=== PATIENT | female | born 1950 | race African-American/Black ===

== ENCOUNTER → 2017-03-05 | Outpatient (CLI) | payer MEDICARE, MEDICAID ==
[~2017-03-05] MED LIST: ASPI-518 PO; CARV6.2548 MT; CARV6.2548 PO; CLOP75TA16 PO; DOCU-138 PO; FURO-151 MT; FURO40TA5 PO; GABA-531 PO; HYDR-4001 PO; HYDR-4134 PO; INSNOV SUBCUT; INSU100I22 SQ; NIFE30TA94 PO; NOVOLOG SUBCUT; PREG75CA PO; SIMV40TA5 PO
== END | disposition home or self-care (01) ==
LOC: MAMMO 08:18
PROVIDERS: ATTEND Internal Medicine Nephrology
DX: Z12.31 Encounter for screening mammogram for malignant neoplasm of breast (principal)
CPT/HCPCS: 77067

== ENCOUNTER → 2017-04-17 | Outpatient (CLI) | payer MEDICARE, MEDICAID ==
[~2017-04-17] MED LIST changes: -CARV6.2548 MT; -CARV6.2548 PO; -FURO-151 MT; -FURO40TA5 PO; -GABA-531 PO; -HYDR-4001 PO; -INSNOV SUBCUT
[2017-04-17 12:14] LABS: BASOPHILS % 1.8 % (0.0-2.0); HEMOGLOBIN. 11.8 g/dL (12.0-16.0); MEAN CORPUSCULAR HEMOGLOBIN 29.8 pg (28.0-32.0); MEAN CORPUSCULAR VOLUME 90.6 fL (81.0-99.0); MEAN PLATELET VOLUME 8.8 fl (7.4-10.4); MONOCYTES % 4.8 % (2.0-8.0); NEUTROPHILS % 64.4 % (40.0-76.0); PLATELET 248 x1000/uL (130-400); RED BLOOD CELL COUNT 3.97 mill/uL (4.2-5.4); RED CELL DISTRIBUTION WIDTH 14.7 % (11.6-14.6)
[2017-04-17 12:48] LABS: T4 FREE 1.01 ng/dL (0.76-1.46)
== END | disposition home or self-care (01) ==
LOC: LAB 11:32
PROVIDERS: ATTEND Internal Medicine Endocrinology, Diabetes & Metabolism
DX: E11.9 Type 2 diabetes mellitus without complications (principal); E55.9 Vitamin D deficiency, unspecified; E78.5 Hyperlipidemia, unspecified
CPT/HCPCS: 36415; 80048; 80061; 82306; 83036; 84439; 84443; 85025

== ENCOUNTER → 2017-06-05 | Outpatient (CLI) | payer MEDICARE, MEDICAID | END | disposition home or self-care (01) | LOC: US 08:30 | PROVIDERS: ATTEND Internal Medicine Nephrology | DX: M25.551 Pain in right hip (principal); M25.552 Pain in left hip; M79.605 Pain in left leg; M79.604 Pain in right leg; W19.XXXA Unspecified fall, initial encounter; Y93.89 Activity, other specified; Y92.89 Other specified places as the place of occurrence of the external cause; Y99.8 Other external cause status | CPT/HCPCS: 73521; 93970 ==

== ENCOUNTER → 2017-07-30 | Outpatient (CLI) | payer MEDICARE, MEDICAID | END | disposition home or self-care (01) | LOC: RAD 11:53 | PROVIDERS: ATTEND Internal Medicine Nephrology | DX: I51.7 Cardiomegaly (principal); E11.9 Type 2 diabetes mellitus without complications; E78.5 Hyperlipidemia, unspecified | CPT/HCPCS: 71046 ==

== ENCOUNTER → 2017-09-18 | Outpatient (CLI) | payer MEDICARE, MEDICAID | END | disposition home or self-care (01) | LOC: RAD 11:27 | PROVIDERS: ATTEND Internal Medicine Nephrology | DX: M25.561 Pain in right knee (principal); M25.562 Pain in left knee; M79.89 Other specified soft tissue disorders | CPT/HCPCS: 73562 ==

== ENCOUNTER 2017-12-18 12:56 | Inpatient (IN) | payer MEDICARE, MEDICAID ==
[~2017-12-18] VITALS: Ht 170.2 cm; Wt 90.7 kg
[~2017-12-18 12:56] MED LIST changes: +CARV6.2548 MT; +FURO-151 MT; +GABA-531 PO
[2017-12-18] MEDS ORDERED: ASPIRIN 81MG TABLET PO ONE (13:45)
[2017-12-18 14:52] LABS: BASOPHILS % 1.2 % (0.0-2.0); EOSINOPHILS % 0.8 % (0.0-5.0); HEMATOCRIT. 38.2 % (36.0-48.0); HEMOGLOBIN. 12.3 g/dL (12.0-16.0); LYMPHOCYTES % 31.5 % (20.0-50.0); MEAN CORPUSCULAR HEMOGLOBIN 29.2 pg (28.0-32.0); MEAN CORPUSCULAR VOLUME 90.8 fL (81.0-99.0); MEAN PLATELET VOLUME 9.7 fl (7.4-10.4); MONOCYTES % 4.7 % (2.0-8.0); NEUTROPHILS % 61.8 % (40.0-76.0); PLATELET 190 x1000/uL (130-400); RED BLOOD CELL COUNT 4.21 mill/uL (4.2-5.4); RED CELL DISTRIBUTION WIDTH 15.2 % (11.6-14.6)
[2017-12-18 15:04] LABS: CHLORIDE 110 mEq/L (98-107)
[2017-12-18] MEDS ORDERED: ONDANSETRON HCL 4MG/2ML INJ IV PRN (16:00)
[2017-12-18] MEDS ORDERED: MORPHINE SULFATE 4 MG/ML CPJ (NOT FOR IM USE) IV PRN (16:00)
[2017-12-18] MEDS ORDERED: CLONIDINE 0.1MG TABLET PO PRN (16:00)
[2017-12-18] MEDS ORDERED: ACETAMINOPHEN 325MG TABLET PO PRN (16:00)
[2017-12-18] MEDS ORDERED: DOCUSATE SODIUM 100MG CAPSULE PO PRN (16:00)
[2017-12-18] MEDS ORDERED: INSULIN NPH (HUMULIN-N) 100 UNITS/ML 3ML VIAL SUBCUT ONE (16:15)
[2017-12-18] MEDS ORDERED: ENOXAPARIN 30MG/0.3ML SYR SUBCUT SCH (17:30)
[2017-12-18] MEDS: FUROSEMIDE 40MG/4ML VIAL IV SCH (17:44)
[2017-12-18] MEDS ORDERED: LEVOFLOXACIN 500MG PREMIX 100 ML IV NR (18:30)
[2017-12-18 18:32] VITALS: BP 137/75
[2017-12-18 20:00] VITALS: BP 149/82
[2017-12-18] MEDS: GABAPENTIN 100MG CAPSULE PO SCH (21:49)
[2017-12-18] MEDS: ATORVASTATIN CALCIUM 20MG TABLET PO SCH (21:49)
[2017-12-18] MEDS: HYDRALAZINE HCL 25MG TABLET PO SCH (21:49)
[2017-12-18] MEDS: CARVEDILOL 6.25 MG TABLET PO SCH (21:51)
[2017-12-18] MEDS ORDERED: INSULIN GLARGINE UD 100 UNITS/ML SYR SUBCUT SCH (22:00)
[2017-12-18] MEDS ORDERED: DEXTROSE 50% WATER 50ML SYRINGE IV PRN (22:15)
[2017-12-19] VITALS: BP 111/57
[2017-12-19 04:00] VITALS: BP 125/59
[2017-12-19] MEDS: BLOOD SUGAR DIAGNOSTIC STRIP TEST SCH ×4 (05:43→21:22)
[2017-12-19] MEDS: HYDRALAZINE HCL 25MG TABLET PO SCH ×3 (05:47→21:22)
[2017-12-19] MEDS: GABAPENTIN 100MG CAPSULE PO SCH ×3 (05:48→21:21)
[2017-12-19 08:00] VITALS: BP 128/74
[2017-12-19] MEDS: INSULIN LISPRO 100 UNITS/ML SUBCUT SCH ×4 (08:10→21:22)
[2017-12-19] MEDS: FUROSEMIDE 40MG/4ML VIAL IV SCH (08:50)
[2017-12-19] MEDS: ASPIRIN 81MG TABLET PO SCH (08:51)
[2017-12-19] MEDS: CLOPIDOGREL 75MG TABLET PO SCH (08:51)
[2017-12-19] MEDS: CARVEDILOL 6.25 MG TABLET PO SCH ×2 (08:51→21:22)
[2017-12-19 12:00] VITALS: BP 139/76
[2017-12-19 13:25] LABS: BASOPHILS % 0.7 % (0.0-2.0); EOSINOPHILS % 0.1 % (0.0-5.0); HEMATOCRIT. 36.1 % (36.0-48.0); HEMOGLOBIN. 11.8 g/dL (12.0-16.0); MEAN CORPUSCULAR HEMOGLOBIN 29.4 pg (28.0-32.0); MEAN CORPUSCULAR VOLUME 89.7 fL (81.0-99.0); MEAN PLATELET VOLUME 10.1 fl (7.4-10.4); MONOCYTES % 3.5 % (2.0-8.0); NEUTROPHILS % 75.7 % (40.0-76.0); PLATELET 205 x1000/uL (130-400); RED BLOOD CELL COUNT 4.03 mill/uL (4.2-5.4); RED CELL DISTRIBUTION WIDTH 15.1 % (11.6-14.6)
[2017-12-19 14:12] LABS: CHLORIDE 107 mEq/L (98-107)
[2017-12-19 14:17] LABS: LDL CHOLESTEROL 79 mg/dL (5-100)
[2017-12-19 14:23] LABS: CREATINE KINASE 85 IU/L (26-192); CREATINE KINASE MB FRACTION 3.3 ng/mL (0.5-3.6); HDL CHOLESTEROL 56 mg/dL (40-59)
[2017-12-19 16:00] VITALS: BP 130/71
[2017-12-19] MEDS ORDERED: SODIUM POLYSTYRENE SULFONATE 15 G/60 ML BOT PO SCH (18:15)
[2017-12-19] MEDS ORDERED: LEVOFLOXACIN 250MG PREMIX 50 ML IV SCH (18:30)
[2017-12-19 18:39] LABS: CLARITY URINE CLEAR (CLEAR); COLOR URINE YELLOW (YELLOW); KETONES URINE NEGATIVE (NEGATIVE); LEUKOCYTE ESTERASE URINE NEGATIVE (NEGATIVE); NITRITE URINE NEGATIVE (NEGATIVE); OCCULT BLOOD URINE NEGATIVE (NEGATIVE); PROTEIN URINE 2+ (NEGATIVE); UROBILINOGEN URINE 0.2 E.U./dL (0.2-1.0)
[2017-12-19 19:48] LABS: *AMPHETAMINES SCREEN URINE NEGATIVE (NEGATIVE); *BARBITURATES SCREEN URINE NEGATIVE (NEGATIVE); *BENZODIAZEPINES SCREEN URINE NEGATIVE (NEGATIVE); *COCAINE SCREEN URINE NEGATIVE (NEGATIVE); METHADONE URINE SCREEN NEGATIVE (NEGATIVE)
[2017-12-19 19:49] LABS: CANNABINOID URINE SCREEN NEGATIVE (NEGATIVE); OPIATES URINE SCREEN PRESUMTIVE POSITIVE (NEGATIVE); PHENCYCLIDINE URINE SCREEN NEGATIVE (NEGATIVE)
[2017-12-19 20:00] VITALS: BP 143/78
[2017-12-19] MEDS: ATORVASTATIN CALCIUM 20MG TABLET PO SCH (21:21)
[2017-12-19] MEDS ORDERED: INSULIN GLARGINE UD 100 UNITS/ML SYR SUBCUT SCH (22:00)
[2017-12-19] MEDS: IPRATROPIUM/ALBUTEROL 0.5-3(2.5)MG/3ML NEB INH SCH (22:06)
[2017-12-20] VITALS: BP 134/71
[2017-12-20 04:00] VITALS: BP 131/61
[2017-12-20] MEDS: IPRATROPIUM/ALBUTEROL 0.5-3(2.5)MG/3ML NEB INH SCH ×2 (04:37→07:35)
[2017-12-20] MEDS: GABAPENTIN 100MG CAPSULE PO SCH ×2 (05:41→15:34)
[2017-12-20] MEDS: HYDRALAZINE HCL 25MG TABLET PO SCH ×2 (05:42→15:34)
[2017-12-20 06:14] LABS: BASOPHILS % 0.7 % (0.0-2.0); EOSINOPHILS % 0.7 % (0.0-5.0); HEMATOCRIT. 37.4 % (36.0-48.0); HEMOGLOBIN. 12.1 g/dL (12.0-16.0); LYMPHOCYTES % 31.9 % (20.0-50.0); MEAN CORPUSCULAR HEMOGLOBIN 29.5 pg (28.0-32.0); MEAN CORPUSCULAR VOLUME 91.1 fL (81.0-99.0); MEAN PLATELET VOLUME 10.1 fl (7.4-10.4); MONOCYTES % 7.1 % (2.0-8.0); NEUTROPHILS % 59.6 % (40.0-76.0); PLATELET 189 x1000/uL (130-400); RED CELL DISTRIBUTION WIDTH 15.1 % (11.6-14.6)
[2017-12-20] MEDS: BLOOD SUGAR DIAGNOSTIC STRIP TEST SCH ×2 (07:40→11:58)
[2017-12-20 08:00] VITALS: BP 118/57
[2017-12-20] MEDS: CLOPIDOGREL 75MG TABLET PO SCH (09:00)
[2017-12-20] MEDS: CARVEDILOL 6.25 MG TABLET PO SCH (09:00)
[2017-12-20] MEDS: ASPIRIN 81MG TABLET PO SCH (09:00)
[2017-12-20] MEDS: FUROSEMIDE 40MG/4ML VIAL IV SCH (09:01)
[2017-12-20] MEDS: INSULIN LISPRO 100 UNITS/ML SUBCUT SCH ×2 (09:02→13:04)
[2017-12-20 12:00] VITALS: BP 122/59
[2017-12-20 14:11] VITALS: BP 20/141
[2017-12-20 16:00] VITALS: BP 141/65
[2017-12-21] MEDS ORDERED: LEVOFLOXACIN 250MG TABLET PO SCH (17:00)
== END 2017-12-20 17:19 | disposition home or self-care (01) | DRG 291 ==
LOC: ER 13:49 → 7WST 15:38 → EDBEDREQTM 15:42 → EDBEDREQ 15:42 → ENRESERV 15:55
PROVIDERS: ADMIT Internal Medicine Nephrology; ATTEND Internal Medicine Nephrology
DX: I13.0 Hypertensive heart and chronic kidney disease with heart failure and stage 1 through stage 4 chronic kidney disease, or unspecified chronic kidney disease (principal); I50.23 Acute on chronic systolic (congestive) heart failure; N17.9 Acute kidney failure, unspecified; E87.2 Acidosis; E44.0 Moderate protein-calorie malnutrition; N18.4 Chronic kidney disease, stage 4 (severe); E16.0 Drug-induced hypoglycemia without coma; E11.22 Type 2 diabetes mellitus with diabetic chronic kidney disease; E11.649 Type 2 diabetes mellitus with hypoglycemia without coma; E78.5 Hyperlipidemia, unspecified; F17.200 Nicotine dependence, unspecified, uncomplicated; J44.9 Chronic obstructive pulmonary disease, unspecified; I34.0 Nonrheumatic mitral (valve) insufficiency; I25.5 Ischemic cardiomyopathy; T40.2X5A Adverse effect of other opioids, initial encounter; Z86.73 Personal history of transient ischemic attack (TIA), and cerebral infarction without residual deficits; Y92.89 Other specified places as the place of occurrence of the external cause; Z68.31 Body mass index [BMI] 31.0-31.9, adult
CPT/HCPCS: 36415; 71045; 78582; 80048; 80061; 80305; 82550; 82553; 82962; 83036; 83735; 83880; 84439; 84443; 84484; 85379; 86803; 93005; 93306; 93970; 97162; 97166; 99291; A9558; C1893; J1650; J1815; J1940; J1956; J2270; J7620

== ENCOUNTER 2017-12-23 21:26 | Inpatient (IN) | payer MEDICARE, MEDICAID ==
[~2017-12-23] VITALS: Ht 170.2 cm; Wt 102.5 kg
[2017-12-23] MEDS ORDERED: HYDROCODONE/ACETAMINOPHEN 5/325MG TABLET PO STA (22:56)
[2017-12-23] MEDS ORDERED: METHYLPREDNISOLONE SOD SUCC 125 MG/2 ML VIAL IV STA (22:56)
[2017-12-23] MEDS ORDERED: IPRATROPIUM BROMIDE (0.02%) 0.5MG/2.5ML NEB HHN STA (22:56)
[2017-12-23] MEDS ORDERED: FUROSEMIDE 40MG/4ML VIAL IVP ONE (23:00)
[2017-12-23] MEDS ORDERED: CARVEDILOL 6.25 MG TABLET PO ONE (23:00)
[2017-12-23] MEDS ORDERED: HYDRALAZINE HCL 25MG TABLET PO ONE (23:00)
[2017-12-23] MEDS ORDERED: ASPIRIN 81MG TABLET PO ONE (23:00)
[2017-12-23] MEDS: ALBUTEROL (0.083%) 2.5MG/3ML NEB HHN SCH ×2 (23:10→23:40)
[2017-12-23] MEDS ORDERED: HYDROCODONE/ACETAMINOPHEN 5/325MG TABLET PO SCH ×2 (23:27→23:34)
[2017-12-24] VITALS (9 sets, daily range): BP systolic 117–158; BP diastolic 71–95
[2017-12-24] MEDS ORDERED: LEVOFLOXACIN 750MG PREMIX 150 ML IV ONE (00:15)
[2017-12-24 00:18] LABS: CLARITY URINE CLEAR (CLEAR); COLOR URINE YELLOW (YELLOW); KETONES URINE NEGATIVE (NEGATIVE); LEUKOCYTE ESTERASE URINE NEGATIVE (NEGATIVE); NITRITE URINE NEGATIVE (NEGATIVE); OCCULT BLOOD URINE TRACE (NEGATIVE); PROTEIN URINE 2+ (NEGATIVE); SPECIFIC GRAVITY URINE 1.014 (1.005-1.030); UROBILINOGEN URINE 0.2 E.U./dL (0.2-1.0)
[2017-12-24] MEDS: ALBUTEROL (0.083%) 2.5MG/3ML NEB HHN SCH (00:20)
[2017-12-24 00:24] LABS: BG BASE EXCESS -2.4 mmol/L (-2.0-2.0); BG BILEVEL POS AIRWAY PRESSURE 15/5; BG CARBOXYHEMOGLOBIN 2.3 % (0.5-1.5); BG DEOXYHEMOGLOBIN 1.8 % (0.0-5.0); BG FRACTION INSPIRED OXYGEN 60; BG HCO3 ACT 27.7 mmol/L (22.0-26.0); BG METHEMOGLOBIN 0.3 % (0.0-1.5); BG OXYGEN SATURATION 98.2 % (92.0-98.5); BG OXYHEMOGLOBIN 95.6 % (94.0-97.0); BG PCO2 75.8 mmHg (35.0-45.0); BG PO2 139.1 mmHg (75.0-100.0); BG SAMPLE SITE RIGHT RADIAL; BG VENT MODE MASK - BIPAP; BG VENT RATE 18 set
[2017-12-24 00:50] LABS: BASOPHILS % 0.5 % (0.0-2.0); EOSINOPHILS % 0.5 % (0.0-5.0); HEMATOCRIT. 39.8 % (36.0-48.0); HEMOGLOBIN. 12.7 g/dL (12.0-16.0); LYMPHOCYTES % 20.5 % (20.0-50.0); MEAN CORPUSCULAR HEMOGLOBIN 29.9 pg (28.0-32.0); MEAN CORPUSCULAR VOLUME 93.6 fL (81.0-99.0); MEAN PLATELET VOLUME 9.5 fl (7.4-10.4); NEUTROPHILS % 74.5 % (40.0-76.0); PLATELET 219 x1000/uL (130-400); RED BLOOD CELL COUNT 4.25 mill/uL (4.2-5.4); RED CELL DISTRIBUTION WIDTH 15.4 % (11.6-14.6)
[2017-12-24 00:55] LABS: PARTIAL THROMBOPLASTIN TIME 26.1 sec (23.4-31.0); PROTHROMBIN TIME 10.5 sec (9.1-11.1)
[2017-12-24 00:56] LABS: CHLORIDE 104 mEq/L (98-107)
[2017-12-24] MEDS ORDERED: INSULIN LISPRO 100 UNITS/ML SUBCUT SCH ×2 (02:44→06:30)
[2017-12-24] MEDS ORDERED: DEXTROSE 50% WATER 50ML SYRINGE IV PRN (06:30)
[2017-12-24] MEDS ORDERED: FUROSEMIDE 40MG/4ML VIAL IVP SCH ×2 (06:30→09:00)
[2017-12-24] MEDS: BLOOD SUGAR DIAGNOSTIC STRIP TEST SCH ×4 (06:49→21:33)
[2017-12-24] MEDS: INSULIN LISPRO 100 UNITS/ML SUBCUT SCH ×4 (06:52→21:34)
[2017-12-24] MEDS ORDERED: POTASSIUM CHLORIDE 20MEQ TABLET SR PO SCH (09:00)
[2017-12-24] MEDS ORDERED: INSULIN GLARGINE UD 100 UNITS/ML SYR SUBCUT SCH (10:00)
[2017-12-24 12:03] LABS: HEMATOCRIT. 36.6 % (36.0-48.0); MEAN CORPUSCULAR HEMOGLOBIN 29.5 pg (28.0-32.0); MEAN CORPUSCULAR VOLUME 90.1 fL (81.0-99.0); MEAN PLATELET VOLUME 9.7 fl (7.4-10.4); PLATELET 194 x1000/uL (130-400); RED BLOOD CELL COUNT 4.06 mill/uL (4.2-5.4); RED CELL DISTRIBUTION WIDTH 14.9 % (11.6-14.6)
[2017-12-24] MEDS: DOCUSATE SODIUM 250MG CAPSULE PO SCH (15:51)
[2017-12-24] MEDS: GABAPENTIN 300MG CAPSULE PO SCH (15:51)
[2017-12-24] MEDS: CARVEDILOL 6.25 MG TABLET PO SCH ×2 (15:52→21:32)
[2017-12-24] MEDS: NIFEDIPINE XL 90MG TAB PO SCH (15:52)
[2017-12-24] MEDS: HYDRALAZINE HCL 25MG TABLET PO SCH ×2 (15:52→21:31)
[2017-12-24] MEDS: ASPIRIN 81MG TABLET PO SCH (15:53)
[2017-12-24] MEDS ORDERED: IPRATROPIUM/ALBUTEROL 0.5-3(2.5)MG/3ML NEB HHN PRN (16:00)
[2017-12-24] MEDS: CLOPIDOGREL 75MG TABLET PO SCH (16:01)
[2017-12-24] MEDS: IPRATROPIUM/ALBUTEROL 0.5-3(2.5)MG/3ML NEB HHN SCH ×2 (16:32→21:44)
[2017-12-24 16:40] LABS: BG CARBOXYHEMOGLOBIN 0.5 % (0.5-1.5); BG DEOXYHEMOGLOBIN 4.3 % (0.0-5.0); BG FRACTION INSPIRED OXYGEN 32; BG HCO3 ACT 25.6 mmol/L (22.0-26.0); BG METHEMOGLOBIN 0.3 % (0.0-1.5); BG OXYGEN SATURATION 95.7 % (92.0-98.5); BG OXYHEMOGLOBIN 94.9 % (94.0-97.0); BG PCO2 45.7 mmHg (35.0-45.0); BG PH 7.367 (7.350-7.450); BG PO2 79.1 mmHg (75.0-100.0); BG SAMPLE SITE RIGHT BRACHIAL; BG VENT MODE NASAL CANNULA
[2017-12-24 16:58] LABS: PLATELET ESTIMATE NORMAL
[2017-12-24] MEDS: ATORVASTATIN CALCIUM 20MG TABLET PO SCH (21:31)
[2017-12-24] MEDS: BUDESONIDE 0.5MG/2ML NEB HHN SCH (21:44)
[2017-12-24] MEDS ORDERED: LEVOFLOXACIN 250MG PREMIX 50 ML IV SCH (23:00)
[2017-12-25] VITALS (10 sets, daily range): BP systolic 90–134; BP diastolic 52–85
[2017-12-25] MEDS: IPRATROPIUM/ALBUTEROL 0.5-3(2.5)MG/3ML NEB HHN SCH ×5 (01:17→21:03)
[2017-12-25] MEDS: HYDRALAZINE HCL 25MG TABLET PO SCH ×3 (05:21→21:10)
[2017-12-25] MEDS ORDERED: INSULIN LISPRO 100 UNITS/ML SUBCUT SCH (07:30)
[2017-12-25] MEDS: BLOOD SUGAR DIAGNOSTIC STRIP TEST SCH ×4 (07:30→20:20)
[2017-12-25 08:07] LABS: BASOPHILS % 0.3 % (0.0-2.0); EOSINOPHILS % 0.1 % (0.0-5.0); HEMATOCRIT. 33.9 % (36.0-48.0); HEMOGLOBIN. 11.1 g/dL (12.0-16.0); MEAN CORPUSCULAR HEMOGLOBIN 29.5 pg (28.0-32.0); MEAN CORPUSCULAR VOLUME 90.3 fL (81.0-99.0); MEAN PLATELET VOLUME 10.1 fl (7.4-10.4); MONOCYTES % 4.6 % (2.0-8.0); PLATELET 181 x1000/uL (130-400); RED BLOOD CELL COUNT 3.76 mill/uL (4.2-5.4); RED CELL DISTRIBUTION WIDTH 15.1 % (11.6-14.6)
[2017-12-25] MEDS: GABAPENTIN 300MG CAPSULE PO SCH (08:44)
[2017-12-25] MEDS: ASPIRIN 81MG TABLET PO SCH (08:44)
[2017-12-25] MEDS: DOCUSATE SODIUM 250MG CAPSULE PO SCH (08:44)
[2017-12-25] MEDS ORDERED: ACETAMINOPHEN 650MG/20.3ML UDC PO PRN (08:45)
[2017-12-25] MEDS ORDERED: ONDANSETRON HCL 4MG/2ML INJ IV PRN (08:45)
[2017-12-25] MEDS: CARVEDILOL 6.25 MG TABLET PO SCH ×2 (08:45→20:20)
[2017-12-25] MEDS ORDERED: CLONIDINE 0.1MG TABLET PO PRN (08:45)
[2017-12-25] MEDS: NIFEDIPINE XL 90MG TAB PO SCH (08:46)
[2017-12-25] MEDS: INSULIN LISPRO (LOW DOSE) 100 UNITS/ML SUBCUT SCH ×4 (08:53→20:20)
[2017-12-25] MEDS: CLOPIDOGREL 75MG TABLET PO SCH (08:53)
[2017-12-25] MEDS: INSULIN LISPRO 100 UNITS/ML SUBCUT SCH ×3 (08:53→18:16)
[2017-12-25] MEDS: HYDROCODONE/ACETAMINOPHEN 5/325MG TABLET PO PRN ×2 (08:54→15:52)
[2017-12-25] MEDS: FUROSEMIDE 40MG TABLET PO SCH (09:02)
[2017-12-25] MEDS: INSULIN GLARGINE UD 100 UNITS/ML SYR SUBCUT SCH (10:39)
[2017-12-25] MEDS: BUDESONIDE 0.5MG/2ML NEB HHN SCH ×2 (12:13→21:03)
[2017-12-25] MEDS ORDERED: CEFTRIAXONE 1 G PREMIX 50 ML IV SCH (15:00)
[2017-12-25] MEDS: AZITHROMYCIN 500 MG in DEXT 5% WATER 250 ML IV SCH (15:19)
[2017-12-25] MEDS ORDERED: ACETYLCYSTEINE 200MG/ML 20% VIAL 4ML PO NR (16:30)
[2017-12-25] MEDS: CEFTRIAXONE 1 G PREMIX 50 ML IV SCH (18:13)
[2017-12-25] MEDS: ATORVASTATIN CALCIUM 20MG TABLET PO SCH (20:19)
[2017-12-26] VITALS (12 sets, daily range): BP systolic 106–143; BP diastolic 57–71
[2017-12-26] MEDS: IPRATROPIUM/ALBUTEROL 0.5-3(2.5)MG/3ML NEB HHN SCH ×6 (00:10→21:10)
[2017-12-26] MEDS: HYDROCODONE/ACETAMINOPHEN 5/325MG TABLET PO PRN ×2 (03:43→20:55)
[2017-12-26] MEDS: HYDRALAZINE HCL 25MG TABLET PO SCH ×3 (05:26→21:33)
[2017-12-26] MEDS: INSULIN LISPRO 100 UNITS/ML SUBCUT SCH ×3 (07:30→17:30)
[2017-12-26] MEDS: INSULIN LISPRO (LOW DOSE) 100 UNITS/ML SUBCUT SCH (08:00)
[2017-12-26] MEDS: BLOOD SUGAR DIAGNOSTIC STRIP TEST SCH ×4 (08:21→21:33)
[2017-12-26] MEDS: FUROSEMIDE 40MG TABLET PO SCH (08:33)
[2017-12-26] MEDS: DOCUSATE SODIUM 250MG CAPSULE PO SCH (08:33)
[2017-12-26] MEDS: CLOPIDOGREL 75MG TABLET PO SCH (08:33)
[2017-12-26] MEDS: CARVEDILOL 6.25 MG TABLET PO SCH ×2 (08:34→21:32)
[2017-12-26] MEDS: NIFEDIPINE XL 90MG TAB PO SCH (08:34)
[2017-12-26] MEDS: ASPIRIN 81MG TABLET PO SCH (08:34)
[2017-12-26] MEDS: GABAPENTIN 300MG CAPSULE PO SCH (08:34)
[2017-12-26] MEDS: BUDESONIDE 0.5MG/2ML NEB HHN SCH (08:55)
[2017-12-26] MEDS: INSULIN GLARGINE UD 100 UNITS/ML SYR SUBCUT SCH ×2 (10:00→11:30)
[2017-12-26] MEDS ORDERED: INSULIN LISPRO 100 UNITS/ML SUBCUT SCH (12:30)
[2017-12-26] MEDS: AZITHROMYCIN 500 MG in DEXT 5% WATER 250 ML IV SCH (14:18)
[2017-12-26] MEDS: CEFTRIAXONE 1 G PREMIX 50 ML IV SCH (17:43)
[2017-12-26] MEDS: INSULIN LISPRO (CUSTOM DOSE) 100 UNITS/ML SUBCUT SCH (17:44)
[2017-12-26] MEDS ORDERED: NITROGLYCERIN 0.4MG TABLET SL SL PRN (19:45)
[2017-12-26] MEDS: ATORVASTATIN CALCIUM 20MG TABLET PO SCH (21:31)
[2017-12-27] VITALS (7 sets, daily range): BP systolic 98–148; BP diastolic 49–77
[2017-12-27] MEDS: IPRATROPIUM/ALBUTEROL 0.5-3(2.5)MG/3ML NEB HHN SCH ×3 (01:30→08:11)
[2017-12-27] MEDS: HYDRALAZINE HCL 25MG TABLET PO SCH (05:55)
[2017-12-27] MEDS: INSULIN LISPRO (CUSTOM DOSE) 100 UNITS/ML SUBCUT SCH (07:30)
[2017-12-27] MEDS: BLOOD SUGAR DIAGNOSTIC STRIP TEST SCH (07:30)
[2017-12-27] MEDS: INSULIN LISPRO 100 UNITS/ML SUBCUT SCH (07:30)
[2017-12-27] MEDS: HYDROCODONE/ACETAMINOPHEN 5/325MG TABLET PO PRN (07:49)
[2017-12-27] MEDS: BUDESONIDE 0.5MG/2ML NEB HHN SCH (08:10)
[2017-12-27] MEDS ORDERED: ISOSORBIDE MONONITRATE 30MG TABLET SR 24HR PO SCH (09:00)
[2017-12-27] MEDS: CLOPIDOGREL 75MG TABLET PO SCH (09:08)
[2017-12-27] MEDS: ASPIRIN 81MG TABLET PO SCH (09:08)
[2017-12-27] MEDS: GABAPENTIN 300MG CAPSULE PO SCH (09:08)
[2017-12-27] MEDS: NIFEDIPINE XL 90MG TAB PO SCH (09:09)
[2017-12-27] MEDS: CARVEDILOL 6.25 MG TABLET PO SCH (09:09)
[2017-12-27] MEDS: DOCUSATE SODIUM 250MG CAPSULE PO SCH (09:09)
[2017-12-27] MEDS: FUROSEMIDE 40MG TABLET PO SCH (09:10)
[2017-12-27] MEDS: INSULIN GLARGINE UD 100 UNITS/ML SYR SUBCUT SCH (10:36)
[2017-12-27] MEDS ORDERED: INSULIN GLARGINE UD 100 UNITS/ML SYR SUBCUT SCH (12:00)
[2017-12-27] MEDS ORDERED: INSULIN LISPRO 100 UNITS/ML SUBCUT SCH (12:30)
== END 2017-12-27 11:15 | disposition home or self-care (01) | DRG 871 ==
LOC: ER 21:26 → 5EST 12-24 00:31 → EDBEDREQDT 12-24 00:34 → EDBEDREQTM 12-24 00:34 → EDBEDREQ 12-24 00:34 → EDBEDREQSVC 12-24 00:34 → ENRESERV 12-24 01:45
PROVIDERS: ADMIT Internal Medicine Nephrology; ATTEND Internal Medicine Nephrology
PROC: 5A09357 Assistance with Respiratory Ventilation, Less than 24 Consecutive Hours, Continuous Positive Airway Pressure (ICD-10-PCS; principal; 2017-12-24)
DX: A41.9 Sepsis, unspecified organism (principal); I50.23 Acute on chronic systolic (congestive) heart failure; J96.22 Acute and chronic respiratory failure with hypercapnia; J18.9 Pneumonia, unspecified organism; I13.0 Hypertensive heart and chronic kidney disease with heart failure and stage 1 through stage 4 chronic kidney disease, or unspecified chronic kidney disease; J44.1 Chronic obstructive pulmonary disease with (acute) exacerbation; E87.2 Acidosis; I42.9 Cardiomyopathy, unspecified; J44.0 Chronic obstructive pulmonary disease with (acute) lower respiratory infection; N18.4 Chronic kidney disease, stage 4 (severe); E11.22 Type 2 diabetes mellitus with diabetic chronic kidney disease; F17.210 Nicotine dependence, cigarettes, uncomplicated; E11.42 Type 2 diabetes mellitus with diabetic polyneuropathy; E11.51 Type 2 diabetes mellitus with diabetic peripheral angiopathy without gangrene; D64.9 Anemia, unspecified; E11.65 Type 2 diabetes mellitus with hyperglycemia; E55.9 Vitamin D deficiency, unspecified; E78.00 Pure hypercholesterolemia, unspecified; Z60.2 Problems related to living alone; Z80.8 Family history of malignant neoplasm of other organs or systems; Z82.49 Family history of ischemic heart disease and other diseases of the circulatory system; Z83.3 Family history of diabetes mellitus; Z86.73 Personal history of transient ischemic attack (TIA), and cerebral infarction without residual deficits; Z99.81 Dependence on supplemental oxygen; Z79.4 Long term (current) use of insulin; Z79.82 Long term (current) use of aspirin; Z79.899 Other long term (current) drug therapy; Z98.49 Cataract extraction status, unspecified eye
CPT/HCPCS: 36415; 36600; 71045; 80048; 82010; 82375; 82805; 82962; 83605; 83880; 84132; 84145; 84443; 84481; 84484; 86376; 87804; 93005; 93306; 93970; 94003; 94640; 94660; 96374; 99285; C1893; J0456; J0696; J1815; J1940; J1956; J2930; J7040; J7060; J7608; J7611; J7620; J7626

== ENCOUNTER 2017-12-31 13:25 | Inpatient (IN) | payer MEDICARE, MEDICAID ==
[~2017-12-31] VITALS: Ht 170.2 cm; Wt 97.7 kg
[2017-12-31 22:00] VITALS: BP 127/72
[2017-12-31 23:24] VITALS: BP 128/68
[2017-12-31] MEDS ORDERED: DOCUSATE SODIUM 100MG CAPSULE PO PRN (23:30)
[2017-12-31] MEDS ORDERED: ACETAMINOPHEN 325MG TABLET PO PRN (23:30)
[2017-12-31] MEDS ORDERED: MORPHINE SULFATE 4 MG/ML CPJ (NOT FOR IM USE) IV PRN (23:30)
[2017-12-31] MEDS ORDERED: HEPARIN 25,000 UNITS PREMIX 500 ML IV PRN (23:30)
[2017-12-31] MEDS ORDERED: ZOLPIDEM TARTRATE 5MG TABLET PO PRN (23:30)
[2017-12-31] MEDS ORDERED: ONDANSETRON HCL 4MG/2ML INJ IV PRN (23:30)
[2017-12-31] MEDS ORDERED: CLONIDINE 0.1MG TABLET PO PRN (23:30)
[2018-01-01] VITALS (14 sets, daily range): BP systolic 106–134; BP diastolic 37–78
[2018-01-01] MEDS ORDERED: DEXTROSE 50% WATER 50ML SYRINGE IV PRN
[2018-01-01 01:25] LABS: BASOPHILS % 0.2 % (0.0-2.0); EOSINOPHILS % 0.1 % (0.0-5.0); HEMATOCRIT. 29.9 % (36.0-48.0); LYMPHOCYTES % 19.6 % (20.0-50.0); MEAN CORPUSCULAR HEMOGLOBIN 29.8 pg (28.0-32.0); MEAN CORPUSCULAR VOLUME 89.3 fL (81.0-99.0); MEAN PLATELET VOLUME 9.5 fl (7.4-10.4); MONOCYTES % 9.5 % (2.0-8.0); NEUTROPHILS % 70.6 % (40.0-76.0); PLATELET 185 x1000/uL (130-400); RED BLOOD CELL COUNT 3.35 mill/uL (4.2-5.4)
[2018-01-01] MEDS ORDERED: HEPARIN BOLUS PRN aPTT <30 IV (03:00)
[2018-01-01] MEDS ORDERED: HEPARIN BOLUS PRN aPTT 30-44 IV (03:00)
[2018-01-01] MEDS: IPRATROPIUM/ALBUTEROL 0.5-3(2.5)MG/3ML NEB INH SCH ×4 (04:31→20:07)
[2018-01-01] MEDS: HEPARIN 25,000 UNITS PREMIX 500 ML IV SCH (04:44)
[2018-01-01] MEDS ORDERED: CARV6.2548 PO (04:54)
[2018-01-01] MEDS ORDERED: INSU100I22 SQ (04:54)
[2018-01-01] MEDS ORDERED: SIMV40TA5 PO (04:54)
[2018-01-01] MEDS ORDERED: FURO40TA5 PO (04:54)
[2018-01-01] MEDS ORDERED: DOCU-138 PO (04:54)
[2018-01-01] MEDS ORDERED: HYDR-4134 PO (04:54)
[2018-01-01] MEDS ORDERED: GABA-531 PO (04:54)
[2018-01-01] MEDS ORDERED: CLOP75TA16 PO (04:54)
[2018-01-01] MEDS ORDERED: INSNOV SUBCUT (04:54)
[2018-01-01] MEDS ORDERED: HYDR-4001 PO (04:54)
[2018-01-01 06:18] LABS: BASOPHILS % 0.2 % (0.0-2.0); EOSINOPHILS % 0.2 % (0.0-5.0); HEMATOCRIT. 29.5 % (36.0-48.0); HEMOGLOBIN. 9.7 g/dL (12.0-16.0); LYMPHOCYTES % 23.5 % (20.0-50.0); MEAN CORPUSCULAR HEMOGLOBIN 29.5 pg (28.0-32.0); MEAN CORPUSCULAR VOLUME 89.5 fL (81.0-99.0); MEAN PLATELET VOLUME 9.7 fl (7.4-10.4); MONOCYTES % 8.7 % (2.0-8.0); NEUTROPHILS % 67.4 % (40.0-76.0); PLATELET 188 x1000/uL (130-400); RED BLOOD CELL COUNT 3.29 mill/uL (4.2-5.4)
[2018-01-01] MEDS: BLOOD SUGAR DIAGNOSTIC STRIP TEST SCH ×4 (06:33→21:52)
[2018-01-01] MEDS: HYDRALAZINE HCL 25MG TABLET PO SCH ×4 (06:33→22:00)
[2018-01-01] MEDS: GABAPENTIN 300MG CAPSULE PO SCH ×3 (06:34→21:52)
[2018-01-01 07:17] LABS: CHLORIDE 104 mEq/L (98-107)
[2018-01-01 07:48] LABS: LDL CHOLESTEROL 61 mg/dL (5-100)
[2018-01-01 07:49] LABS: HDL CHOLESTEROL 49 mg/dL (40-59)
[2018-01-01] MEDS: INSULIN LISPRO 100 UNITS/ML SUBCUT SCH ×4 (08:31→22:01)
[2018-01-01] MEDS: FUROSEMIDE 40MG TABLET PO SCH (08:34)
[2018-01-01] MEDS: CARVEDILOL 6.25 MG TABLET PO SCH ×2 (08:34→21:53)
[2018-01-01] MEDS: NIFEDIPINE XL 60MG TAB PO SCH (08:34)
[2018-01-01] MEDS: HYDROCODONE/ACETAMINOPHEN 10/325MG TABLET PO PRN ×2 (12:39→22:09)
[2018-01-01] MEDS ORDERED: IPRATROPIUM/ALBUTEROL 0.5-3(2.5)MG/3ML NEB HHN PRN (13:00)
[2018-01-01] MEDS: BUDESONIDE 0.5MG/2ML NEB HHN SCH (20:07)
[2018-01-01] MEDS: ATORVASTATIN CALCIUM 20MG TABLET PO SCH (21:52)
[2018-01-01] MEDS ORDERED: INSULIN GLARGINE UD 100 UNITS/ML SYR SUBCUT SCH (22:00)
[2018-01-01] MEDS: INSULIN GLARGINE UD 100 UNITS/ML SYR SUBCUT SCH (22:01)
[2018-01-02] VITALS (12 sets, daily range): BP systolic 114–134; BP diastolic 58–74
[2018-01-02 03:03] LABS: BASOPHILS % 1.1 % (0.0-2.0); EOSINOPHILS % 0.7 % (0.0-5.0); HEMATOCRIT. 29.2 % (36.0-48.0); HEMOGLOBIN. 10.1 g/dL (12.0-16.0); LYMPHOCYTES % 32.4 % (20.0-50.0); MEAN CORPUSCULAR VOLUME 89.9 fL (81.0-99.0); MEAN PLATELET VOLUME 8.6 fl (7.4-10.4); MONOCYTES % 6.8 % (2.0-8.0); PLATELET 178 x1000/uL (130-400); RED BLOOD CELL COUNT 3.24 mill/uL (4.2-5.4); RED CELL DISTRIBUTION WIDTH 15.1 % (11.6-14.6)
[2018-01-02] MEDS: IPRATROPIUM/ALBUTEROL 0.5-3(2.5)MG/3ML NEB INH SCH ×4 (03:04→21:37)
[2018-01-02 03:07] LABS: CHLORIDE 105 mEq/L (98-107)
[2018-01-02 03:21] LABS: PHOSPHORUS 4.7 mg/dL (2.5-4.9)
[2018-01-02 04:11] LABS: CLARITY URINE CLEAR (CLEAR); COLOR URINE YELLOW (YELLOW); KETONES URINE NEGATIVE (NEGATIVE); LEUKOCYTE ESTERASE URINE NEGATIVE (NEGATIVE); NITRITE URINE NEGATIVE (NEGATIVE); OCCULT BLOOD URINE NEGATIVE (NEGATIVE); PROTEIN URINE TRACE (NEGATIVE); SPECIFIC GRAVITY URINE 1.009 (1.005-1.030); UROBILINOGEN URINE 0.2 E.U./dL (0.2-1.0)
[2018-01-02] MEDS: HEPARIN 25,000 UNITS PREMIX 500 ML IV SCH (05:12)
[2018-01-02] MEDS: HYDRALAZINE HCL 25MG TABLET PO SCH ×3 (05:19→21:13)
[2018-01-02] MEDS: GABAPENTIN 300MG CAPSULE PO SCH ×3 (05:20→21:13)
[2018-01-02] MEDS: BUDESONIDE 0.5MG/2ML NEB HHN SCH ×2 (07:18→21:37)
[2018-01-02] MEDS: INSULIN LISPRO 100 UNITS/ML SUBCUT SCH ×4 (07:20→20:51)
[2018-01-02] MEDS: BLOOD SUGAR DIAGNOSTIC STRIP TEST SCH ×4 (07:38→20:48)
[2018-01-02] MEDS: CARVEDILOL 6.25 MG TABLET PO SCH ×2 (08:39→20:40)
[2018-01-02] MEDS: NIFEDIPINE XL 60MG TAB PO SCH (08:40)
[2018-01-02] MEDS: FUROSEMIDE 40MG TABLET PO SCH (08:40)
[2018-01-02] MEDS ORDERED: LIDOCAINE HCL 1% 20ML VIAL (Pyxis) INJ ONE (08:47)
[2018-01-02] MEDS ORDERED: IODIXANOL 320MG/ML 100 ML BOTTLE IV ONE (08:48)
[2018-01-02] MEDS ORDERED: MIDAZOLAM HCL 2 MG/2 ML VIAL ONE (08:48)
[2018-01-02] MEDS ORDERED: FENTANYL CITRATE/PF 50MCG/ML 2ML VIAL ONE (08:49)
[2018-01-02] MEDS ORDERED: IOHEXOL-300 100 ML BOTTLE ONE (10:05)
[2018-01-02] MEDS ORDERED: CLOPIDOGREL 75MG TABLET ONE (10:38)
[2018-01-02] MEDS ORDERED: ATROPINE SULFATE 1MG/10ML SYR IV PRN (11:00)
[2018-01-02] MEDS: HYDROCODONE/ACETAMINOPHEN 10/325MG TABLET PO PRN ×2 (11:22→20:40)
[2018-01-02] MEDS ORDERED: HEPARIN SODIUM 1,000 UNIT/1ML VIAL IV ONE (16:21)
[2018-01-02] MEDS ORDERED: NITROGLYCERIN 50MCG/ML 10ML VIAL (CATH LAB) IV ONE (16:21)
[2018-01-02] MEDS ORDERED: NICARDIPINE 100MCG/ML 10ML VIAL (CATH LAB) IV ONE (16:21)
[2018-01-02] MEDS: ATORVASTATIN CALCIUM 20MG TABLET PO SCH (20:40)
[2018-01-02] MEDS ORDERED: EPOETIN ALFA 10000UNITS/ML VIAL SUBCUT SCH (21:00)
[2018-01-02] MEDS: INSULIN GLARGINE UD 100 UNITS/ML SYR SUBCUT SCH (21:15)
[2018-01-03] VITALS (11 sets, daily range): BP systolic 98–133; BP diastolic 46–74
[2018-01-03] MEDS: IPRATROPIUM/ALBUTEROL 0.5-3(2.5)MG/3ML NEB INH SCH ×4 (01:45→20:55)
[2018-01-03] MEDS: GABAPENTIN 300MG CAPSULE PO SCH ×3 (05:56→20:56)
[2018-01-03] MEDS: HYDRALAZINE HCL 25MG TABLET PO SCH ×3 (05:57→20:57)
[2018-01-03] MEDS: BLOOD SUGAR DIAGNOSTIC STRIP TEST SCH ×4 (06:00→21:03)
[2018-01-03] MEDS: INSULIN LISPRO 100 UNITS/ML SUBCUT SCH ×4 (07:20→21:02)
[2018-01-03] MEDS: BUDESONIDE 0.5MG/2ML NEB HHN SCH ×2 (07:32→20:55)
[2018-01-03] MEDS: NIFEDIPINE XL 60MG TAB PO SCH (09:10)
[2018-01-03] MEDS: FUROSEMIDE 40MG TABLET PO SCH (09:11)
[2018-01-03] MEDS: CARVEDILOL 6.25 MG TABLET PO SCH ×2 (09:11→20:57)
[2018-01-03] MEDS: CLOPIDOGREL 75MG TABLET PO SCH (09:12)
[2018-01-03 09:36] LABS: BASOPHILS % 0.6 % (0.0-2.0); EOSINOPHILS % 1.2 % (0.0-5.0); HEMATOCRIT. 29.8 % (36.0-48.0); HEMOGLOBIN. 9.8 g/dL (12.0-16.0); MEAN CORPUSCULAR HEMOGLOBIN 29.8 pg (28.0-32.0); MEAN CORPUSCULAR VOLUME 90.6 fL (81.0-99.0); MEAN PLATELET VOLUME 9.5 fl (7.4-10.4); MONOCYTES % 8.3 % (2.0-8.0); NEUTROPHILS % 54.9 % (40.0-76.0); PLATELET 190 x1000/uL (130-400); RED BLOOD CELL COUNT 3.29 mill/uL (4.2-5.4); RED CELL DISTRIBUTION WIDTH 15.3 % (11.6-14.6)
[2018-01-03] MEDS: HYDROCODONE/ACETAMINOPHEN 10/325MG TABLET PO PRN (11:30)
[2018-01-03] MEDS: ATORVASTATIN CALCIUM 20MG TABLET PO SCH (21:02)
[2018-01-04] VITALS (8 sets, daily range): BP systolic 118–140; BP diastolic 63–74
[2018-01-04] MEDS: INSULIN GLARGINE UD 100 UNITS/ML SYR SUBCUT SCH ×2 (00:49→22:16)
[2018-01-04] MEDS: IPRATROPIUM/ALBUTEROL 0.5-3(2.5)MG/3ML NEB INH SCH ×4 (02:32→20:35)
[2018-01-04] MEDS: HYDRALAZINE HCL 25MG TABLET PO SCH ×3 (06:00→22:14)
[2018-01-04] MEDS: GABAPENTIN 300MG CAPSULE PO SCH ×3 (06:00→22:14)
[2018-01-04] MEDS: BLOOD SUGAR DIAGNOSTIC STRIP TEST SCH ×4 (07:01→20:24)
[2018-01-04] MEDS: INSULIN LISPRO 100 UNITS/ML SUBCUT SCH ×4 (07:01→20:32)
[2018-01-04] MEDS: CLOPIDOGREL 75MG TABLET PO SCH (09:15)
[2018-01-04] MEDS: NIFEDIPINE XL 60MG TAB PO SCH (09:15)
[2018-01-04] MEDS: FUROSEMIDE 40MG TABLET PO SCH (09:15)
[2018-01-04 09:16] LABS: BASOPHILS % 0.5 % (0.0-2.0); EOSINOPHILS % 1.5 % (0.0-5.0); HEMATOCRIT. 31.8 % (36.0-48.0); HEMOGLOBIN. 10.3 g/dL (12.0-16.0); LYMPHOCYTES % 33.7 % (20.0-50.0); MEAN CORPUSCULAR HEMOGLOBIN 29.3 pg (28.0-32.0); MEAN CORPUSCULAR VOLUME 90.6 fL (81.0-99.0); MEAN PLATELET VOLUME 9.5 fl (7.4-10.4); MONOCYTES % 6.5 % (2.0-8.0); NEUTROPHILS % 57.8 % (40.0-76.0); PLATELET 209 x1000/uL (130-400); RED BLOOD CELL COUNT 3.51 mill/uL (4.2-5.4); RED CELL DISTRIBUTION WIDTH 15.1 % (11.6-14.6)
[2018-01-04] MEDS: CARVEDILOL 6.25 MG TABLET PO SCH ×2 (09:16→20:24)
[2018-01-04] MEDS: BUDESONIDE 0.5MG/2ML NEB HHN SCH (09:54)
[2018-01-04] MEDS: HYDROCODONE/ACETAMINOPHEN 10/325MG TABLET PO PRN ×3 (11:15→22:15)
[2018-01-04] MEDS: ATORVASTATIN CALCIUM 20MG TABLET PO SCH (20:24)
[2018-01-05] VITALS (19 sets, daily range): BP systolic 96–141; BP diastolic 48–77
[2018-01-05] MEDS: IPRATROPIUM/ALBUTEROL 0.5-3(2.5)MG/3ML NEB INH SCH ×4 (01:40→20:11)
[2018-01-05] MEDS: HYDRALAZINE HCL 25MG TABLET PO SCH ×3 (06:00→21:27)
[2018-01-05] MEDS: GABAPENTIN 300MG CAPSULE PO SCH ×3 (06:00→21:27)
[2018-01-05] MEDS: BLOOD SUGAR DIAGNOSTIC STRIP TEST SCH ×4 (06:48→21:12)
[2018-01-05] MEDS: INSULIN LISPRO 100 UNITS/ML SUBCUT SCH ×4 (07:20→21:00)
[2018-01-05] MEDS ORDERED: IOHEXOL-300 100 ML BOTTLE ONE (08:38)
[2018-01-05] MEDS ORDERED: LIDOCAINE HCL 1% 20ML VIAL (Pyxis) INJ ONE (08:38)
[2018-01-05] MEDS ORDERED: IODIXANOL 320MG/ML 100 ML BOTTLE IV ONE (08:38)
[2018-01-05] MEDS ORDERED: MIDAZOLAM HCL 2 MG/2 ML VIAL ONE (08:44)
[2018-01-05] MEDS ORDERED: FENTANYL CITRATE/PF 50MCG/ML 2ML VIAL ONE (08:44)
[2018-01-05] MEDS ORDERED: ASPIRIN 325MG TABLET ONE (09:51)
[2018-01-05] MEDS ORDERED: CLOPIDOGREL 75MG TABLET ONE (09:52)
[2018-01-05] MEDS ORDERED: ACETAMINOPHEN 325MG TABLET PO PRN (10:30)
[2018-01-05] MEDS ORDERED: ATROPINE SULFATE 1MG/10ML SYR IV PRN (10:30)
[2018-01-05] MEDS: NIFEDIPINE XL 60MG TAB PO SCH (10:39)
[2018-01-05] MEDS: FUROSEMIDE 40MG TABLET PO SCH (10:39)
[2018-01-05] MEDS: CLOPIDOGREL 75MG TABLET PO SCH (10:39)
[2018-01-05] MEDS: CARVEDILOL 6.25 MG TABLET PO SCH ×2 (10:39→20:26)
[2018-01-05] MEDS ORDERED: NICARDIPINE 100MCG/ML 10ML VIAL (CATH LAB) IV ONE (12:04)
[2018-01-05] MEDS ORDERED: HEPARIN SODIUM 1,000 UNIT/1ML VIAL IV ONE (12:04)
[2018-01-05] MEDS ORDERED: NITROGLYCERIN 50MCG/ML 10ML VIAL (CATH LAB) IV ONE (12:04)
[2018-01-05] MEDS: HYDROCODONE/ACETAMINOPHEN 10/325MG TABLET PO PRN ×2 (14:42→21:43)
[2018-01-05 15:06] LABS: BASOPHILS % 0.8 % (0.0-2.0); EOSINOPHILS % 1.4 % (0.0-5.0); HEMATOCRIT. 32.3 % (36.0-48.0); HEMOGLOBIN. 10.4 g/dL (12.0-16.0); LYMPHOCYTES % 38.6 % (20.0-50.0); MEAN CORPUSCULAR HEMOGLOBIN 29.4 pg (28.0-32.0); MEAN PLATELET VOLUME 9.3 fl (7.4-10.4); MONOCYTES % 5.7 % (2.0-8.0); NEUTROPHILS % 53.5 % (40.0-76.0); PLATELET 214 x1000/uL (130-400); RED BLOOD CELL COUNT 3.55 mill/uL (4.2-5.4); RED CELL DISTRIBUTION WIDTH 14.8 % (11.6-14.6)
[2018-01-05] MEDS: ATORVASTATIN CALCIUM 20MG TABLET PO SCH (20:27)
[2018-01-05] MEDS: INSULIN GLARGINE UD 100 UNITS/ML SYR SUBCUT SCH (21:39)
[2018-01-06] VITALS (7 sets, daily range): BP systolic 117–154; BP diastolic 70–80
[2018-01-06] MEDS: IPRATROPIUM/ALBUTEROL 0.5-3(2.5)MG/3ML NEB INH SCH ×2 (02:06→09:05)
[2018-01-06] MEDS: GABAPENTIN 300MG CAPSULE PO SCH (05:33)
[2018-01-06] MEDS: HYDRALAZINE HCL 25MG TABLET PO SCH (05:34)
[2018-01-06 07:10] LABS: BASOPHILS % 0.5 % (0.0-2.0); EOSINOPHILS % 1.7 % (0.0-5.0); HEMATOCRIT. 29.9 % (36.0-48.0); HEMOGLOBIN. 9.8 g/dL (12.0-16.0); LYMPHOCYTES % 38.4 % (20.0-50.0); MEAN CORPUSCULAR HEMOGLOBIN 29.7 pg (28.0-32.0); MEAN CORPUSCULAR VOLUME 90.4 fL (81.0-99.0); MEAN PLATELET VOLUME 9.6 fl (7.4-10.4); MONOCYTES % 7.6 % (2.0-8.0); NEUTROPHILS % 51.8 % (40.0-76.0); PLATELET 200 x1000/uL (130-400); RED BLOOD CELL COUNT 3.31 mill/uL (4.2-5.4)
[2018-01-06] MEDS: INSULIN LISPRO 100 UNITS/ML SUBCUT SCH (07:20)
[2018-01-06] MEDS: BLOOD SUGAR DIAGNOSTIC STRIP TEST SCH (07:35)
[2018-01-06 07:50] LABS: PHOSPHORUS 5.1 mg/dL (2.5-4.9)
[2018-01-06] MEDS: NIFEDIPINE XL 60MG TAB PO SCH (08:18)
[2018-01-06] MEDS: FUROSEMIDE 40MG TABLET PO SCH (08:19)
[2018-01-06] MEDS: CARVEDILOL 6.25 MG TABLET PO SCH (08:19)
[2018-01-06] MEDS: CLOPIDOGREL 75MG TABLET PO SCH (08:21)
[2018-01-06] MEDS ORDERED: SODIUM POLYSTYRENE SULFONATE 15 G/60 ML BOT PO NR (08:30)
[2018-01-06] MEDS ORDERED: CLOPIDOGREL 75MG TABLET PO SCH (09:00)
[2018-01-06] MEDS ORDERED: ASPIRIN 81MG TABLET PO SCH (09:00)
[2018-01-06] MEDS: HYDROCODONE/ACETAMINOPHEN 10/325MG TABLET PO PRN (10:24)
== END 2018-01-06 11:05 | disposition home or self-care (01) | DRG 246 ==
LOC: UNDOADMIN 13:25 → 3WST 13:25
PROVIDERS: ADMIT Internal Medicine Nephrology; ATTEND Internal Medicine Nephrology
PROC: 027035Z Dilation of Coronary Artery, One Artery with Two Drug-eluting Intraluminal Devices, Percutaneous Approach (ICD-10-PCS; principal; 2018-01-02)
PROC: 4A023N7 Measurement of Cardiac Sampling and Pressure, Left Heart, Percutaneous Approach (ICD-10-PCS; 2018-01-02)
PROC: B2111ZZ Fluoroscopy of Multiple Coronary Arteries using Low Osmolar Contrast (ICD-10-PCS; 2018-01-02)
PROC: 027035Z Dilation of Coronary Artery, One Artery with Two Drug-eluting Intraluminal Devices, Percutaneous Approach (ICD-10-PCS; 2018-01-06)
DX: I21.4 Non-ST elevation (NSTEMI) myocardial infarction (principal); I50.23 Acute on chronic systolic (congestive) heart failure; J96.20 Acute and chronic respiratory failure, unspecified whether with hypoxia or hypercapnia; I13.0 Hypertensive heart and chronic kidney disease with heart failure and stage 1 through stage 4 chronic kidney disease, or unspecified chronic kidney disease; N18.4 Chronic kidney disease, stage 4 (severe); I42.9 Cardiomyopathy, unspecified; J44.1 Chronic obstructive pulmonary disease with (acute) exacerbation; E11.22 Type 2 diabetes mellitus with diabetic chronic kidney disease; B19.20 Unspecified viral hepatitis C without hepatic coma; D64.9 Anemia, unspecified; E78.5 Hyperlipidemia, unspecified; I25.10 Atherosclerotic heart disease of native coronary artery without angina pectoris; I27.20 Pulmonary hypertension, unspecified; I34.0 Nonrheumatic mitral (valve) insufficiency; K80.20 Calculus of gallbladder without cholecystitis without obstruction; F17.210 Nicotine dependence, cigarettes, uncomplicated; Z79.01 Long term (current) use of anticoagulants; Z79.02 Long term (current) use of antithrombotics/antiplatelets; Z79.4 Long term (current) use of insulin; Z79.82 Long term (current) use of aspirin; Z87.39 Personal history of other diseases of the musculoskeletal system and connective tissue; Z99.81 Dependence on supplemental oxygen; Z79.899 Other long term (current) drug therapy
CPT/HCPCS: 36415; 71045; 76700; 80048; 80061; 80076; 82962; 83735; 84100; 84484; 85347; 92928; 93005; 93306; 93454; 93458; 93970; 94640; C1725; C1769; C1874; C1887; C1893; J1644; J1815; J2250; J3010; J3490; J7620; J7626; Q9967

== ENCOUNTER 2018-03-03 18:37 | Inpatient (IN) | payer MEDICARE, MEDICAID ==
[~2018-03-03] VITALS: Ht 170.2 cm; Wt 95.3 kg
[~2018-03-03 18:37] MED LIST changes: -ASPI-518 PO; -CARV6.2548 MT; +CARV6.2548 PO; -FURO-151 MT; +FURO40TA5 PO; +HYDR-4001 PO; +INSNOV SUBCUT; -NIFE30TA94 PO; -NOVOLOG SUBCUT; -PREG75CA PO
[2018-03-03 20:00] VITALS: BP 189/82
[2018-03-03] MEDS ORDERED: CLONIDINE 0.1MG TABLET PO PRN (20:15)
[2018-03-03] MEDS ORDERED: ONDANSETRON HCL 4MG/2ML INJ IV PRN (20:15)
[2018-03-03] MEDS ORDERED: ZOLPIDEM TARTRATE 5MG TABLET PO PRN (20:15)
[2018-03-03] MEDS ORDERED: DOCUSATE SODIUM 100MG CAPSULE PO PRN (20:15)
[2018-03-03] MEDS ORDERED: ACETAMINOPHEN 325MG TABLET PO PRN (20:15)
[2018-03-03 21:17] VITALS: BP 196/82
[2018-03-03] MEDS: ATORVASTATIN CALCIUM 20MG TABLET PO SCH (21:56)
[2018-03-03] MEDS: GABAPENTIN 100MG CAPSULE PO SCH (21:57)
[2018-03-03] MEDS: CARVEDILOL 6.25 MG TABLET PO SCH (21:57)
[2018-03-03] MEDS: HYDRALAZINE HCL 25MG TABLET PO SCH (21:57)
[2018-03-03] MEDS ORDERED: DEXTROSE 50% WATER 50ML SYRINGE IV PRN (22:00)
[2018-03-03] MEDS: FUROSEMIDE 40MG/4ML VIAL IV SCH (22:03)
[2018-03-03] MEDS: HYDROCODONE/APAP 7.5/325MG 1 TAB TABLET PO PRN (22:31)
[2018-03-03] MEDS: INSULIN GLARGINE UD 100 UNITS/ML SYR SUBCUT SCH (22:41)
[2018-03-03 23:51] LABS: BASOPHILS % 1.2 % (0.0-2.0); EOSINOPHILS % 0.9 % (0.0-5.0); HEMATOCRIT. 32.8 % (36.0-48.0); HEMOGLOBIN. 10.5 g/dL (12.0-16.0); LYMPHOCYTES % 25.2 % (20.0-50.0); MEAN CORPUSCULAR HEMOGLOBIN 29.4 pg (28.0-32.0); MEAN CORPUSCULAR VOLUME 92.1 fL (81.0-99.0); MEAN PLATELET VOLUME 9.4 fl (7.4-10.4); MONOCYTES % 6.5 % (2.0-8.0); NEUTROPHILS % 66.2 % (40.0-76.0); PLATELET 190 x1000/uL (130-400); RED BLOOD CELL COUNT 3.56 mill/uL (4.2-5.4)
[2018-03-04] VITALS (7 sets, daily range): BP systolic 110–151; BP diastolic 52–86
[2018-03-04] MEDS: GABAPENTIN 100MG CAPSULE PO SCH ×3 (06:13→21:02)
[2018-03-04] MEDS: HYDRALAZINE HCL 25MG TABLET PO SCH ×3 (06:14→20:58)
[2018-03-04] MEDS: BLOOD SUGAR DIAGNOSTIC STRIP TEST SCH ×4 (06:20→20:37)
[2018-03-04] MEDS: IPRATROPIUM/ALBUTEROL 0.5-3(2.5)MG/3ML NEB INH SCH ×2 (07:17→20:36)
[2018-03-04] MEDS: INSULIN LISPRO 100 UNITS/ML SUBCUT SCH ×4 (08:58→21:01)
[2018-03-04] MEDS: FUROSEMIDE 40MG/4ML VIAL IV SCH (08:59)
[2018-03-04] MEDS: CLOPIDOGREL 75MG TABLET PO SCH (08:59)
[2018-03-04] MEDS: CARVEDILOL 6.25 MG TABLET PO SCH ×2 (08:59→20:58)
[2018-03-04] MEDS ORDERED: CLOPIDOGREL 75MG TABLET PO SCH (10:30)
[2018-03-04] MEDS: ASPIRIN 81MG TABLET PO SCH (10:56)
[2018-03-04] MEDS: ENOXAPARIN 40MG/0.4ML SYR SUBCUT SCH (10:57)
[2018-03-04] MEDS: HYDROCODONE/APAP 7.5/325MG 1 TAB TABLET PO PRN ×2 (12:26→22:32)
[2018-03-04 15:31] LABS: CLARITY URINE CLEAR (CLEAR); COLOR URINE YELLOW (YELLOW); KETONES URINE NEGATIVE (NEGATIVE); LEUKOCYTE ESTERASE URINE TRACE (NEGATIVE); NITRITE URINE NEGATIVE (NEGATIVE); OCCULT BLOOD URINE NEGATIVE (NEGATIVE); PROTEIN URINE 1+ (NEGATIVE); UROBILINOGEN URINE 0.2 E.U./dL (0.2-1.0)
[2018-03-04 18:07] LABS: BASOPHILS % 0.8 % (0.0-2.0); EOSINOPHILS % 1.4 % (0.0-5.0); HEMATOCRIT. 31.4 % (36.0-48.0); HEMOGLOBIN. 10.1 g/dL (12.0-16.0); LYMPHOCYTES % 30.8 % (20.0-50.0); MEAN CORPUSCULAR HEMOGLOBIN 29.3 pg (28.0-32.0); MEAN CORPUSCULAR VOLUME 90.6 fL (81.0-99.0); MEAN PLATELET VOLUME 9.4 fl (7.4-10.4); MONOCYTES % 8.4 % (2.0-8.0); NEUTROPHILS % 58.6 % (40.0-76.0); PLATELET 206 x1000/uL (130-400); RED BLOOD CELL COUNT 3.46 mill/uL (4.2-5.4); RED CELL DISTRIBUTION WIDTH 15.7 % (11.6-14.6)
[2018-03-04 18:11] LABS: CHLORIDE 109 mEq/L (98-107)
[2018-03-04 18:19] LABS: HDL CHOLESTEROL 41 mg/dL (40-59); LDL CHOLESTEROL 40 mg/dL (5-100)
[2018-03-04 18:20] LABS: T4 FREE 1.49 ng/dL (0.76-1.46)
[2018-03-04 18:21] LABS: CREATINE KINASE MB FRACTION 2.6 ng/mL (0.5-3.6)
[2018-03-04] MEDS: ATORVASTATIN CALCIUM 20MG TABLET PO SCH (20:58)
[2018-03-04] MEDS: INSULIN GLARGINE UD 100 UNITS/ML SYR SUBCUT SCH (21:02)
[2018-03-05] MEDS: IPRATROPIUM/ALBUTEROL 0.5-3(2.5)MG/3ML NEB INH SCH ×3 (01:59→20:50)
[2018-03-05 03:59] VITALS: BP 138/63
[2018-03-05] MEDS: HYDRALAZINE HCL 25MG TABLET PO SCH ×3 (06:07→21:38)
[2018-03-05] MEDS: GABAPENTIN 100MG CAPSULE PO SCH ×3 (06:07→21:37)
[2018-03-05] MEDS: BLOOD SUGAR DIAGNOSTIC STRIP TEST SCH ×4 (06:15→21:45)
[2018-03-05 07:03] LABS: CREATINE KINASE MB FRACTION 2.7 ng/mL (0.5-3.6)
[2018-03-05 08:00] VITALS: BP 118/68
[2018-03-05] MEDS: ENOXAPARIN 40MG/0.4ML SYR SUBCUT SCH (08:52)
[2018-03-05] MEDS: ASPIRIN 81MG TABLET PO SCH (08:52)
[2018-03-05] MEDS: CLOPIDOGREL 75MG TABLET PO SCH (08:52)
[2018-03-05] MEDS: CARVEDILOL 6.25 MG TABLET PO SCH ×2 (08:52→21:38)
[2018-03-05] MEDS: FUROSEMIDE 40MG/4ML VIAL IV SCH (08:52)
[2018-03-05] MEDS: INSULIN LISPRO 100 UNITS/ML SUBCUT SCH ×4 (09:00→21:49)
[2018-03-05 09:18] LABS: EOSINOPHILS % 1.4 % (0.0-5.0); HEMATOCRIT. 35.1 % (36.0-48.0); MEAN CORPUSCULAR HEMOGLOBIN 28.9 pg (28.0-32.0); MEAN CORPUSCULAR VOLUME 92.9 fL (81.0-99.0); MONOCYTES % 9.1 % (2.0-8.0); NEUTROPHILS % 60.5 % (40.0-76.0); PLATELET 203 x1000/uL (130-400); RED BLOOD CELL COUNT 3.78 mill/uL (4.2-5.4); RED CELL DISTRIBUTION WIDTH 16.4 % (11.6-14.6)
[2018-03-05] MEDS: BUDESONIDE 0.5MG/2ML NEB HHN SCH ×2 (09:42→20:50)
[2018-03-05] MEDS: CEFTRIAXONE 1,000 MG in DEXTROSE 5% WATER 50 ML IV SCH (10:53)
[2018-03-05 11:53] VITALS: BP 112/56
[2018-03-05 16:28] VITALS: BP 139/74
[2018-03-05] MEDS: HYDROCODONE/APAP 7.5/325MG 1 TAB TABLET PO PRN ×2 (16:49→23:06)
[2018-03-05 20:00] VITALS: BP 140/65
[2018-03-05] MEDS: ATORVASTATIN CALCIUM 20MG TABLET PO SCH (21:38)
[2018-03-05] MEDS: INSULIN GLARGINE UD 100 UNITS/ML SYR SUBCUT SCH (21:49)
[2018-03-05 22:18] LABS: CREATINE KINASE MB FRACTION 3.3 ng/mL (0.5-3.6)
[2018-03-06] VITALS: BP 140/78
[2018-03-06] MEDS: IPRATROPIUM/ALBUTEROL 0.5-3(2.5)MG/3ML NEB INH SCH ×4 (00:51→20:35)
[2018-03-06 04:00] VITALS: BP 134/70
[2018-03-06] MEDS: ASPIRIN 81MG TABLET PO SCH (05:31)
[2018-03-06] MEDS: HYDRALAZINE HCL 25MG TABLET PO SCH ×3 (05:33→21:35)
[2018-03-06] MEDS: GABAPENTIN 100MG CAPSULE PO SCH ×3 (05:34→21:40)
[2018-03-06] MEDS: BLOOD SUGAR DIAGNOSTIC STRIP TEST SCH ×4 (07:09→21:40)
[2018-03-06 07:49] VITALS: BP 114/69
[2018-03-06] MEDS: INSULIN LISPRO 100 UNITS/ML SUBCUT SCH ×4 (07:50→21:52)
[2018-03-06 07:59] LABS: BASOPHILS % 1.1 % (0.0-2.0); EOSINOPHILS % 1.9 % (0.0-5.0); HEMATOCRIT. 35.9 % (36.0-48.0); HEMOGLOBIN. 11.3 g/dL (12.0-16.0); LYMPHOCYTES % 28.3 % (20.0-50.0); MEAN CORPUSCULAR HEMOGLOBIN 29.1 pg (28.0-32.0); MEAN CORPUSCULAR VOLUME 92.2 fL (81.0-99.0); MONOCYTES % 9.5 % (2.0-8.0); NEUTROPHILS % 59.2 % (40.0-76.0); PLATELET 233 x1000/uL (130-400); RED BLOOD CELL COUNT 3.89 mill/uL (4.2-5.4); RED CELL DISTRIBUTION WIDTH 15.5 % (11.6-14.6)
[2018-03-06] MEDS: CEFTRIAXONE 1,000 MG in DEXTROSE 5% WATER 50 ML IV SCH (09:00)
[2018-03-06] MEDS: FUROSEMIDE 40MG/4ML VIAL IV SCH (09:00)
[2018-03-06] MEDS: CARVEDILOL 6.25 MG TABLET PO SCH ×2 (09:00→21:36)
[2018-03-06] MEDS: CLOPIDOGREL 75MG TABLET PO SCH (09:00)
[2018-03-06] MEDS: ENOXAPARIN 40MG/0.4ML SYR SUBCUT SCH (09:00)
[2018-03-06] MEDS: BUDESONIDE 0.5MG/2ML NEB HHN SCH ×2 (09:01→20:36)
[2018-03-06] MEDS ORDERED: ALPRAZOLAM 0.25 MG TABLET PO PRN (10:30)
[2018-03-06 16:00] VITALS: BP 129/69
[2018-03-06] MEDS: HYDROCODONE/APAP 7.5/325MG 1 TAB TABLET PO PRN (19:44)
[2018-03-06 20:00] VITALS: BP 152/80
[2018-03-06] MEDS: ATORVASTATIN CALCIUM 20MG TABLET PO SCH (21:36)
[2018-03-06] MEDS: INSULIN GLARGINE UD 100 UNITS/ML SYR SUBCUT SCH (21:52)
[2018-03-06 23:55] VITALS: BP 138/65
[2018-03-07] MEDS: IPRATROPIUM/ALBUTEROL 0.5-3(2.5)MG/3ML NEB INH SCH (01:57)
[2018-03-07 04:12] VITALS: BP 134/69
[2018-03-07] MEDS: GABAPENTIN 100MG CAPSULE PO SCH (06:00)
[2018-03-07] MEDS: HYDRALAZINE HCL 25MG TABLET PO SCH (06:28)
[2018-03-07] MEDS: BLOOD SUGAR DIAGNOSTIC STRIP TEST SCH (06:32)
[2018-03-07] MEDS: INSULIN LISPRO 100 UNITS/ML SUBCUT SCH (07:35)
[2018-03-07 07:53] VITALS: BP 124/67
[2018-03-07 08:28] VITALS: BP 124/67
== END 2018-03-07 09:15 | disposition home or self-care (01) | DRG 291 ==
LOC: 6WST 18:37
PROVIDERS: ADMIT Internal Medicine Nephrology; ATTEND Internal Medicine Nephrology
DX: I13.0 Hypertensive heart and chronic kidney disease with heart failure and stage 1 through stage 4 chronic kidney disease, or unspecified chronic kidney disease (principal); J96.20 Acute and chronic respiratory failure, unspecified whether with hypoxia or hypercapnia; I50.23 Acute on chronic systolic (congestive) heart failure; N17.9 Acute kidney failure, unspecified; I31.3 Pericardial effusion (noninflammatory); E44.0 Moderate protein-calorie malnutrition; I42.9 Cardiomyopathy, unspecified; F17.200 Nicotine dependence, unspecified, uncomplicated; I25.10 Atherosclerotic heart disease of native coronary artery without angina pectoris; I27.20 Pulmonary hypertension, unspecified; N18.9 Chronic kidney disease, unspecified; J44.9 Chronic obstructive pulmonary disease, unspecified; I34.0 Nonrheumatic mitral (valve) insufficiency; D64.9 Anemia, unspecified; E11.22 Type 2 diabetes mellitus with diabetic chronic kidney disease; I25.2 Old myocardial infarction; Z99.81 Dependence on supplemental oxygen; Z95.5 Presence of coronary angioplasty implant and graft; Z95.1 Presence of aortocoronary bypass graft; Z87.39 Personal history of other diseases of the musculoskeletal system and connective tissue; Z68.32 Body mass index [BMI] 32.0-32.9, adult
CPT/HCPCS: 36415; 71045; 80048; 80061; 82550; 82553; 82962; 83036; 83880; 84439; 84443; 84481; 84484; 85379; 93005; 93306; 93970; 94640; C1893; J0696; J1650; J1815; J1940; J7050; J7060; J7620; J7626

== ENCOUNTER 2018-03-20 14:09 | Inpatient (IN) | payer MEDICARE, MEDICAID ==
[~2018-03-20] VITALS: Ht 170.2 cm; Wt 93.4 kg
[2018-03-20] MEDS ORDERED: MORPHINE SULFATE 4 MG/ML CPJ (NOT FOR IM USE) IV STA (15:13)
[2018-03-20] MEDS ORDERED: ONDANSETRON HCL 4MG/2ML INJ IV STA (15:13)
[2018-03-20] MEDS ORDERED: ASPIRIN 81MG TABLET PO ONE (15:15)
[2018-03-20] MEDS ORDERED: IPRATROPIUM/ALBUTEROL 0.5-3(2.5)MG/3ML NEB HHN ONE (15:15)
[2018-03-20] MEDS ORDERED: FAMOTIDINE 20MG/2ML VIAL IV ONE (15:15)
[2018-03-20 16:30] LABS: BG BASE EXCESS 1.7 mmol/L (-2.0-2.0); BG CARBOXYHEMOGLOBIN 2.2 % (0.5-1.5); BG DEOXYHEMOGLOBIN 13.4 % (0.0-5.0); BG FRACTION INSPIRED OXYGEN 21; BG HCO3 ACT 25.5 mmol/L (22.0-26.0); BG METHEMOGLOBIN 0.2 % (0.0-1.5); BG OXYGEN SATURATION 86.3 % (92.0-98.5); BG OXYHEMOGLOBIN 84.2 % (94.0-97.0); BG PCO2 37.6 mmHg (35.0-45.0); BG SAMPLE SITE RIGHT BRACHIAL; BG TOTAL HEMOGLOBIN 12.6 g/dL (12.0-18.0); BG VENT MODE ROOM AIR
[2018-03-20 18:05] LABS: HEMATOCRIT. 38.8 % (36.0-48.0); HEMOGLOBIN. 12.1 g/dL (12.0-16.0); LYMPHOCYTES % 28.4 % (20.0-50.0); MEAN CORPUSCULAR HEMOGLOBIN 28.1 pg (28.0-32.0); MEAN PLATELET VOLUME 9.6 fl (7.4-10.4); MONOCYTES % 9.3 % (2.0-8.0); NEUTROPHILS % 60.3 % (40.0-76.0); PLATELET 208 x1000/uL (130-400); RED BLOOD CELL COUNT 4.31 mill/uL (4.2-5.4); RED CELL DISTRIBUTION WIDTH 15.6 % (11.6-14.6)
[2018-03-20 18:11] LABS: CHLORIDE 107 mEq/L (98-107)
[2018-03-20 18:13] LABS: INR 1.2; PROTHROMBIN TIME 11.7 sec (9.1-11.1)
[2018-03-20 18:15] LABS: ETHANOL BLOOD < 10 mg/dL
[2018-03-20 21:20] VITALS: BP 133/84
[2018-03-20 22:00] VITALS: BP 133/84
[2018-03-20] MEDS ORDERED: CLONIDINE 0.1MG TABLET PO PRN (22:15)
[2018-03-20] MEDS ORDERED: ACETAMINOPHEN 325MG TABLET PO PRN (22:15)
[2018-03-20] MEDS ORDERED: ONDANSETRON HCL 4MG/2ML INJ IV PRN (22:15)
[2018-03-20] MEDS ORDERED: DEXTROSE 50% WATER 50ML SYRINGE IV PRN (23:30)
[2018-03-21] VITALS: BP 116/62
[2018-03-21 04:00] VITALS: BP 123/66
[2018-03-21] MEDS: HYDRALAZINE HCL 25MG TABLET PO SCH ×3 (06:28→21:36)
[2018-03-21] MEDS: BLOOD SUGAR DIAGNOSTIC STRIP TEST SCH ×4 (06:29→21:35)
[2018-03-21 07:03] LABS: PHOSPHORUS 4.1 mg/dL (2.5-4.9)
[2018-03-21 07:07] LABS: T4 FREE 1.6 ng/dL (0.76-1.46)
[2018-03-21 07:11] LABS: BASOPHILS % 1.2 % (0.0-2.0); EOSINOPHILS % 1.6 % (0.0-5.0); HEMATOCRIT. 33.7 % (36.0-48.0); HEMOGLOBIN. 10.9 g/dL (12.0-16.0); LYMPHOCYTES % 30.7 % (20.0-50.0); MEAN CORPUSCULAR HEMOGLOBIN 28.7 pg (28.0-32.0); MEAN PLATELET VOLUME 9.6 fl (7.4-10.4); MONOCYTES % 12.4 % (2.0-8.0); NEUTROPHILS % 54.1 % (40.0-76.0); PLATELET 177 x1000/uL (130-400); RED BLOOD CELL COUNT 3.78 mill/uL (4.2-5.4); RED CELL DISTRIBUTION WIDTH 15.9 % (11.6-14.6)
[2018-03-21] MEDS: INSULIN LISPRO 100 UNITS/ML SUBCUT SCH ×4 (07:41→21:34)
[2018-03-21 08:00] VITALS: BP 102/64
[2018-03-21] MEDS: CARVEDILOL 6.25 MG TABLET PO SCH ×2 (08:19→21:35)
[2018-03-21] MEDS: ASPIRIN 81MG TABLET PO SCH (08:29)
[2018-03-21] MEDS: CLOPIDOGREL 75MG TABLET PO SCH (08:29)
[2018-03-21] MEDS: FUROSEMIDE 40MG TABLET PO SCH (08:29)
[2018-03-21] MEDS: IPRATROPIUM/ALBUTEROL 0.5-3(2.5)MG/3ML NEB HHN SCH ×5 (10:03→23:34)
[2018-03-21 11:08] LABS: CLARITY URINE TURBID (CLEAR); COLOR URINE YELLOW (YELLOW); KETONES URINE TRACE (NEGATIVE); LEUKOCYTE ESTERASE URINE 1+ (NEGATIVE); NITRITE URINE NEGATIVE (NEGATIVE); OCCULT BLOOD URINE TRACE (NEGATIVE); PROTEIN URINE 3+ (NEGATIVE); SPECIFIC GRAVITY URINE 1.021 (1.005-1.030); UROBILINOGEN URINE 0.2 E.U./dL (0.2-1.0)
[2018-03-21 12:07] VITALS: BP 132/73
[2018-03-21] MEDS: PANTOPRAZOLE SODIUM 40 MG/VIAL IV SCH (13:06)
[2018-03-21 16:26] LABS: CREATINE KINASE MB FRACTION 1.7 ng/mL (0.5-3.6)
[2018-03-21 18:22] VITALS: BP 136/76
[2018-03-21 20:00] VITALS: BP 128/66
[2018-03-21] MEDS ORDERED: MEDICATION NOT ON FORMULARY EA (Simvastatin 1 TAB) PO SCH (21:00)
[2018-03-21] MEDS: ATORVASTATIN CALCIUM 20MG TABLET PO SCH (21:35)
[2018-03-21] MEDS: GABAPENTIN 300MG CAPSULE PO SCH (21:35)
[2018-03-22] VITALS (7 sets, daily range): BP systolic 119–135; BP diastolic 60–84
[2018-03-22 01:39] LABS: CREATINE KINASE MB FRACTION 1.9 ng/mL (0.5-3.6)
[2018-03-22] MEDS: IPRATROPIUM/ALBUTEROL 0.5-3(2.5)MG/3ML NEB HHN SCH ×5 (02:25→21:24)
[2018-03-22] MEDS: HYDRALAZINE HCL 25MG TABLET PO SCH ×3 (05:03→21:42)
[2018-03-22] MEDS: BLOOD SUGAR DIAGNOSTIC STRIP TEST SCH ×4 (06:47→21:42)
[2018-03-22] MEDS: INSULIN LISPRO 100 UNITS/ML SUBCUT SCH ×4 (07:32→21:54)
[2018-03-22] MEDS: CLOPIDOGREL 75MG TABLET PO SCH (08:31)
[2018-03-22] MEDS: CARVEDILOL 6.25 MG TABLET PO SCH ×2 (08:31→20:39)
[2018-03-22] MEDS: ASPIRIN 81MG TABLET PO SCH (08:31)
[2018-03-22] MEDS: PANTOPRAZOLE SODIUM 40 MG/VIAL IV SCH (08:31)
[2018-03-22] MEDS: FUROSEMIDE 40MG TABLET PO SCH (08:31)
[2018-03-22] MEDS ORDERED: BARIUM SULFATE 176 GM SUSP.RECON ONE (09:30)
[2018-03-22 12:06] LABS: BASOPHILS % 1.1 % (0.0-2.0); EOSINOPHILS % 2.1 % (0.0-5.0); HEMATOCRIT. 34.7 % (36.0-48.0); HEMOGLOBIN. 10.8 g/dL (12.0-16.0); LYMPHOCYTES % 27.4 % (20.0-50.0); MEAN CORPUSCULAR HEMOGLOBIN 27.8 pg (28.0-32.0); MEAN CORPUSCULAR VOLUME 89.7 fL (81.0-99.0); MEAN PLATELET VOLUME 9.7 fl (7.4-10.4); MONOCYTES % 11.4 % (2.0-8.0); PLATELET 169 x1000/uL (130-400); RED BLOOD CELL COUNT 3.87 mill/uL (4.2-5.4); RED CELL DISTRIBUTION WIDTH 15.8 % (11.6-14.6)
[2018-03-22 12:20] LABS: CREATINE KINASE MB FRACTION 1.9 ng/mL (0.5-3.6)
[2018-03-22] MEDS: ATORVASTATIN CALCIUM 20MG TABLET PO SCH (20:39)
[2018-03-22] MEDS: GABAPENTIN 300MG CAPSULE PO SCH (20:40)
[2018-03-23] MEDS: IPRATROPIUM/ALBUTEROL 0.5-3(2.5)MG/3ML NEB HHN SCH ×3 (01:11→07:36)
[2018-03-23 03:58] VITALS: BP 148/78
[2018-03-23] MEDS: HYDRALAZINE HCL 25MG TABLET PO SCH ×2 (06:34→14:00)
[2018-03-23] MEDS: BLOOD SUGAR DIAGNOSTIC STRIP TEST SCH ×2 (06:34→12:57)
[2018-03-23 07:29] LABS: BASOPHILS % 1.2 % (0.0-2.0); EOSINOPHILS % 1.7 % (0.0-5.0); HEMATOCRIT. 34.4 % (36.0-48.0); HEMOGLOBIN. 10.8 g/dL (12.0-16.0); LYMPHOCYTES % 26.5 % (20.0-50.0); MEAN CORPUSCULAR HEMOGLOBIN 28.2 pg (28.0-32.0); MEAN CORPUSCULAR VOLUME 90.1 fL (81.0-99.0); MEAN PLATELET VOLUME 9.7 fl (7.4-10.4); MONOCYTES % 10.3 % (2.0-8.0); NEUTROPHILS % 60.3 % (40.0-76.0); PLATELET 169 x1000/uL (130-400); RED BLOOD CELL COUNT 3.82 mill/uL (4.2-5.4)
[2018-03-23 08:00] VITALS: BP 132/76
[2018-03-23] MEDS: INSULIN LISPRO 100 UNITS/ML SUBCUT SCH ×2 (08:51→12:50)
[2018-03-23] MEDS: ASPIRIN 81MG TABLET PO SCH (08:52)
[2018-03-23] MEDS: FUROSEMIDE 40MG TABLET PO SCH (08:52)
[2018-03-23] MEDS: PANTOPRAZOLE SODIUM 40 MG/VIAL IV SCH (08:52)
[2018-03-23] MEDS: CARVEDILOL 6.25 MG TABLET PO SCH (08:52)
[2018-03-23] MEDS: CLOPIDOGREL 75MG TABLET PO SCH (08:52)
[2018-03-23 12:50] VITALS: BP 111/74
[2018-03-24 09:10] LABS: CA 19-9 31 U/mL (0-35); CANCER ANTIGEN 125 12.9 U/mL (0.0-38.1)
[2018-03-25 04:13] LABS: ANTI-NUCLEAR ANTIBODIES DIRECT Negative (Negative)
[2018-03-27 13:07] LABS: *HIV-1 RNA BY PCR <20 copies/mL (.)
== END 2018-03-23 15:06 | disposition home or self-care (01) | DRG 444 ==
LOC: ER 15:25 → 6WST 18:49 → EDBEDREQ 18:53 → ENRESERV 20:22 → 6WST 21:20
PROVIDERS: ADMIT Internal Medicine Nephrology; ATTEND Internal Medicine Nephrology
DX: K80.20 Calculus of gallbladder without cholecystitis without obstruction (principal); I50.23 Acute on chronic systolic (congestive) heart failure; J96.01 Acute respiratory failure with hypoxia; N17.0 Acute kidney failure with tubular necrosis; I31.3 Pericardial effusion (noninflammatory); N18.4 Chronic kidney disease, stage 4 (severe); I42.9 Cardiomyopathy, unspecified; I13.2 Hypertensive heart and chronic kidney disease with heart failure and with stage 5 chronic kidney disease, or end stage renal disease; B18.2 Chronic viral hepatitis C; E11.22 Type 2 diabetes mellitus with diabetic chronic kidney disease; I34.0 Nonrheumatic mitral (valve) insufficiency; F17.210 Nicotine dependence, cigarettes, uncomplicated; G47.30 Sleep apnea, unspecified; I25.10 Atherosclerotic heart disease of native coronary artery without angina pectoris; J44.9 Chronic obstructive pulmonary disease, unspecified; K83.8 Other specified diseases of biliary tract; R16.0 Hepatomegaly, not elsewhere classified; N89.8 Other specified noninflammatory disorders of vagina; M54.9 Dorsalgia, unspecified; G89.29 Other chronic pain; R13.10 Dysphagia, unspecified; Z95.810 Presence of automatic (implantable) cardiac defibrillator; Z95.5 Presence of coronary angioplasty implant and graft; I25.2 Old myocardial infarction; Z79.82 Long term (current) use of aspirin; Z79.899 Other long term (current) drug therapy; Z79.02 Long term (current) use of antithrombotics/antiplatelets; Z79.4 Long term (current) use of insulin; Z87.39 Personal history of other diseases of the musculoskeletal system and connective tissue
CPT/HCPCS: 36415; 36600; 71045; 74176; 74181; 74220; 76700; 80048; 80061; 80076; 82105; 82375; 82378; 82550; 82553; 82805; 82962; 83036; 83605; 83880; 84100; 84439; 84443; 84484; 84550; 85379; 86038; 86301; 86304; 87536; 92610; 93005; 93970; 94640; 96374; 96375; 99291; C9113; J1815; J2270; J2405; J3490; J7620

== ENCOUNTER 2018-04-22 13:14 | Inpatient (IN) | payer MEDICARE, MEDICAID ==
[~2018-04-22] VITALS: Ht 170.2 cm; Wt 101.7 kg
[2018-04-22 16:23] LABS: CHLORIDE 107 mEq/L (98-107); EOSINOPHILS % 1.1 % (0.0-5.0); HEMATOCRIT. 34.6 % (36.0-48.0); HEMOGLOBIN. 10.9 g/dL (12.0-16.0); LYMPHOCYTES % 21.5 % (20.0-50.0); MEAN CORPUSCULAR HEMOGLOBIN 27.9 pg (28.0-32.0); MEAN CORPUSCULAR VOLUME 88.5 fL (81.0-99.0); MEAN PLATELET VOLUME 9.9 fl (7.4-10.4); NEUTROPHILS % 67.4 % (40.0-76.0); PLATELET 179 x1000/uL (130-400); RED BLOOD CELL COUNT 3.91 mill/uL (4.2-5.4); RED CELL DISTRIBUTION WIDTH 17.1 % (11.6-14.6)
[2018-04-22] MEDS ORDERED: KETOROLAC 30MG/ML VIAL IV ONE (17:45)
[2018-04-22] MEDS ORDERED: DOCUSATE SODIUM 100MG CAPSULE PO PRN (18:45)
[2018-04-22] MEDS ORDERED: ONDANSETRON HCL 4MG/2ML INJ IV PRN (18:45)
[2018-04-22] MEDS ORDERED: CLONIDINE 0.1MG TABLET PO PRN (18:45)
[2018-04-22] MEDS ORDERED: ACETAMINOPHEN 325MG TABLET PO PRN (18:45)
[2018-04-22 22:35] VITALS: BP 151/86
[2018-04-22] MEDS ORDERED: DEXTROSE 50% WATER 50ML SYRINGE IV PRN (23:30)
[2018-04-23] VITALS: BP 137/84
[2018-04-23] MEDS ORDERED: ASPI-1158 MT (00:02)
[2018-04-23] MEDS: CARVEDILOL 6.25 MG TABLET PO SCH ×3 (00:22→21:21)
[2018-04-23] MEDS: ATORVASTATIN CALCIUM 40MG TABLET PO SCH ×2 (00:22→21:21)
[2018-04-23] MEDS: HYDRALAZINE HCL 50MG TABLET PO SCH ×4 (00:22→22:15)
[2018-04-23] MEDS: INSULIN GLARGINE UD 100 UNITS/ML SYR SUBCUT SCH ×2 (00:23→22:15)
[2018-04-23] MEDS: HYDROMORPHONE HCL/PF 2MG/ML CPJ IV PRN ×2 (00:23→21:21)
[2018-04-23] MEDS: IPRATROPIUM/ALBUTEROL 0.5-3(2.5)MG/3ML NEB INH SCH ×4 (01:19→20:26)
[2018-04-23 04:00] VITALS: BP 127/70
[2018-04-23] MEDS: BLOOD SUGAR DIAGNOSTIC STRIP TEST SCH ×3 (06:20→20:52)
[2018-04-23 08:07] VITALS: BP 117/67
[2018-04-23] MEDS: CLOPIDOGREL 75MG TABLET PO SCH (09:09)
[2018-04-23] MEDS: ENOXAPARIN 40MG/0.4ML SYR SUBCUT SCH (09:10)
[2018-04-23] MEDS: FUROSEMIDE 40MG/4ML VIAL IV SCH ×2 (09:10→21:21)
[2018-04-23 09:20] LABS: CHLORIDE 108 mEq/L (98-107)
[2018-04-23] MEDS: INSULIN LISPRO 100 UNITS/ML SUBCUT SCH ×2 (09:21→21:23)
[2018-04-23 09:33] LABS: LDL CHOLESTEROL 41 mg/dL (5-100)
[2018-04-23 09:35] LABS: HDL CHOLESTEROL 43 mg/dL (40-59)
[2018-04-23 10:48] LABS: BASOPHILS % 0.9 % (0.0-2.0); HEMOGLOBIN. 9.8 g/dL (12.0-16.0); LYMPHOCYTES % 28.5 % (20.0-50.0); MEAN CORPUSCULAR HEMOGLOBIN 27.6 pg (28.0-32.0); MEAN CORPUSCULAR VOLUME 87.3 fL (81.0-99.0); MEAN PLATELET VOLUME 9.8 fl (7.4-10.4); MONOCYTES % 10.5 % (2.0-8.0); NEUTROPHILS % 59.1 % (40.0-76.0); PLATELET 167 x1000/uL (130-400); RED BLOOD CELL COUNT 3.56 mill/uL (4.2-5.4)
[2018-04-23 10:52] LABS: T4 FREE 1.42 ng/dL (0.76-1.46)
[2018-04-23 12:52] VITALS: BP 122/71
[2018-04-23 16:56] VITALS: BP 119/70
[2018-04-23 20:00] VITALS: BP 166/76
[2018-04-23 21:16] LABS: CREATINE KINASE 64 IU/L (26-192); CREATINE KINASE MB FRACTION 2.8 ng/mL (0.5-3.6)
[2018-04-24] VITALS: BP 154/78
[2018-04-24] MEDS: IPRATROPIUM/ALBUTEROL 0.5-3(2.5)MG/3ML NEB INH SCH ×5 (01:10→20:35)
[2018-04-24 04:00] VITALS: BP 132/61
[2018-04-24] MEDS: HYDRALAZINE HCL 50MG TABLET PO SCH ×3 (05:53→21:17)
[2018-04-24 07:07] LABS: CREATINE KINASE MB FRACTION 2.2 ng/mL (0.5-3.6)
[2018-04-24] MEDS: BLOOD SUGAR DIAGNOSTIC STRIP TEST SCH ×4 (07:20→21:00)
[2018-04-24] MEDS: INSULIN LISPRO 100 UNITS/ML SUBCUT SCH ×4 (07:50→21:18)
[2018-04-24 08:00] VITALS: BP 135/73
[2018-04-24] MEDS: FUROSEMIDE 40MG/4ML VIAL IV SCH ×2 (09:21→21:18)
[2018-04-24] MEDS: CARVEDILOL 6.25 MG TABLET PO SCH ×2 (09:21→21:17)
[2018-04-24] MEDS: CLOPIDOGREL 75MG TABLET PO SCH (09:21)
[2018-04-24] MEDS: ENOXAPARIN 40MG/0.4ML SYR SUBCUT SCH (09:22)
[2018-04-24 09:30] LABS: BASOPHILS % 1.3 % (0.0-2.0); EOSINOPHILS % 1.3 % (0.0-5.0); HEMATOCRIT. 33.7 % (36.0-48.0); HEMOGLOBIN. 10.4 g/dL (12.0-16.0); LYMPHOCYTES % 23.8 % (20.0-50.0); MEAN CORPUSCULAR HEMOGLOBIN 27.2 pg (28.0-32.0); MEAN CORPUSCULAR VOLUME 88.2 fL (81.0-99.0); MEAN PLATELET VOLUME 10.1 fl (7.4-10.4); MONOCYTES % 8.3 % (2.0-8.0); NEUTROPHILS % 65.3 % (40.0-76.0); PLATELET 202 x1000/uL (130-400); RED BLOOD CELL COUNT 3.82 mill/uL (4.2-5.4); RED CELL DISTRIBUTION WIDTH 17.2 % (11.6-14.6)
[2018-04-24] MEDS: HYDROMORPHONE HCL/PF 2MG/ML CPJ IV PRN ×2 (11:10→21:44)
[2018-04-24 13:00] VITALS: BP 152/62
[2018-04-24 20:00] VITALS: BP 157/78
[2018-04-24] MEDS: ATORVASTATIN CALCIUM 40MG TABLET PO SCH (21:17)
[2018-04-24] MEDS: INSULIN GLARGINE UD 100 UNITS/ML SYR SUBCUT SCH (21:19)
[2018-04-24 23:56] VITALS: BP 137/76
[2018-04-25] MEDS: IPRATROPIUM/ALBUTEROL 0.5-3(2.5)MG/3ML NEB INH SCH ×4 (01:59→20:51)
[2018-04-25 04:00] VITALS: BP 150/83
[2018-04-25] MEDS: HYDRALAZINE HCL 50MG TABLET PO SCH ×3 (05:49→21:12)
[2018-04-25] MEDS: BLOOD SUGAR DIAGNOSTIC STRIP TEST SCH ×4 (06:16→21:00)
[2018-04-25 07:37] LABS: BASOPHILS % 0.8 % (0.0-2.0); EOSINOPHILS % 1.1 % (0.0-5.0); HEMATOCRIT. 35.7 % (36.0-48.0); HEMOGLOBIN. 11.1 g/dL (12.0-16.0); LYMPHOCYTES % 20.3 % (20.0-50.0); MEAN CORPUSCULAR HEMOGLOBIN 27.3 pg (28.0-32.0); MEAN CORPUSCULAR VOLUME 87.8 fL (81.0-99.0); MEAN PLATELET VOLUME 9.6 fl (7.4-10.4); MONOCYTES % 10.7 % (2.0-8.0); NEUTROPHILS % 67.1 % (40.0-76.0); PLATELET 210 x1000/uL (130-400); RED BLOOD CELL COUNT 4.06 mill/uL (4.2-5.4); RED CELL DISTRIBUTION WIDTH 17.3 % (11.6-14.6)
[2018-04-25] MEDS: INSULIN LISPRO 100 UNITS/ML SUBCUT SCH ×4 (07:50→22:12)
[2018-04-25 08:22] VITALS: BP 147/74
[2018-04-25] MEDS: FUROSEMIDE 40MG/4ML VIAL IV SCH ×2 (08:56→21:52)
[2018-04-25] MEDS: CARVEDILOL 6.25 MG TABLET PO SCH ×2 (09:40→21:14)
[2018-04-25] MEDS: ENOXAPARIN 40MG/0.4ML SYR SUBCUT SCH (09:40)
[2018-04-25] MEDS: CLOPIDOGREL 75MG TABLET PO SCH (09:40)
[2018-04-25] MEDS ORDERED: THROAT LOZENGES-BENZOCAINE/MENTH/CETYLPYRD CL LOZENGES MM PRN (10:00)
[2018-04-25 11:59] VITALS: BP 134/65
[2018-04-25 16:00] VITALS: BP 116/60
[2018-04-25] MEDS ORDERED: HYDROCODONE/ACETAMINOPHEN 5/325MG TABLET PO PRN (19:45)
[2018-04-25 19:53] VITALS: BP 138/59
[2018-04-25] MEDS: ATORVASTATIN CALCIUM 40MG TABLET PO SCH (21:14)
[2018-04-25] MEDS: INSULIN GLARGINE UD 100 UNITS/ML SYR SUBCUT SCH (22:18)
[2018-04-26] VITALS: BP 125/64
[2018-04-26 03:48] VITALS: BP 108/55
[2018-04-26] MEDS: IPRATROPIUM/ALBUTEROL 0.5-3(2.5)MG/3ML NEB INH SCH ×3 (03:48→13:23)
[2018-04-26] MEDS: HYDRALAZINE HCL 50MG TABLET PO SCH ×2 (06:00→13:38)
[2018-04-26 06:28] LABS: BASOPHILS % 0.8 % (0.0-2.0); EOSINOPHILS % 1.8 % (0.0-5.0); HEMATOCRIT. 30.6 % (36.0-48.0); HEMOGLOBIN. 9.5 g/dL (12.0-16.0); LYMPHOCYTES % 32.2 % (20.0-50.0); MEAN CORPUSCULAR VOLUME 86.8 fL (81.0-99.0); MEAN PLATELET VOLUME 9.6 fl (7.4-10.4); MONOCYTES % 13.8 % (2.0-8.0); NEUTROPHILS % 51.4 % (40.0-76.0); PLATELET 209 x1000/uL (130-400); RED BLOOD CELL COUNT 3.52 mill/uL (4.2-5.4); RED CELL DISTRIBUTION WIDTH 17.3 % (11.6-14.6)
[2018-04-26] MEDS: BLOOD SUGAR DIAGNOSTIC STRIP TEST SCH ×2 (07:20→12:20)
[2018-04-26 08:16] VITALS: BP 106/52
[2018-04-26] MEDS: FUROSEMIDE 40MG/4ML VIAL IV SCH (08:49)
[2018-04-26] MEDS: CARVEDILOL 6.25 MG TABLET PO SCH ×2 (09:00→09:06)
[2018-04-26] MEDS: CLOPIDOGREL 75MG TABLET PO SCH (09:04)
[2018-04-26] MEDS: ENOXAPARIN 40MG/0.4ML SYR SUBCUT SCH (09:09)
[2018-04-26] MEDS: INSULIN LISPRO 100 UNITS/ML SUBCUT SCH ×2 (09:11→12:50)
[2018-04-26 12:29] VITALS: BP 122/55
[2018-04-26 14:04] VITALS: BP 122/55
== END 2018-04-26 15:00 | disposition home or self-care (01) | DRG 291 ==
LOC: ER 13:14 → 6WST 18:30 → ENRESERV 21:29
PROVIDERS: ADMIT Internal Medicine Nephrology; ATTEND Internal Medicine Nephrology
DX: I13.2 Hypertensive heart and chronic kidney disease with heart failure and with stage 5 chronic kidney disease, or end stage renal disease (principal); I50.23 Acute on chronic systolic (congestive) heart failure; J96.20 Acute and chronic respiratory failure, unspecified whether with hypoxia or hypercapnia; E44.0 Moderate protein-calorie malnutrition; I31.3 Pericardial effusion (noninflammatory); N18.5 Chronic kidney disease, stage 5; I69.354 Hemiplegia and hemiparesis following cerebral infarction affecting left non-dominant side; I42.9 Cardiomyopathy, unspecified; D64.9 Anemia, unspecified; F17.210 Nicotine dependence, cigarettes, uncomplicated; I08.1 Rheumatic disorders of both mitral and tricuspid valves; I25.10 Atherosclerotic heart disease of native coronary artery without angina pectoris; I27.20 Pulmonary hypertension, unspecified; J44.9 Chronic obstructive pulmonary disease, unspecified; E11.22 Type 2 diabetes mellitus with diabetic chronic kidney disease; Z99.81 Dependence on supplemental oxygen; Z79.02 Long term (current) use of antithrombotics/antiplatelets; Z79.4 Long term (current) use of insulin; Z79.899 Other long term (current) drug therapy; Z82.49 Family history of ischemic heart disease and other diseases of the circulatory system; Z83.3 Family history of diabetes mellitus; Z87.39 Personal history of other diseases of the musculoskeletal system and connective tissue; Z95.5 Presence of coronary angioplasty implant and graft; Z79.82 Long term (current) use of aspirin
CPT/HCPCS: 36415; 71045; 78582; 80048; 80061; 82550; 82553; 82962; 83036; 83880; 84439; 84443; 84484; 85379; 87070; 93005; 93306; 93970; 94640; 96372; 96374; 97162; 97166; 99285; A9558; C1893; J1170; J1650; J1815; J1885; J1940; J7620

== ENCOUNTER 2018-04-28 09:10 | Inpatient (IN) | payer MEDICARE, MEDICAID ==
[~2018-04-28] VITALS: Ht 170.2 cm; Wt 97.5 kg
[~2018-04-28 09:10] MED LIST changes: +ASPI-1158 MT; -FURO40TA5 PO
[2018-04-28] MEDS ORDERED: CLONIDINE 0.1MG TABLET PO PRN (10:45)
[2018-04-28] MEDS ORDERED: ACETAMINOPHEN 325MG TABLET PO PRN (10:45)
[2018-04-28] MEDS ORDERED: DOCUSATE SODIUM 100MG CAPSULE PO PRN (10:45)
[2018-04-28] MEDS ORDERED: ONDANSETRON HCL 4MG/2ML INJ IV PRN (10:45)
[2018-04-28 10:54] LABS: HEMATOCRIT. 34.9 % (36.0-48.0); HEMOGLOBIN. 10.9 g/dL (12.0-16.0); MEAN CORPUSCULAR HEMOGLOBIN 27.1 pg (28.0-32.0); MEAN CORPUSCULAR VOLUME 86.6 fL (81.0-99.0); PLATELET 210 x1000/uL (130-400); RED BLOOD CELL COUNT 4.03 mill/uL (4.2-5.4)
[2018-04-28 11:00] LABS: CHLORIDE 106 mEq/L (98-107)
[2018-04-28 11:04] LABS: D-DIMER 0.85 mg/L FEU (<0.50); INR 1.3; PROTHROMBIN TIME 12.7 sec (9.1-11.1)
[2018-04-28 11:14] LABS: PLATELET ESTIMATE NORMAL
[2018-04-28] MEDS ORDERED: HYDRALAZINE HCL 25MG TABLET PO SCH (11:30)
[2018-04-28] MEDS: CLOPIDOGREL 75MG TABLET PO SCH (11:30)
[2018-04-28] MEDS ORDERED: HYDROMORPHONE HCL/PF 2MG/ML CPJ IV NR ×3 (11:30→21:45)
[2018-04-28] MEDS ORDERED: FUROSEMIDE 40MG/4ML VIAL IV NR (11:30)
[2018-04-28] MEDS ORDERED: IPRATROPIUM/ALBUTEROL 0.5-3(2.5)MG/3ML NEB INH NR (11:30)
[2018-04-28] MEDS ORDERED: ASPIRIN 81MG TABLET PO ONE (11:30)
[2018-04-28] MEDS ORDERED: ENOXAPARIN 100MG/ML SYR SUBCUT ONE (12:00)
[2018-04-28 16:56] LABS: CLARITY URINE CLEAR (CLEAR); COLOR URINE YELLOW (YELLOW); KETONES URINE TRACE (NEGATIVE); LEUKOCYTE ESTERASE URINE NEGATIVE (NEGATIVE); NITRITE URINE NEGATIVE (NEGATIVE); OCCULT BLOOD URINE NEGATIVE (NEGATIVE); PROTEIN URINE 2+ (NEGATIVE); SPECIFIC GRAVITY URINE 1.016 (1.005-1.030); UROBILINOGEN URINE 0.2 E.U./dL (0.2-1.0)
[2018-04-28 17:33] LABS: *AMPHETAMINES SCREEN URINE NEGATIVE (NEGATIVE); *BARBITURATES SCREEN URINE NEGATIVE (NEGATIVE); *COCAINE SCREEN URINE NEGATIVE (NEGATIVE)
[2018-04-28 17:34] LABS: *BENZODIAZEPINES SCREEN URINE NEGATIVE (NEGATIVE); CANNABINOID URINE SCREEN NEGATIVE (NEGATIVE); METHADONE URINE SCREEN NEGATIVE (NEGATIVE); OPIATES URINE SCREEN PRESUMTIVE POSITIVE (NEGATIVE); PHENCYCLIDINE URINE SCREEN NEGATIVE (NEGATIVE)
[2018-04-28 22:54] VITALS: BP 142/83
[2018-04-28] MEDS ORDERED: INSULIN GLARGINE UD 100 UNITS/ML SYR SUBCUT NR (23:00)
[2018-04-29] MEDS ORDERED: DEXTROSE 50% WATER 50ML SYRINGE IV PRN
[2018-04-29] MEDS: ATORVASTATIN CALCIUM 20MG TABLET PO SCH ×2 (00:04→21:54)
[2018-04-29] MEDS: CARVEDILOL 6.25 MG TABLET PO SCH ×3 (00:05→21:54)
[2018-04-29] MEDS: HYDRALAZINE HCL 25MG TABLET PO SCH ×4 (00:06→21:54)
[2018-04-29] MEDS: FUROSEMIDE 40MG/4ML VIAL IV SCH ×3 (00:06→17:56)
[2018-04-29] MEDS: GABAPENTIN 100MG CAPSULE PO SCH ×4 (00:06→21:54)
[2018-04-29] MEDS: DIPHENHYDRAMINE 50MG/ML VIAL IV PRN ×2 (00:20→11:01)
[2018-04-29 04:00] VITALS: BP 139/81
[2018-04-29] MEDS: BLOOD SUGAR DIAGNOSTIC STRIP TEST SCH ×4 (06:14→21:50)
[2018-04-29 06:56] LABS: CHLORIDE 105 mEq/L (98-107)
[2018-04-29 07:06] LABS: LDL CHOLESTEROL 45 mg/dL (5-100)
[2018-04-29 07:09] LABS: HDL CHOLESTEROL 47 mg/dL (40-59)
[2018-04-29 07:35] LABS: BASOPHILS % 0.7 % (0.0-2.0); EOSINOPHILS % 0.8 % (0.0-5.0); HEMATOCRIT. 32.4 % (36.0-48.0); HEMOGLOBIN. 10.2 g/dL (12.0-16.0); LYMPHOCYTES % 28.5 % (20.0-50.0); MEAN CORPUSCULAR HEMOGLOBIN 27.1 pg (28.0-32.0); MEAN CORPUSCULAR VOLUME 85.9 fL (81.0-99.0); MONOCYTES % 11.4 % (2.0-8.0); NEUTROPHILS % 58.6 % (40.0-76.0); PLATELET 188 x1000/uL (130-400); RED BLOOD CELL COUNT 3.77 mill/uL (4.2-5.4)
[2018-04-29 08:00] VITALS: BP 109/54
[2018-04-29] MEDS: CLOPIDOGREL 75MG TABLET PO SCH (08:46)
[2018-04-29] MEDS: HYDROMORPHONE HCL/PF 2MG/ML CPJ IV PRN ×3 (08:48→22:22)
[2018-04-29] MEDS: INSULIN LISPRO 100 UNITS/ML SUBCUT SCH ×4 (09:02→21:56)
[2018-04-29 09:05] LABS: T4 FREE 1.45 ng/dL (0.76-1.46)
[2018-04-29 09:26] LABS: BG BASE EXCESS 0.8 mmol/L (-2.0-2.0); BG CARBOXYHEMOGLOBIN 1.2 % (0.5-1.5); BG DEOXYHEMOGLOBIN 3.5 % (0.0-5.0); BG FRACTION INSPIRED OXYGEN 32; BG METHEMOGLOBIN 0.2 % (0.0-1.5); BG OXYGEN SATURATION 96.5 % (92.0-98.5); BG OXYHEMOGLOBIN 95.1 % (94.0-97.0); BG PCO2 38.4 mmHg (35.0-45.0); BG PH 7.431 (7.350-7.450); BG PO2 84.6 mmHg (75.0-100.0); BG SAMPLE SITE RIGHT RADIAL; BG TOTAL HEMOGLOBIN 10.9 g/dL (12.0-18.0); BG VENT MODE NASAL CANNULA
[2018-04-29] MEDS ORDERED: INSULIN GLARGINE UD 100 UNITS/ML SYR SUBCUT SCH (10:00)
[2018-04-29 12:00] VITALS: BP_SYST 109; BP_SYST 122; BP_DIAS 50; BP_DIAS 54
[2018-04-29] MEDS: ASPIRIN 81MG TABLET PO SCH (13:18)
[2018-04-29 15:54] LABS: CREATINE KINASE MB FRACTION 2.7 ng/mL (0.5-3.6)
[2018-04-29 16:00] VITALS: BP 115/64
[2018-04-29 20:08] VITALS: BP 124/77
[2018-04-29] MEDS: BUDESONIDE 0.5MG/2ML NEB HHN SCH (21:04)
[2018-04-29] MEDS: IPRATROPIUM/ALBUTEROL 0.5-3(2.5)MG/3ML NEB INH SCH (21:04)
[2018-04-29] MEDS: INSULIN GLARGINE UD 100 UNITS/ML SYR SUBCUT SCH (22:20)
[2018-04-29 23:59] VITALS: BP 107/64
[2018-04-30 01:33] LABS: CREATINE KINASE MB FRACTION 2.1 ng/mL (0.5-3.6)
[2018-04-30] MEDS: IPRATROPIUM/ALBUTEROL 0.5-3(2.5)MG/3ML NEB INH SCH ×4 (02:03→21:15)
[2018-04-30 04:00] VITALS: BP 132/57
[2018-04-30] MEDS: HYDROMORPHONE HCL/PF 2MG/ML CPJ IV PRN ×2 (04:58→21:38)
[2018-04-30] MEDS: GABAPENTIN 100MG CAPSULE PO SCH ×3 (05:00→21:24)
[2018-04-30] MEDS: HYDRALAZINE HCL 25MG TABLET PO SCH ×3 (05:00→21:25)
[2018-04-30] MEDS: BLOOD SUGAR DIAGNOSTIC STRIP TEST SCH ×4 (06:16→21:00)
[2018-04-30] MEDS: FUROSEMIDE 40MG/4ML VIAL IV SCH (06:16)
[2018-04-30 06:48] LABS: BASOPHILS % 1.1 % (0.0-2.0); HEMATOCRIT. 31.7 % (36.0-48.0); HEMOGLOBIN. 10.1 g/dL (12.0-16.0); LYMPHOCYTES % 27.9 % (20.0-50.0); MEAN CORPUSCULAR HEMOGLOBIN 27.5 pg (28.0-32.0); MEAN CORPUSCULAR VOLUME 86.7 fL (81.0-99.0); MEAN PLATELET VOLUME 9.9 fl (7.4-10.4); MONOCYTES % 10.4 % (2.0-8.0); NEUTROPHILS % 59.6 % (40.0-76.0); PLATELET 185 x1000/uL (130-400); RED BLOOD CELL COUNT 3.65 mill/uL (4.2-5.4); RED CELL DISTRIBUTION WIDTH 16.9 % (11.6-14.6)
[2018-04-30 08:00] VITALS: BP 133/73
[2018-04-30] MEDS: ASPIRIN 81MG TABLET PO SCH (08:47)
[2018-04-30] MEDS: CARVEDILOL 6.25 MG TABLET PO SCH ×2 (08:48→21:24)
[2018-04-30] MEDS: CLOPIDOGREL 75MG TABLET PO SCH (08:48)
[2018-04-30] MEDS: INSULIN LISPRO 100 UNITS/ML SUBCUT SCH ×4 (08:51→21:27)
[2018-04-30] MEDS: BUDESONIDE 0.5MG/2ML NEB HHN SCH ×2 (09:31→21:15)
[2018-04-30 11:19] VITALS: BP 96/54
[2018-04-30] MEDS: INSULIN GLARGINE UD 100 UNITS/ML SYR SUBCUT SCH ×2 (11:47→21:27)
[2018-04-30 12:49] VITALS: BP 100/54
[2018-04-30 16:00] VITALS: BP 103/65
[2018-04-30 19:56] VITALS: BP 121/65
[2018-04-30] MEDS: ATORVASTATIN CALCIUM 20MG TABLET PO SCH (21:29)
[2018-05-01] VITALS (17 sets, daily range): BP systolic 115–149; BP diastolic 57–100
[2018-05-01] MEDS: DIPHENHYDRAMINE 50MG/ML VIAL IV PRN (00:38)
[2018-05-01] MEDS: IPRATROPIUM/ALBUTEROL 0.5-3(2.5)MG/3ML NEB INH SCH ×5 (02:50→20:34)
[2018-05-01] MEDS: HYDRALAZINE HCL 25MG TABLET PO SCH ×3 (07:05→23:35)
[2018-05-01] MEDS: BLOOD SUGAR DIAGNOSTIC STRIP TEST SCH ×4 (07:05→22:03)
[2018-05-01] MEDS: GABAPENTIN 100MG CAPSULE PO SCH ×3 (07:05→22:10)
[2018-05-01 07:35] LABS: EOSINOPHILS % 1.1 % (0.0-5.0); HEMATOCRIT. 32.1 % (36.0-48.0); HEMOGLOBIN. 9.9 g/dL (12.0-16.0); LYMPHOCYTES % 23.7 % (20.0-50.0); MEAN CORPUSCULAR VOLUME 87.4 fL (81.0-99.0); MEAN PLATELET VOLUME 9.6 fl (7.4-10.4); MONOCYTES % 13.2 % (2.0-8.0); PLATELET 170 x1000/uL (130-400); RED BLOOD CELL COUNT 3.68 mill/uL (4.2-5.4)
[2018-05-01] MEDS: INSULIN LISPRO 100 UNITS/ML SUBCUT SCH ×4 (07:50→22:12)
[2018-05-01] MEDS: CARVEDILOL 6.25 MG TABLET PO SCH ×2 (09:00→22:14)
[2018-05-01] MEDS: ASPIRIN 81MG TABLET PO SCH (09:00)
[2018-05-01] MEDS: CLOPIDOGREL 75MG TABLET PO SCH (09:00)
[2018-05-01] MEDS: FUROSEMIDE 40MG/4ML VIAL IV SCH (09:13)
[2018-05-01] MEDS: HYDROMORPHONE HCL/PF 2MG/ML CPJ IV PRN ×2 (09:17→23:35)
[2018-05-01] MEDS: INSULIN GLARGINE UD 100 UNITS/ML SYR SUBCUT SCH ×2 (10:00→22:12)
[2018-05-01] MEDS: BUDESONIDE 0.5MG/2ML NEB HHN SCH ×2 (10:22→20:34)
[2018-05-01] MEDS ORDERED: LIDOCAINE HCL 1% 20ML VIAL (Pyxis) INJ ONE (12:02)
[2018-05-01] MEDS ORDERED: IODIXANOL 320MG/ML 100 ML BOTTLE IV ONE ×2 (12:05→12:55)
[2018-05-01] MEDS ORDERED: MIDAZOLAM HCL 2 MG/2 ML VIAL ONE (12:16)
[2018-05-01] MEDS ORDERED: FENTANYL CITRATE/PF 50MCG/ML 2ML VIAL ONE (12:16)
[2018-05-01] MEDS ORDERED: IOHEXOL-300 100 ML BOTTLE ONE (12:34)
[2018-05-01] MEDS ORDERED: ATROPINE SULFATE 0.1MG/ML 10ML DISP.SYRIN ONE (12:39)
[2018-05-01] MEDS ORDERED: ATROPINE SULFATE 1MG/10ML SYR IV PRN (13:00)
[2018-05-01] MEDS ORDERED: ACETAMINOPHEN 325MG TABLET PO PRN (13:00)
[2018-05-01] MEDS: SODIUM CHLORIDE 0.45% 1,000 ML IV SCH ×2 (13:00→23:44)
[2018-05-01] MEDS ORDERED: CLOPIDOGREL 75MG TABLET ONE (13:19)
[2018-05-01] MEDS ORDERED: ASPIRIN 325MG TABLET ONE (13:21)
[2018-05-01] MEDS ORDERED: HEPARIN SODIUM 1,000 UNIT/1ML VIAL IV ONE (13:55)
[2018-05-01] MEDS ORDERED: PHENYLEPHRINE 100MCG/ML 10ML VIAL (CATH LAB) IV ONE (14:48)
[2018-05-01] MEDS ORDERED: NITROGLYCERIN 50MCG/ML 10ML VIAL (CATH LAB) IV ONE (14:48)
[2018-05-01] MEDS ORDERED: HYDROMORPHONE HCL/PF 2MG/ML CPJ IV NR (21:00)
[2018-05-01] MEDS: NITROGLYCERIN 0.4MG TABLET SL SL PRN (21:07)
[2018-05-01] MEDS: ATORVASTATIN CALCIUM 20MG TABLET PO SCH (22:10)
[2018-05-02] VITALS (29 sets, daily range): BP systolic 90–140; BP diastolic 48–82
[2018-05-02] MEDS: IPRATROPIUM/ALBUTEROL 0.5-3(2.5)MG/3ML NEB INH SCH ×4 (04:41→20:15)
[2018-05-02] MEDS: HYDROMORPHONE HCL/PF 2MG/ML CPJ IV PRN ×2 (05:43→20:07)
[2018-05-02] MEDS: GABAPENTIN 100MG CAPSULE PO SCH ×3 (06:12→22:00)
[2018-05-02] MEDS: BLOOD SUGAR DIAGNOSTIC STRIP TEST SCH ×4 (06:13→20:11)
[2018-05-02 06:25] LABS: HEMATOCRIT. 30.8 % (36.0-48.0); HEMOGLOBIN. 9.5 g/dL (12.0-16.0); MEAN CORPUSCULAR HEMOGLOBIN 26.6 pg (28.0-32.0); MEAN CORPUSCULAR VOLUME 85.9 fL (81.0-99.0); MEAN PLATELET VOLUME 9.7 fl (7.4-10.4); PLATELET 170 x1000/uL (130-400); RED BLOOD CELL COUNT 3.59 mill/uL (4.2-5.4); RED CELL DISTRIBUTION WIDTH 16.6 % (11.6-14.6)
[2018-05-02] MEDS: HYDRALAZINE HCL 25MG TABLET PO SCH ×3 (06:53→22:45)
[2018-05-02] MEDS: INSULIN LISPRO 100 UNITS/ML SUBCUT SCH ×4 (07:20→20:15)
[2018-05-02] MEDS: ASPIRIN 81MG TABLET PO SCH (07:59)
[2018-05-02] MEDS: CLOPIDOGREL 75MG TABLET PO SCH (07:59)
[2018-05-02] MEDS: CARVEDILOL 6.25 MG TABLET PO SCH ×2 (08:00→20:09)
[2018-05-02] MEDS: FUROSEMIDE 40MG/4ML VIAL IV SCH (08:00)
[2018-05-02] MEDS: INSULIN GLARGINE UD 100 UNITS/ML SYR SUBCUT SCH ×2 (11:13→22:52)
[2018-05-02] MEDS: HYDROCODONE/ACETAMINOPHEN 10/325MG TABLET PO PRN (11:21)
[2018-05-02 11:33] LABS: PLATELET ESTIMATE NORMAL
[2018-05-02] MEDS: NITROGLYCERIN 0.4MG TABLET SL SL PRN (17:57)
[2018-05-02] MEDS: SODIUM CHLORIDE 0.45% 1,000 ML IV SCH (17:57)
[2018-05-02] MEDS: ATORVASTATIN CALCIUM 20MG TABLET PO SCH (20:08)
[2018-05-02] MEDS: DIPHENHYDRAMINE 50MG/ML VIAL IV PRN (22:45)
[2018-05-03] VITALS (7 sets, daily range): BP systolic 107–142; BP diastolic 54–89
[2018-05-03] MEDS: IPRATROPIUM/ALBUTEROL 0.5-3(2.5)MG/3ML NEB INH SCH ×2 (02:46→09:00)
[2018-05-03] MEDS: GABAPENTIN 100MG CAPSULE PO SCH (06:00)
[2018-05-03] MEDS: HYDRALAZINE HCL 25MG TABLET PO SCH (06:49)
[2018-05-03] MEDS: BLOOD SUGAR DIAGNOSTIC STRIP TEST SCH (07:13)
[2018-05-03] MEDS: INSULIN LISPRO 100 UNITS/ML SUBCUT SCH (07:20)
[2018-05-03] MEDS: HYDROCODONE/ACETAMINOPHEN 10/325MG TABLET PO PRN (07:38)
[2018-05-03] MEDS: ASPIRIN 81MG TABLET PO SCH (08:26)
[2018-05-03] MEDS: CLOPIDOGREL 75MG TABLET PO SCH (08:26)
[2018-05-03] MEDS: CARVEDILOL 6.25 MG TABLET PO SCH (08:26)
[2018-05-03] MEDS ORDERED: FUROSEMIDE 40MG TABLET PO SCH (09:00)
[2018-05-03] MEDS: INSULIN GLARGINE UD 100 UNITS/ML SYR SUBCUT SCH (09:41)
== END 2018-05-03 10:20 | disposition home or self-care (01) | DRG 246 ==
LOC: ER 09:10 → 6WST 11:22 → EDBEDREQ 12:21 → EDBEDREQTM 12:21 → ENRESERV 20:41 → 3WST 05-01 14:02
PROVIDERS: ADMIT Internal Medicine Nephrology; ATTEND Internal Medicine Nephrology
PROC: 4A023N7 Measurement of Cardiac Sampling and Pressure, Left Heart, Percutaneous Approach (ICD-10-PCS; principal; 2018-05-01)
PROC: 027034Z Dilation of Coronary Artery, One Artery with Drug-eluting Intraluminal Device, Percutaneous Approach (ICD-10-PCS; 2018-05-01)
PROC: B2111ZZ Fluoroscopy of Multiple Coronary Arteries using Low Osmolar Contrast (ICD-10-PCS; 2018-05-01)
PROC: B2151ZZ Fluoroscopy of Left Heart using Low Osmolar Contrast (ICD-10-PCS; 2018-05-01)
DX: I25.10 Atherosclerotic heart disease of native coronary artery without angina pectoris (principal); I50.23 Acute on chronic systolic (congestive) heart failure; J96.20 Acute and chronic respiratory failure, unspecified whether with hypoxia or hypercapnia; E44.0 Moderate protein-calorie malnutrition; E87.2 Acidosis; I31.3 Pericardial effusion (noninflammatory); I13.2 Hypertensive heart and chronic kidney disease with heart failure and with stage 5 chronic kidney disease, or end stage renal disease; N18.5 Chronic kidney disease, stage 5; I42.9 Cardiomyopathy, unspecified; R07.89 Other chest pain; E78.5 Hyperlipidemia, unspecified; J44.9 Chronic obstructive pulmonary disease, unspecified; I27.20 Pulmonary hypertension, unspecified; I08.1 Rheumatic disorders of both mitral and tricuspid valves; E11.22 Type 2 diabetes mellitus with diabetic chronic kidney disease; E11.40 Type 2 diabetes mellitus with diabetic neuropathy, unspecified; F17.210 Nicotine dependence, cigarettes, uncomplicated; G40.909 Epilepsy, unspecified, not intractable, without status epilepticus; D64.9 Anemia, unspecified; Z79.02 Long term (current) use of antithrombotics/antiplatelets; I25.2 Old myocardial infarction; Z79.4 Long term (current) use of insulin; Z79.82 Long term (current) use of aspirin; Z79.899 Other long term (current) drug therapy; Z86.73 Personal history of transient ischemic attack (TIA), and cerebral infarction without residual deficits; Z82.49 Family history of ischemic heart disease and other diseases of the circulatory system; Z99.81 Dependence on supplemental oxygen; Z68.33 Body mass index [BMI] 33.0-33.9, adult; Z83.3 Family history of diabetes mellitus; Z87.39 Personal history of other diseases of the musculoskeletal system and connective tissue
CPT/HCPCS: 36415; 36600; 71045; 73522; 73562; 74176; 78582; 80048; 80061; 80305; 82375; 82550; 82553; 82805; 82962; 83036; 83605; 83880; 84439; 84443; 84484; 85347; 85379; 92928; 93005; 93306; 93458; 93970; 94640; 96374; 96375; 97161; 97166; 99285; A9558; C1725; C1769; C1874; C1887; C1893; J0461; J1170; J1200; J1644; J1650; J1815; J1940; J2250; J2370; J2405; J3010; J3490; J7620; J7626; Q9967

== ENCOUNTER 2018-05-06 15:18 | Inpatient (IN) | payer MEDICARE, MEDICAID ==
[~2018-05-06] VITALS: Ht 170.2 cm; Wt 92.1 kg
[2018-05-06 16:14] LABS: BASOPHILS % 1.5 % (0.0-2.0); EOSINOPHILS % 0.8 % (0.0-5.0); HEMATOCRIT. 32.1 % (36.0-48.0); HEMOGLOBIN. 10.3 g/dL (12.0-16.0); LYMPHOCYTES % 16.4 % (20.0-50.0); MEAN CORPUSCULAR HEMOGLOBIN 27.1 pg (28.0-32.0); MEAN CORPUSCULAR VOLUME 84.8 fL (81.0-99.0); MEAN PLATELET VOLUME 10.2 fl (7.4-10.4); MONOCYTES % 9.9 % (2.0-8.0); NEUTROPHILS % 71.4 % (40.0-76.0); PLATELET 189 x1000/uL (130-400); RED BLOOD CELL COUNT 3.79 mill/uL (4.2-5.4); RED CELL DISTRIBUTION WIDTH 16.8 % (11.6-14.6)
[2018-05-06 16:18] LABS: CHLORIDE 103 mEq/L (98-107)
[2018-05-06 16:20] LABS: INR 1.2; PROTHROMBIN TIME 12.2 sec (9.1-11.1)
[2018-05-06] MEDS ORDERED: ASPIRIN 81MG TABLET PO ONE (16:45)
[2018-05-06] MEDS ORDERED: ONDANSETRON HCL 4MG/2ML INJ IV PRN (17:15)
[2018-05-06] MEDS ORDERED: CLONIDINE 0.1MG TABLET PO PRN (17:15)
[2018-05-06] MEDS ORDERED: ACETAMINOPHEN 325MG TABLET PO PRN (17:15)
[2018-05-06] MEDS ORDERED: ASPIRIN 81MG TABLET PO NR (17:25)
[2018-05-06] MEDS ORDERED: ONDANSETRON HCL 4MG/2ML INJ IV ONE (17:30)
[2018-05-06] MEDS ORDERED: MORPHINE SULFATE 4 MG/ML CPJ (NOT FOR IM USE) IV ONE (17:30)
[2018-05-06] MEDS ORDERED: DIPHENHYDRAMINE 50MG/ML VIAL IV ONE (18:45)
[2018-05-06 20:12] LABS: CLARITY URINE CLEAR (CLEAR); COLOR URINE YELLOW (YELLOW); KETONES URINE NEGATIVE (NEGATIVE); LEUKOCYTE ESTERASE URINE NEGATIVE (NEGATIVE); NITRITE URINE NEGATIVE (NEGATIVE); OCCULT BLOOD URINE NEGATIVE (NEGATIVE); PH URINE 5.5 (4.5-8.0); PROTEIN URINE 1+ (NEGATIVE); SPECIFIC GRAVITY URINE 1.011 (1.005-1.030); UROBILINOGEN URINE 0.2 E.U./dL (0.2-1.0)
[2018-05-06 22:55] VITALS: BP 157/78
[2018-05-06] MEDS ORDERED: HYDROMORPHONE HCL/PF 2MG/ML CPJ IV PRN (23:30)
[2018-05-07] MEDS ORDERED: ATORVASTATIN CALCIUM 20MG TABLET PO SCH
[2018-05-07] MEDS: HYDROCODONE/ACETAMINOPHEN 10/325MG TABLET PO PRN ×4 (00:04→17:24)
[2018-05-07] MEDS: HYDRALAZINE HCL 25MG TABLET PO SCH ×4 (00:04→21:20)
[2018-05-07] MEDS: GABAPENTIN 100MG CAPSULE PO SCH ×4 (00:04→21:19)
[2018-05-07] MEDS: CARVEDILOL 6.25 MG TABLET PO SCH ×3 (00:04→21:00)
[2018-05-07] MEDS: INSULIN GLARGINE UD 100 UNITS/ML SYR SUBCUT SCH ×3 (00:26→22:15)
[2018-05-07] MEDS ORDERED: DEXTROSE 50% WATER 50ML SYRINGE IV PRN (01:00)
[2018-05-07 04:00] VITALS: BP 125/68
[2018-05-07 06:57] LABS: HEMATOCRIT. 28.8 % (36.0-48.0); HEMOGLOBIN. 9.4 g/dL (12.0-16.0); MEAN CORPUSCULAR HEMOGLOBIN 27.5 pg (28.0-32.0); MEAN CORPUSCULAR VOLUME 84.5 fL (81.0-99.0); MEAN PLATELET VOLUME 9.8 fl (7.4-10.4); PLATELET 175 x1000/uL (130-400); RED BLOOD CELL COUNT 3.41 mill/uL (4.2-5.4); RED CELL DISTRIBUTION WIDTH 16.4 % (11.6-14.6)
[2018-05-07 07:01] LABS: CHLORIDE 103 mEq/L (98-107)
[2018-05-07 07:08] LABS: LDL CHOLESTEROL 46 mg/dL (5-100)
[2018-05-07 07:09] LABS: HDL CHOLESTEROL 43 mg/dL (40-59)
[2018-05-07] MEDS: BLOOD SUGAR DIAGNOSTIC STRIP TEST SCH ×4 (07:53→21:21)
[2018-05-07 08:00] VITALS: BP 123/72
[2018-05-07] MEDS: ASPIRIN 81MG EC TABLET PO SCH (08:45)
[2018-05-07] MEDS: CLOPIDOGREL 75MG TABLET PO SCH (08:45)
[2018-05-07] MEDS: INSULIN LISPRO 100 UNITS/ML SUBCUT SCH ×4 (08:48→21:20)
[2018-05-07] MEDS ORDERED: FUROSEMIDE 40MG/4ML VIAL IV SCH ×2 (09:00→12:30)
[2018-05-07 12:00] VITALS: BP 113/60
[2018-05-07] MEDS: NICOTINE 14MG PATCH TD SCH (13:10)
[2018-05-07 14:49] LABS: PLATELET ESTIMATE NORMAL
[2018-05-07] MEDS: IPRATROPIUM/ALBUTEROL 0.5-3(2.5)MG/3ML NEB INH SCH ×2 (14:55→21:05)
[2018-05-07 16:00] VITALS: BP 117/63
[2018-05-07 18:02] LABS: BG BASE EXCESS 2.4 mmol/L (-2.0-2.0); BG CARBOXYHEMOGLOBIN 0.3 % (0.5-1.5); BG DEOXYHEMOGLOBIN 14.7 % (0.0-5.0); BG FRACTION INSPIRED OXYGEN 28; BG HCO3 ACT 28.5 mmol/L (22.0-26.0); BG METHEMOGLOBIN 0.2 % (0.0-1.5); BG OXYGEN SATURATION 85.2 % (92.0-98.5); BG OXYHEMOGLOBIN 84.8 % (94.0-97.0); BG PCO2 51.7 mmHg (35.0-45.0); BG PH 7.359 (7.350-7.450); BG PO2 55.2 mmHg (75.0-100.0); BG SAMPLE SITE LEFT BRACHIAL; BG TOTAL HEMOGLOBIN 10.1 g/dL (12.0-18.0); BG VENT MODE NASAL CANNULA
[2018-05-07 20:00] VITALS: BP 106/60
[2018-05-07] MEDS: FUROSEMIDE 100MG/10ML VIAL IVP SCH (20:13)
[2018-05-07] MEDS: BUDESONIDE 0.5MG/2ML NEB HHN SCH (21:05)
[2018-05-07] MEDS: ATORVASTATIN CALCIUM 40MG TABLET PO SCH (21:19)
[2018-05-08] VITALS: BP 114/66
[2018-05-08] MEDS: IPRATROPIUM/ALBUTEROL 0.5-3(2.5)MG/3ML NEB INH SCH ×2 (01:46→09:26)
[2018-05-08] MEDS: HYDROCODONE/ACETAMINOPHEN 10/325MG TABLET PO PRN (03:46)
[2018-05-08 04:00] VITALS: BP 105/48
[2018-05-08] MEDS: HYDRALAZINE HCL 25MG TABLET PO SCH ×3 (06:00→22:07)
[2018-05-08] MEDS: FUROSEMIDE 100MG/10ML VIAL IVP SCH ×2 (06:04→17:25)
[2018-05-08] MEDS: GABAPENTIN 100MG CAPSULE PO SCH ×3 (06:04→22:06)
[2018-05-08] MEDS: BLOOD SUGAR DIAGNOSTIC STRIP TEST SCH ×4 (07:40→21:00)
[2018-05-08 08:00] VITALS: BP 119/51
[2018-05-08] MEDS: INSULIN LISPRO 100 UNITS/ML SUBCUT SCH ×4 (08:10→22:09)
[2018-05-08] MEDS: METOLAZONE 2.5MG TABLET PO SCH (08:59)
[2018-05-08] MEDS: ASPIRIN 81MG EC TABLET PO SCH (08:59)
[2018-05-08] MEDS: CLOPIDOGREL 75MG TABLET PO SCH (08:59)
[2018-05-08] MEDS ORDERED: DIPHENHYDRAMINE 50MG/ML VIAL IV PRN (09:00)
[2018-05-08] MEDS: CARVEDILOL 6.25 MG TABLET PO SCH ×2 (09:00→22:07)
[2018-05-08] MEDS: NICOTINE 14MG PATCH TD SCH (09:00)
[2018-05-08] MEDS: BUDESONIDE 0.5MG/2ML NEB HHN SCH (09:26)
[2018-05-08] MEDS: INSULIN GLARGINE UD 100 UNITS/ML SYR SUBCUT SCH ×2 (10:04→22:09)
[2018-05-08 12:00] VITALS: BP 140/77
[2018-05-08] MEDS: HYDROMORPHONE HCL/PF 2MG/ML CPJ IV PRN (14:59)
[2018-05-08 16:00] VITALS: BP 133/67
[2018-05-08 20:00] VITALS: BP 142/73
[2018-05-08] MEDS: ATORVASTATIN CALCIUM 40MG TABLET PO SCH (22:06)
[2018-05-09] VITALS: BP 135/68
[2018-05-09 04:00] VITALS: BP 130/70
[2018-05-09] MEDS: FUROSEMIDE 100MG/10ML VIAL IVP SCH (06:11)
[2018-05-09] MEDS: GABAPENTIN 100MG CAPSULE PO SCH ×3 (06:11→21:34)
[2018-05-09] MEDS: HYDRALAZINE HCL 25MG TABLET PO SCH ×3 (06:12→21:34)
[2018-05-09] MEDS: BLOOD SUGAR DIAGNOSTIC STRIP TEST SCH ×4 (06:25→21:12)
[2018-05-09 07:10] LABS: BASOPHILS % 0.9 % (0.0-2.0); EOSINOPHILS % 0.9 % (0.0-5.0); HEMATOCRIT. 33.8 % (36.0-48.0); HEMOGLOBIN. 10.5 g/dL (12.0-16.0); LYMPHOCYTES % 18.1 % (20.0-50.0); MEAN CORPUSCULAR HEMOGLOBIN 26.6 pg (28.0-32.0); MEAN CORPUSCULAR VOLUME 85.6 fL (81.0-99.0); MEAN PLATELET VOLUME 10.3 fl (7.4-10.4); MONOCYTES % 14.5 % (2.0-8.0); NEUTROPHILS % 65.6 % (40.0-76.0); PLATELET 190 x1000/uL (130-400); RED BLOOD CELL COUNT 3.95 mill/uL (4.2-5.4); RED CELL DISTRIBUTION WIDTH 16.7 % (11.6-14.6)
[2018-05-09 08:00] VITALS: BP 149/56
[2018-05-09] MEDS: INSULIN LISPRO 100 UNITS/ML SUBCUT SCH ×4 (08:10→21:38)
[2018-05-09] MEDS: ASPIRIN 81MG EC TABLET PO SCH (08:56)
[2018-05-09] MEDS: NICOTINE 14MG PATCH TD SCH (08:57)
[2018-05-09] MEDS: METOLAZONE 2.5MG TABLET PO SCH (08:57)
[2018-05-09] MEDS: CLOPIDOGREL 75MG TABLET PO SCH (08:57)
[2018-05-09] MEDS: CARVEDILOL 6.25 MG TABLET PO SCH ×2 (08:57→21:35)
[2018-05-09] MEDS: IPRATROPIUM/ALBUTEROL 0.5-3(2.5)MG/3ML NEB INH SCH ×3 (09:32→21:07)
[2018-05-09] MEDS: BUDESONIDE 0.5MG/2ML NEB HHN SCH ×2 (09:32→21:06)
[2018-05-09] MEDS: INSULIN GLARGINE UD 100 UNITS/ML SYR SUBCUT SCH ×2 (10:44→21:38)
[2018-05-09 12:00] VITALS: BP 128/57
[2018-05-09] MEDS: HYDROMORPHONE HCL/PF 2MG/ML CPJ IV PRN ×2 (15:16→21:39)
[2018-05-09 20:00] VITALS: BP 137/63
[2018-05-09] MEDS: ATORVASTATIN CALCIUM 40MG TABLET PO SCH (21:35)
[2018-05-10] VITALS: BP 126/53
[2018-05-10] MEDS: IPRATROPIUM/ALBUTEROL 0.5-3(2.5)MG/3ML NEB INH SCH ×3 (03:39→20:25)
[2018-05-10 04:00] VITALS: BP 116/60
[2018-05-10] MEDS: GABAPENTIN 100MG CAPSULE PO SCH ×3 (05:56→21:52)
[2018-05-10] MEDS: BLOOD SUGAR DIAGNOSTIC STRIP TEST SCH ×4 (05:57→21:54)
[2018-05-10] MEDS: HYDRALAZINE HCL 25MG TABLET PO SCH ×3 (05:57→21:52)
[2018-05-10 08:00] VITALS: BP 121/59
[2018-05-10] MEDS: INSULIN LISPRO 100 UNITS/ML SUBCUT SCH ×4 (08:10→21:54)
[2018-05-10 08:21] LABS: EOSINOPHILS % 0.9 % (0.0-5.0); HEMATOCRIT. 32.7 % (36.0-48.0); HEMOGLOBIN. 10.2 g/dL (12.0-16.0); MEAN CORPUSCULAR HEMOGLOBIN 26.8 pg (28.0-32.0); MEAN CORPUSCULAR VOLUME 85.7 fL (81.0-99.0); MEAN PLATELET VOLUME 9.9 fl (7.4-10.4); MONOCYTES % 13.6 % (2.0-8.0); NEUTROPHILS % 61.5 % (40.0-76.0); PLATELET 194 x1000/uL (130-400); RED BLOOD CELL COUNT 3.81 mill/uL (4.2-5.4); RED CELL DISTRIBUTION WIDTH 16.9 % (11.6-14.6)
[2018-05-10] MEDS: CARVEDILOL 6.25 MG TABLET PO SCH ×2 (08:33→21:52)
[2018-05-10] MEDS: NICOTINE 14MG PATCH TD SCH (08:33)
[2018-05-10] MEDS: ASPIRIN 81MG EC TABLET PO SCH (08:33)
[2018-05-10] MEDS: CLOPIDOGREL 75MG TABLET PO SCH (08:33)
[2018-05-10] MEDS: BUDESONIDE 0.5MG/2ML NEB HHN SCH ×2 (09:08→20:25)
[2018-05-10] MEDS: INSULIN GLARGINE UD 100 UNITS/ML SYR SUBCUT SCH ×2 (10:26→21:54)
[2018-05-10 12:00] VITALS: BP 107/53
[2018-05-10 16:00] VITALS: BP 115/59
[2018-05-10 20:00] VITALS: BP 127/52
[2018-05-10] MEDS: ATORVASTATIN CALCIUM 40MG TABLET PO SCH (21:52)
[2018-05-10] MEDS: FUROSEMIDE 40MG TABLET PO SCH (21:52)
[2018-05-11] VITALS: BP 122/58
[2018-05-11] MEDS: IPRATROPIUM/ALBUTEROL 0.5-3(2.5)MG/3ML NEB INH SCH ×2 (01:13→07:50)
[2018-05-11 04:00] VITALS: BP 114/45
[2018-05-11] MEDS: GABAPENTIN 100MG CAPSULE PO SCH (05:38)
[2018-05-11] MEDS: HYDRALAZINE HCL 25MG TABLET PO SCH (05:39)
[2018-05-11] MEDS: BLOOD SUGAR DIAGNOSTIC STRIP TEST SCH (05:39)
[2018-05-11 06:58] LABS: BASOPHILS % 1.3 % (0.0-2.0); EOSINOPHILS % 0.7 % (0.0-5.0); HEMATOCRIT. 32.5 % (36.0-48.0); HEMOGLOBIN. 10.2 g/dL (12.0-16.0); LYMPHOCYTES % 25.9 % (20.0-50.0); MEAN CORPUSCULAR HEMOGLOBIN 26.5 pg (28.0-32.0); MEAN CORPUSCULAR VOLUME 84.7 fL (81.0-99.0); MEAN PLATELET VOLUME 9.6 fl (7.4-10.4); MONOCYTES % 12.1 % (2.0-8.0); PLATELET 205 x1000/uL (130-400); RED BLOOD CELL COUNT 3.84 mill/uL (4.2-5.4); RED CELL DISTRIBUTION WIDTH 16.8 % (11.6-14.6)
[2018-05-11 08:00] VITALS: BP 107/48
[2018-05-11] MEDS: CARVEDILOL 6.25 MG TABLET PO SCH (09:00)
[2018-05-11] MEDS: NICOTINE 14MG PATCH TD SCH (09:00)
[2018-05-11] MEDS: CLOPIDOGREL 75MG TABLET PO SCH (09:18)
[2018-05-11] MEDS: ASPIRIN 81MG EC TABLET PO SCH (09:19)
[2018-05-11] MEDS: FUROSEMIDE 40MG TABLET PO SCH (09:19)
[2018-05-11] MEDS: INSULIN LISPRO 100 UNITS/ML SUBCUT SCH (09:21)
[2018-05-11] MEDS: INSULIN GLARGINE UD 100 UNITS/ML SYR SUBCUT SCH (10:18)
[2018-05-11 10:44] VITALS: BP 107/48
== END 2018-05-11 11:30 | disposition home or self-care (01) | DRG 291 ==
LOC: ER 15:18 → EDBEDREQ 16:59 → ENRESERV 20:49 → 7WST 23:28
PROVIDERS: ADMIT Internal Medicine Nephrology; ATTEND Internal Medicine Nephrology
DX: I13.0 Hypertensive heart and chronic kidney disease with heart failure and stage 1 through stage 4 chronic kidney disease, or unspecified chronic kidney disease (principal); I50.43 Acute on chronic combined systolic (congestive) and diastolic (congestive) heart failure; E44.0 Moderate protein-calorie malnutrition; N17.9 Acute kidney failure, unspecified; J96.10 Chronic respiratory failure, unspecified whether with hypoxia or hypercapnia; N18.4 Chronic kidney disease, stage 4 (severe); I31.3 Pericardial effusion (noninflammatory); J44.1 Chronic obstructive pulmonary disease with (acute) exacerbation; I42.9 Cardiomyopathy, unspecified; D64.9 Anemia, unspecified; I27.20 Pulmonary hypertension, unspecified; E11.22 Type 2 diabetes mellitus with diabetic chronic kidney disease; E78.00 Pure hypercholesterolemia, unspecified; E78.5 Hyperlipidemia, unspecified; F17.210 Nicotine dependence, cigarettes, uncomplicated; G40.909 Epilepsy, unspecified, not intractable, without status epilepticus; I08.1 Rheumatic disorders of both mitral and tricuspid valves; I25.10 Atherosclerotic heart disease of native coronary artery without angina pectoris; Z79.02 Long term (current) use of antithrombotics/antiplatelets; Z79.4 Long term (current) use of insulin; Z79.82 Long term (current) use of aspirin; Z79.899 Other long term (current) drug therapy; Z82.49 Family history of ischemic heart disease and other diseases of the circulatory system; Z83.3 Family history of diabetes mellitus; Z86.73 Personal history of transient ischemic attack (TIA), and cerebral infarction without residual deficits; Z87.39 Personal history of other diseases of the musculoskeletal system and connective tissue; Z95.5 Presence of coronary angioplasty implant and graft; Z99.81 Dependence on supplemental oxygen; Z68.31 Body mass index [BMI] 31.0-31.9, adult
CPT/HCPCS: 36415; 36600; 71045; 78582; 80048; 80061; 82375; 82805; 82962; 83605; 83880; 84443; 84484; 85379; 93005; 93970; 94640; 96374; 96375; 97162; 97166; 99291; A9558; J1170; J1200; J1815; J1940; J2270; J2405; J7620; J7626

== ENCOUNTER 2018-05-27 08:32 | Inpatient (IN) | payer MEDICARE, MEDICAID ==
[~2018-05-27] VITALS: Ht 170.2 cm; Wt 89.4 kg
[2018-05-27] MEDS ORDERED: NITROGLYCERIN 0.4MG TABLET SL SL PRN (09:15)
[2018-05-27] MEDS ORDERED: ASPIRIN 81MG TABLET PO ONE (09:15)
[2018-05-27 09:38] LABS: BASOPHILS % 1.3 % (0.0-2.0); EOSINOPHILS % 0.8 % (0.0-5.0); HEMATOCRIT. 31.3 % (36.0-48.0); LYMPHOCYTES % 18.4 % (20.0-50.0); MEAN CORPUSCULAR HEMOGLOBIN 26.3 pg (28.0-32.0); MEAN CORPUSCULAR VOLUME 82.4 fL (81.0-99.0); MEAN PLATELET VOLUME 9.8 fl (7.4-10.4); MONOCYTES % 9.6 % (2.0-8.0); NEUTROPHILS % 69.9 % (40.0-76.0); PLATELET 175 x1000/uL (130-400); RED CELL DISTRIBUTION WIDTH 17.2 % (11.6-14.6)
[2018-05-27 09:42] LABS: CHLORIDE 107 mEq/L (98-107)
[2018-05-27] MEDS ORDERED: ACETAMINOPHEN 325MG TABLET PO PRN (09:45)
[2018-05-27] MEDS ORDERED: CLONIDINE 0.1MG TABLET PO PRN (09:45)
[2018-05-27] MEDS ORDERED: ONDANSETRON HCL 4MG/2ML INJ IV PRN (09:45)
[2018-05-27] MEDS: LISINOPRIL 20MG TABLET PO SCH (09:45)
[2018-05-27] MEDS ORDERED: ENOXAPARIN 40MG/0.4ML SYR SUBCUT SCH (09:45)
[2018-05-27] MEDS: CLOPIDOGREL 75MG TABLET PO SCH (09:45)
[2018-05-27] MEDS ORDERED: IPRATROPIUM/ALBUTEROL 0.5-3(2.5)MG/3ML NEB INH PRN (09:45)
[2018-05-27 09:51] LABS: D-DIMER 1.5 mg/L FEU (<0.50); INR 1.1; PARTIAL THROMBOPLASTIN TIME 28.2 sec (23.4-31.0); PROTHROMBIN TIME 11.6 sec (9.6-11.0)
[2018-05-27] MEDS: HYDROMORPHONE HCL/PF 2MG/ML CPJ IV PRN ×4 (10:44→23:40)
[2018-05-27] MEDS: GABAPENTIN 100MG CAPSULE PO SCH ×2 (14:00→21:24)
[2018-05-27] MEDS: ENOXAPARIN 30MG/0.3ML SYR SUBCUT SCH (14:37)
[2018-05-27] MEDS: NICOTINE 14MG PATCH TD SCH (17:15)
[2018-05-27] MEDS ORDERED: METOLAZONE 2.5MG TABLET PO SCH (17:15)
[2018-05-27] MEDS: METOLAZONE 5MG TABLET PO SCH (19:31)
[2018-05-27] MEDS: FUROSEMIDE 40MG/4ML VIAL IVP SCH (19:31)
[2018-05-27 19:44] VITALS: BP 183/79
[2018-05-27 20:00] VITALS: BP 129/81
[2018-05-27] MEDS ORDERED: DEXTROSE 50% WATER 50ML SYRINGE IV PRN (21:15)
[2018-05-27] MEDS: BLOOD SUGAR DIAGNOSTIC STRIP TEST SCH (21:18)
[2018-05-27] MEDS: HYDRALAZINE HCL 50MG TABLET PO SCH (21:23)
[2018-05-27] MEDS: ATORVASTATIN CALCIUM 40MG TABLET PO SCH (21:23)
[2018-05-27] MEDS: CARVEDILOL 6.25 MG TABLET PO SCH (21:23)
[2018-05-27] MEDS: INSULIN LISPRO 100 UNITS/ML SUBCUT SCH (21:28)
[2018-05-27] MEDS: BUDESONIDE 0.5MG/2ML NEB HHN SCH (22:03)
[2018-05-27] MEDS: IPRATROPIUM/ALBUTEROL 0.5-3(2.5)MG/3ML NEB HHN SCH (22:04)
[2018-05-28] VITALS: BP 120/75
[2018-05-28 01:18] LABS: CLARITY URINE CLEAR (CLEAR); COLOR URINE YELLOW (YELLOW); KETONES URINE NEGATIVE (NEGATIVE); LEUKOCYTE ESTERASE URINE 1+ (NEGATIVE); NITRITE URINE NEGATIVE (NEGATIVE); OCCULT BLOOD URINE NEGATIVE (NEGATIVE); PROTEIN URINE 2+ (NEGATIVE); SPECIFIC GRAVITY URINE 1.016 (1.005-1.030); UROBILINOGEN URINE 0.2 E.U./dL (0.2-1.0)
[2018-05-28] MEDS: IPRATROPIUM/ALBUTEROL 0.5-3(2.5)MG/3ML NEB HHN SCH ×4 (02:58→20:53)
[2018-05-28 04:00] VITALS: BP 130/65
[2018-05-28] MEDS: GABAPENTIN 100MG CAPSULE PO SCH ×3 (06:00→21:35)
[2018-05-28] MEDS: BLOOD SUGAR DIAGNOSTIC STRIP TEST SCH ×4 (06:05→20:33)
[2018-05-28] MEDS: HYDROMORPHONE HCL/PF 2MG/ML CPJ IV PRN ×4 (06:13→23:31)
[2018-05-28] MEDS: FUROSEMIDE 40MG/4ML VIAL IVP SCH ×2 (06:15→17:26)
[2018-05-28] MEDS: METOLAZONE 5MG TABLET PO SCH ×2 (06:15→17:28)
[2018-05-28] MEDS: INSULIN LISPRO 100 UNITS/ML SUBCUT SCH ×4 (06:22→20:42)
[2018-05-28 06:23] LABS: CHLORIDE 105 mEq/L (98-107)
[2018-05-28 06:26] LABS: EOSINOPHILS % 1.5 % (0.0-5.0); HEMATOCRIT. 30.1 % (36.0-48.0); HEMOGLOBIN. 9.5 g/dL (12.0-16.0); MEAN CORPUSCULAR HEMOGLOBIN 26.4 pg (28.0-32.0); MEAN CORPUSCULAR VOLUME 83.5 fL (81.0-99.0); MEAN PLATELET VOLUME 10.4 fl (7.4-10.4); NEUTROPHILS % 61.5 % (40.0-76.0); PLATELET 171 x1000/uL (130-400); RED BLOOD CELL COUNT 3.61 mill/uL (4.2-5.4); RED CELL DISTRIBUTION WIDTH 17.3 % (11.6-14.6)
[2018-05-28 06:44] LABS: LDL CHOLESTEROL 48 mg/dL (5-100)
[2018-05-28 06:46] LABS: HDL CHOLESTEROL 45 mg/dL (40-59)
[2018-05-28 08:00] VITALS: BP 116/59
[2018-05-28] MEDS: LISINOPRIL 20MG TABLET PO SCH (08:37)
[2018-05-28] MEDS: BUDESONIDE 0.5MG/2ML NEB HHN SCH ×2 (08:37→20:53)
[2018-05-28] MEDS: NICOTINE 14MG PATCH TD SCH (08:38)
[2018-05-28] MEDS: ENOXAPARIN 30MG/0.3ML SYR SUBCUT SCH (08:38)
[2018-05-28] MEDS: CARVEDILOL 6.25 MG TABLET PO SCH ×2 (08:38→20:37)
[2018-05-28] MEDS: CLOPIDOGREL 75MG TABLET PO SCH (08:38)
[2018-05-28] MEDS: HYDRALAZINE HCL 50MG TABLET PO SCH ×2 (08:39→20:37)
[2018-05-28 12:00] VITALS: BP 124/66
[2018-05-28 16:00] VITALS: BP 129/76
[2018-05-28 20:00] VITALS: BP 126/87
[2018-05-28] MEDS: ATORVASTATIN CALCIUM 40MG TABLET PO SCH (20:37)
[2018-05-29] VITALS: BP 135/80
[2018-05-29] MEDS: IPRATROPIUM/ALBUTEROL 0.5-3(2.5)MG/3ML NEB HHN SCH (01:30)
[2018-05-29 04:00] VITALS: BP 120/51
[2018-05-29] MEDS: GABAPENTIN 100MG CAPSULE PO SCH (05:47)
[2018-05-29] MEDS: BLOOD SUGAR DIAGNOSTIC STRIP TEST SCH (05:47)
[2018-05-29] MEDS: FUROSEMIDE 40MG/4ML VIAL IVP SCH (06:18)
[2018-05-29] MEDS: HYDROMORPHONE HCL/PF 2MG/ML CPJ IV PRN (06:18)
[2018-05-29] MEDS: METOLAZONE 5MG TABLET PO SCH (06:18)
[2018-05-29] MEDS: INSULIN LISPRO 100 UNITS/ML SUBCUT SCH (06:22)
[2018-05-29 08:00] VITALS: BP 147/73
[2018-05-29 08:23] VITALS: BP 147/73
[2018-05-29] MEDS: HYDRALAZINE HCL 50MG TABLET PO SCH (08:37)
[2018-05-29] MEDS: CLOPIDOGREL 75MG TABLET PO SCH (08:37)
[2018-05-29] MEDS: LISINOPRIL 20MG TABLET PO SCH (08:37)
[2018-05-29] MEDS: CARVEDILOL 6.25 MG TABLET PO SCH (08:37)
[2018-05-29] MEDS: ENOXAPARIN 30MG/0.3ML SYR SUBCUT SCH (08:38)
[2018-05-29] MEDS: NICOTINE 14MG PATCH TD SCH (08:38)
== END 2018-05-29 09:00 | disposition home or self-care (01) | DRG 291 ==
LOC: ER 08:32 → 5WST 11:44 → ENRESERV 15:42
PROVIDERS: ADMIT Internal Medicine Nephrology; ATTEND Internal Medicine Nephrology
DX: I13.0 Hypertensive heart and chronic kidney disease with heart failure and stage 1 through stage 4 chronic kidney disease, or unspecified chronic kidney disease (principal); I50.43 Acute on chronic combined systolic (congestive) and diastolic (congestive) heart failure; J96.20 Acute and chronic respiratory failure, unspecified whether with hypoxia or hypercapnia; E44.0 Moderate protein-calorie malnutrition; J98.11 Atelectasis; R07.81 Pleurodynia; I42.9 Cardiomyopathy, unspecified; J44.9 Chronic obstructive pulmonary disease, unspecified; D64.9 Anemia, unspecified; N18.9 Chronic kidney disease, unspecified; E11.22 Type 2 diabetes mellitus with diabetic chronic kidney disease; I25.10 Atherosclerotic heart disease of native coronary artery without angina pectoris; E78.00 Pure hypercholesterolemia, unspecified; E78.5 Hyperlipidemia, unspecified; F17.210 Nicotine dependence, cigarettes, uncomplicated; G40.909 Epilepsy, unspecified, not intractable, without status epilepticus; I08.1 Rheumatic disorders of both mitral and tricuspid valves; I27.20 Pulmonary hypertension, unspecified; Z79.02 Long term (current) use of antithrombotics/antiplatelets; Z79.899 Other long term (current) drug therapy; Z82.49 Family history of ischemic heart disease and other diseases of the circulatory system; Z83.3 Family history of diabetes mellitus; Z86.73 Personal history of transient ischemic attack (TIA), and cerebral infarction without residual deficits; Z87.39 Personal history of other diseases of the musculoskeletal system and connective tissue; Z95.5 Presence of coronary angioplasty implant and graft; Z99.81 Dependence on supplemental oxygen; Z68.30 Body mass index [BMI] 30.0-30.9, adult; I25.2 Old myocardial infarction; Z79.82 Long term (current) use of aspirin
CPT/HCPCS: 36415; 71045; 78582; 80061; 82962; 83880; 84484; 85379; 93005; 93970; 94640; 96372; 99285; A9558; J1170; J1650; J1815; J1940; J7620; J7626

== ENCOUNTER 2018-06-16 11:26 | Inpatient (IN) | payer MEDICARE, MEDICAID ==
[~2018-06-16] VITALS: Ht 170.2 cm; Wt 88.0 kg
[2018-06-16] MEDS ORDERED: ASPIRIN 81MG TABLET PO ONE (11:45)
[2018-06-16 12:21] LABS: BASOPHILS % 0.6 % (0.0-2.0); EOSINOPHILS % 0.4 % (0.0-5.0); HEMATOCRIT. 34.1 % (36.0-48.0); HEMOGLOBIN. 10.6 g/dL (12.0-16.0); LYMPHOCYTES % 14.8 % (20.0-50.0); MEAN CORPUSCULAR HEMOGLOBIN 25.1 pg (28.0-32.0); MEAN CORPUSCULAR VOLUME 80.9 fL (81.0-99.0); MEAN PLATELET VOLUME 8.9 fl (7.4-10.4); MONOCYTES % 9.9 % (2.0-8.0); NEUTROPHILS % 74.3 % (40.0-76.0); PLATELET 197 x1000/uL (130-400); RED BLOOD CELL COUNT 4.21 mill/uL (4.2-5.4); RED CELL DISTRIBUTION WIDTH 18.1 % (11.6-14.6)
[2018-06-16 12:27] LABS: CHLORIDE 106 mEq/L (98-107)
[2018-06-16] MEDS ORDERED: ONDANSETRON HCL 4MG/2ML INJ IV PRN (12:30)
[2018-06-16] MEDS ORDERED: DOCUSATE SODIUM 100MG CAPSULE PO PRN (12:30)
[2018-06-16] MEDS ORDERED: ACETAMINOPHEN 325MG TABLET PO PRN (12:30)
[2018-06-16] MEDS ORDERED: CLONIDINE 0.1MG TABLET PO PRN (12:30)
[2018-06-16] MEDS ORDERED: IPRATROPIUM/ALBUTEROL 0.5-3(2.5)MG/3ML NEB INH SCH (12:30)
[2018-06-16] MEDS ORDERED: FUROSEMIDE 40MG/4ML VIAL IVP NR (13:00)
[2018-06-16] MEDS: HYDROMORPHONE HCL/PF 2MG/ML CPJ IV PRN ×3 (14:49→22:32)
[2018-06-16] MEDS ORDERED: IPRATROPIUM/ALBUTEROL 0.5-3(2.5)MG/3ML NEB HHN PRN (15:45)
[2018-06-16 15:51] VITALS: BP 138/70
[2018-06-16 16:00] VITALS: BP 138/70
[2018-06-16] MEDS ORDERED: ENOXAPARIN 40MG/0.4ML SYR SUBCUT SCH (16:00)
[2018-06-16] MEDS: BUDESONIDE 0.5MG/2ML NEB HHN SCH ×2 (17:15→22:00)
[2018-06-16] MEDS: IPRATROPIUM/ALBUTEROL 0.5-3(2.5)MG/3ML NEB HHN SCH ×2 (17:16→22:00)
[2018-06-16] MEDS: HYDRALAZINE HCL 25MG TABLET PO SCH ×2 (17:31→21:41)
[2018-06-16] MEDS ORDERED: DEXTROSE 50% WATER 50ML SYRINGE IV PRN (19:00)
[2018-06-16] MEDS ORDERED: FURO40TA5 MT (19:38)
[2018-06-16 19:50] LABS: CLARITY URINE CLEAR (CLEAR); COLOR URINE YELLOW (YELLOW); KETONES URINE NEGATIVE (NEGATIVE); LEUKOCYTE ESTERASE URINE NEGATIVE (NEGATIVE); NITRITE URINE NEGATIVE (NEGATIVE); OCCULT BLOOD URINE NEGATIVE (NEGATIVE); PROTEIN URINE 2+ (NEGATIVE); SPECIFIC GRAVITY URINE 1.013 (1.005-1.030); UROBILINOGEN URINE 0.2 E.U./dL (0.2-1.0)
[2018-06-16 20:00] VITALS: BP 133/71
[2018-06-16 20:57] LABS: *AMPHETAMINES SCREEN URINE NEGATIVE (NEGATIVE); *BARBITURATES SCREEN URINE NEGATIVE (NEGATIVE)
[2018-06-16 20:58] LABS: *BENZODIAZEPINES SCREEN URINE NEGATIVE (NEGATIVE); *COCAINE SCREEN URINE NEGATIVE (NEGATIVE); CANNABINOID URINE SCREEN NEGATIVE (NEGATIVE); METHADONE URINE SCREEN NEGATIVE (NEGATIVE); OPIATES URINE SCREEN PRESUMTIVE POSITIVE (NEGATIVE); PHENCYCLIDINE URINE SCREEN NEGATIVE (NEGATIVE)
[2018-06-16] MEDS: ATORVASTATIN CALCIUM 40MG TABLET PO SCH (21:40)
[2018-06-16] MEDS: CARVEDILOL 6.25 MG TABLET PO SCH (21:41)
[2018-06-16] MEDS: GABAPENTIN 300MG CAPSULE PO SCH (21:42)
[2018-06-16] MEDS: BLOOD SUGAR DIAGNOSTIC STRIP TEST SCH (21:56)
[2018-06-16] MEDS ORDERED: INSULIN GLARGINE UD 100 UNITS/ML SYR SUBCUT SCH (22:00)
[2018-06-16] MEDS: INSULIN LISPRO 100 UNITS/ML SUBCUT SCH (22:00)
[2018-06-17] VITALS: BP 129/73
[2018-06-17] MEDS: INSULIN GLARGINE UD 100 UNITS/ML SYR SUBCUT SCH ×2 (00:14→21:37)
[2018-06-17] MEDS: IPRATROPIUM/ALBUTEROL 0.5-3(2.5)MG/3ML NEB HHN SCH ×6 (00:57→20:57)
[2018-06-17 04:00] VITALS: BP 113/65
[2018-06-17] MEDS: HYDROMORPHONE HCL/PF 2MG/ML CPJ IV PRN ×4 (06:14→21:37)
[2018-06-17] MEDS: BLOOD SUGAR DIAGNOSTIC STRIP TEST SCH ×4 (06:26→21:38)
[2018-06-17 06:27] LABS: HEMATOCRIT. 30.8 % (36.0-48.0); HEMOGLOBIN. 9.4 g/dL (12.0-16.0); MEAN CORPUSCULAR HEMOGLOBIN 24.8 pg (28.0-32.0); MEAN CORPUSCULAR VOLUME 80.9 fL (81.0-99.0); MEAN PLATELET VOLUME 9.8 fl (7.4-10.4); PLATELET 183 x1000/uL (130-400)
[2018-06-17] MEDS: HYDRALAZINE HCL 25MG TABLET PO SCH ×3 (06:55→21:38)
[2018-06-17] MEDS: INSULIN LISPRO 100 UNITS/ML SUBCUT SCH ×4 (06:56→21:00)
[2018-06-17 07:24] LABS: CHLORIDE 108 mEq/L (98-107)
[2018-06-17 08:00] VITALS: BP 104/47
[2018-06-17] MEDS: CARVEDILOL 6.25 MG TABLET PO SCH ×2 (08:27→21:00)
[2018-06-17] MEDS: CLOPIDOGREL 75MG TABLET PO SCH (08:28)
[2018-06-17] MEDS: ASPIRIN 81MG TABLET PO SCH (08:28)
[2018-06-17] MEDS: BUDESONIDE 0.5MG/2ML NEB HHN SCH ×2 (08:33→20:58)
[2018-06-17] MEDS ORDERED: FUROSEMIDE 40MG/4ML VIAL IVP SCH (09:00)
[2018-06-17] MEDS: METOLAZONE 2.5MG TABLET PO SCH (09:38)
[2018-06-17 10:19] LABS: PLATELET ESTIMATE NORMAL
[2018-06-17 12:00] VITALS: BP 125/71
[2018-06-17 16:00] VITALS: BP_SYST 105; BP_SYST 108; BP_DIAS 57
[2018-06-17] MEDS ORDERED: ENOXAPARIN 30MG/0.3ML SYR SUBCUT SCH (17:00)
[2018-06-17 20:00] VITALS: BP 123/61
[2018-06-17] MEDS: GABAPENTIN 300MG CAPSULE PO SCH (21:36)
[2018-06-17] MEDS: ATORVASTATIN CALCIUM 40MG TABLET PO SCH (21:36)
[2018-06-18] VITALS: BP 120/57
[2018-06-18] MEDS: IPRATROPIUM/ALBUTEROL 0.5-3(2.5)MG/3ML NEB HHN SCH ×2 (01:02→05:15)
[2018-06-18 04:00] VITALS: BP 134/69
[2018-06-18] MEDS: HYDROMORPHONE HCL/PF 2MG/ML CPJ IV PRN ×2 (04:51→09:07)
[2018-06-18 06:33] LABS: BASOPHILS % 1.1 % (0.0-2.0); EOSINOPHILS % 2.1 % (0.0-5.0); HEMATOCRIT. 32.1 % (36.0-48.0); HEMOGLOBIN. 9.9 g/dL (12.0-16.0); LYMPHOCYTES % 24.3 % (20.0-50.0); MEAN CORPUSCULAR HEMOGLOBIN 25.1 pg (28.0-32.0); MEAN PLATELET VOLUME 9.6 fl (7.4-10.4); MONOCYTES % 14.1 % (2.0-8.0); NEUTROPHILS % 58.4 % (40.0-76.0); PLATELET 186 x1000/uL (130-400); RED BLOOD CELL COUNT 3.96 mill/uL (4.2-5.4); RED CELL DISTRIBUTION WIDTH 17.9 % (11.6-14.6)
[2018-06-18] MEDS: HYDRALAZINE HCL 25MG TABLET PO SCH (06:34)
[2018-06-18] MEDS: BLOOD SUGAR DIAGNOSTIC STRIP TEST SCH (06:57)
[2018-06-18] MEDS: INSULIN LISPRO 100 UNITS/ML SUBCUT SCH (06:57)
[2018-06-18 08:00] VITALS: BP 124/60
[2018-06-18] MEDS ORDERED: FUROSEMIDE 40MG/4ML VIAL IVP SCH (09:00)
[2018-06-18] MEDS: ASPIRIN 81MG TABLET PO SCH (09:05)
[2018-06-18] MEDS: CLOPIDOGREL 75MG TABLET PO SCH (09:05)
[2018-06-18] MEDS: METOLAZONE 2.5MG TABLET PO SCH (09:06)
[2018-06-18] MEDS: CARVEDILOL 6.25 MG TABLET PO SCH (09:06)
[2018-06-18 10:36] VITALS: BP 124/60
== END 2018-06-18 11:35 | disposition home or self-care (01) | DRG 291 ==
LOC: ER 11:26 → 5WST 12:00 → EDBEDREQ 12:34 → EDBEDREQTM 12:34 → ENRESERV 13:04
PROVIDERS: ADMIT Internal Medicine Nephrology; ATTEND Internal Medicine Nephrology
DX: I13.0 Hypertensive heart and chronic kidney disease with heart failure and stage 1 through stage 4 chronic kidney disease, or unspecified chronic kidney disease (principal); I50.43 Acute on chronic combined systolic (congestive) and diastolic (congestive) heart failure; J96.00 Acute respiratory failure, unspecified whether with hypoxia or hypercapnia; I69.354 Hemiplegia and hemiparesis following cerebral infarction affecting left non-dominant side; E11.22 Type 2 diabetes mellitus with diabetic chronic kidney disease; N18.9 Chronic kidney disease, unspecified; J44.9 Chronic obstructive pulmonary disease, unspecified; I42.9 Cardiomyopathy, unspecified; G40.909 Epilepsy, unspecified, not intractable, without status epilepticus; E78.00 Pure hypercholesterolemia, unspecified; E78.5 Hyperlipidemia, unspecified; F17.200 Nicotine dependence, unspecified, uncomplicated; I08.1 Rheumatic disorders of both mitral and tricuspid valves; I25.10 Atherosclerotic heart disease of native coronary artery without angina pectoris; D64.9 Anemia, unspecified; Z87.39 Personal history of other diseases of the musculoskeletal system and connective tissue; Z95.5 Presence of coronary angioplasty implant and graft; Z99.81 Dependence on supplemental oxygen; Z79.1 Long term (current) use of non-steroidal anti-inflammatories (NSAID); Z79.82 Long term (current) use of aspirin; Z79.4 Long term (current) use of insulin; Z79.899 Other long term (current) drug therapy; I25.2 Old myocardial infarction
CPT/HCPCS: 36415; 71045; 76604; 80048; 80305; 82962; 83880; 84484; 93005; 93970; 99285; J1170; J1650; J1815; J1940; J7620; J7626

== ENCOUNTER 2018-06-29 08:45 | Inpatient (IN) | payer MEDICARE, MEDICAID ==
[2018-06-29] VITALS: BP 154/85
[~2018-06-29] VITALS: Ht 170.2 cm; Wt 81.6 kg
[~2018-06-29 08:45] MED LIST changes: -CLOP75TA16 PO; +CLOP75TA4 PO; +FURO40TA5 MT
[2018-06-29 10:08] LABS: BASOPHILS % 1.2 % (0.0-2.0); EOSINOPHILS % 0.9 % (0.0-5.0); HEMATOCRIT. 32.4 % (36.0-48.0); HEMOGLOBIN. 10.3 g/dL (12.0-16.0); LYMPHOCYTES % 19.2 % (20.0-50.0); MEAN CORPUSCULAR HEMOGLOBIN 25.5 pg (28.0-32.0); MEAN CORPUSCULAR VOLUME 80.1 fL (81.0-99.0); MEAN PLATELET VOLUME 9.9 fl (7.4-10.4); NEUTROPHILS % 69.7 % (40.0-76.0); PLATELET 189 x1000/uL (130-400); RED BLOOD CELL COUNT 4.05 mill/uL (4.2-5.4); RED CELL DISTRIBUTION WIDTH 18.2 % (11.6-14.6)
[2018-06-29 10:13] LABS: CHLORIDE 103 mEq/L (98-107)
[2018-06-29] MEDS ORDERED: CLONIDINE 0.1MG TABLET PO PRN (10:15)
[2018-06-29] MEDS ORDERED: ONDANSETRON HCL 4MG/2ML INJ IV PRN (10:15)
[2018-06-29] MEDS ORDERED: GUAIFENESIN 200MG/10ML SUGAR FREE UDC PO PRN (10:15)
[2018-06-29] MEDS ORDERED: ACETAMINOPHEN 325MG TABLET PO PRN (10:15)
[2018-06-29] MEDS ORDERED: DOCUSATE SODIUM 100MG CAPSULE PO PRN (10:15)
[2018-06-29] MEDS ORDERED: IPRATROPIUM/ALBUTEROL 0.5-3(2.5)MG/3ML NEB INH PRN (10:15)
[2018-06-29] MEDS ORDERED: FUROSEMIDE 40MG/4ML VIAL IVP ONE (11:00)
[2018-06-29] MEDS ORDERED: LIDOCAINE HCL 1% 20ML VIAL (Pyxis) INJ ONE (12:47)
[2018-06-29] MEDS ORDERED: SODIUM BICARBONATE 4% (2.4MEQ) 5ML VIAL IV ONE (12:47)
[2018-06-29] MEDS: HYDROMORPHONE HCL/PF 2MG/ML CPJ IV PRN ×2 (14:55→20:42)
[2018-06-29] MEDS ORDERED: LEVOFLOXACIN 500MG PREMIX 100 ML IV NR (16:36)
[2018-06-29] MEDS ORDERED: FUROSEMIDE 40MG/4ML VIAL IV SCH (17:00)
[2018-06-29 22:45] VITALS: BP 148/92
[2018-06-29 23:45] VITALS: BP 148/92
[2018-06-29] MEDS: ATORVASTATIN CALCIUM 20MG TABLET PO SCH (23:49)
[2018-06-29] MEDS: CARVEDILOL 6.25 MG TABLET PO SCH (23:49)
[2018-06-29] MEDS: HYDRALAZINE HCL 25MG TABLET PO SCH (23:49)
[2018-06-29] MEDS: GABAPENTIN 300MG CAPSULE PO SCH (23:50)
[2018-06-30] MEDS ORDERED: DEXTROSE 50% WATER 50ML SYRINGE IV PRN
[2018-06-30] MEDS ORDERED: INSULIN GLARGINE UD 100 UNITS/ML SYR SUBCUT SCH
[2018-06-30] MEDS: IPRATROPIUM/ALBUTEROL 0.5-3(2.5)MG/3ML NEB HHN SCH ×4 (00:35→21:29)
[2018-06-30 01:30] VITALS: BP 154/85
[2018-06-30] MEDS: HYDROMORPHONE HCL/PF 2MG/ML CPJ IV PRN ×4 (01:58→23:20)
[2018-06-30] MEDS: BLOOD SUGAR DIAGNOSTIC STRIP TEST SCH ×4 (05:51→22:45)
[2018-06-30] MEDS: INSULIN LISPRO 100 UNITS/ML SUBCUT SCH ×4 (06:39→22:56)
[2018-06-30 06:44] LABS: BASOPHILS % 0.9 % (0.0-2.0); EOSINOPHILS % 1.1 % (0.0-5.0); HEMOGLOBIN. 9.7 g/dL (12.0-16.0); LYMPHOCYTES % 25.8 % (20.0-50.0); MEAN CORPUSCULAR HEMOGLOBIN 25.1 pg (28.0-32.0); MEAN CORPUSCULAR VOLUME 80.2 fL (81.0-99.0); MONOCYTES % 10.3 % (2.0-8.0); NEUTROPHILS % 61.9 % (40.0-76.0); PLATELET 179 x1000/uL (130-400); RED BLOOD CELL COUNT 3.87 mill/uL (4.2-5.4); RED CELL DISTRIBUTION WIDTH 18.1 % (11.6-14.6)
[2018-06-30 06:57] LABS: CHLORIDE 104 mEq/L (98-107)
[2018-06-30 07:08] LABS: LDL CHOLESTEROL 50 mg/dL (5-100)
[2018-06-30 07:10] LABS: HDL CHOLESTEROL 49 mg/dL (40-59)
[2018-06-30 08:22] LABS: CLARITY URINE CLOUDY (CLEAR); COLOR URINE YELLOW (YELLOW); KETONES URINE NEGATIVE (NEGATIVE); LEUKOCYTE ESTERASE URINE 1+ (NEGATIVE); NITRITE URINE NEGATIVE (NEGATIVE); OCCULT BLOOD URINE NEGATIVE (NEGATIVE); PROTEIN URINE 3+ (NEGATIVE); SPECIFIC GRAVITY URINE 1.017 (1.005-1.030)
[2018-06-30 08:29] VITALS: BP 112/72
[2018-06-30 08:52] LABS: *BARBITURATES SCREEN URINE NEGATIVE (NEGATIVE)
[2018-06-30 08:53] LABS: *AMPHETAMINES SCREEN URINE NEGATIVE (NEGATIVE); *BENZODIAZEPINES SCREEN URINE NEGATIVE (NEGATIVE); *COCAINE SCREEN URINE NEGATIVE (NEGATIVE); METHADONE URINE SCREEN NEGATIVE (NEGATIVE); OPIATES URINE SCREEN PRESUMTIVE POSITIVE (NEGATIVE); PHENCYCLIDINE URINE SCREEN NEGATIVE (NEGATIVE)
[2018-06-30 08:54] LABS: CANNABINOID URINE SCREEN NEGATIVE (NEGATIVE)
[2018-06-30] MEDS: HYDRALAZINE HCL 25MG TABLET PO SCH ×2 (09:00→22:55)
[2018-06-30] MEDS: ENOXAPARIN 30MG/0.3ML SYR SUBCUT SCH (09:03)
[2018-06-30] MEDS: CLOPIDOGREL 75MG TABLET PO SCH (09:04)
[2018-06-30] MEDS: CARVEDILOL 6.25 MG TABLET PO SCH ×2 (09:04→22:54)
[2018-06-30] MEDS: ASPIRIN 81MG TABLET PO SCH (09:04)
[2018-06-30] MEDS: FUROSEMIDE 40MG/4ML VIAL IV SCH (09:04)
[2018-06-30 12:03] VITALS: BP 110/69
[2018-06-30 16:20] VITALS: BP 126/69
[2018-06-30] MEDS ORDERED: LEVOFLOXACIN 500MG PREMIX 100 ML IV SCH (16:39)
[2018-06-30] MEDS: LEVOFLOXACIN 250MG PREMIX 50 ML IV SCH (19:52)
[2018-06-30 20:00] VITALS: BP 137/71
[2018-06-30] MEDS: ATORVASTATIN CALCIUM 20MG TABLET PO SCH (22:53)
[2018-06-30] MEDS: GABAPENTIN 300MG CAPSULE PO SCH (22:54)
[2018-07-01] VITALS: BP 133/73
[2018-07-01] MEDS: INSULIN GLARGINE UD 100 UNITS/ML SYR SUBCUT SCH ×2 (00:17→22:03)
[2018-07-01 04:00] VITALS: BP 138/77
[2018-07-01] MEDS: BLOOD SUGAR DIAGNOSTIC STRIP TEST SCH ×4 (05:50→20:47)
[2018-07-01] MEDS: INSULIN LISPRO 100 UNITS/ML SUBCUT SCH ×4 (06:51→20:46)
[2018-07-01] MEDS: IPRATROPIUM/ALBUTEROL 0.5-3(2.5)MG/3ML NEB HHN SCH ×3 (07:35→21:46)
[2018-07-01 07:58] LABS: BASOPHILS % 1.6 % (0.0-2.0); EOSINOPHILS % 1.5 % (0.0-5.0); HEMATOCRIT. 31.3 % (36.0-48.0); HEMOGLOBIN. 9.5 g/dL (12.0-16.0); MEAN CORPUSCULAR HEMOGLOBIN 24.5 pg (28.0-32.0); MEAN CORPUSCULAR VOLUME 80.6 fL (81.0-99.0); MEAN PLATELET VOLUME 10.3 fl (7.4-10.4); MONOCYTES % 12.4 % (2.0-8.0); NEUTROPHILS % 64.5 % (40.0-76.0); PLATELET 190 x1000/uL (130-400); RED BLOOD CELL COUNT 3.88 mill/uL (4.2-5.4); RED CELL DISTRIBUTION WIDTH 18.1 % (11.6-14.6)
[2018-07-01 08:00] VITALS: BP 124/65
[2018-07-01] MEDS: HYDROMORPHONE HCL/PF 2MG/ML CPJ IV PRN ×4 (08:46→23:21)
[2018-07-01] MEDS: CLOPIDOGREL 75MG TABLET PO SCH (08:47)
[2018-07-01] MEDS: FUROSEMIDE 40MG/4ML VIAL IV SCH (08:47)
[2018-07-01] MEDS: ENOXAPARIN 30MG/0.3ML SYR SUBCUT SCH (08:48)
[2018-07-01] MEDS: CARVEDILOL 6.25 MG TABLET PO SCH ×2 (08:48→20:44)
[2018-07-01] MEDS: ASPIRIN 81MG TABLET PO SCH (08:48)
[2018-07-01] MEDS: METOLAZONE 2.5MG TABLET PO SCH (08:51)
[2018-07-01] MEDS: HYDRALAZINE HCL 25MG TABLET PO SCH ×2 (08:55→20:43)
[2018-07-01 12:00] VITALS: BP 118/69
[2018-07-01 16:00] VITALS: BP_SYST 131; BP_SYST 169; BP_DIAS 70; BP_DIAS 89; BP_DIAS 90
[2018-07-01 20:00] VITALS: BP 129/67
[2018-07-01] MEDS: GABAPENTIN 300MG CAPSULE PO SCH (20:43)
[2018-07-01] MEDS: ATORVASTATIN CALCIUM 20MG TABLET PO SCH (20:43)
[2018-07-01] MEDS: LEVOFLOXACIN 250MG PREMIX 50 ML IV SCH (20:45)
[2018-07-02] VITALS: BP 120/65
[2018-07-02 04:00] VITALS: BP 132/88
[2018-07-02] MEDS: HYDROMORPHONE HCL/PF 2MG/ML CPJ IV PRN (04:48)
[2018-07-02] MEDS: BLOOD SUGAR DIAGNOSTIC STRIP TEST SCH (07:10)
[2018-07-02] MEDS: INSULIN LISPRO 100 UNITS/ML SUBCUT SCH (07:40)
[2018-07-02 08:00] VITALS: BP 121/61
[2018-07-02 08:20] VITALS: BP 121/61
[2018-07-02 08:48] VITALS: BP 121/61
[2018-07-02] MEDS: ENOXAPARIN 30MG/0.3ML SYR SUBCUT SCH (09:00)
[2018-07-02] MEDS: HYDRALAZINE HCL 25MG TABLET PO SCH (09:00)
[2018-07-02] MEDS: IPRATROPIUM/ALBUTEROL 0.5-3(2.5)MG/3ML NEB HHN SCH (09:10)
[2018-07-02] MEDS: METOLAZONE 2.5MG TABLET PO SCH (09:46)
[2018-07-02] MEDS: FUROSEMIDE 40MG/4ML VIAL IV SCH (09:46)
[2018-07-02] MEDS: ASPIRIN 81MG TABLET PO SCH (09:47)
[2018-07-02] MEDS: CARVEDILOL 6.25 MG TABLET PO SCH (09:47)
[2018-07-02] MEDS: CLOPIDOGREL 75MG TABLET PO SCH (09:47)
[2018-07-13] MEDS ORDERED: Prednisone (22:55)
[2018-08-05] MEDS ORDERED: CARV6.2548 MT (02:34)
[2018-08-05] MEDS ORDERED: HYDR-4134 MT (02:34)
[2018-08-05] MEDS ORDERED: ASPI-1158 MT (02:34)
[2018-08-05] MEDS ORDERED: FURO-151 MT (02:34)
[2018-08-05] MEDS ORDERED: INSU100I22 SQ (02:34)
[2018-08-05] MEDS ORDERED: INSNOV SUBCUT (02:34)
[2018-08-05] MEDS ORDERED: SIMV40TA5 MT (02:34)
[2018-08-05] MEDS ORDERED: CLOP75TA4 MT (02:34)
[2018-08-27] MEDS ORDERED: GABA-531 PO (11:44)
== END 2018-07-02 11:38 | disposition home or self-care (01) | DRG 291 ==
LOC: ER 08:45 → 8WST 10:52 → ENRESERV 20:35
PROVIDERS: ADMIT Internal Medicine Nephrology; ATTEND Internal Medicine Nephrology
PROC: 02HV33Z Insertion of Infusion Device into Superior Vena Cava, Percutaneous Approach (ICD-10-PCS; principal; 2018-06-29)
PROC: B518ZZA Fluoroscopy of Superior Vena Cava, Guidance (ICD-10-PCS; 2018-06-29)
DX: I13.0 Hypertensive heart and chronic kidney disease with heart failure and stage 1 through stage 4 chronic kidney disease, or unspecified chronic kidney disease (principal); J18.1 Lobar pneumonia, unspecified organism; J96.00 Acute respiratory failure, unspecified whether with hypoxia or hypercapnia; I50.43 Acute on chronic combined systolic (congestive) and diastolic (congestive) heart failure; E44.0 Moderate protein-calorie malnutrition; J44.0 Chronic obstructive pulmonary disease with (acute) lower respiratory infection; N18.4 Chronic kidney disease, stage 4 (severe); I69.354 Hemiplegia and hemiparesis following cerebral infarction affecting left non-dominant side; I42.9 Cardiomyopathy, unspecified; I25.10 Atherosclerotic heart disease of native coronary artery without angina pectoris; F17.200 Nicotine dependence, unspecified, uncomplicated; D72.821 Monocytosis (symptomatic); I27.21 Secondary pulmonary arterial hypertension; E11.22 Type 2 diabetes mellitus with diabetic chronic kidney disease; E78.5 Hyperlipidemia, unspecified; D63.1 Anemia in chronic kidney disease; G40.909 Epilepsy, unspecified, not intractable, without status epilepticus; I08.1 Rheumatic disorders of both mitral and tricuspid valves; I25.2 Old myocardial infarction; Z87.39 Personal history of other diseases of the musculoskeletal system and connective tissue; Z87.440 Personal history of urinary (tract) infections; Z95.5 Presence of coronary angioplasty implant and graft; Z79.02 Long term (current) use of antithrombotics/antiplatelets
CPT/HCPCS: 36415; 36569; 36573; 71045; 80048; 80061; 80305; 82962; 83880; 84484; 93005; 93970; 94640; 96365; 99285; C1725; J1170; J1650; J1815; J1940; J1956; J3490; J7050; J7620

== ENCOUNTER 2018-07-07 19:50 | Inpatient (IN) | payer MEDICARE, MEDICAID ==
[~2018-07-07] VITALS: Ht 170.2 cm; Wt 92.1 kg
[~2018-07-07 19:50] MED LIST changes: +CLOP75TA16 PO; -CLOP75TA4 PO
[2018-07-07] MEDS ORDERED: ASPIRIN 81MG TABLET PO ONE (21:15)
[2018-07-07] MEDS ORDERED: NITROGLYCERIN OINT 1GM/INCH UDPKT TD ONE (21:15)
[2018-07-07] MEDS ORDERED: FUROSEMIDE 40MG/4ML VIAL IV ONE (21:15)
[2018-07-07 21:57] LABS: BASOPHILS % 0.6 % (0.0-2.0); EOSINOPHILS % 0.7 % (0.0-5.0); HEMATOCRIT. 33.6 % (36.0-48.0); HEMOGLOBIN. 10.3 g/dL (12.0-16.0); LYMPHOCYTES % 13.9 % (20.0-50.0); MEAN CORPUSCULAR HEMOGLOBIN 24.8 pg (28.0-32.0); MEAN CORPUSCULAR VOLUME 80.5 fL (81.0-99.0); MONOCYTES % 7.2 % (2.0-8.0); NEUTROPHILS % 77.6 % (40.0-76.0); PLATELET 181 x1000/uL (130-400); RED BLOOD CELL COUNT 4.17 mill/uL (4.2-5.4); RED CELL DISTRIBUTION WIDTH 18.6 % (11.6-14.6)
[2018-07-07 22:01] LABS: CHLORIDE 105 mEq/L (98-107)
[2018-07-07 22:03] LABS: INR 1.2; PARTIAL THROMBOPLASTIN TIME 25.5 sec (23.4-31.0)
[2018-07-07] MEDS ORDERED: ONDANSETRON HCL 4MG/2ML INJ IV STA (22:34)
[2018-07-07] MEDS ORDERED: MORPHINE SULFATE 4 MG/ML CPJ (NOT FOR IM USE) IV STA (22:34)
[2018-07-07] MEDS ORDERED: ONDANSETRON HCL 4MG/2ML INJ IV PRN (22:45)
[2018-07-07] MEDS ORDERED: CLONIDINE 0.1MG TABLET PO PRN (22:45)
[2018-07-07] MEDS ORDERED: ACETAMINOPHEN 325MG TABLET PO PRN (22:45)
[2018-07-07] MEDS ORDERED: ENOXAPARIN 40MG/0.4ML SYR SUBCUT SCH (22:45)
[2018-07-07] MEDS ORDERED: IPRATROPIUM/ALBUTEROL 0.5-3(2.5)MG/3ML NEB INH NR (23:28)
[2018-07-07] MEDS ORDERED: METHYLPREDNISOLONE SOD SUCC 125 MG/2 ML VIAL IV NR (23:29)
[2018-07-07] MEDS ORDERED: DIPHENHYDRAMINE 50MG/ML VIAL IV ONE (23:45)
[2018-07-07 23:48] LABS: CLARITY URINE CLEAR (CLEAR); COLOR URINE YELLOW (YELLOW); KETONES URINE NEGATIVE (NEGATIVE); LEUKOCYTE ESTERASE URINE NEGATIVE (NEGATIVE); NITRITE URINE NEGATIVE (NEGATIVE); OCCULT BLOOD URINE NEGATIVE (NEGATIVE); PH URINE 5.5 (4.5-8.0); PROTEIN URINE 1+ (NEGATIVE); UROBILINOGEN URINE 0.2 E.U./dL (0.2-1.0)
[2018-07-08] MEDS: HYDROMORPHONE HCL/PF 2MG/ML CPJ IV PRN ×6 (01:17→22:06)
[2018-07-08 04:00] VITALS: BP 128/75
[2018-07-08] MEDS ORDERED: DEXTROSE 50% WATER 50ML SYRINGE IV PRN (04:30)
[2018-07-08 04:34] VITALS: BP 128/75
[2018-07-08] MEDS: METHYLPREDNISOLONE SOD SUCC 125 MG/2 ML VIAL IV SCH ×3 (05:34→21:37)
[2018-07-08] MEDS ORDERED: CEFTRIAXONE 1 G PREMIX 50 ML IV SCH (06:00)
[2018-07-08] MEDS: BLOOD SUGAR DIAGNOSTIC STRIP TEST SCH ×4 (06:23→21:00)
[2018-07-08] MEDS: INSULIN LISPRO 100 UNITS/ML SUBCUT SCH ×3 (06:24→21:45)
[2018-07-08 08:10] LABS: HEMATOCRIT. 34.2 % (36.0-48.0); HEMOGLOBIN. 10.6 g/dL (12.0-16.0); MEAN CORPUSCULAR HEMOGLOBIN 25.1 pg (28.0-32.0); MEAN PLATELET VOLUME 10.3 fl (7.4-10.4); PLATELET 204 x1000/uL (130-400); RED BLOOD CELL COUNT 4.22 mill/uL (4.2-5.4); RED CELL DISTRIBUTION WIDTH 18.7 % (11.6-14.6)
[2018-07-08 09:02] LABS: CHLORIDE 102 mEq/L (98-107)
[2018-07-08 09:12] LABS: LDL CHOLESTEROL 42 mg/dL (5-100)
[2018-07-08 09:13] LABS: HDL CHOLESTEROL 53 mg/dL (40-59)
[2018-07-08] MEDS: IPRATROPIUM/ALBUTEROL 0.5-3(2.5)MG/3ML NEB INH SCH ×3 (09:40→20:07)
[2018-07-08] MEDS: FUROSEMIDE 40MG/4ML VIAL IV SCH ×2 (09:55→21:06)
[2018-07-08] MEDS: ENOXAPARIN 30MG/0.3ML SYR SUBCUT SCH (09:57)
[2018-07-08] MEDS ORDERED: IPRATROPIUM/ALBUTEROL 0.5-3(2.5)MG/3ML NEB HHN PRN (10:00)
[2018-07-08 10:10] VITALS: BP 148/72
[2018-07-08 11:41] LABS: BG BASE EXCESS -2.3 mmol/L (-2.0-2.0); BG CARBOXYHEMOGLOBIN 1.1 % (0.5-1.5); BG DEOXYHEMOGLOBIN 7.6 % (0.0-5.0); BG FRACTION INSPIRED OXYGEN 28; BG HCO3 ACT 23.8 mmol/L (22.0-26.0); BG METHEMOGLOBIN 0.2 % (0.0-1.5); BG OXYGEN SATURATION 92.3 % (92.0-98.5); BG OXYHEMOGLOBIN 91.1 % (94.0-97.0); BG PCO2 46.5 mmHg (35.0-45.0); BG PH 7.327 (7.350-7.450); BG PO2 71.9 mmHg (75.0-100.0); BG SAMPLE SITE LEFT BRACHIAL; BG TOTAL HEMOGLOBIN 11.2 g/dL (12.0-18.0); BG VENT MODE NASAL CANNULA
[2018-07-08] MEDS: ASPIRIN 81MG TABLET PO SCH (11:53)
[2018-07-08] MEDS: CLOPIDOGREL 75MG TABLET PO SCH (11:53)
[2018-07-08] MEDS: LISINOPRIL 5MG TABLET PO SCH (11:53)
[2018-07-08 12:00] VITALS: BP 140/61
[2018-07-08] MEDS: AZITHROMYCIN 500 MG in DEXT 5% WATER 250 ML IV SCH (13:33)
[2018-07-08 15:19] LABS: PLATELET ESTIMATE NORMAL
[2018-07-08 16:00] VITALS: BP 138/61
[2018-07-08] MEDS ORDERED: GABAPENTIN 300MG CAPSULE PO SCH (17:00)
[2018-07-08] MEDS: GUAIFENESIN 600MG ER TABLET PO SCH (21:07)
[2018-07-08] MEDS: CARVEDILOL 6.25 MG TABLET PO SCH (21:07)
[2018-07-08] MEDS: HYDRALAZINE HCL 50MG TABLET PO SCH (21:07)
[2018-07-08] MEDS ORDERED: INSULIN LISPRO 100 UNITS/ML SUBCUT NR (21:30)
[2018-07-09 00:07] VITALS: BP 107/60
[2018-07-09] MEDS: IPRATROPIUM/ALBUTEROL 0.5-3(2.5)MG/3ML NEB INH SCH ×4 (01:38→20:02)
[2018-07-09 04:00] VITALS: BP 128/66
[2018-07-09] MEDS: METHYLPREDNISOLONE SOD SUCC 125 MG/2 ML VIAL IV SCH ×3 (05:37→17:12)
[2018-07-09] MEDS: HYDROMORPHONE HCL/PF 2MG/ML CPJ IV PRN ×3 (05:37→23:25)
[2018-07-09] MEDS: CEFTRIAXONE 1 G PREMIX 50 ML IV SCH (05:37)
[2018-07-09] MEDS ORDERED: DEXTROSE 50% WATER 50ML SYRINGE IV PRN (06:00)
[2018-07-09] MEDS: BLOOD SUGAR DIAGNOSTIC STRIP TEST SCH ×4 (06:07→20:57)
[2018-07-09] MEDS: INSULIN LISPRO 100 UNITS/ML SUBCUT SCH ×3 (06:09→17:13)
[2018-07-09] MEDS ORDERED: INSULIN LISPRO 100 UNITS/ML SUBCUT NR (07:00)
[2018-07-09 07:09] LABS: HEMATOCRIT. 33.5 % (36.0-48.0); HEMOGLOBIN. 10.4 g/dL (12.0-16.0); MEAN CORPUSCULAR HEMOGLOBIN 25.3 pg (28.0-32.0); MEAN CORPUSCULAR VOLUME 81.4 fL (81.0-99.0); MEAN PLATELET VOLUME 10.4 fl (7.4-10.4); PLATELET 210 x1000/uL (130-400); RED BLOOD CELL COUNT 4.11 mill/uL (4.2-5.4); RED CELL DISTRIBUTION WIDTH 18.6 % (11.6-14.6)
[2018-07-09] MEDS ORDERED: BLOOD SUGAR DIAGNOSTIC STRIP TEST SCH (07:10)
[2018-07-09 08:00] VITALS: BP 119/67
[2018-07-09] MEDS: FUROSEMIDE 40MG/4ML VIAL IV SCH ×2 (08:29→20:57)
[2018-07-09] MEDS: HYDRALAZINE HCL 50MG TABLET PO SCH ×2 (08:30→20:57)
[2018-07-09] MEDS: LISINOPRIL 5MG TABLET PO SCH (08:30)
[2018-07-09] MEDS: ASPIRIN 81MG TABLET PO SCH (08:30)
[2018-07-09] MEDS: CLOPIDOGREL 75MG TABLET PO SCH (08:31)
[2018-07-09] MEDS: CARVEDILOL 6.25 MG TABLET PO SCH ×2 (08:31→20:57)
[2018-07-09] MEDS: GUAIFENESIN 600MG ER TABLET PO SCH ×2 (08:31→20:57)
[2018-07-09] MEDS: ENOXAPARIN 30MG/0.3ML SYR SUBCUT SCH (08:32)
[2018-07-09] MEDS: INSULIN GLARGINE UD 100 UNITS/ML SYR SUBCUT SCH (10:45)
[2018-07-09 11:45] LABS: PLATELET ESTIMATE NORMAL
[2018-07-09 11:57] VITALS: BP 106/58
[2018-07-09] MEDS: AZITHROMYCIN 500 MG in DEXT 5% WATER 250 ML IV SCH (11:57)
[2018-07-09] MEDS ORDERED: METHYLPREDNISOLONE SOD SUCC 125 MG/2 ML VIAL IV SCH (14:00)
[2018-07-09 16:00] VITALS: BP 104/50
[2018-07-09 20:00] VITALS: BP 126/66
[2018-07-09] MEDS ORDERED: AMITRIPTYLINE 25MG TABLET PO SCH (21:00)
[2018-07-09] MEDS ORDERED: INSULIN GLARGINE UD 100 UNITS/ML SYR SUBCUT SCH (22:00)
[2018-07-10] VITALS: BP 103/56
[2018-07-10] MEDS: IPRATROPIUM/ALBUTEROL 0.5-3(2.5)MG/3ML NEB INH SCH ×2 (02:00→09:33)
[2018-07-10 04:00] VITALS: BP 117/52
[2018-07-10] MEDS: CEFTRIAXONE 1 G PREMIX 50 ML IV SCH (05:46)
[2018-07-10] MEDS: BLOOD SUGAR DIAGNOSTIC STRIP TEST SCH (05:48)
[2018-07-10] MEDS: HYDROMORPHONE HCL/PF 2MG/ML CPJ IV PRN ×2 (06:15→09:59)
[2018-07-10] MEDS ORDERED: INSULIN LISPRO 100 UNITS/ML SUBCUT SCH ×2 (07:10)
[2018-07-10] MEDS ORDERED: INSULIN LISPRO (LOW DOSE) 100 UNITS/ML SUBCUT SCH (07:10)
[2018-07-10 08:00] VITALS: BP 120/61
[2018-07-10] MEDS: ENOXAPARIN 30MG/0.3ML SYR SUBCUT SCH (09:00)
[2018-07-10] MEDS: FUROSEMIDE 40MG/4ML VIAL IV SCH (09:40)
[2018-07-10] MEDS: HYDRALAZINE HCL 50MG TABLET PO SCH (09:41)
[2018-07-10] MEDS: GUAIFENESIN 600MG ER TABLET PO SCH (09:41)
[2018-07-10] MEDS: ASPIRIN 81MG TABLET PO SCH (09:41)
[2018-07-10] MEDS: LISINOPRIL 5MG TABLET PO SCH (09:41)
[2018-07-10] MEDS: CLOPIDOGREL 75MG TABLET PO SCH (09:42)
[2018-07-10] MEDS: INSULIN GLARGINE UD 100 UNITS/ML SYR SUBCUT SCH (09:45)
[2018-07-10] MEDS: METHYLPREDNISOLONE SOD SUCC 125 MG/2 ML VIAL IV SCH (09:46)
[2018-07-10] MEDS: CARVEDILOL 6.25 MG TABLET PO SCH (09:49)
[2018-07-10 11:27] VITALS: BP 120/61
[2018-07-13] MEDS ORDERED: Prednisone (22:55)
== END 2018-07-10 12:00 | disposition home or self-care (01) | DRG 291 ==
LOC: ER 19:50 → ENRESERV 07-08 03:16 → 8WST 07-08 04:16
PROVIDERS: ADMIT Internal Medicine Nephrology; ATTEND Internal Medicine Nephrology
DX: I13.0 Hypertensive heart and chronic kidney disease with heart failure and stage 1 through stage 4 chronic kidney disease, or unspecified chronic kidney disease (principal); J18.9 Pneumonia, unspecified organism; J96.00 Acute respiratory failure, unspecified whether with hypoxia or hypercapnia; I50.43 Acute on chronic combined systolic (congestive) and diastolic (congestive) heart failure; J44.0 Chronic obstructive pulmonary disease with (acute) lower respiratory infection; I31.3 Pericardial effusion (noninflammatory); I69.354 Hemiplegia and hemiparesis following cerebral infarction affecting left non-dominant side; N17.9 Acute kidney failure, unspecified; N18.4 Chronic kidney disease, stage 4 (severe); I42.9 Cardiomyopathy, unspecified; D64.9 Anemia, unspecified; E11.22 Type 2 diabetes mellitus with diabetic chronic kidney disease; E11.42 Type 2 diabetes mellitus with diabetic polyneuropathy; E11.51 Type 2 diabetes mellitus with diabetic peripheral angiopathy without gangrene; E11.65 Type 2 diabetes mellitus with hyperglycemia; T38.0X5A Adverse effect of glucocorticoids and synthetic analogues, initial encounter; E55.9 Vitamin D deficiency, unspecified; E78.00 Pure hypercholesterolemia, unspecified; E78.5 Hyperlipidemia, unspecified; E87.70 Fluid overload, unspecified; F17.200 Nicotine dependence, unspecified, uncomplicated; G40.909 Epilepsy, unspecified, not intractable, without status epilepticus; I08.1 Rheumatic disorders of both mitral and tricuspid valves; I25.10 Atherosclerotic heart disease of native coronary artery without angina pectoris; Z79.02 Long term (current) use of antithrombotics/antiplatelets; Z79.4 Long term (current) use of insulin; Z79.82 Long term (current) use of aspirin; Z79.899 Other long term (current) drug therapy; Z80.9 Family history of malignant neoplasm, unspecified; Z82.49 Family history of ischemic heart disease and other diseases of the circulatory system; Z87.39 Personal history of other diseases of the musculoskeletal system and connective tissue; Z83.3 Family history of diabetes mellitus; Z95.5 Presence of coronary angioplasty implant and graft; Y92.89 Other specified places as the place of occurrence of the external cause
CPT/HCPCS: 36415; 36600; 71045; 80048; 80061; 82375; 82805; 82962; 83036; 83880; 84484; 93005; 93970; 94640; 96374; 96375; 97162; 99285; C1893; J0456; J0696; J1170; J1200; J1650; J1815; J1940; J2270; J2405; J2930; J7050; J7060; J7620

== ENCOUNTER 2018-07-31 23:42 | Emergency (ER) | payer MEDICARE, MEDICAID ==
[~2018-07-31] VITALS: Ht 170.2 cm; Wt 82.0 kg
[~2018-07-31 23:42] MED LIST changes: -CLOP75TA16 PO; +CLOP75TA4 PO
[2018-07-31 23:45] VITALS: BP 155/89
[2018-08-05] MEDS ORDERED: INSNOV SUBCUT (02:34)
[2018-08-05] MEDS ORDERED: CARV6.2548 MT (02:34)
[2018-08-05] MEDS ORDERED: INSU100I22 SQ (02:34)
[2018-08-05] MEDS ORDERED: SIMV40TA5 MT (02:34)
[2018-08-05] MEDS ORDERED: FURO-151 MT (02:34)
[2018-08-05] MEDS ORDERED: CLOP75TA4 MT (02:34)
[2018-08-05] MEDS ORDERED: HYDR-4134 MT (02:34)
[2018-08-05] MEDS ORDERED: ASPI-1158 MT (02:34)
== END 2018-08-01 00:38 | disposition left against medical advice (07) ==
LOC: ER 23:42
DX: Z53.21 Procedure and treatment not carried out due to patient leaving prior to being seen by health care provider (principal); R07.9 Chest pain, unspecified
CPT/HCPCS: 93005

== ENCOUNTER 2018-08-19 21:35 | Inpatient (IN) | payer MEDICARE, MEDICAID ==
[~2018-08-19] VITALS: Ht 170.2 cm; Wt 81.6 kg
[~2018-08-19 21:35] MED LIST changes: +CARV6.2548 MT; -CARV6.2548 PO; +CLOP75TA4 MT; -CLOP75TA4 PO; -DOCU-138 PO; +FURO-151 MT; -FURO40TA5 MT; +HYDR-4134 MT; -HYDR-4134 PO; +SIMV40TA5 MT; -SIMV40TA5 PO
[2018-08-19] MEDS ORDERED: DIPHENHYDRAMINE 50MG/ML VIAL IV ONE (23:45)
[2018-08-19] MEDS ORDERED: FUROSEMIDE 40MG/4ML VIAL IV ONE (23:45)
[2018-08-19] MEDS ORDERED: NITROGLYCERIN OINT 1GM/INCH UDPKT TD ONE (23:45)
[2018-08-20] MEDS: MORPHINE SULFATE 4 MG/ML CPJ (NOT FOR IM USE) IV ONE ×2 (00:11→00:49)
[2018-08-20 00:54] LABS: BASOPHILS % 0.9 % (0.0-2.0); EOSINOPHILS % 1.1 % (0.0-5.0); HEMATOCRIT. 35.3 % (36.0-48.0); HEMOGLOBIN. 11.3 g/dL (12.0-16.0); LYMPHOCYTES % 31.9 % (20.0-50.0); MEAN CORPUSCULAR HEMOGLOBIN 25.5 pg (28.0-32.0); MEAN CORPUSCULAR VOLUME 79.7 fL (81.0-99.0); MEAN PLATELET VOLUME 10.3 fl (7.4-10.4); MONOCYTES % 8.5 % (2.0-8.0); NEUTROPHILS % 57.6 % (40.0-76.0); PLATELET 165 x1000/uL (130-400); RED BLOOD CELL COUNT 4.43 mill/uL (4.2-5.4); RED CELL DISTRIBUTION WIDTH 21.4 % (11.6-14.6)
[2018-08-20 00:55] LABS: CHLORIDE 106 mEq/L (98-107)
[2018-08-20] MEDS ORDERED: IPRATROPIUM/ALBUTEROL 0.5-3(2.5)MG/3ML NEB INH SCH (05:15)
[2018-08-20] MEDS ORDERED: ONDANSETRON HCL 4MG/2ML INJ IV PRN (05:15)
[2018-08-20] MEDS ORDERED: ACETAMINOPHEN 325MG TABLET PO PRN (05:15)
[2018-08-20] MEDS ORDERED: DOCUSATE SODIUM 100MG CAPSULE PO PRN (05:15)
[2018-08-20] MEDS ORDERED: CLONIDINE 0.1MG TABLET PO PRN (05:15)
[2018-08-20] MEDS ORDERED: GABAPENTIN 100MG CAPSULE PO SCH (06:00)
[2018-08-20 08:44] VITALS: BP 131/80
[2018-08-20 09:00] VITALS: BP 131/80
[2018-08-20] MEDS ORDERED: ENOXAPARIN 40MG/0.4ML SYR SUBCUT SCH (09:00)
[2018-08-20] MEDS ORDERED: FURO40TA5 MT (09:08)
[2018-08-20] MEDS: HYDROMORPHONE HCL/PF 2MG/ML CPJ IV PRN ×2 (10:22→21:38)
[2018-08-20] MEDS ORDERED: DEXTROSE 50% WATER 50ML SYRINGE IV PRN (11:15)
[2018-08-20] MEDS: BLOOD SUGAR DIAGNOSTIC STRIP TEST SCH ×3 (11:33→21:39)
[2018-08-20] MEDS: INSULIN LISPRO 100 UNITS/ML SUBCUT SCH ×3 (11:33→22:34)
[2018-08-20 12:00] VITALS: BP 136/68
[2018-08-20] MEDS ORDERED: LISINOPRIL 5MG TABLET PO SCH (12:00)
[2018-08-20] MEDS ORDERED: FUROSEMIDE 40MG/4ML VIAL IV SCH (12:00)
[2018-08-20] MEDS ORDERED: BLOOD SUGAR DIAGNOSTIC STRIP TEST SCH (12:10)
[2018-08-20] MEDS: CLOPIDOGREL 75MG TABLET PO SCH (12:17)
[2018-08-20] MEDS: ENOXAPARIN 30MG/0.3ML SYR SUBCUT SCH (12:28)
[2018-08-20] MEDS ORDERED: IPRATROPIUM/ALBUTEROL 0.5-3(2.5)MG/3ML NEB HHN PRN (12:45)
[2018-08-20] MEDS: GABAPENTIN 100MG CAPSULE PO SCH ×2 (14:00→22:00)
[2018-08-20 16:00] VITALS: BP 115/67
[2018-08-20] MEDS: BUDESONIDE 0.5MG/2ML NEB HHN SCH ×2 (16:20→20:55)
[2018-08-20] MEDS: IPRATROPIUM/ALBUTEROL 0.5-3(2.5)MG/3ML NEB HHN SCH ×2 (16:27→20:55)
[2018-08-20 17:36] VITALS: BP 146/84
[2018-08-20 20:00] VITALS: BP 147/80
[2018-08-20] MEDS ORDERED: ATORVASTATIN CALCIUM 40MG TABLET PO SCH (21:00)
[2018-08-20] MEDS: HYDRALAZINE HCL 25MG TABLET PO SCH (21:35)
[2018-08-20] MEDS: RANOLAZINE 500 MG TAB.SR.12H PO SCH (21:36)
[2018-08-20] MEDS: CARVEDILOL 3.125 MG TABLET PO SCH (21:37)
[2018-08-21] VITALS: BP 113/55
[2018-08-21 04:00] VITALS: BP 108/67
[2018-08-21] MEDS: HYDROMORPHONE HCL/PF 2MG/ML CPJ IV PRN ×3 (05:01→18:08)
[2018-08-21] MEDS: GABAPENTIN 100MG CAPSULE PO SCH ×3 (05:59→21:05)
[2018-08-21 06:05] LABS: BASOPHILS % 1.4 % (0.0-2.0); EOSINOPHILS % 1.2 % (0.0-5.0); HEMATOCRIT. 31.6 % (36.0-48.0); LYMPHOCYTES % 29.7 % (20.0-50.0); MEAN CORPUSCULAR HEMOGLOBIN 25.7 pg (28.0-32.0); MEAN CORPUSCULAR VOLUME 81.2 fL (81.0-99.0); MONOCYTES % 9.4 % (2.0-8.0); NEUTROPHILS % 58.3 % (40.0-76.0); PLATELET 166 x1000/uL (130-400); RED BLOOD CELL COUNT 3.89 mill/uL (4.2-5.4); RED CELL DISTRIBUTION WIDTH 21.2 % (11.6-14.6)
[2018-08-21] MEDS: BLOOD SUGAR DIAGNOSTIC STRIP TEST SCH ×4 (06:13→20:53)
[2018-08-21 06:20] LABS: CHLORIDE 103 mEq/L (98-107)
[2018-08-21 06:28] LABS: LDL CHOLESTEROL 59 mg/dL (5-100)
[2018-08-21 06:29] LABS: HDL CHOLESTEROL 68 mg/dL (40-59)
[2018-08-21] MEDS: INSULIN LISPRO 100 UNITS/ML SUBCUT SCH ×4 (06:39→20:56)
[2018-08-21 08:00] VITALS: BP 109/58
[2018-08-21] MEDS: FUROSEMIDE 40MG TABLET PO SCH (08:38)
[2018-08-21] MEDS: ENOXAPARIN 30MG/0.3ML SYR SUBCUT SCH (08:38)
[2018-08-21] MEDS: RANOLAZINE 500 MG TAB.SR.12H PO SCH ×2 (08:38→20:55)
[2018-08-21] MEDS: CLOPIDOGREL 75MG TABLET PO SCH (08:38)
[2018-08-21] MEDS: HYDRALAZINE HCL 25MG TABLET PO SCH ×2 (08:39→20:55)
[2018-08-21] MEDS: CARVEDILOL 3.125 MG TABLET PO SCH ×2 (08:40→20:56)
[2018-08-21] MEDS: IPRATROPIUM/ALBUTEROL 0.5-3(2.5)MG/3ML NEB HHN SCH ×3 (08:45→20:43)
[2018-08-21] MEDS: BUDESONIDE 0.5MG/2ML NEB HHN SCH (08:45)
[2018-08-21] MEDS ORDERED: INSULIN GLARGINE UD 100 UNITS/ML SYR SUBCUT SCH (10:00)
[2018-08-21 12:00] VITALS: BP 122/69
[2018-08-21 16:00] VITALS: BP 114/56
[2018-08-21 17:44] LABS: CREATINE KINASE 132 IU/L (26-192)
[2018-08-21] MEDS ORDERED: TRAMADOL 50MG TABLET PO PRN (18:30)
[2018-08-21 19:53] VITALS: BP 116/65
[2018-08-21 20:54] LABS: CLARITY URINE CLEAR (CLEAR); COLOR URINE YELLOW (YELLOW); KETONES URINE NEGATIVE (NEGATIVE); LEUKOCYTE ESTERASE URINE NEGATIVE (NEGATIVE); NITRITE URINE NEGATIVE (NEGATIVE); OCCULT BLOOD URINE NEGATIVE (NEGATIVE); PROTEIN URINE 1+ (NEGATIVE); SPECIFIC GRAVITY URINE 1.012 (1.005-1.030); UROBILINOGEN URINE 0.2 E.U./dL (0.2-1.0)
[2018-08-21] MEDS: ATORVASTATIN CALCIUM 20MG TABLET PO SCH (20:55)
[2018-08-21 21:07] LABS: *AMPHETAMINES SCREEN URINE NEGATIVE (NEGATIVE); *BARBITURATES SCREEN URINE NEGATIVE (NEGATIVE); CANNABINOID URINE SCREEN NEGATIVE (NEGATIVE); OPIATES URINE SCREEN PRESUMTIVE POSITIVE (NEGATIVE); PHENCYCLIDINE URINE SCREEN NEGATIVE (NEGATIVE)
[2018-08-21 21:08] LABS: *BENZODIAZEPINES SCREEN URINE NEGATIVE (NEGATIVE); *COCAINE SCREEN URINE NEGATIVE (NEGATIVE); METHADONE URINE SCREEN NEGATIVE (NEGATIVE)
[2018-08-22] VITALS: BP 118/53
[2018-08-22] MEDS: IPRATROPIUM/ALBUTEROL 0.5-3(2.5)MG/3ML NEB HHN SCH ×3 (01:43→14:36)
[2018-08-22] MEDS: BUDESONIDE 0.5MG/2ML NEB HHN SCH ×2 (01:44→14:36)
[2018-08-22] MEDS: HYDROMORPHONE HCL/PF 2MG/ML CPJ IV PRN ×3 (02:10→21:59)
[2018-08-22 04:00] VITALS: BP 112/70
[2018-08-22] MEDS: GABAPENTIN 100MG CAPSULE PO SCH ×5 (06:00→22:06)
[2018-08-22] MEDS: BLOOD SUGAR DIAGNOSTIC STRIP TEST SCH ×4 (06:08→21:00)
[2018-08-22] MEDS: INSULIN LISPRO 100 UNITS/ML SUBCUT SCH ×4 (06:16→22:19)
[2018-08-22 06:46] LABS: EOSINOPHILS % 1.5 % (0.0-5.0); HEMATOCRIT. 32.5 % (36.0-48.0); HEMOGLOBIN. 10.2 g/dL (12.0-16.0); LYMPHOCYTES % 28.4 % (20.0-50.0); MEAN CORPUSCULAR HEMOGLOBIN 25.4 pg (28.0-32.0); MEAN CORPUSCULAR VOLUME 81.3 fL (81.0-99.0); MEAN PLATELET VOLUME 10.8 fl (7.4-10.4); MONOCYTES % 9.9 % (2.0-8.0); NEUTROPHILS % 59.2 % (40.0-76.0); PLATELET 168 x1000/uL (130-400); RED CELL DISTRIBUTION WIDTH 21.4 % (11.6-14.6)
[2018-08-22 08:00] VITALS: BP 114/61
[2018-08-22] MEDS: ENOXAPARIN 30MG/0.3ML SYR SUBCUT SCH (09:00)
[2018-08-22] MEDS: CLOPIDOGREL 75MG TABLET PO SCH (10:05)
[2018-08-22] MEDS: RANOLAZINE 500 MG TAB.SR.12H PO SCH ×2 (10:06→22:03)
[2018-08-22] MEDS: CARVEDILOL 3.125 MG TABLET PO SCH ×2 (10:06→22:04)
[2018-08-22] MEDS: FUROSEMIDE 40MG TABLET PO SCH (10:06)
[2018-08-22] MEDS: HYDRALAZINE HCL 25MG TABLET PO SCH ×2 (10:07→22:03)
[2018-08-22 11:44] LABS: BG BASE EXCESS -5.4 mmol/L (-2.0-2.0); BG CARBOXYHEMOGLOBIN 0.5 % (0.5-1.5); BG DEOXYHEMOGLOBIN 6.4 % (0.0-5.0); BG FRACTION INSPIRED OXYGEN 28; BG HCO3 ACT 21.1 mmol/L (22.0-26.0); BG METHEMOGLOBIN 0.1 % (0.0-1.5); BG OXYGEN SATURATION 93.6 % (92.0-98.5); BG PCO2 45.4 mmHg (35.0-45.0); BG PH 7.285 (7.350-7.450); BG PO2 79.8 mmHg (75.0-100.0); BG SAMPLE SITE RIGHT BRACHIAL; BG TOTAL HEMOGLOBIN 10.4 g/dL (12.0-18.0); BG VENT MODE NASAL CANNULA
[2018-08-22 12:33] VITALS: BP 124/70
[2018-08-22] MEDS: INSULIN GLARGINE UD 100 UNITS/ML SYR SUBCUT SCH (15:09)
[2018-08-22 16:26] VITALS: BP 111/57
[2018-08-22 20:00] VITALS: BP 143/73
[2018-08-22] MEDS: ATORVASTATIN CALCIUM 20MG TABLET PO SCH (22:04)
[2018-08-23] VITALS: BP 116/70
[2018-08-23 04:00] VITALS: BP 136/98
[2018-08-23] MEDS: GABAPENTIN 100MG CAPSULE PO SCH (05:05)
[2018-08-23] MEDS: BLOOD SUGAR DIAGNOSTIC STRIP TEST SCH (05:37)
[2018-08-23] MEDS: INSULIN LISPRO 100 UNITS/ML SUBCUT SCH (05:37)
[2018-08-23 08:00] VITALS: BP 112/57
[2018-08-23] MEDS: IPRATROPIUM/ALBUTEROL 0.5-3(2.5)MG/3ML NEB HHN SCH ×2 (08:55→13:58)
[2018-08-23] MEDS: BUDESONIDE 0.5MG/2ML NEB HHN SCH (08:58)
[2018-08-23] MEDS: ENOXAPARIN 30MG/0.3ML SYR SUBCUT SCH (09:00)
[2018-08-23] MEDS: CARVEDILOL 3.125 MG TABLET PO SCH (09:00)
[2018-08-23] MEDS: CLOPIDOGREL 75MG TABLET PO SCH (10:07)
[2018-08-23] MEDS: HYDRALAZINE HCL 25MG TABLET PO SCH (10:07)
[2018-08-23] MEDS: FUROSEMIDE 40MG TABLET PO SCH (10:08)
[2018-08-23] MEDS: RANOLAZINE 500 MG TAB.SR.12H PO SCH (10:09)
[2018-08-23] MEDS: HYDROMORPHONE HCL/PF 2MG/ML CPJ IV PRN (10:11)
[2018-08-23] MEDS: INSULIN GLARGINE UD 100 UNITS/ML SYR SUBCUT SCH (10:17)
[2018-08-23 12:00] VITALS: BP 138/64
[2018-08-23 13:34] VITALS: BP 138/64
[2018-08-27] MEDS ORDERED: GABA-531 PO (11:44)
== END 2018-08-23 14:14 | disposition home or self-care (01) | DRG 291 ==
LOC: ER 21:35 → 8WST 08-20 03:32 → EDBEDREQ 08-20 03:41 → EDBEDREQTM 08-20 03:41 → EDBEDREQDT 08-20 03:41 → ENRESERV 08-20 07:02
PROVIDERS: ADMIT Internal Medicine Nephrology; ATTEND Internal Medicine Nephrology
DX: I13.0 Hypertensive heart and chronic kidney disease with heart failure and stage 1 through stage 4 chronic kidney disease, or unspecified chronic kidney disease (principal); I50.43 Acute on chronic combined systolic (congestive) and diastolic (congestive) heart failure; J96.20 Acute and chronic respiratory failure, unspecified whether with hypoxia or hypercapnia; N17.9 Acute kidney failure, unspecified; I31.3 Pericardial effusion (noninflammatory); I69.354 Hemiplegia and hemiparesis following cerebral infarction affecting left non-dominant side; N18.4 Chronic kidney disease, stage 4 (severe); I25.119 Atherosclerotic heart disease of native coronary artery with unspecified angina pectoris; I27.21 Secondary pulmonary arterial hypertension; E78.5 Hyperlipidemia, unspecified; I08.1 Rheumatic disorders of both mitral and tricuspid valves; G40.909 Epilepsy, unspecified, not intractable, without status epilepticus; I42.9 Cardiomyopathy, unspecified; D64.9 Anemia, unspecified; E11.22 Type 2 diabetes mellitus with diabetic chronic kidney disease; J44.9 Chronic obstructive pulmonary disease, unspecified; Z95.5 Presence of coronary angioplasty implant and graft; Z87.39 Personal history of other diseases of the musculoskeletal system and connective tissue; Z87.891 Personal history of nicotine dependence; Z88.5 Allergy status to narcotic agent
CPT/HCPCS: 36415; 36600; 71045; 80048; 80061; 80305; 82375; 82550; 82805; 82962; 83880; 84484; 93005; 93970; 94640; 96374; 96375; 97162; 97166; 97530; 97535; 99285; J1170; J1200; J1650; J1815; J1940; J2270; J7620; J7626

== ENCOUNTER 2018-09-04 21:44 | Emergency (ER) | payer MEDICARE, MEDICAID ==
[~2018-09-04] VITALS: Ht 170.2 cm; Wt 82.0 kg
[~2018-09-04 21:44] MED LIST changes: -FURO-151 MT; +FURO40TA5 MT
[2018-09-04 22:02] VITALS: BP 138/73
== END 2018-09-04 23:20 | disposition left against medical advice (07) ==
LOC: ER 21:44
DX: R06.02 Shortness of breath (principal); Z53.21 Procedure and treatment not carried out due to patient leaving prior to being seen by health care provider

== ENCOUNTER 2018-09-15 17:23 | Emergency (ER) | payer MEDICARE, MEDICAID ==
[~2018-09-15] VITALS: Ht 170.2 cm; Wt 82.0 kg
[~2018-09-15 17:23] MED LIST changes: -CARV6.2548 MT; -FURO40TA5 MT
[2018-09-15] MEDS ORDERED: DIPHENHYDRAMINE 50MG/ML VIAL IM ONE (20:30)
[2018-09-15] MEDS ORDERED: IBUPROFEN 800MG TABLET PO ONE (20:30)
[2018-09-15] MEDS ORDERED: MORPHINE SULFATE 10 MG/ML CPJ IM ONE (20:30)
[2018-09-15 22:30] VITALS: BP 130/77
== END 2018-09-15 22:30 | disposition home or self-care (01) ==
LOC: ER 17:23
DX: S30.0XXA Contusion of lower back and pelvis, initial encounter (principal); I11.0 Hypertensive heart disease with heart failure; I50.9 Heart failure, unspecified; E11.9 Type 2 diabetes mellitus without complications; J44.9 Chronic obstructive pulmonary disease, unspecified; Z88.6 Allergy status to analgesic agent; Z86.79 Personal history of other diseases of the circulatory system; Z95.0 Presence of cardiac pacemaker; Z87.891 Personal history of nicotine dependence; W18.30XA Fall on same level, unspecified, initial encounter; Y93.89 Activity, other specified; Y92.89 Other specified places as the place of occurrence of the external cause; Y99.8 Other external cause status
CPT/HCPCS: 72220; 96372; 99283; J1200; J2270

== ENCOUNTER 2018-09-18 21:39 | Inpatient (IN) | payer MEDICARE, MEDICAID ==
[~2018-09-18] VITALS: Ht 170.2 cm; Wt 81.6 kg
[2018-09-18] MEDS ORDERED: KETOROLAC 30MG/ML VIAL IV ONE (22:45)
[2018-09-18] MEDS ORDERED: ONDANSETRON HCL 4MG/2ML INJ IV ONE (22:45)
[2018-09-19] MEDS ORDERED: DIPHENHYDRAMINE 25MG CAPSULE PO ONE (00:30)
[2018-09-19] MEDS ORDERED: MORPHINE SULFATE 4 MG/ML CPJ (NOT FOR IM USE) IV ONE (00:30)
[2018-09-19] MEDS ORDERED: DOCUSATE SODIUM 100MG CAPSULE PO PRN (00:45)
[2018-09-19] MEDS ORDERED: CLONIDINE 0.1MG TABLET PO PRN (00:45)
[2018-09-19] MEDS ORDERED: ACETAMINOPHEN 325MG TABLET PO PRN (00:45)
[2018-09-19] MEDS ORDERED: HYDROCODONE/ACETAMINOPHEN 5/325MG TABLET PO PRN (00:45)
[2018-09-19] MEDS ORDERED: MORPHINE SULFATE 2 MG/ML CPJ (NOT FOR IM USE) IV PRN (00:45)
[2018-09-19] MEDS ORDERED: ONDANSETRON HCL 4MG/2ML INJ IV PRN (00:45)
[2018-09-19 01:18] LABS: HEMATOCRIT 27.9 % (36.0-48.0); MEAN CORPUSCULAR VOLUME 83.1 fL (81.0-99.0); PLATELET 178 x1000/uL (130-400); RED BLOOD CELL COUNT 3.35 mill/uL (4.2-5.4); RED CELL DISTRIBUTION WIDTH 24.5 % (11.6-14.6)
[2018-09-19 01:20] LABS: CHLORIDE 110 mEq/L (98-107)
[2018-09-19 01:24] LABS: INR 1.2; PROTHROMBIN TIME 11.9 sec (9.6-11.0)
[2018-09-19] MEDS ORDERED: DEXTROSE 50% WATER 50ML SYRINGE IV PRN (02:30)
[2018-09-19 03:00] VITALS: BP 125/65
[2018-09-19 04:00] VITALS: BP 125/65
[2018-09-19] MEDS: GABAPENTIN 100MG CAPSULE PO SCH ×3 (05:33→22:24)
[2018-09-19] MEDS: BLOOD SUGAR DIAGNOSTIC STRIP TEST SCH ×4 (06:34→21:00)
[2018-09-19 08:00] VITALS: BP 119/68
[2018-09-19] MEDS: RANOLAZINE 500 MG TAB.SR.12H PO SCH ×2 (08:51→22:24)
[2018-09-19] MEDS: CLOPIDOGREL 75MG TABLET PO SCH (08:55)
[2018-09-19] MEDS: CARVEDILOL 3.125 MG TABLET PO SCH ×2 (08:56→21:00)
[2018-09-19] MEDS: INSULIN LISPRO 100 UNITS/ML SUBCUT SCH ×5 (08:58→23:06)
[2018-09-19] MEDS ORDERED: HEPARIN 5000 UNITS/ML VIAL SUBCUT SCH (09:00)
[2018-09-19] MEDS: INSULIN GLARGINE UD 100 UNITS/ML SYR SUBCUT SCH (09:25)
[2018-09-19] MEDS: HYDRALAZINE HCL 25MG TABLET PO SCH ×2 (09:25→21:00)
[2018-09-19 09:58] LABS: BASOPHILS % 0.8 % (0.0-2.0); EOSINOPHILS % 0.7 % (0.0-5.0); HEMATOCRIT. 32.4 % (36.0-48.0); HEMOGLOBIN. 10.2 g/dL (12.0-16.0); LYMPHOCYTES % 17.6 % (20.0-50.0); MEAN CORPUSCULAR HEMOGLOBIN 26.8 pg (28.0-32.0); MEAN CORPUSCULAR VOLUME 85.1 fL (81.0-99.0); MEAN PLATELET VOLUME 9.7 fl (7.4-10.4); MONOCYTES % 8.7 % (2.0-8.0); NEUTROPHILS % 72.2 % (40.0-76.0); PLATELET 182 x1000/uL (130-400); RED BLOOD CELL COUNT 3.81 mill/uL (4.2-5.4)
[2018-09-19] MEDS ORDERED: INSULIN GLARGINE UD 100 UNITS/ML SYR SUBCUT SCH (10:00)
[2018-09-19 12:00] VITALS: BP 119/68
[2018-09-19] MEDS ORDERED: METOCLOPRAMIDE HCL 10MG/2ML VIAL IV PRN (15:00)
[2018-09-19] MEDS: FUROSEMIDE 20MG TABLET PO SCH (16:38)
[2018-09-19] MEDS: ENOXAPARIN 30MG/0.3ML SYR SUBCUT SCH (16:39)
[2018-09-19] MEDS: LEVOFLOXACIN 250MG PREMIX 50 ML IV SCH ×2 (16:39→18:01)
[2018-09-19] MEDS: HYDROMORPHONE HCL/PF 2MG/ML CPJ IV PRN ×2 (16:51→23:04)
[2018-09-19 20:00] VITALS: BP 99/62
[2018-09-19] MEDS: ATORVASTATIN CALCIUM 20MG TABLET PO SCH (22:24)
[2018-09-20] VITALS: BP 101/60
[2018-09-20 04:00] VITALS: BP 113/70
[2018-09-20] MEDS: GABAPENTIN 100MG CAPSULE PO SCH ×3 (05:45→21:36)
[2018-09-20 06:20] LABS: BASOPHILS % 0.7 % (0.0-2.0); EOSINOPHILS % 1.4 % (0.0-5.0); HEMATOCRIT. 29.7 % (36.0-48.0); HEMOGLOBIN. 9.3 g/dL (12.0-16.0); LYMPHOCYTES % 25.1 % (20.0-50.0); MEAN CORPUSCULAR HEMOGLOBIN 26.9 pg (28.0-32.0); MEAN CORPUSCULAR VOLUME 85.8 fL (81.0-99.0); MEAN PLATELET VOLUME 9.8 fl (7.4-10.4); NEUTROPHILS % 63.8 % (40.0-76.0); PLATELET 176 x1000/uL (130-400); RED BLOOD CELL COUNT 3.46 mill/uL (4.2-5.4); RED CELL DISTRIBUTION WIDTH 24.6 % (11.6-14.6)
[2018-09-20] MEDS: BLOOD SUGAR DIAGNOSTIC STRIP TEST SCH ×4 (06:53→21:44)
[2018-09-20 08:00] VITALS: BP 116/65
[2018-09-20] MEDS: RANOLAZINE 500 MG TAB.SR.12H PO SCH ×2 (09:00→21:36)
[2018-09-20] MEDS: CLOPIDOGREL 75MG TABLET PO SCH (09:30)
[2018-09-20] MEDS: HYDRALAZINE HCL 25MG TABLET PO SCH ×2 (09:30→21:43)
[2018-09-20] MEDS: HYDROMORPHONE HCL/PF 2MG/ML CPJ IV PRN ×2 (09:31→17:11)
[2018-09-20] MEDS: CARVEDILOL 3.125 MG TABLET PO SCH ×2 (09:31→21:43)
[2018-09-20] MEDS: INSULIN LISPRO 100 UNITS/ML SUBCUT SCH ×3 (09:39→17:34)
[2018-09-20] MEDS: INSULIN GLARGINE UD 100 UNITS/ML SYR SUBCUT SCH (09:39)
[2018-09-20] MEDS: FUROSEMIDE 20MG TABLET PO SCH (10:14)
[2018-09-20 12:00] VITALS: BP 117/66
[2018-09-20] MEDS: LIDOCAINE 5% PATCH TOP SCH ×2 (15:00→17:10)
[2018-09-20 16:00] VITALS: BP 119/65
[2018-09-20] MEDS: ENOXAPARIN 30MG/0.3ML SYR SUBCUT SCH (17:08)
[2018-09-20 20:00] VITALS: BP 119/60
[2018-09-20] MEDS: ATORVASTATIN CALCIUM 20MG TABLET PO SCH (21:44)
[2018-09-21] VITALS: BP 127/63
[2018-09-21] MEDS: HYDROMORPHONE HCL/PF 2MG/ML CPJ IV PRN ×3 (00:08→16:50)
[2018-09-21 04:00] VITALS: BP 120/74
[2018-09-21] MEDS: BLOOD SUGAR DIAGNOSTIC STRIP TEST SCH ×3 (05:55→18:16)
[2018-09-21] MEDS: GABAPENTIN 100MG CAPSULE PO SCH ×3 (05:56→14:26)
[2018-09-21] MEDS: INSULIN LISPRO 100 UNITS/ML SUBCUT SCH ×3 (07:50→18:00)
[2018-09-21 08:00] VITALS: BP 118/78
[2018-09-21] MEDS: LIDOCAINE 5% PATCH TOP SCH (09:00)
[2018-09-21] MEDS: RANOLAZINE 500 MG TAB.SR.12H PO SCH (09:11)
[2018-09-21] MEDS: HYDRALAZINE HCL 25MG TABLET PO SCH (09:12)
[2018-09-21] MEDS: CARVEDILOL 3.125 MG TABLET PO SCH (09:12)
[2018-09-21] MEDS: CLOPIDOGREL 75MG TABLET PO SCH (09:13)
[2018-09-21] MEDS: INSULIN GLARGINE UD 100 UNITS/ML SYR SUBCUT SCH (09:16)
[2018-09-21 09:28] LABS: CHLORIDE 110 mEq/L (98-107)
[2018-09-21 09:38] LABS: HEMOGLOBIN 8.6 g/dL (12.0-16.0); MEAN CORPUSCULAR HEMOGLOBIN 26.9 pg (28.0-32.0); PLATELET 166 x1000/uL (130-400); RED BLOOD CELL COUNT 3.21 mill/uL (4.2-5.4); RED CELL DISTRIBUTION WIDTH 24.2 % (11.6-14.6)
[2018-09-21 12:00] VITALS: BP 102/52
[2018-09-21 16:00] VITALS: BP 104/58
[2018-09-21] MEDS: ENOXAPARIN 30MG/0.3ML SYR SUBCUT SCH (16:00)
[2018-09-21] MEDS ORDERED: LEVOFLOXACIN 250MG TABLET PO SCH (17:00)
[2018-09-21 17:07] VITALS: BP 137/74
== END 2018-09-21 18:18 | disposition home or self-care (01) | DRG 641 ==
LOC: ER 21:39 → 6EST 09-19 00:38 → ENRESERV 09-19 01:48
PROVIDERS: ADMIT Internal Medicine Nephrology; ATTEND Internal Medicine Nephrology
DX: E87.5 Hyperkalemia (principal); I42.9 Cardiomyopathy, unspecified; I13.0 Hypertensive heart and chronic kidney disease with heart failure and stage 1 through stage 4 chronic kidney disease, or unspecified chronic kidney disease; I31.3 Pericardial effusion (noninflammatory); I69.354 Hemiplegia and hemiparesis following cerebral infarction affecting left non-dominant side; E44.1 Mild protein-calorie malnutrition; N18.9 Chronic kidney disease, unspecified; E11.22 Type 2 diabetes mellitus with diabetic chronic kidney disease; I25.10 Atherosclerotic heart disease of native coronary artery without angina pectoris; I50.9 Heart failure, unspecified; J44.9 Chronic obstructive pulmonary disease, unspecified; S30.0XXA Contusion of lower back and pelvis, initial encounter; M53.3 Sacrococcygeal disorders, not elsewhere classified; R26.9 Unspecified abnormalities of gait and mobility; W18.30XA Fall on same level, unspecified, initial encounter; E11.43 Type 2 diabetes mellitus with diabetic autonomic (poly)neuropathy; K31.84 Gastroparesis; M54.5 Low back pain; E11.42 Type 2 diabetes mellitus with diabetic polyneuropathy; Z99.81 Dependence on supplemental oxygen; Z79.02 Long term (current) use of antithrombotics/antiplatelets; Z79.4 Long term (current) use of insulin; Z79.82 Long term (current) use of aspirin; Z87.39 Personal history of other diseases of the musculoskeletal system and connective tissue; Z87.891 Personal history of nicotine dependence; Z95.5 Presence of coronary angioplasty implant and graft; Z95.810 Presence of automatic (implantable) cardiac defibrillator; Z68.28 Body mass index [BMI] 28.0-28.9, adult; Z88.5 Allergy status to narcotic agent; Z79.1 Long term (current) use of non-steroidal anti-inflammatories (NSAID); Z79.899 Other long term (current) drug therapy; Y93.89 Activity, other specified; Y92.89 Other specified places as the place of occurrence of the external cause; Y99.8 Other external cause status
CPT/HCPCS: 36415; 71045; 72192; 80048; 82962; 85027; 93005; 93970; 96374; 96375; 97162; 97165; 99285; J1170; J1644; J1650; J1815; J1885; J1956; J2270; J2405; Q0163

== ENCOUNTER 2018-10-09 17:37 | Inpatient (IN) | payer MEDICARE, MEDICAID ==
[~2018-10-09] VITALS: Ht 170.2 cm; Wt 78.0 kg
[2018-10-09] MEDS ORDERED: MORPHINE SULFATE 4 MG/ML CPJ (NOT FOR IM USE) IV STA (19:24)
[2018-10-09] MEDS ORDERED: ONDANSETRON HCL 4MG/2ML INJ IV STA (19:24)
[2018-10-09 20:04] LABS: BASOPHILS % 1.2 % (0.0-2.0); EOSINOPHILS % 0.6 % (0.0-5.0); HEMATOCRIT. 27.5 % (36.0-48.0); HEMOGLOBIN. 8.6 g/dL (12.0-16.0); LYMPHOCYTES % 19.5 % (20.0-50.0); MEAN CORPUSCULAR HEMOGLOBIN 25.7 pg (28.0-32.0); MEAN CORPUSCULAR VOLUME 82.1 fL (81.0-99.0); MEAN PLATELET VOLUME 8.7 fl (7.4-10.4); MONOCYTES % 11.4 % (2.0-8.0); NEUTROPHILS % 67.3 % (40.0-76.0); PLATELET 129 x1000/uL (130-400); RED BLOOD CELL COUNT 3.35 mill/uL (4.2-5.4); RED CELL DISTRIBUTION WIDTH 21.1 % (11.6-14.6)
[2018-10-09 20:07] LABS: CHLORIDE 103 mEq/L (98-107)
[2018-10-09 20:08] LABS: INR 1.1; PARTIAL THROMBOPLASTIN TIME 26.8 sec (23.4-31.0); PROTHROMBIN TIME 11.6 sec (9.6-11.0)
[2018-10-09] MEDS ORDERED: KETOROLAC 15MG/ML VIAL IV ONE (20:15)
[2018-10-09] MEDS ORDERED: LEVOFLOXACIN 750MG PREMIX 150 ML IV ONE (22:30)
[2018-10-09] MEDS ORDERED: SODIUM CHLORIDE 0.9% 1000ML BAG (SEPSIS BOLUS) IV ONE (22:30)
[2018-10-09] MEDS ORDERED: CLONIDINE 0.1MG TABLET PO PRN (23:45)
[2018-10-09] MEDS ORDERED: ENOXAPARIN 40MG/0.4ML SYR SUBCUT SCH (23:45)
[2018-10-09] MEDS ORDERED: ASPIRIN 81MG TABLET PO ONE (23:45)
[2018-10-09] MEDS ORDERED: IPRATROPIUM/ALBUTEROL 0.5-3(2.5)MG/3ML NEB NEB PRN (23:45)
[2018-10-10] MEDS ORDERED: DIPHENHYDRAMINE 50MG/ML VIAL IV ONE (01:00)
[2018-10-10 03:07] VITALS: BP 139/71
[2018-10-10 04:00] VITALS: BP 131/80
[2018-10-10] MEDS ORDERED: DEXTROSE 50% WATER 50ML SYRINGE IV PRN (04:15)
[2018-10-10] MEDS: BLOOD SUGAR DIAGNOSTIC STRIP TEST SCH ×4 (07:40→21:04)
[2018-10-10 08:00] VITALS: BP 122/67
[2018-10-10 08:13] LABS: BASOPHILS % 1.1 % (0.0-2.0); EOSINOPHILS % 0.3 % (0.0-5.0); HEMATOCRIT. 25.1 % (36.0-48.0); HEMOGLOBIN. 7.9 g/dL (12.0-16.0); MEAN CORPUSCULAR VOLUME 82.5 fL (81.0-99.0); MEAN PLATELET VOLUME 9.9 fl (7.4-10.4); MONOCYTES % 13.4 % (2.0-8.0); NEUTROPHILS % 70.2 % (40.0-76.0); PLATELET 128 x1000/uL (130-400); RED BLOOD CELL COUNT 3.04 mill/uL (4.2-5.4); RED CELL DISTRIBUTION WIDTH 20.9 % (11.6-14.6)
[2018-10-10 08:24] LABS: CHLORIDE 103 mEq/L (98-107)
[2018-10-10 08:56] LABS: BG BASE EXCESS 0.5 mmol/L (-2.0-2.0); BG CARBOXYHEMOGLOBIN 1.4 % (0.5-1.5); BG DEOXYHEMOGLOBIN 4.2 % (0.0-5.0); BG FRACTION INSPIRED OXYGEN 28; BG HCO3 ACT 24.5 mmol/L (22.0-26.0); BG METHEMOGLOBIN 0.4 % (0.0-1.5); BG OXYGEN SATURATION 95.7 % (92.0-98.5); BG PCO2 36.6 mmHg (35.0-45.0); BG PH 7.443 (7.350-7.450); BG PO2 82.8 mmHg (75.0-100.0); BG SAMPLE SITE RIGHT BRACHIAL; BG TOTAL HEMOGLOBIN 8.6 g/dL (12.0-18.0); BG VENT MODE NASAL CANNULA
[2018-10-10] MEDS: LISINOPRIL 10MG TABLET PO SCH (09:00)
[2018-10-10] MEDS ORDERED: ASPIRIN 325MG EC TABLET PO SCH (09:00)
[2018-10-10] MEDS: CARVEDILOL 3.125 MG TABLET PO SCH ×2 (09:00→19:50)
[2018-10-10] MEDS: HYDRALAZINE HCL 25MG TABLET PO SCH ×2 (09:00→21:00)
[2018-10-10] MEDS ORDERED: METOPROLOL TARTRATE 25MG TABLET PO SCH (09:00)
[2018-10-10] MEDS: CLOPIDOGREL 75MG TABLET PO SCH (09:31)
[2018-10-10] MEDS: RANOLAZINE 500 MG TAB.SR.12H PO SCH ×2 (09:31→19:50)
[2018-10-10] MEDS: DIPHENHYDRAMINE 50MG/ML VIAL IV PRN (09:31)
[2018-10-10] MEDS: ENOXAPARIN 30MG/0.3ML SYR SUBCUT SCH (09:32)
[2018-10-10] MEDS: INSULIN LISPRO 100 UNITS/ML SUBCUT SCH ×4 (09:35→21:00)
[2018-10-10 12:00] VITALS: BP 137/74
[2018-10-10] MEDS: ACETAMINOPHEN 325MG TABLET PO PRN (13:48)
[2018-10-10 16:00] VITALS: BP 137/56
[2018-10-10] MEDS: ATORVASTATIN CALCIUM 20MG TABLET PO SCH (19:51)
[2018-10-10 20:00] VITALS: BP 111/54
[2018-10-10] MEDS ORDERED: INSULIN GLARGINE UD 100 UNITS/ML SYR SUBCUT SCH (22:00)
[2018-10-11] VITALS: BP 121/67
[2018-10-11 01:00] LABS: HEMATOCRIT. 24.1 % (36.0-48.0); HEMOGLOBIN. 7.4 g/dL (12.0-16.0); MEAN CORPUSCULAR HEMOGLOBIN 25.5 pg (28.0-32.0); MEAN CORPUSCULAR VOLUME 82.6 fL (81.0-99.0); MEAN PLATELET VOLUME 9.6 fl (7.4-10.4); PLATELET 122 x1000/uL (130-400); RED BLOOD CELL COUNT 2.91 mill/uL (4.2-5.4); RED CELL DISTRIBUTION WIDTH 20.8 % (11.6-14.6)
[2018-10-11 04:00] VITALS: BP 117/60
[2018-10-11 04:39] LABS: PLATELET ESTIMATE NORMAL
[2018-10-11] MEDS: BLOOD SUGAR DIAGNOSTIC STRIP TEST SCH ×4 (06:57→20:47)
[2018-10-11] MEDS: ACETAMINOPHEN 325MG TABLET PO PRN ×2 (07:01→18:35)
[2018-10-11 07:54] LABS: BASOPHILS % 0.8 % (0.0-2.0); HEMOGLOBIN. 8.3 g/dL (12.0-16.0); LYMPHOCYTES % 15.9 % (20.0-50.0); MEAN CORPUSCULAR HEMOGLOBIN 26.2 pg (28.0-32.0); MEAN CORPUSCULAR VOLUME 81.7 fL (81.0-99.0); MEAN PLATELET VOLUME 10.2 fl (7.4-10.4); MONOCYTES % 12.1 % (2.0-8.0); NEUTROPHILS % 70.2 % (40.0-76.0); PLATELET 109 x1000/uL (130-400); RED BLOOD CELL COUNT 3.18 mill/uL (4.2-5.4); RED CELL DISTRIBUTION WIDTH 20.7 % (11.6-14.6)
[2018-10-11 08:00] VITALS: BP 119/62
[2018-10-11 08:10] LABS: PHOSPHORUS 2.8 mg/dL (2.5-4.9)
[2018-10-11] MEDS: INSULIN LISPRO 100 UNITS/ML SUBCUT SCH ×4 (08:10→21:04)
[2018-10-11] MEDS: CARVEDILOL 3.125 MG TABLET PO SCH ×2 (08:11→20:43)
[2018-10-11] MEDS: LISINOPRIL 10MG TABLET PO SCH (08:11)
[2018-10-11] MEDS: HYDRALAZINE HCL 25MG TABLET PO SCH ×2 (08:12→20:41)
[2018-10-11] MEDS: RANOLAZINE 500 MG TAB.SR.12H PO SCH ×2 (08:31→20:42)
[2018-10-11] MEDS: ENOXAPARIN 30MG/0.3ML SYR SUBCUT SCH ×2 (08:35→08:40)
[2018-10-11] MEDS: CLOPIDOGREL 75MG TABLET PO SCH (08:35)
[2018-10-11 13:00] VITALS: BP 121/73
[2018-10-11 16:00] VITALS: BP 124/64
[2018-10-11 17:19] LABS: TOTAL IRON BINDING CAPACITY 297 ug/dL (250-450)
[2018-10-11] MEDS: DIPHENHYDRAMINE 50MG/ML VIAL IV PRN (18:35)
[2018-10-11 20:00] VITALS: BP 110/52
[2018-10-11] MEDS: ATORVASTATIN CALCIUM 20MG TABLET PO SCH (20:42)
[2018-10-11] MEDS ORDERED: EPOETIN ALFA 10000UNITS/ML VIAL SUBCUT NR (21:00)
[2018-10-12] VITALS: BP 104/61
[2018-10-12] MEDS: ONDANSETRON HCL 4MG/2ML INJ IV PRN ×2 (02:05→14:03)
[2018-10-12 04:00] VITALS: BP 116/59
[2018-10-12] MEDS: BLOOD SUGAR DIAGNOSTIC STRIP TEST SCH ×4 (06:51→21:00)
[2018-10-12 06:54] LABS: BASOPHILS % 0.9 % (0.0-2.0); EOSINOPHILS % 1.2 % (0.0-5.0); HEMATOCRIT. 26.8 % (36.0-48.0); HEMOGLOBIN. 8.2 g/dL (12.0-16.0); LYMPHOCYTES % 24.5 % (20.0-50.0); MEAN CORPUSCULAR HEMOGLOBIN 25.4 pg (28.0-32.0); MEAN CORPUSCULAR VOLUME 82.8 fL (81.0-99.0); MEAN PLATELET VOLUME 9.9 fl (7.4-10.4); NEUTROPHILS % 62.4 % (40.0-76.0); PLATELET 121 x1000/uL (130-400); RED BLOOD CELL COUNT 3.24 mill/uL (4.2-5.4); RED CELL DISTRIBUTION WIDTH 20.8 % (11.6-14.6)
[2018-10-12 08:00] VITALS: BP 125/60
[2018-10-12] MEDS: ENOXAPARIN 30MG/0.3ML SYR SUBCUT SCH (09:00)
[2018-10-12] MEDS: LISINOPRIL 10MG TABLET PO SCH (09:14)
[2018-10-12] MEDS: HYDRALAZINE HCL 25MG TABLET PO SCH ×2 (09:14→23:32)
[2018-10-12] MEDS: CARVEDILOL 3.125 MG TABLET PO SCH ×2 (09:14→23:33)
[2018-10-12] MEDS: CLOPIDOGREL 75MG TABLET PO SCH (09:14)
[2018-10-12] MEDS: RANOLAZINE 500 MG TAB.SR.12H PO SCH ×2 (09:14→23:32)
[2018-10-12] MEDS: INSULIN LISPRO 100 UNITS/ML SUBCUT SCH ×4 (10:14→21:00)
[2018-10-12] MEDS: TRAMADOL 50MG TABLET PO PRN ×2 (11:43→23:33)
[2018-10-12 11:59] VITALS: BP 111/60
[2018-10-12 16:00] VITALS: BP 105/59
[2018-10-12 20:00] VITALS: BP 110/59
[2018-10-12] MEDS: ATORVASTATIN CALCIUM 20MG TABLET PO SCH (23:32)
[2018-10-13] VITALS: BP 128/68
[2018-10-13] MEDS: BLOOD SUGAR DIAGNOSTIC STRIP TEST SCH (06:45)
[2018-10-13 07:03] LABS: BASOPHILS % 1.1 % (0.0-2.0); HEMATOCRIT. 27.2 % (36.0-48.0); HEMOGLOBIN. 8.5 g/dL (12.0-16.0); LYMPHOCYTES % 18.1 % (20.0-50.0); MEAN CORPUSCULAR HEMOGLOBIN 25.5 pg (28.0-32.0); MONOCYTES % 11.2 % (2.0-8.0); NEUTROPHILS % 68.6 % (40.0-76.0); PLATELET 106 x1000/uL (130-400); RED BLOOD CELL COUNT 3.32 mill/uL (4.2-5.4); RED CELL DISTRIBUTION WIDTH 20.6 % (11.6-14.6)
[2018-10-13 07:22] VITALS: BP 120/55
[2018-10-13] MEDS: RANOLAZINE 500 MG TAB.SR.12H PO SCH (09:00)
[2018-10-13] MEDS: LISINOPRIL 10MG TABLET PO SCH (09:00)
[2018-10-13] MEDS: ENOXAPARIN 30MG/0.3ML SYR SUBCUT SCH (09:00)
[2018-10-13] MEDS: CLOPIDOGREL 75MG TABLET PO SCH (10:17)
[2018-10-13] MEDS: HYDRALAZINE HCL 25MG TABLET PO SCH (10:17)
[2018-10-13] MEDS: CARVEDILOL 3.125 MG TABLET PO SCH (10:17)
[2018-10-13] MEDS: INSULIN LISPRO 100 UNITS/ML SUBCUT SCH (10:25)
[2018-10-13 11:24] VITALS: BP 125/66
[2018-10-13] MEDS ORDERED: EPOETIN ALFA 10000UNITS/ML VIAL SUBCUT SCH (21:00)
== END 2018-10-13 12:17 | disposition home or self-care (01) | DRG 291 ==
LOC: ER 22:17 → 7WST 23:16 → ENRESERV 23:37
PROVIDERS: ADMIT Internal Medicine Nephrology; ATTEND Internal Medicine Nephrology
PROC: 5A1D70Z Performance of Urinary Filtration, Intermittent, Less than 6 Hours Per Day (ICD-10-PCS; principal; 2018-10-11)
PROC: 5A1D70Z Performance of Urinary Filtration, Intermittent, Less than 6 Hours Per Day (ICD-10-PCS; 2018-10-12)
DX: I13.2 Hypertensive heart and chronic kidney disease with heart failure and with stage 5 chronic kidney disease, or end stage renal disease (principal); N18.6 End stage renal disease; I31.3 Pericardial effusion (noninflammatory); E11.22 Type 2 diabetes mellitus with diabetic chronic kidney disease; D63.8 Anemia in other chronic diseases classified elsewhere; I50.9 Heart failure, unspecified; K80.20 Calculus of gallbladder without cholecystitis without obstruction; D69.6 Thrombocytopenia, unspecified; I25.10 Atherosclerotic heart disease of native coronary artery without angina pectoris; J44.9 Chronic obstructive pulmonary disease, unspecified; E11.649 Type 2 diabetes mellitus with hypoglycemia without coma; D70.9 Neutropenia, unspecified; Z99.2 Dependence on renal dialysis; Z95.5 Presence of coronary angioplasty implant and graft; Z79.02 Long term (current) use of antithrombotics/antiplatelets; Z79.4 Long term (current) use of insulin; Z86.73 Personal history of transient ischemic attack (TIA), and cerebral infarction without residual deficits; Z95.810 Presence of automatic (implantable) cardiac defibrillator; Z88.6 Allergy status to analgesic agent; Z79.899 Other long term (current) drug therapy
CPT/HCPCS: 36415; 36600; 71045; 74176; 80048; 82375; 82805; 82962; 83540; 83550; 83605; 83880; 84100; 84484; 93005; 93970; 96374; 99285; J0885; J1200; J1650; J1815; J1885; J1956; J2405; J7030

== ENCOUNTER 2018-10-26 18:29 | Inpatient (IN) | payer MEDICARE, MEDICAID ==
[~2018-10-26] VITALS: Ht 170.2 cm; Wt 79.8 kg
[2018-10-26] MEDS ORDERED: ONDANSETRON HCL 4MG/2ML INJ IV ONE (23:30)
[2018-10-27 00:26] LABS: BASOPHILS % 0.9 % (0.0-2.0); EOSINOPHILS % 1.4 % (0.0-5.0); HEMATOCRIT. 28.7 % (36.0-48.0); HEMOGLOBIN. 8.8 g/dL (12.0-16.0); LYMPHOCYTES % 19.3 % (20.0-50.0); MEAN CORPUSCULAR HEMOGLOBIN 24.9 pg (28.0-32.0); MEAN CORPUSCULAR VOLUME 81.1 fL (81.0-99.0); MEAN PLATELET VOLUME 9.9 fl (7.4-10.4); MONOCYTES % 11.2 % (2.0-8.0); NEUTROPHILS % 67.2 % (40.0-76.0); PLATELET 199 x1000/uL (130-400); RED BLOOD CELL COUNT 3.54 mill/uL (4.2-5.4); RED CELL DISTRIBUTION WIDTH 21.3 % (11.6-14.6)
[2018-10-27 00:32] LABS: CHLORIDE 101 mEq/L (98-107)
[2018-10-27] MEDS ORDERED: ONDANSETRON HCL 4MG/2ML INJ IV PRN (01:30)
[2018-10-27] MEDS ORDERED: ENOXAPARIN 40MG/0.4ML SYR SUBCUT SCH (01:30)
[2018-10-27] MEDS ORDERED: SODIUM CHLORIDE 0.45% 1,000 ML IV SCH (01:30)
[2018-10-27] MEDS ORDERED: ACETAMINOPHEN 325MG TABLET PO PRN (01:30)
[2018-10-27] MEDS ORDERED: CLONIDINE 0.1MG TABLET PO PRN (01:30)
[2018-10-27] MEDS ORDERED: HYDROCODONE/ACETAMINOPHEN 5/325MG TABLET PO ONE (02:00)
[2018-10-27 04:00] VITALS: BP 129/78
[2018-10-27 04:20] VITALS: BP 129/78
[2018-10-27] MEDS ORDERED: DEXTROSE 50% WATER 50ML SYRINGE IV PRN (05:30)
[2018-10-27] MEDS ORDERED: VANCOMYCIN HCL 1000 MG/20 ML ORAL PO SCH (06:00)
[2018-10-27] MEDS: HYDRALAZINE HCL 25MG TABLET PO SCH ×3 (07:44→21:27)
[2018-10-27] MEDS: GABAPENTIN 100MG CAPSULE PO SCH ×3 (07:44→21:20)
[2018-10-27] MEDS: TRAMADOL 50MG TABLET PO PRN ×2 (07:45→21:47)
[2018-10-27] MEDS: BLOOD SUGAR DIAGNOSTIC STRIP TEST SCH ×4 (07:46→21:24)
[2018-10-27] MEDS: INSULIN LISPRO 100 UNITS/ML SUBCUT SCH ×4 (07:51→21:28)
[2018-10-27 08:00] VITALS: BP 133/81
[2018-10-27] MEDS: LISINOPRIL 2.5MG TABLET PO SCH (09:00)
[2018-10-27] MEDS: CARVEDILOL 3.125 MG TABLET PO SCH ×2 (09:00→21:24)
[2018-10-27] MEDS: IPRATROPIUM/ALBUTEROL 0.5-3(2.5)MG/3ML NEB HHN SCH ×3 (10:08→22:03)
[2018-10-27] MEDS ORDERED: HYDROMORPHONE HCL/PF 2MG/ML CPJ IV NR (10:30)
[2018-10-27] MEDS: CLOPIDOGREL 75MG TABLET PO SCH (11:26)
[2018-10-27] MEDS: VANCOMYCIN HCL 1000 MG/20 ML ORAL PO SCH ×3 (11:26→21:21)
[2018-10-27 12:00] VITALS: BP 118/74
[2018-10-27] MEDS: COLCHICINE 0.6MG TABLET PO SCH (14:50)
[2018-10-27] MEDS: IBUPROFEN 800MG TABLET PO SCH ×2 (14:50→21:23)
[2018-10-27] MEDS: PANTOPRAZOLE SODIUM 40 MG/VIAL IV SCH (14:51)
[2018-10-27] MEDS ORDERED: HEPARIN SODIUM 1,000 UNIT/1ML VIAL IV NR (15:30)
[2018-10-27 16:00] VITALS: BP 108/72
[2018-10-27] MEDS: SODIUM CHLORIDE 0.45% 1,000 ML IV SCH ×2 (18:28→23:01)
[2018-10-27 20:00] VITALS: BP 137/81
[2018-10-27] MEDS ORDERED: VANCOMYCIN 2,000 MG in DEXT 5% WATER 500 ML IV NR (20:00)
[2018-10-27] MEDS: ATORVASTATIN CALCIUM 20MG TABLET PO SCH (21:24)
[2018-10-27] MEDS ORDERED: INSULIN GLARGINE UD 100 UNITS/ML SYR SUBCUT SCH (22:00)
[2018-10-27] MEDS: INSULIN GLARGINE UD 100 UNITS/ML SYR SUBCUT SCH (23:13)
[2018-10-28] VITALS: BP 138/76
[2018-10-28] MEDS: IPRATROPIUM/ALBUTEROL 0.5-3(2.5)MG/3ML NEB HHN SCH ×4 (01:58→20:35)
[2018-10-28 04:00] VITALS: BP_SYST 136; BP_SYST 149; BP_DIAS 72; BP_DIAS 80
[2018-10-28] MEDS: IBUPROFEN 800MG TABLET PO SCH ×3 (05:31→21:44)
[2018-10-28] MEDS: GABAPENTIN 100MG CAPSULE PO SCH ×3 (05:32→21:43)
[2018-10-28] MEDS: HYDRALAZINE HCL 25MG TABLET PO SCH ×2 (05:32→21:00)
[2018-10-28] MEDS: VANCOMYCIN HCL 1000 MG/20 ML ORAL PO SCH ×4 (05:33→21:43)
[2018-10-28 05:55] LABS: BASOPHILS % 0.9 % (0.0-2.0); EOSINOPHILS % 1.4 % (0.0-5.0); HEMATOCRIT. 26.4 % (36.0-48.0); HEMOGLOBIN. 8.2 g/dL (12.0-16.0); LYMPHOCYTES % 18.6 % (20.0-50.0); MEAN CORPUSCULAR HEMOGLOBIN 25.2 pg (28.0-32.0); MEAN CORPUSCULAR VOLUME 81.3 fL (81.0-99.0); MEAN PLATELET VOLUME 10.1 fl (7.4-10.4); MONOCYTES % 13.1 % (2.0-8.0); PLATELET 150 x1000/uL (130-400); RED BLOOD CELL COUNT 3.25 mill/uL (4.2-5.4); RED CELL DISTRIBUTION WIDTH 20.6 % (11.6-14.6)
[2018-10-28 06:20] LABS: CHLORIDE 105 mEq/L (98-107)
[2018-10-28] MEDS: BLOOD SUGAR DIAGNOSTIC STRIP TEST SCH ×4 (06:25→21:42)
[2018-10-28] MEDS: INSULIN LISPRO 100 UNITS/ML SUBCUT SCH ×4 (06:31→21:49)
[2018-10-28 07:05] LABS: PHOSPHORUS 4.9 mg/dL (2.5-4.9)
[2018-10-28 07:06] LABS: LDL CHOLESTEROL 53 mg/dL (5-100)
[2018-10-28 07:08] LABS: HDL CHOLESTEROL 55 mg/dL (40-59)
[2018-10-28 08:00] VITALS: BP 113/78
[2018-10-28] MEDS: LISINOPRIL 2.5MG TABLET PO SCH (09:00)
[2018-10-28] MEDS: PANTOPRAZOLE SODIUM 40 MG/VIAL IV SCH (09:21)
[2018-10-28] MEDS: CARVEDILOL 3.125 MG TABLET PO SCH ×2 (09:22→21:00)
[2018-10-28] MEDS: COLCHICINE 0.6MG TABLET PO SCH (09:24)
[2018-10-28] MEDS: CLOPIDOGREL 75MG TABLET PO SCH (09:24)
[2018-10-28 12:00] VITALS: BP 91/52
[2018-10-28] MEDS ORDERED: SODIUM CHLORIDE 0.9% 250 ML IV NR (13:45)
[2018-10-28 16:00] VITALS: BP_SYST 102; BP_SYST 115; BP_DIAS 49; BP_DIAS 57
[2018-10-28] MEDS: SODIUM CHLORIDE 0.45% 1,000 ML IV SCH (17:28)
[2018-10-28 20:00] VITALS: BP 112/74
[2018-10-28] MEDS ORDERED: EPOETIN ALFA 10000UNITS/ML VIAL SUBCUT SCH (21:00)
[2018-10-28] MEDS: ATORVASTATIN CALCIUM 20MG TABLET PO SCH (21:43)
[2018-10-28] MEDS: INSULIN GLARGINE UD 100 UNITS/ML SYR SUBCUT SCH (21:50)
[2018-10-28] MEDS: TRAMADOL 50MG TABLET PO PRN (22:11)
[2018-10-29] VITALS: BP 101/54
[2018-10-29] MEDS: IPRATROPIUM/ALBUTEROL 0.5-3(2.5)MG/3ML NEB HHN SCH ×4 (01:37→19:45)
[2018-10-29 04:00] VITALS: BP 110/59
[2018-10-29] MEDS: VANCOMYCIN HCL 1000 MG/20 ML ORAL PO SCH ×4 (04:47→21:40)
[2018-10-29] MEDS: GABAPENTIN 100MG CAPSULE PO SCH ×4 (06:00→21:40)
[2018-10-29] MEDS: IBUPROFEN 800MG TABLET PO SCH ×4 (06:00→21:41)
[2018-10-29 06:20] LABS: HEMATOCRIT. 27.5 % (36.0-48.0); HEMOGLOBIN. 8.2 g/dL (12.0-16.0); MEAN CORPUSCULAR HEMOGLOBIN 24.8 pg (28.0-32.0); MEAN CORPUSCULAR VOLUME 82.8 fL (81.0-99.0); MEAN PLATELET VOLUME 9.9 fl (7.4-10.4); PLATELET 157 x1000/uL (130-400); RED BLOOD CELL COUNT 3.33 mill/uL (4.2-5.4); RED CELL DISTRIBUTION WIDTH 20.4 % (11.6-14.6)
[2018-10-29] MEDS: BLOOD SUGAR DIAGNOSTIC STRIP TEST SCH ×4 (06:44→21:07)
[2018-10-29] MEDS: INSULIN LISPRO 100 UNITS/ML SUBCUT SCH ×4 (06:46→20:48)
[2018-10-29 08:00] VITALS: BP 104/62
[2018-10-29] MEDS: HYDRALAZINE HCL 25MG TABLET PO SCH ×2 (08:06→21:00)
[2018-10-29] MEDS: CARVEDILOL 3.125 MG TABLET PO SCH ×2 (08:07→21:00)
[2018-10-29] MEDS: CLOPIDOGREL 75MG TABLET PO SCH (08:27)
[2018-10-29] MEDS: PANTOPRAZOLE SODIUM 40 MG/VIAL IV SCH (08:28)
[2018-10-29] MEDS: COLCHICINE 0.6MG TABLET PO SCH (08:28)
[2018-10-29 11:59] VITALS: BP 107/64
[2018-10-29 16:00] VITALS: BP 124/70
[2018-10-29] MEDS: SODIUM CHLORIDE 0.45% 1,000 ML IV SCH (16:29)
[2018-10-29 20:00] VITALS: BP 133/70
[2018-10-29 20:16] LABS: PLATELET ESTIMATE NORMAL
[2018-10-29] MEDS: ATORVASTATIN CALCIUM 20MG TABLET PO SCH (20:31)
[2018-10-29] MEDS ORDERED: VANCOMYCIN 1250MG in DEXTROSE 5% WATER 250ML IV NR (21:00)
[2018-10-29] MEDS: INSULIN GLARGINE UD 100 UNITS/ML SYR SUBCUT SCH (21:48)
[2018-10-30] VITALS: BP 120/63
[2018-10-30] MEDS: IPRATROPIUM/ALBUTEROL 0.5-3(2.5)MG/3ML NEB HHN SCH ×2 (01:55→09:02)
[2018-10-30 04:00] VITALS: BP 111/65
[2018-10-30] MEDS: VANCOMYCIN HCL 1000 MG/20 ML ORAL PO SCH ×2 (04:15→10:00)
[2018-10-30] MEDS: GABAPENTIN 100MG CAPSULE PO SCH ×2 (06:12→13:50)
[2018-10-30] MEDS: IBUPROFEN 800MG TABLET PO SCH ×2 (06:12→13:50)
[2018-10-30] MEDS: BLOOD SUGAR DIAGNOSTIC STRIP TEST SCH ×2 (06:12→12:50)
[2018-10-30] MEDS: INSULIN LISPRO 100 UNITS/ML SUBCUT SCH ×2 (07:06→12:35)
[2018-10-30 07:24] LABS: BASOPHILS % 1.3 % (0.0-2.0); EOSINOPHILS % 2.8 % (0.0-5.0); HEMATOCRIT. 24.6 % (36.0-48.0); HEMOGLOBIN. 7.6 g/dL (12.0-16.0); LYMPHOCYTES % 24.4 % (20.0-50.0); MEAN PLATELET VOLUME 9.6 fl (7.4-10.4); MONOCYTES % 12.5 % (2.0-8.0); PLATELET 127 x1000/uL (130-400); RED BLOOD CELL COUNT 3.04 mill/uL (4.2-5.4); RED CELL DISTRIBUTION WIDTH 20.5 % (11.6-14.6)
[2018-10-30 08:00] VITALS: BP 114/72
[2018-10-30] MEDS: HYDRALAZINE HCL 25MG TABLET PO SCH (09:14)
[2018-10-30] MEDS: CARVEDILOL 3.125 MG TABLET PO SCH (09:14)
[2018-10-30] MEDS: CLOPIDOGREL 75MG TABLET PO SCH (09:14)
[2018-10-30] MEDS: COLCHICINE 0.6MG TABLET PO SCH (09:14)
[2018-10-30] MEDS: PANTOPRAZOLE SODIUM 40 MG/VIAL IV SCH (09:17)
[2018-10-30 11:56] LABS: HEMATOCRIT 25.8 % (36.0-48.0); HEMOGLOBIN 7.9 g/dL (12.0-16.0)
[2018-10-30 12:00] VITALS: BP 91/53
[2018-10-30 14:16] VITALS: BP 91/53
== END 2018-10-30 15:36 | disposition home or self-care (01) | DRG 371 ==
LOC: ER 18:29 → EDBEDREQ 10-27 01:06 → 8WST 10-27 01:21 → EDBEDREQ 10-27 01:28 → EDBEDREQTM 10-27 01:28 → ENRESERV 10-27 01:38
PROVIDERS: ADMIT Internal Medicine Nephrology; ATTEND Internal Medicine Nephrology
PROC: 5A1D70Z Performance of Urinary Filtration, Intermittent, Less than 6 Hours Per Day (ICD-10-PCS; principal; 2018-10-27)
PROC: 5A1D70Z Performance of Urinary Filtration, Intermittent, Less than 6 Hours Per Day (ICD-10-PCS; 2018-10-29)
PROC: 5A1D70Z Performance of Urinary Filtration, Intermittent, Less than 6 Hours Per Day (ICD-10-PCS; 2018-10-30)
DX: A04.72 Enterocolitis due to Clostridium difficile, not specified as recurrent (principal); N18.6 End stage renal disease; J96.20 Acute and chronic respiratory failure, unspecified whether with hypoxia or hypercapnia; I42.9 Cardiomyopathy, unspecified; I13.2 Hypertensive heart and chronic kidney disease with heart failure and with stage 5 chronic kidney disease, or end stage renal disease; I50.42 Chronic combined systolic (congestive) and diastolic (congestive) heart failure; I69.354 Hemiplegia and hemiparesis following cerebral infarction affecting left non-dominant side; I25.10 Atherosclerotic heart disease of native coronary artery without angina pectoris; J44.9 Chronic obstructive pulmonary disease, unspecified; D64.9 Anemia, unspecified; E11.22 Type 2 diabetes mellitus with diabetic chronic kidney disease; E78.00 Pure hypercholesterolemia, unspecified; G40.909 Epilepsy, unspecified, not intractable, without status epilepticus; H05.20 Unspecified exophthalmos; I08.1 Rheumatic disorders of both mitral and tricuspid valves; N85.8 Other specified noninflammatory disorders of uterus; E78.5 Hyperlipidemia, unspecified; Z87.39 Personal history of other diseases of the musculoskeletal system and connective tissue; Z95.5 Presence of coronary angioplasty implant and graft; Z95.810 Presence of automatic (implantable) cardiac defibrillator; Z99.2 Dependence on renal dialysis; Z91.15 Patient's noncompliance with renal dialysis; Z87.891 Personal history of nicotine dependence; Z79.4 Long term (current) use of insulin
CPT/HCPCS: 36415; 71045; 74176; 80048; 80061; 80202; 82962; 83605; 83735; 83880; 84100; 84145; 84484; 85014; 85018; 93306; 93970; 94640; 97162; 99285; C1893; C9113; J0885; J1170; J1644; J1815; J2405; J3370; J7060; J7620

== ENCOUNTER 2018-11-04 20:54 | Inpatient (IN) | payer MEDICARE, MEDICAID ==
[~2018-11-04] VITALS: Ht 170.2 cm; Wt 80.3 kg
[2018-11-04 21:41] LABS: HEMATOCRIT. 25.5 % (36.0-48.0); HEMOGLOBIN. 7.8 g/dL (12.0-16.0); MEAN CORPUSCULAR HEMOGLOBIN 24.2 pg (28.0-32.0); MEAN PLATELET VOLUME 9.6 fl (7.4-10.4); PLATELET 135 x1000/uL (130-400); RED BLOOD CELL COUNT 3.24 mill/uL (4.2-5.4); RED CELL DISTRIBUTION WIDTH 20.6 % (11.6-14.6)
[2018-11-04 21:46] LABS: CHLORIDE 102 mEq/L (98-107)
[2018-11-04] MEDS ORDERED: DIPHENHYDRAMINE 25MG CAPSULE PO ONE (22:00)
[2018-11-04] MEDS ORDERED: ONDANSETRON HCL 4MG/2ML INJ IV ONE (22:00)
[2018-11-04] MEDS ORDERED: MORPHINE SULFATE 2 MG/ML CPJ (NOT FOR IM USE) IV ONE (22:00)
[2018-11-04 22:09] LABS: PLATELET ESTIMATE NORMAL
[2018-11-04] MEDS ORDERED: ONDANSETRON HCL 4MG/2ML INJ IV PRN (23:00)
[2018-11-04] MEDS ORDERED: CLONIDINE 0.1MG TABLET PO PRN (23:00)
[2018-11-04] MEDS ORDERED: ACETAMINOPHEN 325MG TABLET PO PRN (23:00)
[2018-11-05] VITALS (7 sets, daily range): BP systolic 107–129; BP diastolic 47–78
[2018-11-05] MEDS ORDERED: COR12 PO (02:08)
[2018-11-05] MEDS: BLOOD SUGAR DIAGNOSTIC STRIP TEST SCH ×4 (06:56→21:00)
[2018-11-05] MEDS ORDERED: DEXTROSE 50% WATER 50ML SYRINGE IV PRN (07:00)
[2018-11-05] MEDS ORDERED: TRAMADOL 50MG TABLET PO PRN (07:15)
[2018-11-05] MEDS ORDERED: DIPHENHYDRAMINE 25MG CAPSULE PO PRN (07:15)
[2018-11-05 07:18] LABS: CHLORIDE 102 mEq/L (98-107)
[2018-11-05 07:21] LABS: HEMATOCRIT. 25.8 % (36.0-48.0); HEMOGLOBIN. 7.8 g/dL (12.0-16.0); MEAN CORPUSCULAR HEMOGLOBIN 24.1 pg (28.0-32.0); MEAN CORPUSCULAR VOLUME 79.8 fL (81.0-99.0); PLATELET 134 x1000/uL (130-400); RED BLOOD CELL COUNT 3.23 mill/uL (4.2-5.4); RED CELL DISTRIBUTION WIDTH 20.7 % (11.6-14.6)
[2018-11-05 07:45] LABS: LDL CHOLESTEROL 39 mg/dL (5-100)
[2018-11-05 07:47] LABS: HDL CHOLESTEROL 49 mg/dL (40-59)
[2018-11-05] MEDS: IPRATROPIUM/ALBUTEROL 0.5-3(2.5)MG/3ML NEB HHN SCH ×3 (08:47→20:51)
[2018-11-05] MEDS: LISINOPRIL 2.5MG TABLET PO SCH (09:00)
[2018-11-05] MEDS: INSULIN LISPRO 100 UNITS/ML SUBCUT SCH ×4 (09:37→21:00)
[2018-11-05] MEDS: RANOLAZINE 500 MG TAB.SR.12H PO SCH ×2 (09:38→21:36)
[2018-11-05] MEDS: CLOPIDOGREL 75MG TABLET PO SCH (09:38)
[2018-11-05 11:03] LABS: PLATELET ESTIMATE NORMAL
[2018-11-05] MEDS: CARVEDILOL 3.125 MG TABLET PO SCH ×2 (12:41→21:36)
[2018-11-05] MEDS: HYDRALAZINE HCL 25MG TABLET PO SCH ×2 (13:02→21:37)
[2018-11-05] MEDS: INSULIN GLARGINE UD 100 UNITS/ML SYR SUBCUT SCH (13:06)
[2018-11-05] MEDS: GABAPENTIN 100MG CAPSULE PO SCH ×2 (13:07→21:37)
[2018-11-05] MEDS ORDERED: VANCOMYCIN 1250MG in DEXTROSE 5% WATER 250ML IV NR (20:30)
[2018-11-05] MEDS ORDERED: EPOETIN ALFA 10000UNITS/ML VIAL SUBCUT SCH (21:00)
[2018-11-05] MEDS: ATORVASTATIN CALCIUM 20MG TABLET PO SCH (21:36)
[2018-11-06] VITALS: BP 130/76
[2018-11-06] MEDS: IPRATROPIUM/ALBUTEROL 0.5-3(2.5)MG/3ML NEB HHN SCH ×4 (02:04→21:24)
[2018-11-06 04:00] VITALS: BP 109/61
[2018-11-06] MEDS: GABAPENTIN 100MG CAPSULE PO SCH ×5 (05:39→21:22)
[2018-11-06] MEDS: HYDRALAZINE HCL 25MG TABLET PO SCH ×3 (05:53→21:23)
[2018-11-06] MEDS: BLOOD SUGAR DIAGNOSTIC STRIP TEST SCH ×4 (06:40→21:17)
[2018-11-06 08:00] VITALS: BP 126/70
[2018-11-06] MEDS ORDERED: HYDROCODONE/ACETAMINOPHEN 5/325MG TABLET PO PRN (08:15)
[2018-11-06] MEDS: LISINOPRIL 2.5MG TABLET PO SCH (09:00)
[2018-11-06] MEDS: CARVEDILOL 3.125 MG TABLET PO SCH ×2 (09:00→21:00)
[2018-11-06] MEDS: CLOPIDOGREL 75MG TABLET PO SCH (09:19)
[2018-11-06] MEDS: RANOLAZINE 500 MG TAB.SR.12H PO SCH ×2 (09:19→21:12)
[2018-11-06] MEDS: INSULIN LISPRO 100 UNITS/ML SUBCUT SCH ×4 (09:20→21:13)
[2018-11-06] MEDS: INSULIN GLARGINE UD 100 UNITS/ML SYR SUBCUT SCH (09:20)
[2018-11-06 09:37] LABS: BASOPHILS % 1.4 % (0.0-2.0); EOSINOPHILS % 2.5 % (0.0-5.0); HEMATOCRIT. 24.8 % (36.0-48.0); HEMOGLOBIN. 7.6 g/dL (12.0-16.0); LYMPHOCYTES % 24.1 % (20.0-50.0); MEAN CORPUSCULAR HEMOGLOBIN 24.4 pg (28.0-32.0); MEAN CORPUSCULAR VOLUME 79.8 fL (81.0-99.0); MEAN PLATELET VOLUME 10.1 fl (7.4-10.4); MONOCYTES % 14.5 % (2.0-8.0); NEUTROPHILS % 57.5 % (40.0-76.0); PLATELET 144 x1000/uL (130-400); RED BLOOD CELL COUNT 3.11 mill/uL (4.2-5.4); RED CELL DISTRIBUTION WIDTH 20.8 % (11.6-14.6)
[2018-11-06] MEDS ORDERED: MORPHINE SULFATE 10MG/5ML ORAL SOLN UDC PO PRN (10:30)
[2018-11-06 12:00] VITALS: BP 150/78
[2018-11-06 12:07] LABS: T4 FREE 1.28 ng/dL (0.76-1.46)
[2018-11-06 12:37] LABS: FOLIC ACID (FOLATE) SERUM 15.4 ng/mL (>5.38)
[2018-11-06] MEDS: GUAIFENESIN 600MG ER TABLET PO SCH ×2 (13:29→21:12)
[2018-11-06 16:00] VITALS: BP 125/64
[2018-11-06 20:00] VITALS: BP 126/82
[2018-11-06] MEDS: ATORVASTATIN CALCIUM 20MG TABLET PO SCH (21:12)
[2018-11-07] VITALS: BP 104/58
[2018-11-07 04:00] VITALS: BP 116/64
[2018-11-07] MEDS: HYDRALAZINE HCL 25MG TABLET PO SCH ×2 (05:09→14:06)
[2018-11-07] MEDS: GABAPENTIN 100MG CAPSULE PO SCH ×2 (05:09→14:00)
[2018-11-07] MEDS: BLOOD SUGAR DIAGNOSTIC STRIP TEST SCH ×2 (06:12→12:46)
[2018-11-07] MEDS: INSULIN LISPRO 100 UNITS/ML SUBCUT SCH ×2 (07:50→12:46)
[2018-11-07 07:54] LABS: BASOPHILS % 1.4 % (0.0-2.0); EOSINOPHILS % 2.2 % (0.0-5.0); HEMATOCRIT. 25.1 % (36.0-48.0); HEMOGLOBIN. 7.6 g/dL (12.0-16.0); LYMPHOCYTES % 28.2 % (20.0-50.0); MEAN CORPUSCULAR HEMOGLOBIN 24.1 pg (28.0-32.0); MEAN CORPUSCULAR VOLUME 79.3 fL (81.0-99.0); MEAN PLATELET VOLUME 9.9 fl (7.4-10.4); MONOCYTES % 12.1 % (2.0-8.0); NEUTROPHILS % 56.1 % (40.0-76.0); PLATELET 115 x1000/uL (130-400); RED BLOOD CELL COUNT 3.17 mill/uL (4.2-5.4); RED CELL DISTRIBUTION WIDTH 20.5 % (11.6-14.6)
[2018-11-07 08:00] VITALS: BP 119/65
[2018-11-07] MEDS: IPRATROPIUM/ALBUTEROL 0.5-3(2.5)MG/3ML NEB HHN SCH ×3 (08:50→14:20)
[2018-11-07] MEDS: CARVEDILOL 3.125 MG TABLET PO SCH (08:54)
[2018-11-07] MEDS: LISINOPRIL 2.5MG TABLET PO SCH (09:00)
[2018-11-07] MEDS: CLOPIDOGREL 75MG TABLET PO SCH (09:40)
[2018-11-07] MEDS: RANOLAZINE 500 MG TAB.SR.12H PO SCH (09:40)
[2018-11-07] MEDS: GUAIFENESIN 600MG ER TABLET PO SCH (09:40)
[2018-11-07] MEDS: INSULIN GLARGINE UD 100 UNITS/ML SYR SUBCUT SCH (09:45)
[2018-11-07] MEDS ORDERED: GABA-529 PO (10:34)
[2018-11-07] MEDS ORDERED: COR3 PO (10:34)
[2018-11-07] MEDS ORDERED: HYDR-4134 PO (10:34)
[2018-11-07] MEDS ORDERED: LISI2.5T47 PO (10:34)
[2018-11-07] MEDS ORDERED: ATOR20TA PO (10:34)
[2018-11-07 12:00] VITALS: BP 151/73
[2018-11-07 14:10] VITALS: BP 151/73
[2018-11-07] MEDS ORDERED: VANCOMYCIN 1 G PREMIX 200 ML IV NR (15:00)
== END 2018-11-07 15:49 | disposition home or self-care (01) | DRG 73 ==
LOC: ER 20:54 → 6WST 22:54 → ENRESERV 23:34 → 6WST 11-05 01:47
PROVIDERS: ADMIT Internal Medicine Nephrology; ATTEND Internal Medicine Nephrology
PROC: 5A1D70Z Performance of Urinary Filtration, Intermittent, Less than 6 Hours Per Day (ICD-10-PCS; principal; 2018-11-04)
PROC: 5A1D70Z Performance of Urinary Filtration, Intermittent, Less than 6 Hours Per Day (ICD-10-PCS; 2018-11-06)
DX: G90.8 Other disorders of autonomic nervous system (principal); N18.6 End stage renal disease; I42.9 Cardiomyopathy, unspecified; I50.42 Chronic combined systolic (congestive) and diastolic (congestive) heart failure; I13.2 Hypertensive heart and chronic kidney disease with heart failure and with stage 5 chronic kidney disease, or end stage renal disease; D64.9 Anemia, unspecified; I08.1 Rheumatic disorders of both mitral and tricuspid valves; J44.9 Chronic obstructive pulmonary disease, unspecified; Z99.2 Dependence on renal dialysis; Z88.5 Allergy status to narcotic agent; I25.10 Atherosclerotic heart disease of native coronary artery without angina pectoris; Z95.5 Presence of coronary angioplasty implant and graft; M48.02 Spinal stenosis, cervical region; M48.061 Spinal stenosis, lumbar region without neurogenic claudication; E78.5 Hyperlipidemia, unspecified; E11.22 Type 2 diabetes mellitus with diabetic chronic kidney disease; G89.4 Chronic pain syndrome; Z86.73 Personal history of transient ischemic attack (TIA), and cerebral infarction without residual deficits; Z79.02 Long term (current) use of antithrombotics/antiplatelets; Z79.4 Long term (current) use of insulin; Z87.39 Personal history of other diseases of the musculoskeletal system and connective tissue; Z95.810 Presence of automatic (implantable) cardiac defibrillator
CPT/HCPCS: 36415; 71045; 72131; 73030; 73200; 80048; 80061; 80202; 82607; 82746; 82962; 83880; 84439; 84443; 84481; 84484; 86038; 93005; 93970; 94640; 97161; 99285; J0885; J1815; J2270; J2405; J3370; J7060; J7620; Q0163

== ENCOUNTER 2018-11-17 12:11 | Inpatient (IN) | payer MEDICARE, MEDICAID ==
[~2018-11-17] VITALS: Ht 170.2 cm; Wt 79.8 kg
[~2018-11-17 12:11] MED LIST changes: +COR12 PO
[2018-11-17] MEDS ORDERED: ACETAMINOPHEN 325MG TABLET PO PRN (13:00)
[2018-11-17] MEDS ORDERED: ONDANSETRON HCL 4MG/2ML INJ IV PRN (13:00)
[2018-11-17] MEDS ORDERED: CLONIDINE 0.1MG TABLET PO PRN (13:00)
[2018-11-17] MEDS ORDERED: IPRATROPIUM/ALBUTEROL 0.5-3(2.5)MG/3ML NEB HHN PRN (13:00)
[2018-11-17] MEDS: SODIUM CHLORIDE 0.45% 1,000 ML IV SCH ×2 (13:00→20:43)
[2018-11-17] MEDS ORDERED: SODIUM CHLORIDE 0.9% 1,000 ML IV ONE (13:11)
[2018-11-17 13:58] LABS: CHLORIDE 101 mEq/L (98-107)
[2018-11-17] MEDS: HYDRALAZINE HCL 25MG TABLET PO SCH ×2 (14:00→22:01)
[2018-11-17 14:01] LABS: INR 1.3; PROTHROMBIN TIME 13.1 sec (9.6-11.0)
[2018-11-17 15:07] LABS: HEMATOCRIT. 24.1 % (36.0-48.0); HEMOGLOBIN. 7.3 g/dL (12.0-16.0); MEAN CORPUSCULAR VOLUME 79.6 fL (81.0-99.0); MEAN PLATELET VOLUME 9.7 fl (7.4-10.4); PLATELET 167 x1000/uL (130-400); RED BLOOD CELL COUNT 3.03 mill/uL (4.2-5.4); RED CELL DISTRIBUTION WIDTH 21.6 % (11.6-14.6)
[2018-11-17 16:00] VITALS: BP 123/73
[2018-11-17 17:35] LABS: PLATELET ESTIMATE NORMAL
[2018-11-17] MEDS ORDERED: DEXTROSE 50% WATER 50ML SYRINGE IV PRN (18:00)
[2018-11-17] MEDS: INSULIN LISPRO 100 UNITS/ML SUBCUT SCH ×2 (18:14→21:58)
[2018-11-17] MEDS: BLOOD SUGAR DIAGNOSTIC STRIP TEST SCH ×2 (18:14→21:59)
[2018-11-17 20:00] VITALS: BP 131/76
[2018-11-17] MEDS ORDERED: TRAMADOL 50MG TABLET PO PRN (21:49)
[2018-11-17] MEDS: ATORVASTATIN CALCIUM 20MG TABLET PO SCH (21:58)
[2018-11-17] MEDS: CARVEDILOL 12.5MG TABLET PO SCH (21:59)
[2018-11-17] MEDS: INSULIN GLARGINE UD 100 UNITS/ML SYR SUBCUT SCH (23:02)
[2018-11-17] MEDS ORDERED: HYDROCODONE/ACETAMINOPHEN 5/325MG TABLET PO PRN (23:45)
[2018-11-18] VITALS: BP 100/57
[2018-11-18] MEDS: VANCOMYCIN HCL 1000 MG/20 ML ORAL PO SCH ×4 (00:38→18:50)
[2018-11-18 04:00] VITALS: BP 100/50
[2018-11-18 04:27] LABS: HEMATOCRIT. 25.6 % (36.0-48.0); HEMOGLOBIN. 7.6 g/dL (12.0-16.0); MEAN CORPUSCULAR HEMOGLOBIN 23.5 pg (28.0-32.0); MEAN PLATELET VOLUME 9.5 fl (7.4-10.4); PLATELET 172 x1000/uL (130-400); RED BLOOD CELL COUNT 3.24 mill/uL (4.2-5.4); RED CELL DISTRIBUTION WIDTH 21.6 % (11.6-14.6)
[2018-11-18 04:44] LABS: CHLORIDE 102 mEq/L (98-107)
[2018-11-18 04:51] LABS: LDL CHOLESTEROL 46 mg/dL (5-100)
[2018-11-18 04:52] LABS: HDL CHOLESTEROL 46 mg/dL (40-59)
[2018-11-18] MEDS: HYDRALAZINE HCL 25MG TABLET PO SCH ×3 (06:00→22:00)
[2018-11-18 08:00] VITALS: BP 111/63
[2018-11-18] MEDS: INSULIN LISPRO 100 UNITS/ML SUBCUT SCH ×4 (08:10→21:00)
[2018-11-18] MEDS: BLOOD SUGAR DIAGNOSTIC STRIP TEST SCH ×4 (08:18→21:20)
[2018-11-18] MEDS: CARVEDILOL 12.5MG TABLET PO SCH ×2 (08:48→21:00)
[2018-11-18] MEDS: LISINOPRIL 5MG TABLET PO SCH (08:49)
[2018-11-18] MEDS ORDERED: KETOROLAC 15MG/ML VIAL IV PRN (11:00)
[2018-11-18 11:32] VITALS: BP 120/69
[2018-11-18] MEDS: SODIUM CHLORIDE 0.45% 1,000 ML IV SCH (14:38)
[2018-11-18 16:02] VITALS: BP 120/67
[2018-11-18 16:33] LABS: PLATELET ESTIMATE NORMAL
[2018-11-18 20:00] VITALS: BP 117/58
[2018-11-18] MEDS: ATORVASTATIN CALCIUM 20MG TABLET PO SCH (21:19)
[2018-11-18] MEDS: INSULIN GLARGINE UD 100 UNITS/ML SYR SUBCUT SCH (22:41)
[2018-11-19] VITALS: BP 125/65
[2018-11-19] MEDS: VANCOMYCIN HCL 1000 MG/20 ML ORAL PO SCH ×4 (01:29→12:30)
[2018-11-19 04:00] VITALS: BP 142/54
[2018-11-19] MEDS: HYDRALAZINE HCL 25MG TABLET PO SCH (06:03)
[2018-11-19 08:00] VITALS: BP 130/67
[2018-11-19] MEDS: INSULIN LISPRO 100 UNITS/ML SUBCUT SCH (08:31)
[2018-11-19] MEDS: CARVEDILOL 12.5MG TABLET PO SCH (08:32)
[2018-11-19] MEDS: BLOOD SUGAR DIAGNOSTIC STRIP TEST SCH ×2 (08:32→12:30)
[2018-11-19] MEDS: LISINOPRIL 5MG TABLET PO SCH (08:32)
[2018-11-19 11:41] VITALS: BP 132/77
[2018-11-19 12:00] VITALS: BP 132/79
== END 2018-11-19 13:23 | disposition home or self-care (01) | DRG 640 ==
LOC: ER 12:11 → 7WST 13:22 → EDBEDREQTM 13:23 → EDBEDREQ 13:23 → ENRESERV 15:43
PROVIDERS: ADMIT Internal Medicine Nephrology; ATTEND Internal Medicine Nephrology
PROC: 02HV33Z Insertion of Infusion Device into Superior Vena Cava, Percutaneous Approach (ICD-10-PCS; principal; 2018-11-17)
PROC: B5181ZA Fluoroscopy of Superior Vena Cava using Low Osmolar Contrast, Guidance (ICD-10-PCS; 2018-11-17)
PROC: B548ZZA Ultrasonography of Superior Vena Cava, Guidance (ICD-10-PCS; 2018-11-17)
PROC: 5A1D70Z Performance of Urinary Filtration, Intermittent, Less than 6 Hours Per Day (ICD-10-PCS; 2018-11-17)
DX: E86.0 Dehydration (principal); N18.6 End stage renal disease; I13.2 Hypertensive heart and chronic kidney disease with heart failure and with stage 5 chronic kidney disease, or end stage renal disease; I42.9 Cardiomyopathy, unspecified; I50.42 Chronic combined systolic (congestive) and diastolic (congestive) heart failure; I69.354 Hemiplegia and hemiparesis following cerebral infarction affecting left non-dominant side; I31.3 Pericardial effusion (noninflammatory); D64.9 Anemia, unspecified; E11.22 Type 2 diabetes mellitus with diabetic chronic kidney disease; E78.5 Hyperlipidemia, unspecified; I25.10 Atherosclerotic heart disease of native coronary artery without angina pectoris; J44.9 Chronic obstructive pulmonary disease, unspecified; R19.7 Diarrhea, unspecified; K80.20 Calculus of gallbladder without cholecystitis without obstruction; Z95.5 Presence of coronary angioplasty implant and graft; Z95.810 Presence of automatic (implantable) cardiac defibrillator; Z99.2 Dependence on renal dialysis; Z87.39 Personal history of other diseases of the musculoskeletal system and connective tissue; Z88.5 Allergy status to narcotic agent; Z79.84 Long term (current) use of oral hypoglycemic drugs; K52.9 Noninfective gastroenteritis and colitis, unspecified
CPT/HCPCS: 36415; 36573; 74176; 80061; 82962; 83605; 84484; 87015; 87045; 87427; 87449; 87493; 89055; 93005; 93970; 97162; 97535; 99285; C1725; J1815; J1885; J2405; J3370; J7030

== ENCOUNTER 2018-11-23 14:18 | Inpatient (IN) | payer MEDICARE, MEDICAID ==
[~2018-11-23] VITALS: Ht 170.2 cm; Wt 68.0 kg
[2018-11-23] MEDS: IPRATROPIUM/ALBUTEROL 0.5-3(2.5)MG/3ML NEB NEB SCH (02:43)
[2018-11-23] MEDS ORDERED: MORPHINE SULFATE 4 MG/ML CPJ (NOT FOR IM USE) IV STA (17:47)
[2018-11-23] MEDS ORDERED: ONDANSETRON HCL 4MG/2ML INJ IV STA (17:47)
[2018-11-23] MEDS ORDERED: FUROSEMIDE 40MG/4ML VIAL IV ONE (18:00)
[2018-11-23 18:46] LABS: HEMATOCRIT. 30.5 % (36.0-48.0); MEAN PLATELET VOLUME 8.9 fl (7.4-10.4); PLATELET 165 x1000/uL (130-400); RED BLOOD CELL COUNT 3.91 mill/uL (4.2-5.4); RED CELL DISTRIBUTION WIDTH 21.4 % (11.6-14.6)
[2018-11-23 18:52] LABS: CHLORIDE 103 mEq/L (98-107)
[2018-11-23 18:55] LABS: PARTIAL THROMBOPLASTIN TIME 26.7 sec (23.4-31.0); PROTHROMBIN TIME 10.8 sec (9.6-11.0)
[2018-11-23] MEDS ORDERED: ACETAMINOPHEN 325MG TABLET PO PRN (19:00)
[2018-11-23] MEDS ORDERED: CLONIDINE 0.1MG TABLET PO PRN (19:00)
[2018-11-23 19:12] LABS: PLATELET ESTIMATE NORMAL
[2018-11-23] MEDS: HYDRALAZINE HCL 50MG TABLET PO SCH (22:40)
[2018-11-23 23:30] VITALS: BP 128/72
[2018-11-24 00:09] VITALS: BP 129/71
[2018-11-24] MEDS: GABAPENTIN 100MG CAPSULE PO SCH ×5 (00:13→21:05)
[2018-11-24] MEDS: ATORVASTATIN CALCIUM 20MG TABLET PO SCH ×2 (00:13→21:05)
[2018-11-24] MEDS: ONDANSETRON HCL 4MG/2ML INJ IV PRN ×2 (03:01→21:17)
[2018-11-24] MEDS: KETOROLAC 15MG/ML VIAL IV PRN ×2 (03:38→13:05)
[2018-11-24 04:00] VITALS: BP 126/53
[2018-11-24] MEDS: VANCOMYCIN HCL 1000 MG/20 ML ORAL PO SCH ×4 (06:00→17:49)
[2018-11-24] MEDS: HYDRALAZINE HCL 50MG TABLET PO SCH ×3 (06:39→21:06)
[2018-11-24 08:00] VITALS: BP 110/57
[2018-11-24] MEDS: IPRATROPIUM/ALBUTEROL 0.5-3(2.5)MG/3ML NEB NEB SCH ×2 (08:21→14:25)
[2018-11-24 08:28] LABS: BG BASE EXCESS -2.2 mmol/L (-2.0-2.0); BG CARBOXYHEMOGLOBIN 1.2 % (0.5-1.5); BG DEOXYHEMOGLOBIN 12.6 % (0.0-5.0); BG FRACTION INSPIRED OXYGEN 21; BG METHEMOGLOBIN 0.6 % (0.0-1.5); BG OXYGEN SATURATION 87.2 % (92.0-98.5); BG OXYHEMOGLOBIN 85.6 % (94.0-97.0); BG PCO2 41.1 mmHg (35.0-45.0); BG PH 7.366 (7.350-7.450); BG PO2 56.4 mmHg (75.0-100.0); BG SAMPLE SITE RIGHT BRACHIAL; BG TOTAL HEMOGLOBIN 8.7 g/dL (12.0-18.0); BG VENT MODE ROOM AIR
[2018-11-24] MEDS: CLOPIDOGREL 75MG TABLET PO SCH (09:11)
[2018-11-24] MEDS: LISINOPRIL 5MG TABLET PO SCH (09:12)
[2018-11-24] MEDS: CARVEDILOL 3.125 MG TABLET PO SCH ×2 (09:16→21:00)
[2018-11-24] MEDS ORDERED: INSULIN GLARGINE UD 100 UNITS/ML SYR SUBCUT SCH (10:00)
[2018-11-24 10:37] LABS: HEMATOCRIT. 27.4 % (36.0-48.0); HEMOGLOBIN. 8.3 g/dL (12.0-16.0); MEAN CORPUSCULAR VOLUME 76.4 fL (81.0-99.0); MEAN PLATELET VOLUME 9.8 fl (7.4-10.4); PLATELET 148 x1000/uL (130-400); RED BLOOD CELL COUNT 3.59 mill/uL (4.2-5.4); RED CELL DISTRIBUTION WIDTH 21.6 % (11.6-14.6)
[2018-11-24 11:05] LABS: CHLORIDE 110 mEq/L (98-107)
[2018-11-24 11:13] LABS: LDL CHOLESTEROL 46 mg/dL (5-100)
[2018-11-24 11:14] LABS: HDL CHOLESTEROL 55 mg/dL (40-59)
[2018-11-24 11:29] LABS: PLATELET ESTIMATE NORMAL
[2018-11-24 12:00] VITALS: BP 101/57
[2018-11-24] MEDS: FOLIC ACID/VITAMIN B COMP W-C TABLET PO SCH (12:54)
[2018-11-24] MEDS: CALCIUM ACETATE 667MG CAPSULE PO SCH ×2 (12:54→17:47)
[2018-11-24] MEDS ORDERED: IPRATROPIUM/ALBUTEROL 0.5-3(2.5)MG/3ML NEB HHN PRN (14:45)
[2018-11-24 16:00] VITALS: BP 113/53
[2018-11-24] MEDS: BLOOD SUGAR DIAGNOSTIC STRIP TEST SCH ×2 (17:44→20:53)
[2018-11-24] MEDS ORDERED: DEXTROSE 50% WATER 50ML SYRINGE IV PRN (17:45)
[2018-11-24] MEDS: INSULIN LISPRO 100 UNITS/ML SUBCUT SCH ×2 (17:47→21:08)
[2018-11-24 20:00] VITALS: BP 107/59
[2018-11-24] MEDS ORDERED: EPOETIN ALFA 10000UNITS/ML VIAL SUBCUT SCH (21:00)
[2018-11-24] MEDS: IPRATROPIUM/ALBUTEROL 0.5-3(2.5)MG/3ML NEB HHN SCH (21:27)
[2018-11-25] VITALS: BP 113/59
[2018-11-25] MEDS: IPRATROPIUM/ALBUTEROL 0.5-3(2.5)MG/3ML NEB HHN SCH ×4 (01:40→20:41)
[2018-11-25] MEDS: VANCOMYCIN HCL 1000 MG/20 ML ORAL PO SCH ×4 (03:27→18:00)
[2018-11-25 04:00] VITALS: BP 119/66
[2018-11-25] MEDS: GABAPENTIN 100MG CAPSULE PO SCH ×3 (05:06→22:00)
[2018-11-25] MEDS: HYDRALAZINE HCL 50MG TABLET PO SCH ×3 (05:07→22:14)
[2018-11-25] MEDS: BLOOD SUGAR DIAGNOSTIC STRIP TEST SCH ×4 (06:06→22:19)
[2018-11-25 07:02] LABS: BASOPHILS % 1.1 % (0.0-2.0); EOSINOPHILS % 1.9 % (0.0-5.0); HEMATOCRIT. 28.6 % (36.0-48.0); HEMOGLOBIN. 8.4 g/dL (12.0-16.0); LYMPHOCYTES % 19.7 % (20.0-50.0); MEAN CORPUSCULAR HEMOGLOBIN 23.2 pg (28.0-32.0); MEAN CORPUSCULAR VOLUME 79.3 fL (81.0-99.0); MEAN PLATELET VOLUME 9.6 fl (7.4-10.4); MONOCYTES % 13.7 % (2.0-8.0); NEUTROPHILS % 63.6 % (40.0-76.0); PLATELET 149 x1000/uL (130-400); RED CELL DISTRIBUTION WIDTH 21.4 % (11.6-14.6)
[2018-11-25 08:00] VITALS: BP 109/52
[2018-11-25] MEDS: CLOPIDOGREL 75MG TABLET PO SCH (08:35)
[2018-11-25] MEDS: FOLIC ACID/VITAMIN B COMP W-C TABLET PO SCH (08:35)
[2018-11-25] MEDS: CALCIUM ACETATE 667MG CAPSULE PO SCH ×3 (08:35→18:10)
[2018-11-25] MEDS: KETOROLAC 15MG/ML VIAL IV PRN ×2 (08:36→22:15)
[2018-11-25] MEDS: INSULIN LISPRO 100 UNITS/ML SUBCUT SCH ×4 (08:49→22:24)
[2018-11-25] MEDS: CARVEDILOL 3.125 MG TABLET PO SCH ×2 (09:00→22:13)
[2018-11-25] MEDS: LISINOPRIL 5MG TABLET PO SCH (09:00)
[2018-11-25 12:00] VITALS: BP 109/56
[2018-11-25] MEDS: INSULIN GLARGINE UD 100 UNITS/ML SYR SUBCUT SCH (13:13)
[2018-11-25] MEDS: ONDANSETRON HCL 4MG/2ML INJ IV PRN (15:45)
[2018-11-25 16:00] VITALS: BP 131/72
[2018-11-25 20:00] VITALS: BP 112/53
[2018-11-25] MEDS: ATORVASTATIN CALCIUM 20MG TABLET PO SCH (22:13)
[2018-11-26 00:18] VITALS: BP 121/64
[2018-11-26] MEDS: IPRATROPIUM/ALBUTEROL 0.5-3(2.5)MG/3ML NEB HHN SCH ×2 (03:40→09:03)
[2018-11-26 04:00] VITALS: BP 117/65
[2018-11-26] MEDS: VANCOMYCIN HCL 1000 MG/20 ML ORAL PO SCH ×2 (06:00)
[2018-11-26] MEDS: GABAPENTIN 100MG CAPSULE PO SCH (06:00)
[2018-11-26] MEDS: KETOROLAC 15MG/ML VIAL IV PRN (07:07)
[2018-11-26] MEDS: CALCIUM ACETATE 667MG CAPSULE PO SCH ×2 (07:08→08:52)
[2018-11-26] MEDS: HYDRALAZINE HCL 50MG TABLET PO SCH (07:08)
[2018-11-26] MEDS: BLOOD SUGAR DIAGNOSTIC STRIP TEST SCH (07:12)
[2018-11-26 08:30] VITALS: BP 112/86
[2018-11-26] MEDS: INSULIN LISPRO 100 UNITS/ML SUBCUT SCH (08:43)
[2018-11-26] MEDS: LISINOPRIL 5MG TABLET PO SCH (08:51)
[2018-11-26] MEDS: FOLIC ACID/VITAMIN B COMP W-C TABLET PO SCH (08:52)
[2018-11-26] MEDS: CARVEDILOL 3.125 MG TABLET PO SCH (08:52)
[2018-11-26] MEDS: CLOPIDOGREL 75MG TABLET PO SCH (08:52)
[2018-11-26 10:07] VITALS: BP 112/86
[2018-11-26] MEDS: INSULIN GLARGINE UD 100 UNITS/ML SYR SUBCUT SCH (10:22)
== END 2018-11-26 12:06 | disposition home or self-care (01) | DRG 291 ==
LOC: ER 14:18 → 6WST 18:53 → EDBEDREQTM 19:00 → EDBEDREQ 19:00 → ENRESERV 20:56 → 6WST 23:00
PROVIDERS: ADMIT Internal Medicine Nephrology; ATTEND Internal Medicine Nephrology
PROC: 5A1D70Z Performance of Urinary Filtration, Intermittent, Less than 6 Hours Per Day (ICD-10-PCS; 2018-11-23)
PROC: 5A1D70Z Performance of Urinary Filtration, Intermittent, Less than 6 Hours Per Day (ICD-10-PCS; principal; 2018-11-24)
DX: I13.2 Hypertensive heart and chronic kidney disease with heart failure and with stage 5 chronic kidney disease, or end stage renal disease (principal); J96.00 Acute respiratory failure, unspecified whether with hypoxia or hypercapnia; N18.6 End stage renal disease; I50.43 Acute on chronic combined systolic (congestive) and diastolic (congestive) heart failure; I31.3 Pericardial effusion (noninflammatory); J98.11 Atelectasis; I69.354 Hemiplegia and hemiparesis following cerebral infarction affecting left non-dominant side; E78.5 Hyperlipidemia, unspecified; J44.9 Chronic obstructive pulmonary disease, unspecified; E11.22 Type 2 diabetes mellitus with diabetic chronic kidney disease; I08.1 Rheumatic disorders of both mitral and tricuspid valves; D64.9 Anemia, unspecified; I25.10 Atherosclerotic heart disease of native coronary artery without angina pectoris; Z87.39 Personal history of other diseases of the musculoskeletal system and connective tissue; Z87.891 Personal history of nicotine dependence; Z88.5 Allergy status to narcotic agent; Z95.5 Presence of coronary angioplasty implant and graft; Z91.19 Patient's noncompliance with other medical treatment and regimen; Z99.2 Dependence on renal dialysis; Z95.810 Presence of automatic (implantable) cardiac defibrillator; Z79.899 Other long term (current) drug therapy; Z79.82 Long term (current) use of aspirin; Z79.84 Long term (current) use of oral hypoglycemic drugs
CPT/HCPCS: 36415; 36600; 71045; 80048; 80061; 82375; 82805; 82962; 83880; 84100; 84484; 93005; 94640; 97162; 99285; C1893; J0885; J1815; J1885; J1940; J2270; J2405; J3370; J7620

== ENCOUNTER 2018-11-30 14:23 | Inpatient (IN) | payer MEDICARE, MEDICAID ==
[~2018-11-30] VITALS: Ht 170.2 cm; Wt 81.6 kg
[2018-11-30 15:52] LABS: HEMOGLOBIN. 8.5 g/dL (12.0-16.0); MEAN CORPUSCULAR HEMOGLOBIN 23.7 pg (28.0-32.0); MEAN CORPUSCULAR VOLUME 78.4 fL (81.0-99.0); MEAN PLATELET VOLUME 9.3 fl (7.4-10.4); PLATELET 160 x1000/uL (130-400); RED BLOOD CELL COUNT 3.57 mill/uL (4.2-5.4); RED CELL DISTRIBUTION WIDTH 21.6 % (11.6-14.6)
[2018-11-30 15:54] LABS: CHLORIDE 103 mEq/L (98-107)
[2018-11-30 16:11] LABS: PLATELET ESTIMATE NORMAL
[2018-11-30] MEDS ORDERED: HYDROCODONE/ACETAMINOPHEN 5/325MG TABLET PO ONE (18:15)
[2018-11-30] MEDS ORDERED: ASPIRIN 81MG TABLET PO ONE (19:30)
[2018-11-30] MEDS ORDERED: INSULIN REGULAR (HUMULIN R) 300UNITS/3ML SUBCUT ONE (19:30)
[2018-11-30 22:11] VITALS: BP 132/78
[2018-11-30] MEDS ORDERED: IPRATROPIUM/ALBUTEROL 0.5-3(2.5)MG/3ML NEB HHN PRN (23:15)
[2018-11-30] MEDS ORDERED: CLONIDINE 0.1MG TABLET PO PRN (23:15)
[2018-11-30] MEDS ORDERED: TRAMADOL 50MG TABLET PO PRN (23:15)
[2018-11-30] MEDS ORDERED: DIPHENHYDRAMINE 50MG/ML VIAL IV PRN (23:15)
[2018-11-30] MEDS ORDERED: DOCUSATE SODIUM 100MG CAPSULE PO PRN (23:15)
[2018-11-30] MEDS ORDERED: ACETAMINOPHEN 325MG TABLET PO PRN (23:15)
[2018-11-30] MEDS ORDERED: DEXTROSE 50% WATER 50ML SYRINGE IV PRN (23:45)
[2018-11-30] MEDS: ONDANSETRON HCL 4MG/2ML INJ IV PRN (23:50)
[2018-11-30] MEDS: KETOROLAC 15MG/ML VIAL IV PRN (23:51)
[2018-12-01] MEDS: KETOROLAC 15MG/ML VIAL IV PRN ×2 (05:56→16:30)
[2018-12-01] MEDS: INSULIN LISPRO 100 UNITS/ML SUBCUT SCH ×4 (06:03→22:39)
[2018-12-01] MEDS: BLOOD SUGAR DIAGNOSTIC STRIP TEST SCH ×4 (06:09→20:51)
[2018-12-01 07:02] LABS: HEMATOCRIT. 27.8 % (36.0-48.0); HEMOGLOBIN. 8.4 g/dL (12.0-16.0); MEAN CORPUSCULAR HEMOGLOBIN 24.1 pg (28.0-32.0); MEAN CORPUSCULAR VOLUME 79.8 fL (81.0-99.0); MEAN PLATELET VOLUME 9.4 fl (7.4-10.4); PLATELET 138 x1000/uL (130-400); RED BLOOD CELL COUNT 3.49 mill/uL (4.2-5.4); RED CELL DISTRIBUTION WIDTH 22.1 % (11.6-14.6)
[2018-12-01 08:00] VITALS: BP 121/77
[2018-12-01] MEDS ORDERED: DIPHENHYDRAMINE 50MG/ML VIAL IV SCH (08:15)
[2018-12-01] MEDS ORDERED: DIPHENHYDRAMINE 25MG CAPSULE PO SCH (08:30)
[2018-12-01] MEDS ORDERED: DIPHENHYDRAMINE 25MG CAPSULE PO PRN ×2 (08:30→08:45)
[2018-12-01] MEDS ORDERED: HEPARIN SODIUM 1,000 UNIT/1ML VIAL IV SCH (08:45)
[2018-12-01] MEDS: LISINOPRIL 5MG TABLET PO SCH (09:00)
[2018-12-01] MEDS: CARVEDILOL 3.125 MG TABLET PO SCH ×2 (09:00→20:53)
[2018-12-01] MEDS: ENOXAPARIN 30MG/0.3ML SYR SUBCUT SCH ×2 (09:00→09:24)
[2018-12-01] MEDS: ASPIRIN 81MG TABLET PO SCH (09:25)
[2018-12-01] MEDS: CLOPIDOGREL 75MG TABLET PO SCH (09:25)
[2018-12-01] MEDS: FOLIC ACID/VITAMIN B COMP W-C TABLET PO SCH (09:25)
[2018-12-01] MEDS: INSULIN GLARGINE UD 100 UNITS/ML SYR SUBCUT SCH (11:36)
[2018-12-01 12:00] VITALS: BP 120/65
[2018-12-01] MEDS: CALCIUM ACETATE 667MG CAPSULE PO SCH ×2 (12:46→18:19)
[2018-12-01 14:25] LABS: NUCLEATED RED BLOOD CELLS 1 /100 WBC
[2018-12-01 14:29] LABS: PLATELET ESTIMATE NORMAL
[2018-12-01] MEDS: HYDRALAZINE HCL 25MG TABLET PO SCH ×2 (14:38→21:36)
[2018-12-01 16:00] VITALS: BP 131/71
[2018-12-01 20:00] VITALS: BP 127/72
[2018-12-01] MEDS: ATORVASTATIN CALCIUM 20MG TABLET PO SCH (20:52)
[2018-12-01] MEDS: EPOETIN ALFA 10000UNITS/ML VIAL SUBCUT SCH (21:35)
[2018-12-02] VITALS: BP 141/73
[2018-12-02 04:00] VITALS: BP 111/5
[2018-12-02] MEDS: HYDRALAZINE HCL 25MG TABLET PO SCH ×3 (05:50→22:00)
[2018-12-02] MEDS: INSULIN LISPRO 100 UNITS/ML SUBCUT SCH ×4 (06:18→21:00)
[2018-12-02] MEDS: BLOOD SUGAR DIAGNOSTIC STRIP TEST SCH ×4 (06:18→21:00)
[2018-12-02 08:00] VITALS: BP 110/65
[2018-12-02] MEDS: CLOPIDOGREL 75MG TABLET PO SCH (08:38)
[2018-12-02] MEDS: ASPIRIN 81MG TABLET PO SCH (08:38)
[2018-12-02] MEDS: FOLIC ACID/VITAMIN B COMP W-C TABLET PO SCH (08:38)
[2018-12-02] MEDS: CALCIUM ACETATE 667MG CAPSULE PO SCH ×3 (08:38→17:06)
[2018-12-02] MEDS: ENOXAPARIN 30MG/0.3ML SYR SUBCUT SCH (08:39)
[2018-12-02] MEDS: CARVEDILOL 3.125 MG TABLET PO SCH ×2 (09:00→21:00)
[2018-12-02] MEDS: LISINOPRIL 5MG TABLET PO SCH (09:00)
[2018-12-02] MEDS: INSULIN GLARGINE UD 100 UNITS/ML SYR SUBCUT SCH (10:17)
[2018-12-02 12:00] VITALS: BP 136/72
[2018-12-02 16:00] VITALS: BP 126/71
[2018-12-02 20:20] LABS: HEMATOCRIT. 24.5 % (36.0-48.0); HEMOGLOBIN. 7.3 g/dL (12.0-16.0); MEAN CORPUSCULAR HEMOGLOBIN 23.6 pg (28.0-32.0); MEAN CORPUSCULAR VOLUME 79.3 fL (81.0-99.0); PLATELET 125 x1000/uL (130-400); RED BLOOD CELL COUNT 3.09 mill/uL (4.2-5.4); RED CELL DISTRIBUTION WIDTH 22.5 % (11.6-14.6)
[2018-12-02 20:51] LABS: PLATELET ESTIMATE DECREASED
[2018-12-02] MEDS: KETOROLAC 15MG/ML VIAL IV PRN (20:59)
[2018-12-02] MEDS: ONDANSETRON HCL 4MG/2ML INJ IV PRN (20:59)
[2018-12-02] MEDS: ATORVASTATIN CALCIUM 20MG TABLET PO SCH (21:00)
[2018-12-02 23:48] VITALS: BP 128/74
[2018-12-03 04:00] VITALS: BP 127/77
[2018-12-03] MEDS: KETOROLAC 15MG/ML VIAL IV PRN ×3 (05:52→21:43)
[2018-12-03] MEDS: HYDRALAZINE HCL 25MG TABLET PO SCH ×3 (05:53→22:00)
[2018-12-03] MEDS: BLOOD SUGAR DIAGNOSTIC STRIP TEST SCH ×4 (06:46→21:00)
[2018-12-03] MEDS: INSULIN LISPRO 100 UNITS/ML SUBCUT SCH ×4 (06:46→21:00)
[2018-12-03] MEDS: LISINOPRIL 5MG TABLET PO SCH (09:00)
[2018-12-03] MEDS: ASPIRIN 81MG TABLET PO SCH (09:22)
[2018-12-03] MEDS: CALCIUM ACETATE 667MG CAPSULE PO SCH ×3 (09:22→19:01)
[2018-12-03] MEDS: ENOXAPARIN 30MG/0.3ML SYR SUBCUT SCH (09:22)
[2018-12-03] MEDS: CLOPIDOGREL 75MG TABLET PO SCH (09:22)
[2018-12-03] MEDS: FOLIC ACID/VITAMIN B COMP W-C TABLET PO SCH (09:22)
[2018-12-03] MEDS: ONDANSETRON HCL 4MG/2ML INJ IV PRN ×3 (09:31→21:43)
[2018-12-03] MEDS: INSULIN GLARGINE UD 100 UNITS/ML SYR SUBCUT SCH (15:08)
[2018-12-03 15:51] LABS: BASOPHILS % 1.2 % (0.0-2.0); EOSINOPHILS % 0.7 % (0.0-5.0); HEMATOCRIT. 26.9 % (36.0-48.0); HEMOGLOBIN. 8.1 g/dL (12.0-16.0); LYMPHOCYTES % 16.1 % (20.0-50.0); MEAN CORPUSCULAR HEMOGLOBIN 23.9 pg (28.0-32.0); MEAN PLATELET VOLUME 9.9 fl (7.4-10.4); MONOCYTES % 8.4 % (2.0-8.0); NEUTROPHILS % 73.6 % (40.0-76.0); PLATELET 113 x1000/uL (130-400); RED CELL DISTRIBUTION WIDTH 22.6 % (11.6-14.6)
[2018-12-03] MEDS: CARVEDILOL 3.125 MG TABLET PO SCH ×2 (19:02→21:00)
[2018-12-03 19:40] VITALS: BP 124/71
[2018-12-03 20:00] VITALS: BP 124/71
[2018-12-03 20:45] VITALS: BP 135/75
[2018-12-03] MEDS: ATORVASTATIN CALCIUM 20MG TABLET PO SCH (21:00)
[2018-12-03] MEDS: EPOETIN ALFA 10000UNITS/ML VIAL SUBCUT SCH (21:00)
[2018-12-03 21:38] VITALS: BP 132/75
[2018-12-04] VITALS: BP 124/75
[2018-12-04 04:00] VITALS: BP 117/71
[2018-12-04] MEDS: BLOOD SUGAR DIAGNOSTIC STRIP TEST SCH (06:34)
[2018-12-04 06:37] LABS: BASOPHILS % 1.4 % (0.0-2.0); EOSINOPHILS % 1.2 % (0.0-5.0); HEMOGLOBIN. 9.1 g/dL (12.0-16.0); LYMPHOCYTES % 18.1 % (20.0-50.0); MEAN CORPUSCULAR HEMOGLOBIN 24.5 pg (28.0-32.0); MEAN CORPUSCULAR VOLUME 80.6 fL (81.0-99.0); MEAN PLATELET VOLUME 10.2 fl (7.4-10.4); MONOCYTES % 9.8 % (2.0-8.0); NEUTROPHILS % 69.5 % (40.0-76.0); PLATELET 141 x1000/uL (130-400); RED BLOOD CELL COUNT 3.72 mill/uL (4.2-5.4); RED CELL DISTRIBUTION WIDTH 22.1 % (11.6-14.6)
[2018-12-04] MEDS: HYDRALAZINE HCL 25MG TABLET PO SCH (06:41)
[2018-12-04] MEDS: INSULIN LISPRO 100 UNITS/ML SUBCUT SCH (06:43)
[2018-12-04 08:00] VITALS: BP 129/70
[2018-12-04] MEDS: ENOXAPARIN 30MG/0.3ML SYR SUBCUT SCH (09:00)
[2018-12-04 09:11] LABS: PLATELET ESTIMATE NORMAL
[2018-12-04] MEDS: LISINOPRIL 5MG TABLET PO SCH (09:26)
[2018-12-04] MEDS: CALCIUM ACETATE 667MG CAPSULE PO SCH (09:27)
[2018-12-04] MEDS: CLOPIDOGREL 75MG TABLET PO SCH (09:27)
[2018-12-04] MEDS: ASPIRIN 81MG TABLET PO SCH (09:27)
[2018-12-04] MEDS: FOLIC ACID/VITAMIN B COMP W-C TABLET PO SCH (09:28)
[2018-12-04] MEDS: CARVEDILOL 3.125 MG TABLET PO SCH (09:28)
[2018-12-04] MEDS: KETOROLAC 15MG/ML VIAL IV PRN (09:37)
[2018-12-04] MEDS: INSULIN GLARGINE UD 100 UNITS/ML SYR SUBCUT SCH (09:38)
[2018-12-04 10:36] VITALS: BP 129/70
== END 2018-12-04 11:40 | disposition home or self-care (01) | DRG 291 ==
LOC: ER 14:23 → 8WST 17:40 → ENRESERV 19:32
PROVIDERS: ADMIT Internal Medicine Nephrology; ATTEND Internal Medicine Nephrology
PROC: 5A1D70Z Performance of Urinary Filtration, Intermittent, Less than 6 Hours Per Day (ICD-10-PCS; 2018-11-30)
PROC: 5A1D70Z Performance of Urinary Filtration, Intermittent, Less than 6 Hours Per Day (ICD-10-PCS; 2018-12-01)
PROC: 30233N1 Transfusion of Nonautologous Red Blood Cells into Peripheral Vein, Percutaneous Approach (ICD-10-PCS; principal; 2018-12-03)
PROC: 5A1D70Z Performance of Urinary Filtration, Intermittent, Less than 6 Hours Per Day (ICD-10-PCS; 2018-12-03)
DX: I13.2 Hypertensive heart and chronic kidney disease with heart failure and with stage 5 chronic kidney disease, or end stage renal disease (principal); N18.6 End stage renal disease; I50.23 Acute on chronic systolic (congestive) heart failure; J96.00 Acute respiratory failure, unspecified whether with hypoxia or hypercapnia; I31.3 Pericardial effusion (noninflammatory); I69.954 Hemiplegia and hemiparesis following unspecified cerebrovascular disease affecting left non-dominant side; I25.110 Atherosclerotic heart disease of native coronary artery with unstable angina pectoris; E11.22 Type 2 diabetes mellitus with diabetic chronic kidney disease; D64.9 Anemia, unspecified; E78.5 Hyperlipidemia, unspecified; I42.9 Cardiomyopathy, unspecified; I08.1 Rheumatic disorders of both mitral and tricuspid valves; J44.9 Chronic obstructive pulmonary disease, unspecified; Z79.02 Long term (current) use of antithrombotics/antiplatelets; Z79.4 Long term (current) use of insulin; Z79.82 Long term (current) use of aspirin; Z99.2 Dependence on renal dialysis; Z95.810 Presence of automatic (implantable) cardiac defibrillator; Z95.5 Presence of coronary angioplasty implant and graft; Z91.19 Patient's noncompliance with other medical treatment and regimen; Z79.899 Other long term (current) drug therapy; Z87.39 Personal history of other diseases of the musculoskeletal system and connective tissue; Z88.5 Allergy status to narcotic agent; Z88.6 Allergy status to analgesic agent; Z87.891 Personal history of nicotine dependence
CPT/HCPCS: 36415; 71045; 80048; 82962; 83880; 84484; 86850; 86900; 86920; 93005; 93970; 99285; C1893; J0885; J1644; J1650; J1815; J1885; J2405; P9016

== ENCOUNTER 2019-01-12 11:58 | Inpatient (IN) | payer MEDICARE, MEDICAID ==
[~2019-01-12] VITALS: Ht 170.2 cm; Wt 82.1 kg
[2019-01-12] MEDS ORDERED: CALCIUM ACETATE 667MG CAPSULE PO SCH ×2 (13:00→17:00)
[2019-01-12] MEDS ORDERED: CLONIDINE 0.1MG TABLET PO PRN (13:00)
[2019-01-12] MEDS ORDERED: ACETAMINOPHEN 325MG TABLET PO PRN (13:00)
[2019-01-12 14:57] LABS: BASOPHILS % 2.3 % (0.0-2.0); HEMATOCRIT. 33.8 % (36.0-48.0); HEMOGLOBIN. 10.1 g/dL (12.0-16.0); LYMPHOCYTES % 18.5 % (20.0-50.0); MEAN CORPUSCULAR HEMOGLOBIN 22.4 pg (28.0-32.0); MEAN CORPUSCULAR VOLUME 74.9 fL (81.0-99.0); MEAN PLATELET VOLUME 10.4 fl (7.4-10.4); MONOCYTES % 8.3 % (2.0-8.0); NEUTROPHILS % 69.9 % (40.0-76.0); PLATELET 136 x1000/uL (130-400); RED BLOOD CELL COUNT 4.51 mill/uL (4.2-5.4); RED CELL DISTRIBUTION WIDTH 20.6 % (11.6-14.6)
[2019-01-12 15:04] LABS: CHLORIDE 101 mEq/L (98-107)
[2019-01-12] MEDS: HYDRALAZINE HCL 25MG TABLET PO SCH ×2 (16:00→22:00)
[2019-01-12] MEDS: TRAMADOL 50MG TABLET PO PRN (20:43)
[2019-01-12] MEDS ORDERED: INSULIN LISPRO 100 UNITS/ML SUBCUT NR (20:45)
[2019-01-12 21:00] VITALS: BP 110/74
[2019-01-12] MEDS: ATORVASTATIN CALCIUM 10MG TABLET PO SCH (21:00)
[2019-01-12] MEDS: CARVEDILOL 3.125 MG TABLET PO SCH (21:30)
[2019-01-12 22:00] VITALS: BP 110/74
[2019-01-12] MEDS ORDERED: INSULIN GLARGINE UD 100 UNITS/ML SYR SUBCUT SCH (23:00)
[2019-01-12] MEDS ORDERED: DEXTROSE 50% WATER 50ML SYRINGE IV PRN (23:15)
[2019-01-13] VITALS: BP 122/78
[2019-01-13 04:00] VITALS: BP 107/61
[2019-01-13] MEDS: HYDRALAZINE HCL 25MG TABLET PO SCH ×3 (05:56→22:18)
[2019-01-13 06:40] LABS: EOSINOPHILS % 1.5 % (0.0-5.0); HEMATOCRIT. 30.5 % (36.0-48.0); HEMOGLOBIN. 9.1 g/dL (12.0-16.0); LYMPHOCYTES % 22.4 % (20.0-50.0); MEAN CORPUSCULAR VOLUME 73.4 fL (81.0-99.0); MEAN PLATELET VOLUME 10.1 fl (7.4-10.4); NEUTROPHILS % 63.1 % (40.0-76.0); PLATELET 151 x1000/uL (130-400); RED BLOOD CELL COUNT 4.16 mill/uL (4.2-5.4); RED CELL DISTRIBUTION WIDTH 20.5 % (11.6-14.6)
[2019-01-13] MEDS: BLOOD SUGAR DIAGNOSTIC STRIP TEST SCH ×4 (06:40→22:24)
[2019-01-13] MEDS: INSULIN LISPRO 100 UNITS/ML SUBCUT SCH ×4 (07:50→22:24)
[2019-01-13] MEDS: CALCIUM ACETATE 667MG CAPSULE PO SCH ×3 (07:50→18:35)
[2019-01-13 08:00] VITALS: BP 127/59
[2019-01-13] MEDS: CARVEDILOL 3.125 MG TABLET PO SCH ×2 (08:31→22:17)
[2019-01-13] MEDS: LISINOPRIL 2.5MG TABLET PO SCH (08:31)
[2019-01-13 09:31] LABS: CHLORIDE 102 mEq/L (98-107)
[2019-01-13 09:54] LABS: LDL CHOLESTEROL 32 mg/dL (5-100)
[2019-01-13 09:56] LABS: HDL CHOLESTEROL 51 mg/dL (40-59)
[2019-01-13] MEDS: CLOPIDOGREL 75MG TABLET PO SCH (11:03)
[2019-01-13] MEDS: ASPIRIN 81MG TABLET PO SCH (11:03)
[2019-01-13] MEDS: FOLIC ACID/VITAMIN B COMP W-C TABLET PO SCH (11:03)
[2019-01-13 12:00] VITALS: BP 113/74
[2019-01-13 16:00] VITALS: BP 122/67
[2019-01-13] MEDS: ONDANSETRON HCL 4MG/2ML INJ IV PRN (16:39)
[2019-01-13] MEDS ORDERED: DIPHENHYDRAMINE 25MG CAPSULE PO PRN (16:45)
[2019-01-13] MEDS ORDERED: DIPHENHYDRAMINE 50MG/ML VIAL IM PRN (16:45)
[2019-01-13] MEDS ORDERED: DIPHENHYDRAMINE 50MG/ML VIAL IV PRN (16:45)
[2019-01-13] MEDS: TRAMADOL 50MG TABLET PO PRN ×2 (16:46→22:19)
[2019-01-13 18:00] LABS: CLARITY URINE CLOUDY (CLEAR); COLOR URINE DARK YELLOW (YELLOW); KETONES URINE TRACE (NEGATIVE); LEUKOCYTE ESTERASE URINE 2+ (NEGATIVE); NITRITE URINE NEGATIVE (NEGATIVE); OCCULT BLOOD URINE NEGATIVE (NEGATIVE); PROTEIN URINE 2+ (NEGATIVE); SPECIFIC GRAVITY URINE 1.019 (1.005-1.030)
[2019-01-13 20:00] VITALS: BP 127/59
[2019-01-13] MEDS: ATORVASTATIN CALCIUM 10MG TABLET PO SCH (22:19)
[2019-01-13] MEDS ORDERED: INSULIN GLARGINE UD 100 UNITS/ML SYR SUBCUT SCH (23:00)
[2019-01-14] VITALS: BP 131/91
[2019-01-14] MEDS: TRAMADOL 50MG TABLET PO PRN (01:52)
[2019-01-14 04:00] VITALS: BP 109/57
[2019-01-14] MEDS: HYDRALAZINE HCL 25MG TABLET PO SCH (06:00)
[2019-01-14] MEDS: BLOOD SUGAR DIAGNOSTIC STRIP TEST SCH ×2 (06:55→12:20)
[2019-01-14] MEDS: ONDANSETRON HCL 4MG/2ML INJ IV PRN (07:36)
[2019-01-14] MEDS: CALCIUM ACETATE 667MG CAPSULE PO SCH ×2 (07:50→12:50)
[2019-01-14] MEDS: CARVEDILOL 3.125 MG TABLET PO SCH (09:00)
[2019-01-14] MEDS: LISINOPRIL 2.5MG TABLET PO SCH (09:00)
[2019-01-14 09:13] LABS: BASOPHILS % 2.4 % (0.0-2.0); EOSINOPHILS % 1.5 % (0.0-5.0); HEMATOCRIT. 30.8 % (36.0-48.0); HEMOGLOBIN. 9.1 g/dL (12.0-16.0); LYMPHOCYTES % 27.6 % (20.0-50.0); MEAN CORPUSCULAR HEMOGLOBIN 22.1 pg (28.0-32.0); MEAN CORPUSCULAR VOLUME 74.4 fL (81.0-99.0); MEAN PLATELET VOLUME 9.7 fl (7.4-10.4); NEUTROPHILS % 54.5 % (40.0-76.0); PLATELET 131 x1000/uL (130-400); RED BLOOD CELL COUNT 4.14 mill/uL (4.2-5.4); RED CELL DISTRIBUTION WIDTH 20.4 % (11.6-14.6)
[2019-01-14] MEDS: FOLIC ACID/VITAMIN B COMP W-C TABLET PO SCH (09:30)
[2019-01-14] MEDS: ASPIRIN 81MG TABLET PO SCH (09:30)
[2019-01-14] MEDS: CLOPIDOGREL 75MG TABLET PO SCH (09:31)
[2019-01-14] MEDS: INSULIN LISPRO 100 UNITS/ML SUBCUT SCH ×2 (09:38→12:50)
[2019-01-14 12:28] VITALS: BP 109/73
[2019-01-14] MEDS ORDERED: EPOETIN ALFA 10000UNITS/ML VIAL SUBCUT SCH (21:00)
== END 2019-01-14 13:50 | disposition home or self-care (01) | DRG 291 ==
LOC: ER 11:58 → 6WST 16:40 → ENRESERV 18:18
PROVIDERS: ADMIT Internal Medicine Nephrology; ATTEND Internal Medicine Nephrology
PROC: 5A1D70Z Performance of Urinary Filtration, Intermittent, Less than 6 Hours Per Day (ICD-10-PCS; principal; 2019-01-12)
DX: I13.2 Hypertensive heart and chronic kidney disease with heart failure and with stage 5 chronic kidney disease, or end stage renal disease (principal); I50.23 Acute on chronic systolic (congestive) heart failure; J96.00 Acute respiratory failure, unspecified whether with hypoxia or hypercapnia; N18.6 End stage renal disease; I31.3 Pericardial effusion (noninflammatory); I69.354 Hemiplegia and hemiparesis following cerebral infarction affecting left non-dominant side; I42.9 Cardiomyopathy, unspecified; D64.9 Anemia, unspecified; E11.22 Type 2 diabetes mellitus with diabetic chronic kidney disease; E78.5 Hyperlipidemia, unspecified; I08.1 Rheumatic disorders of both mitral and tricuspid valves; I25.10 Atherosclerotic heart disease of native coronary artery without angina pectoris; E11.65 Type 2 diabetes mellitus with hyperglycemia; Z88.5 Allergy status to narcotic agent; J44.9 Chronic obstructive pulmonary disease, unspecified; Z95.5 Presence of coronary angioplasty implant and graft; Z95.810 Presence of automatic (implantable) cardiac defibrillator; Z99.2 Dependence on renal dialysis; Z79.02 Long term (current) use of antithrombotics/antiplatelets; Z79.4 Long term (current) use of insulin; Z79.82 Long term (current) use of aspirin; Z79.899 Other long term (current) drug therapy; Z87.39 Personal history of other diseases of the musculoskeletal system and connective tissue; Z87.891 Personal history of nicotine dependence; Z91.19 Patient's noncompliance with other medical treatment and regimen; Z88.6 Allergy status to analgesic agent; Z88.8 Allergy status to other drugs, medicaments and biological substances
CPT/HCPCS: 36415; 71045; 80048; 80061; 81003; 82962; 83880; 84484; 93005; 93970; 99285; J1200; J1815; J2405

== ENCOUNTER 2019-01-22 15:05 | Inpatient (IN) | payer MEDICARE, MEDICAID ==
[~2019-01-22] VITALS: Ht 170.2 cm; Wt 79.6 kg
[~2019-01-22 15:05] MED LIST changes: +SIMV-46 MT; -SIMV40TA5 MT
[2019-01-22] MEDS ORDERED: MORPHINE SULFATE 4 MG/ML CPJ (NOT FOR IM USE) IV STA (18:42)
[2019-01-22] MEDS ORDERED: IPRATROPIUM BROMIDE (0.02%) 0.5MG/2.5ML NEB HHN STA (18:42)
[2019-01-22] MEDS ORDERED: ALBUTEROL (0.083%) 2.5MG/3ML NEB HHN STA (18:42)
[2019-01-22] MEDS ORDERED: ONDANSETRON HCL 4MG/2ML INJ IV STA (18:42)
[2019-01-22] MEDS ORDERED: VANCOMYCIN 1 G PREMIX 200 ML IV ONE (18:45)
[2019-01-22] MEDS ORDERED: PIPERACILLIN/TAZ 3.375G PREMIX 50 ML IV ONE (18:45)
[2019-01-22 19:35] LABS: HEMATOCRIT. 33.1 % (36.0-48.0); HEMOGLOBIN. 9.7 g/dL (12.0-16.0); INR 1.2; MEAN CORPUSCULAR HEMOGLOBIN 21.6 pg (28.0-32.0); MEAN CORPUSCULAR VOLUME 73.9 fL (81.0-99.0); MEAN PLATELET VOLUME 10.2 fl (7.4-10.4); PLATELET 98 x1000/uL (130-400); PROTHROMBIN TIME 11.8 sec (9.6-11.0); RED BLOOD CELL COUNT 4.48 mill/uL (4.2-5.4); RED CELL DISTRIBUTION WIDTH 20.8 % (11.6-14.6)
[2019-01-22 19:38] LABS: CHLORIDE 101 mEq/L (98-107)
[2019-01-22 20:36] LABS: ATYPICAL LYMPHOCYTES 1; NUCLEATED RED BLOOD CELLS 3 /100 WBC
[2019-01-22 20:37] LABS: PLATELET ESTIMATE SLIGHTLY DECREASED
[2019-01-22] MEDS ORDERED: ONDANSETRON HCL 4MG/2ML INJ IV PRN (23:30)
[2019-01-22] MEDS ORDERED: ACETAMINOPHEN 325MG TABLET PO PRN (23:30)
[2019-01-22] MEDS ORDERED: CLONIDINE 0.1MG TABLET PO PRN (23:30)
[2019-01-22] MEDS ORDERED: DOCUSATE SODIUM 100MG CAPSULE PO PRN (23:30)
[2019-01-22] MEDS ORDERED: HYDROCODONE/ACETAMINOPHEN 5/325MG TABLET PO PRN (23:30)
[2019-01-22] MEDS ORDERED: INSULIN GLARGINE UD 100 UNITS/ML SYR SUBCUT SCH (23:30)
[2019-01-23] VITALS (15 sets, daily range): BP systolic 84–146; BP diastolic 48–76
[2019-01-23] MEDS ORDERED: DEXTROSE 50% WATER 50ML SYRINGE IV PRN (01:00)
[2019-01-23] MEDS ORDERED: ASPIRIN 81MG TABLET PO NR (02:00)
[2019-01-23] MEDS: ATORVASTATIN CALCIUM 10MG TABLET PO SCH ×2 (02:19→21:52)
[2019-01-23] MEDS: INSULIN GLARGINE UD 100 UNITS/ML SYR SUBCUT SCH ×2 (02:37→22:00)
[2019-01-23] MEDS: BLOOD SUGAR DIAGNOSTIC STRIP TEST SCH ×4 (05:34→21:53)
[2019-01-23 07:20] LABS: HEMATOCRIT. 28.8 % (36.0-48.0); HEMOGLOBIN. 8.7 g/dL (12.0-16.0); MEAN CORPUSCULAR HEMOGLOBIN 21.7 pg (28.0-32.0); MEAN CORPUSCULAR VOLUME 71.8 fL (81.0-99.0); MEAN PLATELET VOLUME 9.3 fl (7.4-10.4); PLATELET 88 x1000/uL (130-400); RED BLOOD CELL COUNT 4.01 mill/uL (4.2-5.4); RED CELL DISTRIBUTION WIDTH 20.2 % (11.6-14.6)
[2019-01-23] MEDS: INSULIN LISPRO 100 UNITS/ML SUBCUT SCH ×4 (07:20→21:00)
[2019-01-23] MEDS: CALCIUM ACETATE 667MG CAPSULE PO SCH ×3 (07:20→17:35)
[2019-01-23] MEDS: LISINOPRIL 2.5MG TABLET PO SCH (09:00)
[2019-01-23] MEDS ORDERED: ENOXAPARIN 40MG/0.4ML SYR SUBCUT SCH (09:00)
[2019-01-23] MEDS: CARVEDILOL 3.125 MG TABLET PO SCH ×2 (09:00→21:52)
[2019-01-23 10:12] LABS: NUCLEATED RED BLOOD CELLS 1 /100 WBC
[2019-01-23 10:13] LABS: PLATELET ESTIMATE DECREASED
[2019-01-23] MEDS: ASPIRIN 81MG TABLET PO SCH (14:11)
[2019-01-23] MEDS: FOLIC ACID/VITAMIN B COMP W-C TABLET PO SCH (14:12)
[2019-01-23] MEDS: CLOPIDOGREL 75MG TABLET PO SCH (14:12)
[2019-01-24] VITALS (15 sets, daily range): BP systolic 93–136; BP diastolic 41–77
[2019-01-24] MEDS: BLOOD SUGAR DIAGNOSTIC STRIP TEST SCH ×4 (06:46→20:24)
[2019-01-24] MEDS: LISINOPRIL 2.5MG TABLET PO SCH (09:00)
[2019-01-24] MEDS: CARVEDILOL 3.125 MG TABLET PO SCH ×2 (09:00→20:23)
[2019-01-24] MEDS: CALCIUM ACETATE 667MG CAPSULE PO SCH ×4 (09:03→18:11)
[2019-01-24] MEDS: FOLIC ACID/VITAMIN B COMP W-C TABLET PO SCH (09:13)
[2019-01-24] MEDS: CLOPIDOGREL 75MG TABLET PO SCH (09:13)
[2019-01-24] MEDS: ASPIRIN 81MG TABLET PO SCH (09:13)
[2019-01-24] MEDS: INSULIN LISPRO 100 UNITS/ML SUBCUT SCH ×4 (09:15→20:38)
[2019-01-24] MEDS ORDERED: DIPHENHYDRAMINE 50MG/ML VIAL IV PRN (09:45)
[2019-01-24] MEDS ORDERED: MORPHINE SULFATE 2 MG/ML CPJ (NOT FOR IM USE) IV SCH (09:45)
[2019-01-24 12:03] LABS: HEMATOCRIT. 30.7 % (36.0-48.0); HEMOGLOBIN. 9.2 g/dL (12.0-16.0); MEAN CORPUSCULAR HEMOGLOBIN 21.5 pg (28.0-32.0); MEAN CORPUSCULAR VOLUME 72.3 fL (81.0-99.0); RED BLOOD CELL COUNT 4.25 mill/uL (4.2-5.4); RED CELL DISTRIBUTION WIDTH 20.3 % (11.6-14.6)
[2019-01-24 12:07] LABS: PHOSPHORUS 3.6 mg/dL (2.5-4.9)
[2019-01-24 12:31] LABS: PLATELET ESTIMATE DECREASED
[2019-01-24 12:33] LABS: PLATELET 94 x1000/uL (130-400)
[2019-01-24] MEDS: ATORVASTATIN CALCIUM 10MG TABLET PO SCH (20:23)
[2019-01-24] MEDS: EPOETIN ALFA 10000UNITS/ML VIAL SUBCUT SCH ×2 (20:23→21:00)
[2019-01-24] MEDS: INSULIN GLARGINE UD 100 UNITS/ML SYR SUBCUT SCH (22:02)
[2019-01-25] VITALS: BP 101/72
[2019-01-25 01:57] VITALS: BP 100/55
[2019-01-25 04:00] VITALS: BP 108/65
[2019-01-25] MEDS: BLOOD SUGAR DIAGNOSTIC STRIP TEST SCH (05:57)
[2019-01-25] MEDS: INSULIN LISPRO 100 UNITS/ML SUBCUT SCH (06:36)
[2019-01-25 07:38] LABS: HEMATOCRIT. 31.9 % (36.0-48.0); HEMOGLOBIN. 9.9 g/dL (12.0-16.0); MEAN CORPUSCULAR HEMOGLOBIN 22.8 pg (28.0-32.0); MEAN CORPUSCULAR VOLUME 73.1 fL (81.0-99.0); MEAN PLATELET VOLUME 9.9 fl (7.4-10.4); PLATELET 111 x1000/uL (130-400); RED BLOOD CELL COUNT 4.36 mill/uL (4.2-5.4); RED CELL DISTRIBUTION WIDTH 20.8 % (11.6-14.6)
[2019-01-25 08:00] VITALS: BP 114/68
[2019-01-25] MEDS: ASPIRIN 81MG TABLET PO SCH (08:09)
[2019-01-25] MEDS: CLOPIDOGREL 75MG TABLET PO SCH (08:09)
[2019-01-25] MEDS: CARVEDILOL 3.125 MG TABLET PO SCH (08:10)
[2019-01-25] MEDS: FOLIC ACID/VITAMIN B COMP W-C TABLET PO SCH (08:10)
[2019-01-25] MEDS: CALCIUM ACETATE 667MG CAPSULE PO SCH (08:11)
[2019-01-25] MEDS: LISINOPRIL 2.5MG TABLET PO SCH (09:00)
[2019-01-25 10:00] VITALS: BP 99/55
[2019-01-25 10:09] VITALS: BP 99/55
[2019-01-25 12:38] LABS: NUCLEATED RED BLOOD CELLS 1 /100 WBC; PLATELET ESTIMATE SLIGHTLY DECREASED
== END 2019-01-25 11:25 | disposition home or self-care (01) | DRG 280 ==
LOC: ER 15:05 → ENRESERV 22:22 → 3WST 23:21 → EDBEDREQ 23:26
PROVIDERS: ADMIT Internal Medicine Nephrology; ATTEND Internal Medicine Nephrology
PROC: 5A1D70Z Performance of Urinary Filtration, Intermittent, Less than 6 Hours Per Day (ICD-10-PCS; principal; 2019-01-23)
PROC: 5A1D70Z Performance of Urinary Filtration, Intermittent, Less than 6 Hours Per Day (ICD-10-PCS; 2019-01-24)
DX: I13.2 Hypertensive heart and chronic kidney disease with heart failure and with stage 5 chronic kidney disease, or end stage renal disease (principal); I21.4 Non-ST elevation (NSTEMI) myocardial infarction; N18.6 End stage renal disease; I50.23 Acute on chronic systolic (congestive) heart failure; I31.3 Pericardial effusion (noninflammatory); K80.20 Calculus of gallbladder without cholecystitis without obstruction; I25.10 Atherosclerotic heart disease of native coronary artery without angina pectoris; E11.22 Type 2 diabetes mellitus with diabetic chronic kidney disease; D64.9 Anemia, unspecified; D72.819 Decreased white blood cell count, unspecified; D35.02 Benign neoplasm of left adrenal gland; J44.9 Chronic obstructive pulmonary disease, unspecified; D69.6 Thrombocytopenia, unspecified; E78.5 Hyperlipidemia, unspecified; I25.2 Old myocardial infarction; Z79.02 Long term (current) use of antithrombotics/antiplatelets; Z79.4 Long term (current) use of insulin; Z79.82 Long term (current) use of aspirin; Z79.899 Other long term (current) drug therapy; Z99.2 Dependence on renal dialysis; Z95.5 Presence of coronary angioplasty implant and graft; Z86.73 Personal history of transient ischemic attack (TIA), and cerebral infarction without residual deficits; Z87.891 Personal history of nicotine dependence; Z88.5 Allergy status to narcotic agent; Z95.810 Presence of automatic (implantable) cardiac defibrillator; Z99.81 Dependence on supplemental oxygen
CPT/HCPCS: 36415; 71045; 74176; 80048; 80053; 82962; 83605; 83735; 84100; 84145; 84484; 85025; 87804; 93005; 93970; 94640; 96374; 99285; J0885; J1815; J2270; J2405; J2543; J3370; J7611

== ENCOUNTER 2019-01-29 15:03 | Inpatient (IN) | payer MEDICARE, MEDICAID ==
[~2019-01-29] VITALS: Ht 170.2 cm; Wt 70.3 kg
[~2019-01-29 15:03] MED LIST changes: -SIMV-46 MT; +SIMV40TA5 MT
[2019-01-29] MEDS ORDERED: ONDANSETRON HCL 4MG/2ML INJ IV STA (18:13)
[2019-01-29] MEDS ORDERED: MORPHINE SULFATE 4 MG/ML CPJ (NOT FOR IM USE) IV STA (18:13)
[2019-01-29] MEDS ORDERED: ASPIRIN 81MG TABLET PO ONE (18:15)
[2019-01-29] MEDS ORDERED: NITROGLYCERIN 0.4MG TABLET SL SL PRN (18:15)
[2019-01-29 19:19] LABS: HEMATOCRIT. 32.6 % (36.0-48.0); HEMOGLOBIN. 9.7 g/dL (12.0-16.0); MEAN CORPUSCULAR HEMOGLOBIN 21.6 pg (28.0-32.0); MEAN CORPUSCULAR VOLUME 72.8 fL (81.0-99.0); MEAN PLATELET VOLUME 10.9 fl (7.4-10.4); PLATELET 207 x1000/uL (130-400); RED BLOOD CELL COUNT 4.48 mill/uL (4.2-5.4); RED CELL DISTRIBUTION WIDTH 22.2 % (11.6-14.6)
[2019-01-29 19:23] LABS: INR 1.1; PARTIAL THROMBOPLASTIN TIME 26.3 sec (23.4-31.0); PROTHROMBIN TIME 11.4 sec (9.6-11.0)
[2019-01-29 20:12] LABS: CHLORIDE 105 mEq/L (98-107)
[2019-01-29 20:36] LABS: PLATELET ESTIMATE NORMAL
[2019-01-29] MEDS ORDERED: HEPARIN 5000 UNITS/ML VIAL IV ONE (23:00)
[2019-01-29] MEDS ORDERED: HEPARIN 25,000 UNITS PREMIX 500 ML IV SCH ×2 (23:00→23:30)
[2019-01-30] VITALS (11 sets, daily range): BP systolic 92–113; BP diastolic 59–70
[2019-01-30] MEDS ORDERED: HEPARIN 25,000 UNITS PREMIX 500 ML IV SCH ×2 (05:30→05:45)
[2019-01-30] MEDS ORDERED: HEPARIN BOLUS PRN aPTT 37-44 IV (06:00)
[2019-01-30] MEDS ORDERED: HEPARIN BOLUS PRN aPTT <36 IV (06:00)
[2019-01-30] MEDS ORDERED: DEXTROSE 50% WATER 50ML SYRINGE IV PRN ×2 (06:15)
[2019-01-30] MEDS: BLOOD SUGAR DIAGNOSTIC STRIP TEST SCH ×4 (06:48→21:10)
[2019-01-30] MEDS: INSULIN LISPRO 100 UNITS/ML SUBCUT SCH ×4 (07:55→21:09)
[2019-01-30] MEDS ORDERED: HYDROCODONE/ACETAMINOPHEN 5/325MG TABLET PO PRN (08:00)
[2019-01-30] MEDS ORDERED: ACETAMINOPHEN 325MG TABLET PO PRN (08:00)
[2019-01-30] MEDS ORDERED: CLONIDINE 0.1MG TABLET PO PRN (08:00)
[2019-01-30] MEDS: HYDRALAZINE HCL 25MG TABLET PO SCH (09:00)
[2019-01-30] MEDS: ASPIRIN 81MG EC TABLET PO SCH (09:00)
[2019-01-30] MEDS ORDERED: CARVEDILOL 12.5MG TABLET PO SCH (09:00)
[2019-01-30] MEDS: CLOPIDOGREL 75MG TABLET PO SCH (09:00)
[2019-01-30] MEDS ORDERED: LIDOCAINE HCL 1% 20ML VIAL (Pyxis) INJ ONE (09:36)
[2019-01-30 09:47] LABS: HEMATOCRIT. 29.3 % (36.0-48.0); HEMOGLOBIN. 8.7 g/dL (12.0-16.0); MEAN CORPUSCULAR HEMOGLOBIN 21.7 pg (28.0-32.0); MEAN CORPUSCULAR VOLUME 72.9 fL (81.0-99.0); MEAN PLATELET VOLUME 9.6 fl (7.4-10.4); PLATELET 132 x1000/uL (130-400); RED BLOOD CELL COUNT 4.02 mill/uL (4.2-5.4); RED CELL DISTRIBUTION WIDTH 21.8 % (11.6-14.6)
[2019-01-30] MEDS: GABAPENTIN 300MG CAPSULE PO SCH (09:56)
[2019-01-30] MEDS: CARVEDILOL 12.5MG TABLET PO SCH (09:56)
[2019-01-30 11:58] LABS: NUCLEATED RED BLOOD CELLS 1 /100 WBC
[2019-01-30 11:59] LABS: PLATELET ESTIMATE NORMAL
[2019-01-30] MEDS ORDERED: IOHEXOL-350 100 ML BOTTLE ONE (12:14)
[2019-01-30] MEDS: INSULIN GLARGINE UD 100 UNITS/ML SYR SUBCUT SCH (12:27)
[2019-01-30] MEDS ORDERED: MEDICATION NOT ON FORMULARY EA (Simvastatin 1 TAB) MT SCH (21:00)
[2019-01-30] MEDS: ATORVASTATIN CALCIUM 20MG TABLET PO SCH (21:09)
[2019-01-31] VITALS (11 sets, daily range): BP systolic 91–121; BP diastolic 52–71
[2019-01-31] MEDS: BLOOD SUGAR DIAGNOSTIC STRIP TEST SCH ×4 (06:06→20:39)
[2019-01-31] MEDS: INSULIN LISPRO 100 UNITS/ML SUBCUT SCH ×4 (06:06→20:50)
[2019-01-31 06:23] LABS: HEMATOCRIT. 31.5 % (36.0-48.0); HEMOGLOBIN. 9.3 g/dL (12.0-16.0); MEAN CORPUSCULAR HEMOGLOBIN 21.5 pg (28.0-32.0); MEAN CORPUSCULAR VOLUME 72.5 fL (81.0-99.0); MEAN PLATELET VOLUME 10.6 fl (7.4-10.4); PLATELET 137 x1000/uL (130-400); RED BLOOD CELL COUNT 4.34 mill/uL (4.2-5.4); RED CELL DISTRIBUTION WIDTH 21.2 % (11.6-14.6)
[2019-01-31] MEDS: CLOPIDOGREL 75MG TABLET PO SCH (08:21)
[2019-01-31] MEDS: ASPIRIN 81MG EC TABLET PO SCH (08:21)
[2019-01-31] MEDS: GABAPENTIN 300MG CAPSULE PO SCH ×2 (08:22→08:26)
[2019-01-31] MEDS: CARVEDILOL 12.5MG TABLET PO SCH (08:22)
[2019-01-31] MEDS: HYDRALAZINE HCL 25MG TABLET PO SCH (09:52)
[2019-01-31] MEDS: INSULIN GLARGINE UD 100 UNITS/ML SYR SUBCUT SCH (09:55)
[2019-01-31] MEDS ORDERED: TRAMADOL 50MG TABLET PO PRN (10:15)
[2019-01-31] MEDS ORDERED: HYDROCODONE/ACETAMINOPHEN 10/325MG TABLET PO PRN (10:15)
[2019-01-31] MEDS ORDERED: HEPARIN SODIUM 1,000 UNIT/1ML VIAL IV SCH (14:00)
[2019-01-31] MEDS ORDERED: ONDANSETRON HCL 4MG/2ML INJ IV PRN (14:15)
[2019-01-31] MEDS ORDERED: PROMETHAZINE/DEXTROMETHORPHAN 6.25-15MG/5ML BOTTLE 120ML PO PRN (14:45)
[2019-01-31] MEDS ORDERED: DIPHENHYDRAMINE 25MG CAPSULE PO PRN (14:45)
[2019-01-31 15:20] LABS: PLATELET ESTIMATE NORMAL
[2019-01-31] MEDS: CALCIUM ACETATE 667MG CAPSULE PO SCH (17:36)
[2019-01-31] MEDS: ATORVASTATIN CALCIUM 20MG TABLET PO SCH (20:49)
[2019-02-01] VITALS (7 sets, daily range): BP systolic 92–109; BP diastolic 53–62
[2019-02-01] MEDS: BLOOD SUGAR DIAGNOSTIC STRIP TEST SCH ×2 (06:22→11:51)
[2019-02-01] MEDS: INSULIN LISPRO 100 UNITS/ML SUBCUT SCH (06:50)
[2019-02-01] MEDS: ASPIRIN 81MG EC TABLET PO SCH (08:16)
[2019-02-01] MEDS: GABAPENTIN 300MG CAPSULE PO SCH (08:16)
[2019-02-01] MEDS: CALCIUM ACETATE 667MG CAPSULE PO SCH (08:16)
[2019-02-01] MEDS: CLOPIDOGREL 75MG TABLET PO SCH (08:17)
[2019-02-01] MEDS: CARVEDILOL 12.5MG TABLET PO SCH (08:19)
[2019-02-01] MEDS: HYDRALAZINE HCL 25MG TABLET PO SCH (08:19)
[2019-02-01 08:51] LABS: BASOPHILS % 0.9 % (0.0-2.0); EOSINOPHILS % 1.3 % (0.0-5.0); HEMATOCRIT. 31.1 % (36.0-48.0); HEMOGLOBIN. 9.2 g/dL (12.0-16.0); LYMPHOCYTES % 23.1 % (20.0-50.0); MEAN CORPUSCULAR HEMOGLOBIN 21.8 pg (28.0-32.0); MEAN CORPUSCULAR VOLUME 73.4 fL (81.0-99.0); MEAN PLATELET VOLUME 10.2 fl (7.4-10.4); MONOCYTES % 11.9 % (2.0-8.0); NEUTROPHILS % 62.8 % (40.0-76.0); PLATELET 121 x1000/uL (130-400); RED BLOOD CELL COUNT 4.23 mill/uL (4.2-5.4); RED CELL DISTRIBUTION WIDTH 21.7 % (11.6-14.6)
[2019-02-01] MEDS: INSULIN GLARGINE UD 100 UNITS/ML SYR SUBCUT SCH (10:00)
== END 2019-02-01 11:56 | disposition home or self-care (01) | DRG 291 ==
LOC: ER 15:03 → 3WST 21:58 → EDBEDREQ 22:02 → EDBEDREQTM 22:02 → EDBEDREQ 23:02 → EDBEDREQSVC 23:02 → ENRESERV 01-30 03:22
PROVIDERS: ADMIT Internal Medicine Nephrology; ATTEND Internal Medicine Nephrology
PROC: 5A1D70Z Performance of Urinary Filtration, Intermittent, Less than 6 Hours Per Day (ICD-10-PCS; principal; 2019-01-30)
PROC: 05HY33Z Insertion of Infusion Device into Upper Vein, Percutaneous Approach (ICD-10-PCS; 2019-01-30)
PROC: B54MZZZ Ultrasonography of Right Upper Extremity Veins (ICD-10-PCS; 2019-01-30)
PROC: 5A1D70Z Performance of Urinary Filtration, Intermittent, Less than 6 Hours Per Day (ICD-10-PCS; 2019-01-31)
DX: I13.2 Hypertensive heart and chronic kidney disease with heart failure and with stage 5 chronic kidney disease, or end stage renal disease (principal); N18.6 End stage renal disease; I50.23 Acute on chronic systolic (congestive) heart failure; J44.9 Chronic obstructive pulmonary disease, unspecified; D64.9 Anemia, unspecified; I25.10 Atherosclerotic heart disease of native coronary artery without angina pectoris; E11.22 Type 2 diabetes mellitus with diabetic chronic kidney disease; F17.210 Nicotine dependence, cigarettes, uncomplicated; E78.5 Hyperlipidemia, unspecified; Z79.02 Long term (current) use of antithrombotics/antiplatelets; Z79.4 Long term (current) use of insulin; Z88.5 Allergy status to narcotic agent; Z87.01 Personal history of pneumonia (recurrent); Z99.2 Dependence on renal dialysis; Z86.73 Personal history of transient ischemic attack (TIA), and cerebral infarction without residual deficits; Z95.5 Presence of coronary angioplasty implant and graft; Z95.810 Presence of automatic (implantable) cardiac defibrillator; Z87.39 Personal history of other diseases of the musculoskeletal system and connective tissue; I25.2 Old myocardial infarction; Z79.899 Other long term (current) drug therapy; Z79.82 Long term (current) use of aspirin
CPT/HCPCS: 36415; 36573; 71045; 71275; 76937; 78582; 80048; 82962; 83880; 84484; 85379; 93005; 93970; 96365; 96375; 99291; A9558; C1725; J1644; J1815; J2270; J2405; J3490; Q0163; Q9967

== ENCOUNTER 2019-02-06 11:35 | Inpatient (IN) | payer MEDICARE, MEDICAID ==
[~2019-02-06] VITALS: Ht 167.6 cm; Wt 73.2 kg
[2019-02-06 16:12] LABS: CHLORIDE 98 mEq/L (98-107)
[2019-02-06 16:15] LABS: HEMATOCRIT. 34.3 % (36.0-48.0); HEMOGLOBIN. 10.1 g/dL (12.0-16.0); MEAN CORPUSCULAR HEMOGLOBIN 21.8 pg (28.0-32.0); MEAN CORPUSCULAR VOLUME 74.3 fL (81.0-99.0); MEAN PLATELET VOLUME 9.9 fl (7.4-10.4); PLATELET 195 x1000/uL (130-400); RED BLOOD CELL COUNT 4.62 mill/uL (4.2-5.4); RED CELL DISTRIBUTION WIDTH 22.9 % (11.6-14.6)
[2019-02-06 16:45] LABS: PLATELET ESTIMATE NORMAL
[2019-02-06] MEDS ORDERED: ENOXAPARIN 100MG/ML SYR SUBCUT ONE (17:00)
[2019-02-06] MEDS ORDERED: NITROGLYCERIN 0.4MG TABLET SL SL PRN (17:00)
[2019-02-06] MEDS ORDERED: ASPIRIN 81MG TABLET PO ONE (17:00)
[2019-02-06] MEDS ORDERED: INSULIN REGULAR (HUMULIN R) 300UNITS/3ML IV ONE (17:00)
[2019-02-06] MEDS ORDERED: CALCIUM GLUCONATE 1,000 MG in DEXT 5% WATER 100 ML IV ONE (17:00)
[2019-02-06] MEDS ORDERED: SODIUM BICARBONATE 8.4% 1 MEQ/ML 50ML SYR IV ONE (17:00)
[2019-02-06] MEDS ORDERED: ACETAMINOPHEN WITH CODEINE 300/30MG TABLET PO ONE (20:15)
[2019-02-06] MEDS ORDERED: ONDANSETRON 4MG ODT PO ONE (20:15)
[2019-02-06] MEDS ORDERED: ACETAMINOPHEN 325MG TABLET PO PRN (20:30)
[2019-02-06] MEDS ORDERED: ENOXAPARIN 40MG/0.4ML SYR SUBCUT SCH (20:30)
[2019-02-06] MEDS ORDERED: CLONIDINE 0.1MG TABLET PO PRN (20:30)
[2019-02-06] MEDS ORDERED: HYDROCODONE/ACETAMINOPHEN 5/325MG TABLET PO PRN (20:30)
[2019-02-06] MEDS ORDERED: IPRATROPIUM/ALBUTEROL 0.5-3(2.5)MG/3ML NEB NEB PRN (20:30)
[2019-02-06] MEDS ORDERED: ONDANSETRON HCL 4MG/2ML INJ IV PRN (20:30)
[2019-02-06 22:00] VITALS: BP 84/55
[2019-02-06] MEDS ORDERED: DEXTROSE 50% WATER 50ML SYRINGE IV PRN (22:00)
[2019-02-06 23:26] VITALS: BP 110/62
[2019-02-07] VITALS (75 sets, daily range): BP systolic 81–135; BP diastolic 38–77
[2019-02-07] MEDS ORDERED: SODIUM CHLORIDE 0.9% 500 ML IV ONE ×2 (04:30→12:00)
[2019-02-07] MEDS ORDERED: DOBUTAMINE HCL IN DEXTROSE 5 % 250 ML IV PRN (04:45)
[2019-02-07] MEDS ORDERED: DOPAMINE 400MG/250ML PREMIX 250 ML IV PRN (05:45)
[2019-02-07] MEDS: BLOOD SUGAR DIAGNOSTIC STRIP TEST SCH ×4 (06:23→20:35)
[2019-02-07] MEDS: INSULIN LISPRO 100 UNITS/ML SUBCUT SCH ×4 (06:23→20:41)
[2019-02-07] MEDS ORDERED: ASPIRIN 81MG EC TABLET PO SCH (09:00)
[2019-02-07] MEDS: ENOXAPARIN 30MG/0.3ML SYR SUBCUT SCH (11:03)
[2019-02-07] MEDS: CLOPIDOGREL 75MG TABLET PO SCH (11:03)
[2019-02-07] MEDS: ASPIRIN 81MG EC TABLET PO SCH (11:03)
[2019-02-07] MEDS: GABAPENTIN 300MG CAPSULE PO SCH (11:04)
[2019-02-07 12:20] LABS: HEMOGLOBIN. 9.2 g/dL (12.0-16.0); MEAN CORPUSCULAR HEMOGLOBIN 22.2 pg (28.0-32.0); MEAN CORPUSCULAR VOLUME 72.5 fL (81.0-99.0); MEAN PLATELET VOLUME 9.5 fl (7.4-10.4); PLATELET 184 x1000/uL (130-400); RED BLOOD CELL COUNT 4.14 mill/uL (4.2-5.4); RED CELL DISTRIBUTION WIDTH 23.7 % (11.6-14.6)
[2019-02-07 12:21] LABS: CHLORIDE 96 mEq/L (98-107)
[2019-02-07 13:08] LABS: PLATELET ESTIMATE NORMAL
[2019-02-07] MEDS: ATORVASTATIN CALCIUM 10MG TABLET PO SCH (20:40)
[2019-02-07] MEDS ORDERED: MEDICATION NOT ON FORMULARY EA (Simvastatin 1 TAB) MT SCH (21:00)
[2019-02-08] VITALS (68 sets, daily range): BP systolic 75–137; BP diastolic 46–84
[2019-02-08 05:37] LABS: HEMATOCRIT. 31.1 % (36.0-48.0); HEMOGLOBIN. 9.3 g/dL (12.0-16.0); MEAN CORPUSCULAR VOLUME 73.7 fL (81.0-99.0); MEAN PLATELET VOLUME 9.7 fl (7.4-10.4); PLATELET 183 x1000/uL (130-400); RED BLOOD CELL COUNT 4.22 mill/uL (4.2-5.4); RED CELL DISTRIBUTION WIDTH 23.6 % (11.6-14.6)
[2019-02-08 05:53] LABS: PHOSPHORUS 4.2 mg/dL (2.5-4.9)
[2019-02-08] MEDS: BLOOD SUGAR DIAGNOSTIC STRIP TEST SCH ×4 (06:01→20:51)
[2019-02-08] MEDS: INSULIN LISPRO 100 UNITS/ML SUBCUT SCH ×4 (06:05→20:52)
[2019-02-08] MEDS: GABAPENTIN 300MG CAPSULE PO SCH (09:00)
[2019-02-08] MEDS: ENOXAPARIN 30MG/0.3ML SYR SUBCUT SCH (09:00)
[2019-02-08] MEDS: CLOPIDOGREL 75MG TABLET PO SCH (09:27)
[2019-02-08] MEDS: ASPIRIN 81MG EC TABLET PO SCH (09:27)
[2019-02-08] MEDS: INSULIN GLARGINE UD 100 UNITS/ML SYR SUBCUT SCH (10:07)
[2019-02-08 13:35] LABS: PLATELET ESTIMATE NORMAL
[2019-02-08] MEDS: ATORVASTATIN CALCIUM 10MG TABLET PO SCH (20:51)
[2019-02-09] VITALS: BP 108/67
[2019-02-09 02:00] VITALS: BP 104/57
[2019-02-09 04:00] VITALS: BP 116/63
[2019-02-09 06:00] VITALS: BP 128/70
[2019-02-09 07:33] LABS: HEMATOCRIT. 32.1 % (36.0-48.0); HEMOGLOBIN. 9.7 g/dL (12.0-16.0); MEAN CORPUSCULAR HEMOGLOBIN 22.1 pg (28.0-32.0); MEAN CORPUSCULAR VOLUME 72.9 fL (81.0-99.0); MEAN PLATELET VOLUME 9.4 fl (7.4-10.4); PLATELET 211 x1000/uL (130-400); RED BLOOD CELL COUNT 4.39 mill/uL (4.2-5.4); RED CELL DISTRIBUTION WIDTH 23.6 % (11.6-14.6)
[2019-02-09] MEDS: BLOOD SUGAR DIAGNOSTIC STRIP TEST SCH ×2 (07:57→12:30)
[2019-02-09] MEDS: INSULIN LISPRO 100 UNITS/ML SUBCUT SCH (08:00)
[2019-02-09 08:14] VITALS: BP 125/70
[2019-02-09] MEDS ORDERED: HEPARIN SODIUM 1,000 UNIT/1ML VIAL IV NR (08:30)
[2019-02-09] MEDS: GABAPENTIN 300MG CAPSULE PO SCH (09:00)
[2019-02-09] MEDS: ASPIRIN 81MG EC TABLET PO SCH (09:00)
[2019-02-09] MEDS: CLOPIDOGREL 75MG TABLET PO SCH (09:00)
[2019-02-09] MEDS: ENOXAPARIN 30MG/0.3ML SYR SUBCUT SCH (09:00)
[2019-02-09] MEDS ORDERED: MORPHINE SULFATE 2 MG/ML CPJ (NOT FOR IM USE) IV PRN (09:30)
[2019-02-09] MEDS: INSULIN GLARGINE UD 100 UNITS/ML SYR SUBCUT SCH (09:55)
[2019-02-09 10:11] VITALS: BP 131/68
[2019-02-09 13:05] LABS: ATYPICAL LYMPHOCYTES 1
[2019-02-09 13:06] LABS: PLATELET ESTIMATE NORMAL
== END 2019-02-09 12:00 | disposition left against medical advice (07) | DRG 280 ==
LOC: ER 11:35 → 5EST 17:34 → EDBEDREQ 17:46 → EDBEDREQSVC 17:46 → ENRESERV 19:21 → MICUNO 02-07 05:49 → 5EST 02-09 02:14
PROVIDERS: ADMIT Internal Medicine Nephrology; ATTEND Internal Medicine Nephrology
PROC: 5A1D70Z Performance of Urinary Filtration, Intermittent, Less than 6 Hours Per Day (ICD-10-PCS; principal; 2019-02-07)
PROC: 5A1D70Z Performance of Urinary Filtration, Intermittent, Less than 6 Hours Per Day (ICD-10-PCS; 2019-02-09)
DX: I21.4 Non-ST elevation (NSTEMI) myocardial infarction (principal); N18.6 End stage renal disease; I50.23 Acute on chronic systolic (congestive) heart failure; I13.2 Hypertensive heart and chronic kidney disease with heart failure and with stage 5 chronic kidney disease, or end stage renal disease; E46 Unspecified protein-calorie malnutrition; E11.22 Type 2 diabetes mellitus with diabetic chronic kidney disease; E78.5 Hyperlipidemia, unspecified; E87.5 Hyperkalemia; I25.10 Atherosclerotic heart disease of native coronary artery without angina pectoris; D63.1 Anemia in chronic kidney disease; I95.9 Hypotension, unspecified; Z53.29 Procedure and treatment not carried out because of patient's decision for other reasons; J44.9 Chronic obstructive pulmonary disease, unspecified; Z91.11 Patient's noncompliance with dietary regimen; Z86.73 Personal history of transient ischemic attack (TIA), and cerebral infarction without residual deficits; I25.2 Old myocardial infarction; Z87.01 Personal history of pneumonia (recurrent); Z88.5 Allergy status to narcotic agent; Z95.0 Presence of cardiac pacemaker; Z95.5 Presence of coronary angioplasty implant and graft; Z87.891 Personal history of nicotine dependence; Z79.02 Long term (current) use of antithrombotics/antiplatelets; Z79.899 Other long term (current) drug therapy; Z79.82 Long term (current) use of aspirin
CPT/HCPCS: 36415; 71045; 80048; 80053; 82962; 83880; 84100; 84484; 85025; 86803; 87493; 93005; 96365; 96375; 99291; A6261; J0610; J1265; J1644; J1650; J1815; J2270; J3490; J7040; J7060; Q0162

== ENCOUNTER 2019-02-13 06:21 | Inpatient (IN) | payer MEDICARE, MEDICAID ==
[~2019-02-13] VITALS: Ht 170.2 cm; Wt 77.1 kg
[~2019-02-13 06:21] MED LIST changes: -CLOP75TA4 MT; +CLOP75TA4 PO; -HYDR-4134 MT; +HYDR-4134 PO; +SIMV-46 PO; -SIMV40TA5 MT
[2019-02-13 07:56] LABS: HEMATOCRIT. 30.1 % (36.0-48.0); MEAN CORPUSCULAR HEMOGLOBIN 21.6 pg (28.0-32.0); MEAN CORPUSCULAR VOLUME 72.6 fL (81.0-99.0); MEAN PLATELET VOLUME 9.8 fl (7.4-10.4); PLATELET 234 x1000/uL (130-400); RED BLOOD CELL COUNT 4.14 mill/uL (4.2-5.4); RED CELL DISTRIBUTION WIDTH 23.6 % (11.6-14.6)
[2019-02-13 08:00] LABS: CHLORIDE 98 mEq/L (98-107)
[2019-02-13 10:24] LABS: PLATELET ESTIMATE NORMAL
[2019-02-13] MEDS ORDERED: INSULIN REGULAR (HUMULIN R) 300UNITS/3ML SUBCUT ONE (11:45)
[2019-02-13] MEDS ORDERED: ACETAMINOPHEN WITH CODEINE 300/30MG TABLET PO ONE (11:45)
[2019-02-13] MEDS ORDERED: ASPIRIN 81MG TABLET PO ONE (12:15)
[2019-02-13] MEDS ORDERED: NITROGLYCERIN 0.4MG TABLET SL SL PRN (12:15)
[2019-02-13] MEDS ORDERED: DOCUSATE SODIUM 100MG CAPSULE PO PRN (13:45)
[2019-02-13] MEDS ORDERED: DIPHENHYDRAMINE 50MG/ML VIAL IV PRN (13:45)
[2019-02-13] MEDS ORDERED: ENOXAPARIN 40MG/0.4ML SYR SUBCUT SCH (13:45)
[2019-02-13] MEDS ORDERED: ONDANSETRON HCL 4MG/2ML INJ IV PRN (13:45)
[2019-02-13] MEDS ORDERED: ACETAMINOPHEN 325MG TABLET PO PRN (13:45)
[2019-02-13] MEDS ORDERED: HYDROCODONE/ACETAMINOPHEN 5/325MG TABLET PO PRN (14:15)
[2019-02-13] MEDS ORDERED: ENOXAPARIN 40MG/0.4ML SYR SUBCUT NR (14:30)
[2019-02-13] MEDS: MORPHINE SULFATE 2 MG/ML CPJ (NOT FOR IM USE) IV PRN (17:54)
[2019-02-13] MEDS ORDERED: ATORVASTATIN CALCIUM 10MG TABLET PO SCH (21:30)
[2019-02-13 21:47] VITALS: BP 113/57
[2019-02-13] MEDS ORDERED: DEXTROSE 50% WATER 50ML SYRINGE IV PRN (23:00)
[2019-02-14] VITALS: BP 105/45
[2019-02-14] MEDS: MORPHINE SULFATE 2 MG/ML CPJ (NOT FOR IM USE) IV PRN (03:52)
[2019-02-14 04:00] VITALS: BP 119/67
[2019-02-14] MEDS: BLOOD SUGAR DIAGNOSTIC STRIP TEST SCH ×3 (05:44→16:53)
[2019-02-14] MEDS: INSULIN LISPRO 100 UNITS/ML SUBCUT SCH ×3 (07:50→17:22)
[2019-02-14 08:00] VITALS: BP 124/65
[2019-02-14 08:16] LABS: HEMATOCRIT. 29.2 % (36.0-48.0); HEMOGLOBIN. 8.9 g/dL (12.0-16.0); MEAN CORPUSCULAR HEMOGLOBIN 22.1 pg (28.0-32.0); MEAN CORPUSCULAR VOLUME 72.9 fL (81.0-99.0); PLATELET 215 x1000/uL (130-400); RED CELL DISTRIBUTION WIDTH 24.5 % (11.6-14.6)
[2019-02-14] MEDS: GABAPENTIN 300MG CAPSULE PO SCH ×2 (08:54→09:00)
[2019-02-14] MEDS: ENOXAPARIN 30MG/0.3ML SYR SUBCUT SCH ×2 (08:56→09:00)
[2019-02-14] MEDS ORDERED: ASPIRIN 81MG TABLET PO SCH (09:00)
[2019-02-14] MEDS ORDERED: CLOPIDOGREL 75MG TABLET PO SCH (09:00)
[2019-02-14] MEDS ORDERED: INSULIN GLARGINE UD 100 UNITS/ML SYR SUBCUT SCH (10:00)
[2019-02-14 12:00] VITALS: BP 128/65
[2019-02-14 13:53] VITALS: BP 134/72
[2019-02-14 14:30] LABS: PLATELET ESTIMATE NORMAL
[2019-02-14 16:00] VITALS: BP 134/72
[2019-04-05] MEDS ORDERED: CARV6.2548 PO (09:37)
[2019-04-05] MEDS ORDERED: INSU100I24 SQ ×2 (09:43)
[2019-04-05] MEDS ORDERED: RANO500T3 PO (09:43)
[2019-04-05] MEDS ORDERED: ATOR40TA70 PO (09:43)
[2019-04-05] MEDS ORDERED: CALC667C PO (09:43)
== END 2019-02-14 18:24 | disposition home or self-care (01) | DRG 640 ==
LOC: ER 06:51 → 6WST 12:10 → ENRESERV 19:28
PROVIDERS: ADMIT Internal Medicine Nephrology; ATTEND Internal Medicine Nephrology
PROC: 5A1D70Z Performance of Urinary Filtration, Intermittent, Less than 6 Hours Per Day (ICD-10-PCS; principal; 2019-02-13)
DX: E87.70 Fluid overload, unspecified (principal); N18.6 End stage renal disease; E44.0 Moderate protein-calorie malnutrition; I13.2 Hypertensive heart and chronic kidney disease with heart failure and with stage 5 chronic kidney disease, or end stage renal disease; E11.22 Type 2 diabetes mellitus with diabetic chronic kidney disease; E87.1 Hypo-osmolality and hyponatremia; E11.65 Type 2 diabetes mellitus with hyperglycemia; Z68.26 Body mass index [BMI] 26.0-26.9, adult; I25.10 Atherosclerotic heart disease of native coronary artery without angina pectoris; I50.9 Heart failure, unspecified; J44.9 Chronic obstructive pulmonary disease, unspecified; D63.8 Anemia in other chronic diseases classified elsewhere; D70.9 Neutropenia, unspecified; Z87.891 Personal history of nicotine dependence; Z91.14 Patient's other noncompliance with medication regimen; Z95.0 Presence of cardiac pacemaker; Z95.5 Presence of coronary angioplasty implant and graft; Z99.2 Dependence on renal dialysis; Z99.81 Dependence on supplemental oxygen; Z79.899 Other long term (current) drug therapy; Z79.82 Long term (current) use of aspirin; Z79.4 Long term (current) use of insulin; Z91.19 Patient's noncompliance with other medical treatment and regimen
CPT/HCPCS: 36415; 71045; 80048; 80053; 82962; 84484; 85025; 93005; 93970; 99285; J1650; J1815; J2270

== ENCOUNTER 2019-02-21 22:47 | Emergency (ER) | payer MEDICARE, MEDICAID ==
[~2019-02-21] VITALS: Ht 170.2 cm; Wt 82.0 kg
[~2019-02-21 22:47] MED LIST changes: +CLOP75TA4 MT; -CLOP75TA4 PO; +HYDR-4134 MT; -HYDR-4134 PO; +SIMV-46 MT; -SIMV-46 PO
[2019-02-22] MEDS ORDERED: MORPHINE SULFATE 4 MG/ML CPJ (NOT FOR IM USE) IV STA (00:27)
[2019-02-22] MEDS ORDERED: NITROGLYCERIN OINT 1GM/INCH UDPKT TD ONE (00:30)
[2019-02-22 01:04] LABS: HEMOGLOBIN. 9.7 g/dL (12.0-16.0); MEAN CORPUSCULAR HEMOGLOBIN 22.6 pg (28.0-32.0); MEAN CORPUSCULAR VOLUME 74.9 fL (81.0-99.0); MEAN PLATELET VOLUME 9.5 fl (7.4-10.4); PLATELET 215 x1000/uL (130-400); RED BLOOD CELL COUNT 4.28 mill/uL (4.2-5.4); RED CELL DISTRIBUTION WIDTH 25.6 % (11.6-14.6)
[2019-02-22 01:11] LABS: CHLORIDE 96 mEq/L (98-107)
[2019-02-22 02:45] LABS: PLATELET ESTIMATE NORMAL
[2019-02-22] MEDS ORDERED: INSULIN REGULAR (HUMULIN R) 300UNITS/3ML SUBCUT ONE (03:15)
[2019-02-22 06:06] VITALS: BP 124/74
== END 2019-02-22 06:11 | disposition home or self-care (01) ==
LOC: EDUNIT# 23:40 → ER 23:40
DX: R07.89 Other chest pain (principal); I12.0 Hypertensive chronic kidney disease with stage 5 chronic kidney disease or end stage renal disease; E11.22 Type 2 diabetes mellitus with diabetic chronic kidney disease; N18.6 End stage renal disease; Z99.2 Dependence on renal dialysis; E87.1 Hypo-osmolality and hyponatremia; R79.89 Other specified abnormal findings of blood chemistry
CPT/HCPCS: 36415; 71045; 80053; 82962; 83880; 84484; 85025; 93005; 96372; 96374; 99284; J2270; J1815

== ENCOUNTER 2019-02-25 20:15 | Inpatient (IN) | payer MEDICARE, MEDICAID ==
[~2019-02-25] VITALS: Ht 170.2 cm; Wt 67.1 kg
[2019-02-25] MEDS ORDERED: ASPIRIN 81MG TABLET PO ONE (21:00)
[2019-02-25] MEDS ORDERED: MAGNESIUM/ALUMINUM HYDROXIDE/SIMETHICONE 30ML UDC PO ONE (21:30)
[2019-02-25] MEDS ORDERED: ONDANSETRON HCL 4MG/2ML INJ IV ONE (21:30)
[2019-02-25] MEDS ORDERED: MORPHINE SULFATE 4 MG/ML CPJ (NOT FOR IM USE) IV ONE (21:30)
[2019-02-25] MEDS ORDERED: VISCOUS LIDOCAINE 2% 15 ML UDC PO ONE (21:30)
[2019-02-25 21:50] LABS: HEMATOCRIT. 33.9 % (36.0-48.0); HEMOGLOBIN. 10.4 g/dL (12.0-16.0); MEAN CORPUSCULAR HEMOGLOBIN 23.3 pg (28.0-32.0); MEAN CORPUSCULAR VOLUME 75.8 fL (81.0-99.0); MEAN PLATELET VOLUME 9.2 fl (7.4-10.4); PLATELET 231 x1000/uL (130-400); RED BLOOD CELL COUNT 4.47 mill/uL (4.2-5.4); RED CELL DISTRIBUTION WIDTH 28.4 % (11.6-14.6)
[2019-02-25 21:56] LABS: CHLORIDE 98 mEq/L (98-107)
[2019-02-25 22:06] LABS: PLATELET ESTIMATE NORMAL
[2019-02-26] MEDS ORDERED: INSULIN LISPRO 100 UNITS/ML SUBCUT ONE (02:00)
[2019-02-26] MEDS ORDERED: MORPHINE SULFATE 2 MG/ML CPJ (NOT FOR IM USE) IV PRN (06:15)
[2019-02-26] MEDS ORDERED: DOCUSATE SODIUM 100MG CAPSULE PO PRN (08:30)
[2019-02-26] MEDS ORDERED: ACETAMINOPHEN 325MG TABLET PO PRN (08:30)
[2019-02-26] MEDS: CLOPIDOGREL 75MG TABLET PO SCH (09:26)
[2019-02-26] MEDS: DIPHENHYDRAMINE 50MG/ML VIAL IV PRN (09:26)
[2019-02-26] MEDS: ASPIRIN 81MG TABLET PO SCH (09:27)
[2019-02-26 10:17] VITALS: BP 106/64
[2019-02-26 12:19] VITALS: BP 106/64
[2019-02-26] MEDS: ENOXAPARIN 30MG/0.3ML SYR SUBCUT SCH (15:00)
[2019-02-26 16:00] VITALS: BP 173/64
[2019-02-26] MEDS ORDERED: HEPARIN SODIUM 1,000 UNIT/1ML VIAL IV NR (16:45)
[2019-02-26] MEDS: GABAPENTIN 300MG CAPSULE PO SCH (18:00)
[2019-02-26] MEDS: ATORVASTATIN CALCIUM 10MG TABLET PO SCH (21:43)
[2019-02-26] MEDS ORDERED: INSULIN GLARGINE UD 100 UNITS/ML SYR SUBCUT SCH (22:00)
[2019-02-27] VITALS: BP 137/74
[2019-02-27] MEDS ORDERED: DEXTROSE 50% WATER 50ML SYRINGE IV PRN (00:45)
[2019-02-27 04:00] VITALS: BP 176/69
[2019-02-27] MEDS: ONDANSETRON HCL 4MG/2ML INJ IV PRN ×2 (05:18→20:39)
[2019-02-27 07:18] LABS: HEMATOCRIT. 32.3 % (36.0-48.0); HEMOGLOBIN. 9.8 g/dL (12.0-16.0); MEAN CORPUSCULAR HEMOGLOBIN 22.9 pg (28.0-32.0); MEAN CORPUSCULAR VOLUME 75.7 fL (81.0-99.0); MEAN PLATELET VOLUME 9.1 fl (7.4-10.4); PLATELET 224 x1000/uL (130-400); RED BLOOD CELL COUNT 4.27 mill/uL (4.2-5.4); RED CELL DISTRIBUTION WIDTH 27.8 % (11.6-14.6)
[2019-02-27] MEDS: BLOOD SUGAR DIAGNOSTIC STRIP TEST SCH ×4 (07:26→20:21)
[2019-02-27] MEDS: INSULIN LISPRO 100 UNITS/ML SUBCUT SCH ×4 (07:55→20:54)
[2019-02-27 08:00] VITALS: BP 127/74
[2019-02-27] MEDS: CLOPIDOGREL 75MG TABLET PO SCH (08:00)
[2019-02-27] MEDS: ENOXAPARIN 30MG/0.3ML SYR SUBCUT SCH (08:00)
[2019-02-27] MEDS: ASPIRIN 81MG TABLET PO SCH (08:00)
[2019-02-27 12:00] VITALS: BP 139/93
[2019-02-27] MEDS ORDERED: HYDROCODONE/ACETAMINOPHEN 5/325MG TABLET PO PRN (14:30)
[2019-02-27] MEDS: MORPHINE SULFATE 2 MG/ML CPJ (NOT FOR IM USE) IV PRN ×2 (14:59→20:40)
[2019-02-27 16:00] VITALS: BP 109/68
[2019-02-27] MEDS: GABAPENTIN 300MG CAPSULE PO SCH ×2 (18:00→18:36)
[2019-02-27 20:00] VITALS: BP 108/70
[2019-02-27] MEDS: ATORVASTATIN CALCIUM 10MG TABLET PO SCH (20:39)
[2019-02-27] MEDS: DIPHENHYDRAMINE 50MG/ML VIAL IV PRN (23:47)
[2019-02-28] VITALS: BP 102/68
[2019-02-28] MEDS: INSULIN GLARGINE UD 100 UNITS/ML SYR SUBCUT SCH ×2 (00:30→21:50)
[2019-02-28 04:00] VITALS: BP 101/63
[2019-02-28 06:53] LABS: HEMATOCRIT. 33.4 % (36.0-48.0); HEMOGLOBIN. 10.1 g/dL (12.0-16.0); MEAN CORPUSCULAR HEMOGLOBIN 23.3 pg (28.0-32.0); MEAN CORPUSCULAR VOLUME 76.8 fL (81.0-99.0); MEAN PLATELET VOLUME 9.3 fl (7.4-10.4); PLATELET 233 x1000/uL (130-400); RED BLOOD CELL COUNT 4.35 mill/uL (4.2-5.4); RED CELL DISTRIBUTION WIDTH 28.2 % (11.6-14.6)
[2019-02-28] MEDS: BLOOD SUGAR DIAGNOSTIC STRIP TEST SCH ×4 (06:55→20:47)
[2019-02-28] MEDS: INSULIN LISPRO 100 UNITS/ML SUBCUT SCH ×4 (06:55→21:51)
[2019-02-28 08:00] VITALS: BP 116/74
[2019-02-28] MEDS: ENOXAPARIN 30MG/0.3ML SYR SUBCUT SCH (09:00)
[2019-02-28] MEDS: ASPIRIN 81MG TABLET PO SCH (10:00)
[2019-02-28] MEDS: CLOPIDOGREL 75MG TABLET PO SCH (10:00)
[2019-02-28] MEDS: MORPHINE SULFATE 2 MG/ML CPJ (NOT FOR IM USE) IV PRN ×2 (10:50→20:47)
[2019-02-28 12:00] VITALS: BP 117/85
[2019-02-28 13:06] LABS: PLATELET ESTIMATE NORMAL
[2019-02-28] MEDS ORDERED: HEPARIN SODIUM 1,000 UNIT/1ML VIAL IV NR (14:15)
[2019-02-28 14:27] LABS: PLATELET ESTIMATE NORMAL
[2019-02-28] MEDS: DIPHENHYDRAMINE 50MG/ML VIAL IV PRN (14:59)
[2019-02-28 16:00] VITALS: BP 115/72
[2019-02-28] MEDS: GABAPENTIN 300MG CAPSULE PO SCH (18:00)
[2019-02-28 20:00] VITALS: BP 116/68
[2019-02-28] MEDS: ATORVASTATIN CALCIUM 10MG TABLET PO SCH (20:45)
[2019-03-01] VITALS: BP 108/77
[2019-03-01 04:00] VITALS: BP 118/67
[2019-03-01] MEDS: BLOOD SUGAR DIAGNOSTIC STRIP TEST SCH (07:11)
[2019-03-01] MEDS: INSULIN LISPRO 100 UNITS/ML SUBCUT SCH (07:11)
[2019-03-01] MEDS: ASPIRIN 81MG TABLET PO SCH (08:27)
[2019-03-01] MEDS: CLOPIDOGREL 75MG TABLET PO SCH (08:27)
[2019-03-01] MEDS: ENOXAPARIN 30MG/0.3ML SYR SUBCUT SCH (08:28)
[2019-03-01 08:31] VITALS: BP 146/92
[2019-03-01] MEDS ORDERED: LOPERAMIDE HCL 2MG CAPSULE PO NR (10:45)
[2019-03-01 11:50] VITALS: BP 131/85
[2019-03-01 15:40] VITALS: BP 117/75
== END 2019-03-01 12:20 | disposition home or self-care (01) | DRG 314 ==
LOC: ER 20:15 → 8WST 02-26 01:57 → ENRESERV 02-26 08:05
PROVIDERS: ADMIT Internal Medicine Nephrology; ATTEND Internal Medicine Nephrology
PROC: 5A1D70Z Performance of Urinary Filtration, Intermittent, Less than 6 Hours Per Day (ICD-10-PCS; principal; 2019-02-26)
PROC: 5A1D70Z Performance of Urinary Filtration, Intermittent, Less than 6 Hours Per Day (ICD-10-PCS; 2019-02-27)
DX: T82.848A Pain due to vascular prosthetic devices, implants and grafts, initial encounter (principal); N18.6 End stage renal disease; I50.23 Acute on chronic systolic (congestive) heart failure; I13.2 Hypertensive heart and chronic kidney disease with heart failure and with stage 5 chronic kidney disease, or end stage renal disease; I42.9 Cardiomyopathy, unspecified; R07.89 Other chest pain; E11.22 Type 2 diabetes mellitus with diabetic chronic kidney disease; D64.9 Anemia, unspecified; E78.00 Pure hypercholesterolemia, unspecified; E78.5 Hyperlipidemia, unspecified; I25.10 Atherosclerotic heart disease of native coronary artery without angina pectoris; J44.9 Chronic obstructive pulmonary disease, unspecified; Z79.02 Long term (current) use of antithrombotics/antiplatelets; Z79.4 Long term (current) use of insulin; Z79.899 Other long term (current) drug therapy; Z87.891 Personal history of nicotine dependence; Z99.2 Dependence on renal dialysis; Z88.5 Allergy status to narcotic agent; Z95.5 Presence of coronary angioplasty implant and graft; Z95.810 Presence of automatic (implantable) cardiac defibrillator; Z79.82 Long term (current) use of aspirin; E87.79 Other fluid overload
CPT/HCPCS: 36415; 71045; 80048; 80053; 82962; 83036; 83880; 84100; 84484; 85025; 93005; 99285; J1200; J1644; J1650; J1815; J2270; J2405

== ENCOUNTER 2019-03-05 15:35 | Inpatient (IN) | payer MEDICARE, MEDICAID ==
[~2019-03-05] VITALS: Ht 167.6 cm; Wt 69.9 kg
[2019-03-05] MEDS ORDERED: ONDANSETRON HCL 4MG/2ML INJ IV STA (18:40)
[2019-03-05] MEDS ORDERED: ACETAMINOPHEN 325MG TABLET PO STA (18:40)
[2019-03-05] MEDS ORDERED: SODIUM CHLORIDE 0.9% 1,000 ML IV ONE (18:40)
[2019-03-05] MEDS ORDERED: MORPHINE SULFATE 4 MG/ML CPJ (NOT FOR IM USE) IV STA (18:40)
[2019-03-05] MEDS ORDERED: METRONIDAZOLE 500 MG PREMIX 100 ML IV ONE (18:45)
[2019-03-05] MEDS ORDERED: PIPERACILLIN/TAZ 3.375G PREMIX 50 ML IV ONE (18:45)
[2019-03-05 19:01] LABS: HEMATOCRIT. 31.7 % (36.0-48.0); HEMOGLOBIN. 9.5 g/dL (12.0-16.0); MEAN CORPUSCULAR HEMOGLOBIN 22.9 pg (28.0-32.0); MEAN CORPUSCULAR VOLUME 76.2 fL (81.0-99.0); MEAN PLATELET VOLUME 9.8 fl (7.4-10.4); PLATELET 223 x1000/uL (130-400); RED BLOOD CELL COUNT 4.16 mill/uL (4.2-5.4); RED CELL DISTRIBUTION WIDTH 28.4 % (11.6-14.6)
[2019-03-05 19:04] LABS: CHLORIDE 101 mEq/L (98-107)
[2019-03-05 20:40] LABS: INR 1.2; PROTHROMBIN TIME 12.6 sec (9.6-11.0)
[2019-03-05 20:40] LABS: NUCLEATED RED BLOOD CELLS 1 /100 WBC; PLATELET ESTIMATE NORMAL
[2019-03-06 00:15] VITALS: BP 108/61
[2019-03-06] MEDS ORDERED: ONDANSETRON HCL 4MG/2ML INJ IV PRN (00:30)
[2019-03-06] MEDS ORDERED: DEXTROSE 50% WATER 50ML SYRINGE IV PRN (00:30)
[2019-03-06] MEDS ORDERED: CLONIDINE 0.1MG TABLET PO PRN (00:30)
[2019-03-06] MEDS ORDERED: LOPERAMIDE HCL 2MG CAPSULE PO PRN (00:30)
[2019-03-06] MEDS ORDERED: ACETAMINOPHEN 325MG TABLET PO PRN (00:30)
[2019-03-06] MEDS ORDERED: IPRATROPIUM/ALBUTEROL 0.5-3(2.5)MG/3ML NEB HHN PRN (00:30)
[2019-03-06] MEDS ORDERED: HYDROCODONE/ACETAMINOPHEN 5/325MG TABLET PO PRN (01:00)
[2019-03-06] MEDS: HYDROXYZINE 25MG TABLET PO PRN (01:19)
[2019-03-06 04:00] VITALS: BP 116/64
[2019-03-06] MEDS: SODIUM CHLORIDE 0.9% INJ 3ML FLUSH IVF SCH ×3 (05:55→20:45)
[2019-03-06] MEDS: BLOOD SUGAR DIAGNOSTIC STRIP TEST SCH ×4 (06:22→20:45)
[2019-03-06] MEDS: INSULIN LISPRO 100 UNITS/ML SUBCUT SCH ×4 (07:50→20:45)
[2019-03-06 08:00] VITALS: BP 125/70
[2019-03-06] MEDS: CARVEDILOL 6.25 MG TABLET PO SCH ×2 (09:00→20:44)
[2019-03-06] MEDS: HYDRALAZINE HCL 25MG TABLET PO SCH ×2 (09:00→20:45)
[2019-03-06] MEDS: GABAPENTIN 300MG CAPSULE PO SCH (09:00)
[2019-03-06] MEDS: INSULIN GLARGINE UD 100 UNITS/ML SYR SUBCUT SCH (10:00)
[2019-03-06] MEDS: MORPHINE SULFATE 2 MG/ML CPJ (NOT FOR IM USE) IV PRN (11:50)
[2019-03-06 12:00] VITALS: BP 121/71
[2019-03-06] MEDS: CLOPIDOGREL 75MG TABLET PO SCH (19:07)
[2019-03-06] MEDS: ASPIRIN 81MG EC TABLET PO SCH (19:07)
[2019-03-06 20:00] VITALS: BP 135/77
[2019-03-06] MEDS ORDERED: ATORVASTATIN CALCIUM 10MG TABLET PO SCH (21:00)
[2019-03-07] VITALS: BP 132/68
[2019-03-07] MEDS: MORPHINE SULFATE 2 MG/ML CPJ (NOT FOR IM USE) IV PRN (01:16)
[2019-03-07] MEDS: HYDROXYZINE 25MG TABLET PO PRN (01:21)
[2019-03-07 04:00] VITALS: BP 138/66
[2019-03-07] MEDS: SODIUM CHLORIDE 0.9% INJ 3ML FLUSH IVF SCH ×2 (05:46→13:37)
[2019-03-07] MEDS: BLOOD SUGAR DIAGNOSTIC STRIP TEST SCH ×2 (06:24→12:32)
[2019-03-07 07:05] LABS: BASOPHILS % 1.9 % (0.0-2.0); EOSINOPHILS % 1.1 % (0.0-5.0); HEMOGLOBIN. 9.5 g/dL (12.0-16.0); LYMPHOCYTES % 16.5 % (20.0-50.0); MEAN CORPUSCULAR HEMOGLOBIN 23.2 pg (28.0-32.0); MEAN CORPUSCULAR VOLUME 75.8 fL (81.0-99.0); MEAN PLATELET VOLUME 9.6 fl (7.4-10.4); MONOCYTES % 13.3 % (2.0-8.0); NEUTROPHILS % 67.2 % (40.0-76.0); PLATELET 189 x1000/uL (130-400); RED BLOOD CELL COUNT 4.09 mill/uL (4.2-5.4); RED CELL DISTRIBUTION WIDTH 28.2 % (11.6-14.6)
[2019-03-07 08:00] VITALS: BP 113/54
[2019-03-07] MEDS: GABAPENTIN 300MG CAPSULE PO SCH (09:00)
[2019-03-07] MEDS: ASPIRIN 81MG EC TABLET PO SCH (09:29)
[2019-03-07] MEDS: CLOPIDOGREL 75MG TABLET PO SCH (09:30)
[2019-03-07] MEDS: HYDRALAZINE HCL 25MG TABLET PO SCH (09:30)
[2019-03-07] MEDS: CARVEDILOL 6.25 MG TABLET PO SCH (09:31)
[2019-03-07] MEDS: INSULIN LISPRO 100 UNITS/ML SUBCUT SCH ×2 (09:32→13:36)
[2019-03-07] MEDS: INSULIN GLARGINE UD 100 UNITS/ML SYR SUBCUT SCH (09:33)
[2019-03-07 12:00] VITALS: BP 102/41
[2019-03-07 13:27] VITALS: BP 102/41
[2019-03-07 17:14] LABS: PLATELET ESTIMATE NORMAL
== END 2019-03-07 14:50 | disposition home or self-care (01) | DRG 391 ==
LOC: ER 15:35 → ENRESERV 22:01 → CANBEDREQ 22:33 → ENRESERV 23:19 → 6WST 03-06 00:18
PROVIDERS: ADMIT Internal Medicine; ATTEND Internal Medicine
PROC: 5A1D70Z Performance of Urinary Filtration, Intermittent, Less than 6 Hours Per Day (ICD-10-PCS; principal; 2019-03-06)
DX: K31.84 Gastroparesis (principal); N18.6 End stage renal disease; I13.2 Hypertensive heart and chronic kidney disease with heart failure and with stage 5 chronic kidney disease, or end stage renal disease; I31.3 Pericardial effusion (noninflammatory); E11.43 Type 2 diabetes mellitus with diabetic autonomic (poly)neuropathy; D63.8 Anemia in other chronic diseases classified elsewhere; E11.22 Type 2 diabetes mellitus with diabetic chronic kidney disease; E78.00 Pure hypercholesterolemia, unspecified; I25.10 Atherosclerotic heart disease of native coronary artery without angina pectoris; I50.9 Heart failure, unspecified; J44.9 Chronic obstructive pulmonary disease, unspecified; I25.5 Ischemic cardiomyopathy; Z86.73 Personal history of transient ischemic attack (TIA), and cerebral infarction without residual deficits; Z87.39 Personal history of other diseases of the musculoskeletal system and connective tissue; Z87.891 Personal history of nicotine dependence; Z95.5 Presence of coronary angioplasty implant and graft; Z95.810 Presence of automatic (implantable) cardiac defibrillator; Z99.2 Dependence on renal dialysis; Z79.899 Other long term (current) drug therapy; Z79.82 Long term (current) use of aspirin
CPT/HCPCS: 36415; 71045; 74176; 80048; 80053; 82962; 83605; 84145; 84484; 85025; 87804; 93005; 93970; 99285; J1815; J2270; J2405; J2543; J3490; J7030

== ENCOUNTER 2019-03-11 04:05 | Inpatient (IN) | payer MEDICARE, MEDICAID ==
[~2019-03-11] VITALS: Ht 170.2 cm; Wt 81.6 kg
[2019-03-11] MEDS ORDERED: ASPIRIN 325MG EC TABLET PO ONE (06:45)
[2019-03-11] MEDS ORDERED: NITROGLYCERIN OINT 1GM/INCH UDPKT TD ONE (06:45)
[2019-03-11 07:01] LABS: HEMATOCRIT. 35.2 % (36.0-48.0); HEMOGLOBIN. 10.7 g/dL (12.0-16.0); MEAN CORPUSCULAR HEMOGLOBIN 23.3 pg (28.0-32.0); MEAN CORPUSCULAR VOLUME 76.5 fL (81.0-99.0); MEAN PLATELET VOLUME 9.3 fl (7.4-10.4); PLATELET 177 x1000/uL (130-400); RED BLOOD CELL COUNT 4.59 mill/uL (4.2-5.4); RED CELL DISTRIBUTION WIDTH 28.6 % (11.6-14.6)
[2019-03-11 07:13] LABS: CHLORIDE 102 mEq/L (98-107)
[2019-03-11 08:03] LABS: PLATELET ESTIMATE NORMAL
[2019-03-11] MEDS ORDERED: ENOXAPARIN 40MG/0.4ML SYR SUBCUT SCH ×2 (09:15→12:15)
[2019-03-11] MEDS ORDERED: DIPHENHYDRAMINE 50MG/ML VIAL IV PRN ×2 (09:15→12:15)
[2019-03-11] MEDS ORDERED: CLONIDINE 0.1MG TABLET PO PRN ×2 (09:15→12:15)
[2019-03-11] MEDS ORDERED: DOCUSATE SODIUM 100MG CAPSULE PO PRN ×2 (09:15→12:15)
[2019-03-11] MEDS ORDERED: MORPHINE SULFATE 2 MG/ML CPJ (NOT FOR IM USE) IV PRN (09:15)
[2019-03-11] MEDS ORDERED: ONDANSETRON HCL 4MG/2ML INJ IV PRN ×2 (09:15→12:15)
[2019-03-11] MEDS: LISINOPRIL 2.5MG TABLET PO SCH (11:16)
[2019-03-11] MEDS ORDERED: IPRATROPIUM/ALBUTEROL 0.5-3(2.5)MG/3ML NEB NEB PRN (12:15)
[2019-03-11] MEDS ORDERED: ACETAMINOPHEN 325MG TABLET PO PRN (12:15)
[2019-03-11] MEDS ORDERED: GUAIFENESIN 200MG/10ML SUGAR FREE UDC PO PRN (12:15)
[2019-03-11] MEDS ORDERED: MAGNESIUM/ALUMINUM HYDROXIDE/SIMETHICONE 30ML UDC PO PRN (12:15)
[2019-03-11] MEDS ORDERED: LORAZEPAM 2MG/ML CPJ IV PRN (12:15)
[2019-03-11] MEDS ORDERED: NA PHOS,M-B/NA PHOS,DI-BA ENEMA 118ML PR PRN (12:15)
[2019-03-11] MEDS ORDERED: HYDROCODONE/ACETAMINOPHEN 5/325MG TABLET PO PRN (12:15)
[2019-03-11] MEDS: HYDRALAZINE HCL 25MG TABLET PO SCH ×2 (14:00→22:36)
[2019-03-11] MEDS: GABAPENTIN 100MG CAPSULE PO SCH ×2 (14:30→22:00)
[2019-03-11] MEDS: CALCIUM ACETATE 667 MG TABLET PO SCH (15:21)
[2019-03-11] MEDS: MORPHINE SULFATE 2 MG/ML CPJ (NOT FOR IM USE) IV PRN ×2 (15:21→21:18)
[2019-03-11] MEDS: ENOXAPARIN 30MG/0.3ML SYR SUBCUT SCH (15:21)
[2019-03-11] MEDS: CLOPIDOGREL 75MG TABLET PO SCH (15:23)
[2019-03-11 21:00] VITALS: BP 100/65
[2019-03-11] MEDS ORDERED: DEXTROSE 50% WATER 50ML SYRINGE IV PRN (21:00)
[2019-03-11] MEDS: BLOOD SUGAR DIAGNOSTIC STRIP TEST SCH (21:00)
[2019-03-11] MEDS: ATORVASTATIN CALCIUM 20MG TABLET PO SCH (21:20)
[2019-03-11] MEDS: CARVEDILOL 3.125 MG TABLET PO SCH (21:21)
[2019-03-11 21:30] VITALS: BP 120/65
[2019-03-11] MEDS ORDERED: INSULIN GLARGINE UD 100 UNITS/ML SYR SUBCUT SCH (22:00)
[2019-03-11] MEDS: INSULIN LISPRO 100 UNITS/ML SUBCUT SCH (22:14)
[2019-03-12] VITALS: BP 102/70
[2019-03-12 04:00] VITALS: BP 109/73
[2019-03-12] MEDS: GABAPENTIN 100MG CAPSULE PO SCH ×3 (06:00→22:07)
[2019-03-12 06:18] LABS: MEAN CORPUSCULAR HEMOGLOBIN 23.1 pg (28.0-32.0); MEAN CORPUSCULAR VOLUME 76.4 fL (81.0-99.0); MEAN PLATELET VOLUME 9.9 fl (7.4-10.4); PLATELET 164 x1000/uL (130-400); RED BLOOD CELL COUNT 4.32 mill/uL (4.2-5.4); RED CELL DISTRIBUTION WIDTH 28.2 % (11.6-14.6)
[2019-03-12] MEDS: HYDRALAZINE HCL 25MG TABLET PO SCH ×3 (06:23→22:07)
[2019-03-12] MEDS: BLOOD SUGAR DIAGNOSTIC STRIP TEST SCH ×4 (06:59→20:30)
[2019-03-12] MEDS: INSULIN LISPRO 100 UNITS/ML SUBCUT SCH ×4 (06:59→20:30)
[2019-03-12 07:06] LABS: CHLORIDE 103 mEq/L (98-107)
[2019-03-12 07:17] LABS: LDL CHOLESTEROL 52 mg/dL (5-100)
[2019-03-12 07:18] LABS: HDL CHOLESTEROL 51 mg/dL (40-59); T4 FREE 1.22 ng/dL (0.76-1.46)
[2019-03-12 08:00] VITALS: BP 106/65
[2019-03-12] MEDS: CARVEDILOL 3.125 MG TABLET PO SCH ×2 (08:43→20:26)
[2019-03-12] MEDS: LISINOPRIL 2.5MG TABLET PO SCH (08:44)
[2019-03-12] MEDS: ENOXAPARIN 30MG/0.3ML SYR SUBCUT SCH (08:48)
[2019-03-12] MEDS: ASPIRIN 81MG EC TABLET PO SCH (08:49)
[2019-03-12] MEDS: CLOPIDOGREL 75MG TABLET PO SCH (08:49)
[2019-03-12 12:00] VITALS: BP 104/63
[2019-03-12] MEDS: MORPHINE SULFATE 2 MG/ML CPJ (NOT FOR IM USE) IV PRN ×2 (14:34→22:08)
[2019-03-12 16:00] VITALS: BP 114/68
[2019-03-12] MEDS: CALCIUM ACETATE 667 MG TABLET PO SCH (17:31)
[2019-03-12 20:00] VITALS: BP 114/61
[2019-03-12] MEDS: ATORVASTATIN CALCIUM 20MG TABLET PO SCH (20:26)
[2019-03-12 20:36] LABS: CLARITY URINE TURBID (CLEAR); COLOR URINE DARK YELLOW (YELLOW); KETONES URINE TRACE (NEGATIVE); LEUKOCYTE ESTERASE URINE 3+ (NEGATIVE); NITRITE URINE NEGATIVE (NEGATIVE); OCCULT BLOOD URINE 3+ (NEGATIVE); PROTEIN URINE 2+ (NEGATIVE); SPECIFIC GRAVITY URINE 1.021 (1.005-1.030)
[2019-03-12 20:49] LABS: *AMPHETAMINES SCREEN URINE NEGATIVE (NEGATIVE); *BARBITURATES SCREEN URINE NEGATIVE (NEGATIVE)
[2019-03-12 20:50] LABS: *BENZODIAZEPINES SCREEN URINE NEGATIVE (NEGATIVE); *COCAINE SCREEN URINE NEGATIVE (NEGATIVE); CANNABINOID URINE SCREEN PRESUMTIVE POSITIVE (NEGATIVE); METHADONE URINE SCREEN NEGATIVE (NEGATIVE); OPIATES URINE SCREEN PRESUMTIVE POSITIVE (NEGATIVE); PHENCYCLIDINE URINE SCREEN NEGATIVE (NEGATIVE)
[2019-03-12] MEDS ORDERED: INSULIN GLARGINE UD 100 UNITS/ML SYR SUBCUT SCH (23:00)
[2019-03-13] VITALS: BP 105/58
[2019-03-13 04:00] VITALS: BP 98/60
[2019-03-13] MEDS: GABAPENTIN 100MG CAPSULE PO SCH ×2 (05:51→13:16)
[2019-03-13] MEDS: HYDRALAZINE HCL 25MG TABLET PO SCH ×2 (05:51→13:15)
[2019-03-13 06:42] LABS: HEMOGLOBIN. 10.1 g/dL (12.0-16.0); MEAN CORPUSCULAR VOLUME 77.3 fL (81.0-99.0); MEAN PLATELET VOLUME 9.4 fl (7.4-10.4); PLATELET 168 x1000/uL (130-400); RED CELL DISTRIBUTION WIDTH 28.1 % (11.6-14.6)
[2019-03-13 07:50] LABS: PLATELET ESTIMATE NORMAL
[2019-03-13 08:00] VITALS: BP 107/60
[2019-03-13] MEDS: BLOOD SUGAR DIAGNOSTIC STRIP TEST SCH ×2 (08:03→12:54)
[2019-03-13] MEDS: CALCIUM ACETATE 667 MG TABLET PO SCH ×2 (08:10→13:10)
[2019-03-13] MEDS: ENOXAPARIN 30MG/0.3ML SYR SUBCUT SCH ×2 (09:00→09:23)
[2019-03-13] MEDS: LISINOPRIL 2.5MG TABLET PO SCH (09:00)
[2019-03-13] MEDS: CARVEDILOL 3.125 MG TABLET PO SCH (09:00)
[2019-03-13] MEDS: MORPHINE SULFATE 2 MG/ML CPJ (NOT FOR IM USE) IV PRN ×2 (09:22→14:07)
[2019-03-13] MEDS: ASPIRIN 81MG EC TABLET PO SCH (09:23)
[2019-03-13] MEDS: CLOPIDOGREL 75MG TABLET PO SCH (09:23)
[2019-03-13] MEDS: INSULIN LISPRO 100 UNITS/ML SUBCUT SCH ×2 (09:38→12:54)
[2019-03-13 12:00] VITALS: BP 107/61
[2019-03-13 16:00] VITALS: BP 127/59
[2019-03-14 04:50] LABS: PLATELET ESTIMATE NORMAL
== END 2019-03-13 17:10 | disposition left against medical advice (07) | DRG 291 ==
LOC: ER 04:05 → 7WST 08:07 → EDBEDREQ 08:11 → ENRESERV 19:06
PROVIDERS: ADMIT Internal Medicine Nephrology; ATTEND Internal Medicine Nephrology
PROC: 5A1D70Z Performance of Urinary Filtration, Intermittent, Less than 6 Hours Per Day (ICD-10-PCS; 2019-03-11)
PROC: 5A1D70Z Performance of Urinary Filtration, Intermittent, Less than 6 Hours Per Day (ICD-10-PCS; 2019-03-12)
PROC: 5A1D70Z Performance of Urinary Filtration, Intermittent, Less than 6 Hours Per Day (ICD-10-PCS; principal; 2019-03-13)
DX: I13.2 Hypertensive heart and chronic kidney disease with heart failure and with stage 5 chronic kidney disease, or end stage renal disease (principal); J96.00 Acute respiratory failure, unspecified whether with hypoxia or hypercapnia; I50.23 Acute on chronic systolic (congestive) heart failure; N18.6 End stage renal disease; I24.9 Acute ischemic heart disease, unspecified; I31.3 Pericardial effusion (noninflammatory); I69.354 Hemiplegia and hemiparesis following cerebral infarction affecting left non-dominant side; E46 Unspecified protein-calorie malnutrition; I42.9 Cardiomyopathy, unspecified; D64.9 Anemia, unspecified; E11.65 Type 2 diabetes mellitus with hyperglycemia; E11.22 Type 2 diabetes mellitus with diabetic chronic kidney disease; E78.00 Pure hypercholesterolemia, unspecified; E78.5 Hyperlipidemia, unspecified; I08.1 Rheumatic disorders of both mitral and tricuspid valves; I25.10 Atherosclerotic heart disease of native coronary artery without angina pectoris; G43.909 Migraine, unspecified, not intractable, without status migrainosus; J44.9 Chronic obstructive pulmonary disease, unspecified; Z79.02 Long term (current) use of antithrombotics/antiplatelets; Z79.4 Long term (current) use of insulin; Z79.899 Other long term (current) drug therapy; Z87.891 Personal history of nicotine dependence; Z88.5 Allergy status to narcotic agent; Z95.5 Presence of coronary angioplasty implant and graft; Z95.810 Presence of automatic (implantable) cardiac defibrillator; Z99.2 Dependence on renal dialysis; Z99.3 Dependence on wheelchair; Z79.82 Long term (current) use of aspirin; Z68.28 Body mass index [BMI] 28.0-28.9, adult
CPT/HCPCS: 36415; 71045; 80048; 80053; 80061; 80305; 81003; 82962; 84439; 84443; 84484; 85025; 93005; 93970; 96374; 99285; J1200; J1650; J1815; J2270

== ENCOUNTER 2019-03-18 21:01 | Inpatient (IN) | payer MEDICARE, MEDICAID ==
[~2019-03-18] VITALS: Ht 170.2 cm; Wt 66.2 kg
[~2019-03-18 21:01] MED LIST changes: -CLOP75TA4 MT; +CLOP75TA4 PO; -HYDR-4134 MT; +HYDR-4134 PO; -SIMV-46 MT; +SIMV-46 PO
[2019-03-18 23:54] LABS: HEMATOCRIT. 34.7 % (36.0-48.0); HEMOGLOBIN. 10.4 g/dL (12.0-16.0); MEAN CORPUSCULAR HEMOGLOBIN 22.8 pg (28.0-32.0); MEAN CORPUSCULAR VOLUME 76.3 fL (81.0-99.0); MEAN PLATELET VOLUME 9.3 fl (7.4-10.4); PLATELET 182 x1000/uL (130-400); RED BLOOD CELL COUNT 4.55 mill/uL (4.2-5.4); RED CELL DISTRIBUTION WIDTH 26.8 % (11.6-14.6)
[2019-03-18 23:58] LABS: CHLORIDE 101 mEq/L (98-107)
[2019-03-19] MEDS ORDERED: MORPHINE SULFATE 2 MG/ML CPJ (NOT FOR IM USE) IV NR (00:15)
[2019-03-19] MEDS ORDERED: ASPIRIN 81MG TABLET PO NR (00:15)
[2019-03-19 01:49] LABS: ATYPICAL LYMPHOCYTES 2
[2019-03-19 01:50] LABS: PLATELET ESTIMATE NORMAL
[2019-03-19] MEDS ORDERED: ACETAMINOPHEN 325MG TABLET PO PRN (10:15)
[2019-03-19] MEDS ORDERED: GUAIFENESIN 200MG/10ML SUGAR FREE UDC PO PRN (10:15)
[2019-03-19] MEDS ORDERED: DOCUSATE SODIUM 100MG CAPSULE PO PRN (10:15)
[2019-03-19] MEDS ORDERED: MAGNESIUM/ALUMINUM HYDROXIDE/SIMETHICONE 30ML UDC PO PRN (10:15)
[2019-03-19] MEDS ORDERED: IPRATROPIUM/ALBUTEROL 0.5-3(2.5)MG/3ML NEB NEB PRN (10:15)
[2019-03-19] MEDS ORDERED: CLONIDINE 0.1MG TABLET PO PRN (10:15)
[2019-03-19] MEDS ORDERED: ONDANSETRON HCL 4MG/2ML INJ IV PRN (10:15)
[2019-03-19] MEDS ORDERED: ENOXAPARIN 40MG/0.4ML SYR SUBCUT SCH (10:15)
[2019-03-19] MEDS ORDERED: NA PHOS,M-B/NA PHOS,DI-BA ENEMA 118ML PR PRN (10:15)
[2019-03-19] MEDS ORDERED: LORAZEPAM 2MG/ML CPJ IV PRN (10:15)
[2019-03-19] MEDS ORDERED: HYDROCODONE/ACETAMINOPHEN 5/325MG TABLET PO PRN (10:15)
[2019-03-19] MEDS: MORPHINE SULFATE 2 MG/ML CPJ (NOT FOR IM USE) IV PRN ×2 (11:57→19:07)
[2019-03-19 12:00] VITALS: BP 105/66
[2019-03-19] MEDS: DIPHENHYDRAMINE 50MG/ML VIAL IV PRN (13:14)
[2019-03-19] MEDS: ENOXAPARIN 30MG/0.3ML SYR SUBCUT SCH (13:14)
[2019-03-19 16:00] VITALS: BP 107/69
[2019-03-19] MEDS ORDERED: DEXTROSE 50% WATER 50ML SYRINGE IV PRN (17:45)
[2019-03-19] MEDS: BLOOD SUGAR DIAGNOSTIC STRIP TEST SCH ×2 (18:18→22:42)
[2019-03-19] MEDS: INSULIN LISPRO 100 UNITS/ML SUBCUT SCH ×2 (18:24→22:46)
[2019-03-19 20:00] VITALS: BP 120/78
[2019-03-20] VITALS: BP 112/75
[2019-03-20] MEDS: DIPHENHYDRAMINE 50MG/ML VIAL IV PRN ×3 (03:25→20:18)
[2019-03-20 04:00] VITALS: BP 100/61
[2019-03-20] MEDS: BLOOD SUGAR DIAGNOSTIC STRIP TEST SCH ×4 (06:10→21:09)
[2019-03-20 07:27] LABS: HEMATOCRIT. 34.3 % (36.0-48.0); HEMOGLOBIN. 10.1 g/dL (12.0-16.0); MEAN CORPUSCULAR HEMOGLOBIN 22.6 pg (28.0-32.0); MEAN CORPUSCULAR VOLUME 76.9 fL (81.0-99.0); MEAN PLATELET VOLUME 9.7 fl (7.4-10.4); PLATELET 181 x1000/uL (130-400); RED BLOOD CELL COUNT 4.46 mill/uL (4.2-5.4); RED CELL DISTRIBUTION WIDTH 26.8 % (11.6-14.6)
[2019-03-20 07:35] LABS: CHLORIDE 103 mEq/L (98-107)
[2019-03-20 07:46] LABS: LDL CHOLESTEROL 60 mg/dL (5-100)
[2019-03-20 07:48] LABS: HDL CHOLESTEROL 55 mg/dL (40-59); T4 FREE 1.56 ng/dL (0.76-1.46)
[2019-03-20 08:00] VITALS: BP 126/79
[2019-03-20] MEDS: ASPIRIN 81MG EC TABLET PO SCH (08:47)
[2019-03-20] MEDS: INSULIN LISPRO 100 UNITS/ML SUBCUT SCH ×4 (08:47→21:00)
[2019-03-20] MEDS: ENOXAPARIN 30MG/0.3ML SYR SUBCUT SCH (08:47)
[2019-03-20] MEDS: MORPHINE SULFATE 2 MG/ML CPJ (NOT FOR IM USE) IV PRN ×2 (09:51→17:15)
[2019-03-20 12:00] VITALS: BP 116/58
[2019-03-20 16:00] VITALS: BP 105/68
[2019-03-20 17:44] LABS: PLATELET ESTIMATE NORMAL
[2019-03-20 20:00] VITALS: BP 106/60
[2019-03-21] VITALS: BP 112/78
[2019-03-21 04:00] VITALS: BP 127/91
[2019-03-21] MEDS: MORPHINE SULFATE 2 MG/ML CPJ (NOT FOR IM USE) IV PRN (04:43)
[2019-03-21] MEDS: INSULIN LISPRO 100 UNITS/ML SUBCUT SCH (05:32)
[2019-03-21] MEDS: BLOOD SUGAR DIAGNOSTIC STRIP TEST SCH (05:32)
[2019-03-21 06:12] LABS: HEMATOCRIT. 33.6 % (36.0-48.0); HEMOGLOBIN. 10.1 g/dL (12.0-16.0); MEAN CORPUSCULAR HEMOGLOBIN 23.4 pg (28.0-32.0); MEAN CORPUSCULAR VOLUME 77.4 fL (81.0-99.0); MEAN PLATELET VOLUME 9.7 fl (7.4-10.4); PLATELET 201 x1000/uL (130-400); RED BLOOD CELL COUNT 4.33 mill/uL (4.2-5.4)
[2019-03-21 08:00] VITALS: BP 113/63
[2019-03-21] MEDS: ENOXAPARIN 30MG/0.3ML SYR SUBCUT SCH (09:00)
[2019-03-21] MEDS: ASPIRIN 81MG EC TABLET PO SCH (09:54)
[2019-03-21 10:07] VITALS: BP 113/63
[2019-03-21 14:52] LABS: PLATELET ESTIMATE NORMAL
[2019-04-05] MEDS ORDERED: CARV6.2548 PO (09:37)
[2019-04-05] MEDS ORDERED: ATOR40TA70 PO (09:43)
[2019-04-05] MEDS ORDERED: INSU100I24 SQ ×2 (09:43)
[2019-04-05] MEDS ORDERED: CALC667C PO (09:43)
[2019-04-05] MEDS ORDERED: RANO500T3 PO (09:43)
== END 2019-03-21 10:46 | disposition home or self-care (01) | DRG 391 ==
LOC: ER 21:01 → 7WST 03-19 00:41 → ENRESERV 03-19 08:54
PROVIDERS: ADMIT Internal Medicine; ATTEND Internal Medicine
PROC: 5A1D70Z Performance of Urinary Filtration, Intermittent, Less than 6 Hours Per Day (ICD-10-PCS; principal; 2019-03-19)
DX: K21.9 Gastro-esophageal reflux disease without esophagitis (principal); I50.23 Acute on chronic systolic (congestive) heart failure; N18.6 End stage renal disease; E87.1 Hypo-osmolality and hyponatremia; I13.2 Hypertensive heart and chronic kidney disease with heart failure and with stage 5 chronic kidney disease, or end stage renal disease; E46 Unspecified protein-calorie malnutrition; E87.70 Fluid overload, unspecified; E11.22 Type 2 diabetes mellitus with diabetic chronic kidney disease; E78.5 Hyperlipidemia, unspecified; I25.10 Atherosclerotic heart disease of native coronary artery without angina pectoris; J44.9 Chronic obstructive pulmonary disease, unspecified; D64.9 Anemia, unspecified; Z79.02 Long term (current) use of antithrombotics/antiplatelets; Z79.4 Long term (current) use of insulin; Z79.899 Other long term (current) drug therapy; Z87.891 Personal history of nicotine dependence; Z88.5 Allergy status to narcotic agent; Z95.5 Presence of coronary angioplasty implant and graft; Z99.2 Dependence on renal dialysis; Z79.82 Long term (current) use of aspirin; I25.2 Old myocardial infarction; Z71.6 Tobacco abuse counseling
CPT/HCPCS: 36415; 71045; 80048; 80053; 80061; 82962; 83880; 84439; 84443; 84484; 85025; 93005; 96374; 99285; J1200; J1650; J1815; J2270

== ENCOUNTER 2019-03-27 11:16 | Inpatient (IN) | payer MEDICARE, MEDICAID ==
[~2019-03-27] VITALS: Ht 170.2 cm; Wt 67.8 kg
[2019-03-27] MEDS ORDERED: ONDANSETRON HCL 4MG/2ML INJ IV STA (12:32)
[2019-03-27] MEDS ORDERED: MORPHINE SULFATE 4 MG/ML CPJ (NOT FOR IM USE) IV STA (12:32)
[2019-03-27] MEDS ORDERED: DIPHENHYDRAMINE 25MG CAPSULE PO ONE (12:45)
[2019-03-27] MEDS ORDERED: NITROGLYCERIN OINT 1GM/INCH UDPKT TD ONE (12:45)
[2019-03-27 13:14] LABS: HEMATOCRIT. 36.5 % (36.0-48.0); MEAN CORPUSCULAR HEMOGLOBIN 22.9 pg (28.0-32.0); MEAN CORPUSCULAR VOLUME 75.9 fL (81.0-99.0); RED BLOOD CELL COUNT 4.81 mill/uL (4.2-5.4)
[2019-03-27 13:21] LABS: CHLORIDE 98 mEq/L (98-107)
[2019-03-27 13:28] LABS: PHOSPHORUS 4.2 mg/dL (2.5-4.9)
[2019-03-27 13:42] LABS: PLATELET ESTIMATE NORMAL
[2019-03-27] MEDS ORDERED: NA PHOS,M-B/NA PHOS,DI-BA ENEMA 118ML PR PRN (18:00)
[2019-03-27] MEDS ORDERED: HYDROCODONE/ACETAMINOPHEN 5/325MG TABLET PO PRN (18:00)
[2019-03-27] MEDS ORDERED: GUAIFENESIN 200MG/10ML SUGAR FREE UDC PO PRN (18:00)
[2019-03-27] MEDS ORDERED: DOCUSATE SODIUM 100MG CAPSULE PO PRN (18:00)
[2019-03-27] MEDS ORDERED: DIPHENHYDRAMINE 50MG/ML VIAL IV PRN (18:00)
[2019-03-27] MEDS ORDERED: ENOXAPARIN 40MG/0.4ML SYR SUBCUT SCH (18:00)
[2019-03-27] MEDS ORDERED: ACETAMINOPHEN 325MG TABLET PO PRN (18:00)
[2019-03-27] MEDS ORDERED: IPRATROPIUM/ALBUTEROL 0.5-3(2.5)MG/3ML NEB NEB PRN (18:00)
[2019-03-27] MEDS ORDERED: MAGNESIUM/ALUMINUM HYDROXIDE/SIMETHICONE 30ML UDC PO PRN (18:00)
[2019-03-27] MEDS ORDERED: LORAZEPAM 2MG/ML CPJ IV PRN (18:00)
[2019-03-27] MEDS ORDERED: CLONIDINE 0.1MG TABLET PO PRN (18:00)
[2019-03-27] MEDS ORDERED: ONDANSETRON HCL 4MG/2ML INJ IV PRN (18:00)
[2019-03-27] MEDS: MORPHINE SULFATE 2 MG/ML CPJ (NOT FOR IM USE) IV PRN (20:50)
[2019-03-28 00:40] VITALS: BP 120/77
[2019-03-28] MEDS ORDERED: DEXTROSE 50% WATER 50ML SYRINGE IV PRN (01:30)
[2019-03-28 04:00] VITALS: BP 110/76
[2019-03-28 06:42] LABS: HEMOGLOBIN. 10.5 g/dL (12.0-16.0); MEAN CORPUSCULAR VOLUME 76.5 fL (81.0-99.0); MEAN PLATELET VOLUME 10.3 fl (7.4-10.4); PLATELET 157 x1000/uL (130-400); RED BLOOD CELL COUNT 4.57 mill/uL (4.2-5.4); RED CELL DISTRIBUTION WIDTH 26.1 % (11.6-14.6)
[2019-03-28 07:22] LABS: CHLORIDE 101 mEq/L (98-107)
[2019-03-28 07:32] LABS: LDL CHOLESTEROL 54 mg/dL (5-100)
[2019-03-28 07:33] LABS: HDL CHOLESTEROL 55 mg/dL (40-59)
[2019-03-28 07:34] LABS: T4 FREE 1.43 ng/dL (0.76-1.46)
[2019-03-28 08:00] VITALS: BP 116/59
[2019-03-28] MEDS: BLOOD SUGAR DIAGNOSTIC STRIP TEST SCH ×4 (08:19→20:42)
[2019-03-28] MEDS: MORPHINE SULFATE 2 MG/ML CPJ (NOT FOR IM USE) IV PRN ×3 (08:53→22:47)
[2019-03-28] MEDS: INSULIN LISPRO 100 UNITS/ML SUBCUT SCH ×4 (08:54→21:20)
[2019-03-28] MEDS: ENOXAPARIN 30MG/0.3ML SYR SUBCUT SCH (09:00)
[2019-03-28] MEDS ORDERED: ASPIRIN 81MG EC TABLET PO SCH (09:00)
[2019-03-28] MEDS: DIPHENHYDRAMINE 50MG CAPSULE PO PRN (11:28)
[2019-03-28 11:39] LABS: LDL CHOLESTEROL 54 mg/dL (5-100)
[2019-03-28 11:40] LABS: HDL CHOLESTEROL 54 mg/dL (40-59)
[2019-03-28 11:41] LABS: T4 FREE 1.39 ng/dL (0.76-1.46)
[2019-03-28 12:00] VITALS: BP 133/86
[2019-03-28] MEDS: CLOPIDOGREL 75MG TABLET PO SCH (14:47)
[2019-03-28 16:00] VITALS: BP 138/79
[2019-03-28 16:43] LABS: CREATINE KINASE MB FRACTION 2.2 ng/mL (0.5-3.6)
[2019-03-28 20:00] VITALS: BP 118/63
[2019-03-28 23:18] LABS: NUCLEATED RED BLOOD CELLS 1 /100 WBC; PLATELET ESTIMATE NORMAL
[2019-03-29] VITALS: BP 113/78
[2019-03-29 04:00] VITALS: BP 121/78
[2019-03-29] MEDS: MORPHINE SULFATE 2 MG/ML CPJ (NOT FOR IM USE) IV PRN ×2 (04:03→08:23)
[2019-03-29] MEDS: BLOOD SUGAR DIAGNOSTIC STRIP TEST SCH ×4 (07:47→21:01)
[2019-03-29] MEDS: INSULIN LISPRO 100 UNITS/ML SUBCUT SCH ×4 (07:47→21:01)
[2019-03-29 08:00] VITALS: BP 117/21
[2019-03-29] MEDS: CLOPIDOGREL 75MG TABLET PO SCH (08:05)
[2019-03-29] MEDS: ASPIRIN 81MG TABLET PO SCH (08:05)
[2019-03-29] MEDS: ENOXAPARIN 30MG/0.3ML SYR SUBCUT SCH ×2 (08:05→09:00)
[2019-03-29 11:01] LABS: CREATINE KINASE MB FRACTION 1.7 ng/mL (0.5-3.6)
[2019-03-29 12:00] VITALS: BP 122/68
[2019-03-29] MEDS: DIPHENHYDRAMINE 50MG CAPSULE PO PRN ×2 (12:07→20:14)
[2019-03-29] MEDS ORDERED: MORPHINE SULFATE 2 MG/ML CPJ (NOT FOR IM USE) IV PRN (14:00)
[2019-03-29] MEDS: HYDROMORPHONE HCL/PF 2MG/ML CPJ IV PRN ×2 (14:06→23:07)
[2019-03-29] MEDS: CARVEDILOL 3.125 MG TABLET PO SCH (15:21)
[2019-03-29 15:26] LABS: HEMATOCRIT. 34.1 % (36.0-48.0); HEMOGLOBIN. 10.2 g/dL (12.0-16.0); MEAN CORPUSCULAR HEMOGLOBIN 23.3 pg (28.0-32.0); MEAN CORPUSCULAR VOLUME 77.6 fL (81.0-99.0); MEAN PLATELET VOLUME 9.7 fl (7.4-10.4); PLATELET 160 x1000/uL (130-400); RED BLOOD CELL COUNT 4.39 mill/uL (4.2-5.4); RED CELL DISTRIBUTION WIDTH 25.8 % (11.6-14.6)
[2019-03-29 16:00] VITALS: BP 110/63
[2019-03-29 16:01] LABS: PLATELET ESTIMATE NORMAL
[2019-03-29 17:53] LABS: CREATINE KINASE MB FRACTION 2.1 ng/mL (0.5-3.6)
[2019-03-29 20:00] VITALS: BP 108/59
[2019-03-30] VITALS: BP 98/64
[2019-03-30] MEDS: DIPHENHYDRAMINE 50MG CAPSULE PO PRN (03:05)
[2019-03-30 04:00] VITALS: BP 95/84
[2019-03-30 07:49] LABS: HEMATOCRIT. 36.2 % (36.0-48.0); HEMOGLOBIN. 10.8 g/dL (12.0-16.0); MEAN CORPUSCULAR HEMOGLOBIN 23.4 pg (28.0-32.0); MEAN CORPUSCULAR VOLUME 78.3 fL (81.0-99.0); MEAN PLATELET VOLUME 9.8 fl (7.4-10.4); PLATELET 166 x1000/uL (130-400); RED BLOOD CELL COUNT 4.62 mill/uL (4.2-5.4); RED CELL DISTRIBUTION WIDTH 25.7 % (11.6-14.6)
[2019-03-30] MEDS: BLOOD SUGAR DIAGNOSTIC STRIP TEST SCH (07:54)
[2019-03-30] MEDS: INSULIN LISPRO 100 UNITS/ML SUBCUT SCH (07:54)
[2019-03-30 08:00] VITALS: BP 126/66
[2019-03-30] MEDS: HYDROMORPHONE HCL/PF 2MG/ML CPJ IV PRN ×2 (08:09→08:34)
[2019-03-30 08:46] VITALS: BP 126/66
[2019-03-30] MEDS: ENOXAPARIN 30MG/0.3ML SYR SUBCUT SCH (09:00)
[2019-03-30] MEDS: CLOPIDOGREL 75MG TABLET PO SCH (09:48)
[2019-03-30] MEDS: ASPIRIN 81MG TABLET PO SCH (09:49)
[2019-03-30] MEDS: CARVEDILOL 3.125 MG TABLET PO SCH (09:49)
[2019-03-30 17:55] LABS: PLATELET ESTIMATE NORMAL
[2019-04-05] MEDS ORDERED: CARV6.2548 PO (09:37)
[2019-04-05] MEDS ORDERED: CALC667C PO (09:43)
[2019-04-05] MEDS ORDERED: INSU100I24 SQ ×2 (09:43)
[2019-04-05] MEDS ORDERED: RANO500T3 PO (09:43)
[2019-04-05] MEDS ORDERED: ATOR40TA70 PO (09:43)
== END 2019-03-30 10:59 | disposition home or self-care (01) | DRG 311 ==
LOC: ER 11:30 → 7WST 13:06 → EDBEDREQTM 13:09 → EDBEDREQ 13:09 → ENRESERV 22:59
PROVIDERS: ADMIT Internal Medicine; ATTEND Internal Medicine
PROC: 5A1D70Z Performance of Urinary Filtration, Intermittent, Less than 6 Hours Per Day (ICD-10-PCS; 2019-03-27)
PROC: 5A1D70Z Performance of Urinary Filtration, Intermittent, Less than 6 Hours Per Day (ICD-10-PCS; principal; 2019-03-29)
DX: I24.8 Other forms of acute ischemic heart disease (principal); N18.6 End stage renal disease; E46 Unspecified protein-calorie malnutrition; E87.1 Hypo-osmolality and hyponatremia; I13.2 Hypertensive heart and chronic kidney disease with heart failure and with stage 5 chronic kidney disease, or end stage renal disease; I42.9 Cardiomyopathy, unspecified; R07.89 Other chest pain; I25.10 Atherosclerotic heart disease of native coronary artery without angina pectoris; E11.22 Type 2 diabetes mellitus with diabetic chronic kidney disease; E78.5 Hyperlipidemia, unspecified; F17.200 Nicotine dependence, unspecified, uncomplicated; I27.20 Pulmonary hypertension, unspecified; I50.9 Heart failure, unspecified; J44.9 Chronic obstructive pulmonary disease, unspecified; Z95.5 Presence of coronary angioplasty implant and graft; Z86.73 Personal history of transient ischemic attack (TIA), and cerebral infarction without residual deficits; Z95.810 Presence of automatic (implantable) cardiac defibrillator; Z99.2 Dependence on renal dialysis; Z68.23 Body mass index [BMI] 23.0-23.9, adult; Z79.02 Long term (current) use of antithrombotics/antiplatelets; Z79.899 Other long term (current) drug therapy; Z79.82 Long term (current) use of aspirin; I25.2 Old myocardial infarction
CPT/HCPCS: 36415; 71045; 80048; 80053; 80061; 82550; 82553; 82962; 83036; 83735; 83880; 84100; 84439; 84443; 84484; 85025; 85379; 93005; 93306; 93970; 96374; 99285; J1170; J1650; J1815; J2270; J2405; Q0163

== ENCOUNTER 2019-04-05 10:40 | Day surgery (SDC) | payer MEDICARE, MEDICAID ==
[~2019-04-05] VITALS: Ht 170.2 cm; Wt 81.6 kg
[~2019-04-05 10:40] MED LIST changes: +ATOR40TA70 PO; +CALC667C PO; +CARV6.2548 PO; +INSU100I24 SQ; +RANO500T3 PO
[2019-04-05 11:56] LABS: HEMOGLOBIN. 11.4 g/dL (12.0-16.0); MEAN CORPUSCULAR HEMOGLOBIN 22.9 pg (28.0-32.0); MEAN CORPUSCULAR VOLUME 76.5 fL (81.0-99.0); MEAN PLATELET VOLUME 8.8 fl (7.4-10.4); PLATELET 154 x1000/uL (130-400); RED BLOOD CELL COUNT 4.96 mill/uL (4.2-5.4); RED CELL DISTRIBUTION WIDTH 25.1 % (11.6-14.6)
[2019-04-05] MEDS ORDERED: LIDOCAINE HCL 1% 20ML VIAL (Pyxis) INJ ONE (12:03)
[2019-04-05] MEDS ORDERED: BUPIVACAINE HCL/PF 0.5% (5MG/ML) 10ML ONE (12:03)
[2019-04-05] MEDS ORDERED: HEPARIN SODIUM 1,000 UNIT/1ML VIAL IV ONE (12:03)
[2019-04-05] MEDS ORDERED: THROMBIN (BOVINE) 5000 UNITS/VIAL TOP ONE (12:03)
[2019-04-05 12:04] LABS: INR 1.1; PROTHROMBIN TIME 12.2 sec (9.6-11.0)
[2019-04-05] MEDS ORDERED: BACITRACIN 50,000 UNITS/VIAL ONE (12:04)
[2019-04-05] MEDS ORDERED: BACITRACIN 15GM TUBE TOP ONE (12:05)
[2019-04-05] MEDS ORDERED: SODIUM CHLORIDE 0.9% 500 ML IV ONE (12:40)
[2019-04-05 12:43] LABS: NUCLEATED RED BLOOD CELLS 1 /100 WBC; PLATELET ESTIMATE NORMAL
[2019-04-05] MEDS ORDERED: HEPARIN SODIUM 1,000 UNIT/1ML VIAL IV NR (17:00)
== END 2019-04-05 17:40 | disposition home or self-care (01) ==
LOC: OR 10:40
PROVIDERS: ATTEND Surgery Vascular Surgery
DX: I13.2 Hypertensive heart and chronic kidney disease with heart failure and with stage 5 chronic kidney disease, or end stage renal disease (principal); E11.22 Type 2 diabetes mellitus with diabetic chronic kidney disease; N18.6 End stage renal disease; I50.9 Heart failure, unspecified; I25.10 Atherosclerotic heart disease of native coronary artery without angina pectoris; I25.2 Old myocardial infarction; J44.9 Chronic obstructive pulmonary disease, unspecified; I42.9 Cardiomyopathy, unspecified; Z98.890 Other specified postprocedural states; Z79.82 Long term (current) use of aspirin; Z79.4 Long term (current) use of insulin; Z79.899 Other long term (current) drug therapy; Z87.891 Personal history of nicotine dependence; Z82.49 Family history of ischemic heart disease and other diseases of the circulatory system; Z95.0 Presence of cardiac pacemaker
CPT/HCPCS: 36415; 36830; 80048; 82962; 85025; 85610; 85730; 93005; C1768; J1644; J3490; J7030

== ENCOUNTER 2019-04-06 18:47 | Inpatient (IN) | payer MEDICARE, MEDICAID ==
[~2019-04-06] VITALS: Ht 162.6 cm; Wt 68.9 kg
[~2019-04-06 18:47] MED LIST changes: -COR12 PO; -GABA-531 PO; -INSNOV SUBCUT; -INSU100I22 SQ; -SIMV-46 PO
[2019-04-06] MEDS ORDERED: MORPHINE SULFATE 2 MG/ML CPJ (NOT FOR IM USE) IV ONE (19:30)
[2019-04-06 19:45] LABS: HEMATOCRIT. 35.4 % (36.0-48.0); HEMOGLOBIN. 10.6 g/dL (12.0-16.0); MEAN CORPUSCULAR HEMOGLOBIN 23.1 pg (28.0-32.0); MEAN CORPUSCULAR VOLUME 76.6 fL (81.0-99.0); MEAN PLATELET VOLUME 9.2 fl (7.4-10.4); PLATELET 152 x1000/uL (130-400); RED BLOOD CELL COUNT 4.61 mill/uL (4.2-5.4); RED CELL DISTRIBUTION WIDTH 24.8 % (11.6-14.6)
[2019-04-06 19:52] LABS: CHLORIDE 98 mEq/L (98-107)
[2019-04-06 19:53] LABS: INR 1.1; PARTIAL THROMBOPLASTIN TIME 26.4 sec (23.4-31.0); PROTHROMBIN TIME 12.1 sec (9.6-11.0)
[2019-04-06 20:06] LABS: PLATELET ESTIMATE NORMAL
[2019-04-06] MEDS ORDERED: ASPIRIN 325MG EC TABLET PO ONE (20:15)
[2019-04-06] MEDS ORDERED: INSULIN REGULAR (HUMULIN R) 300UNITS/3ML SUBCUT ONE (21:30)
[2019-04-07] VITALS (7 sets, daily range): BP systolic 98–111; BP diastolic 56–68
[2019-04-07] MEDS ORDERED: ONDANSETRON HCL 4MG TABLET PO PRN (01:45)
[2019-04-07] MEDS ORDERED: MORPHINE SULFATE 2 MG/ML CPJ (NOT FOR IM USE) IV PRN (01:45)
[2019-04-07] MEDS ORDERED: DIPHENHYDRAMINE 50MG/ML VIAL IV PRN (01:45)
[2019-04-07] MEDS ORDERED: DEXTROSE 50% WATER 50ML SYRINGE IV PRN ×2 (01:45→08:15)
[2019-04-07] MEDS ORDERED: HYDROCODONE/ACETAMINOPHEN 5/325MG TABLET PO PRN (02:00)
[2019-04-07] MEDS: CARVEDILOL 6.25 MG TABLET PO SCH ×2 (05:18→21:14)
[2019-04-07] MEDS: HYDRALAZINE HCL 25MG TABLET PO SCH ×2 (05:18→13:42)
[2019-04-07] MEDS: BLOOD SUGAR DIAGNOSTIC STRIP TEST SCH ×4 (05:59→21:14)
[2019-04-07] MEDS: CALCIUM ACETATE 667MG CAPSULE PO SCH ×4 (08:10→18:10)
[2019-04-07] MEDS: RANOLAZINE 500 MG TAB.SR.12H PO SCH ×2 (08:38→21:14)
[2019-04-07] MEDS: CLOPIDOGREL 75MG TABLET PO SCH (08:38)
[2019-04-07] MEDS: ASPIRIN 81MG EC TABLET PO SCH (08:38)
[2019-04-07] MEDS: INSULIN LISPRO 100 UNITS/ML SUBCUT SCH ×4 (08:47→21:00)
[2019-04-07 13:00] LABS: HEMATOCRIT. 36.7 % (36.0-48.0); MEAN CORPUSCULAR HEMOGLOBIN 22.9 pg (28.0-32.0); MEAN CORPUSCULAR VOLUME 76.2 fL (81.0-99.0); MEAN PLATELET VOLUME 8.9 fl (7.4-10.4); PLATELET 158 x1000/uL (130-400); RED BLOOD CELL COUNT 4.81 mill/uL (4.2-5.4); RED CELL DISTRIBUTION WIDTH 24.3 % (11.6-14.6)
[2019-04-07 13:45] LABS: PLATELET ESTIMATE NORMAL
[2019-04-07] MEDS: INSULIN GLARGINE UD 100 UNITS/ML SYR SUBCUT SCH ×2 (14:14→23:28)
[2019-04-07] MEDS: ENOXAPARIN 30MG/0.3ML SYR SUBCUT SCH (16:30)
[2019-04-07] MEDS ORDERED: MORPHINE SULFATE 2 MG/ML CPJ (NOT FOR IM USE) IV NR (18:30)
[2019-04-07] MEDS: ATORVASTATIN CALCIUM 40MG TABLET PO SCH (21:14)
[2019-04-08] VITALS: BP 118/67
[2019-04-08 04:00] VITALS: BP_SYST 108; BP_SYST 118; BP_DIAS 57; BP_DIAS 63
[2019-04-08 06:26] LABS: HEMOGLOBIN. 10.9 g/dL (12.0-16.0); MEAN CORPUSCULAR HEMOGLOBIN 22.8 pg (28.0-32.0); MEAN CORPUSCULAR VOLUME 75.7 fL (81.0-99.0); MEAN PLATELET VOLUME 9.8 fl (7.4-10.4); PLATELET 163 x1000/uL (130-400); RED BLOOD CELL COUNT 4.75 mill/uL (4.2-5.4); RED CELL DISTRIBUTION WIDTH 24.1 % (11.6-14.6)
[2019-04-08] MEDS: BLOOD SUGAR DIAGNOSTIC STRIP TEST SCH ×4 (07:55→21:00)
[2019-04-08 08:40] VITALS: BP 104/65
[2019-04-08] MEDS: LOSARTAN POTASSIUM 25 MG TABLET PO SCH (09:00)
[2019-04-08] MEDS: CALCIUM ACETATE 667MG CAPSULE PO SCH ×3 (09:53→18:54)
[2019-04-08] MEDS: INSULIN LISPRO 100 UNITS/ML SUBCUT SCH ×4 (10:25→21:00)
[2019-04-08] MEDS: CARVEDILOL 6.25 MG TABLET PO SCH ×2 (10:27→21:00)
[2019-04-08] MEDS: CLOPIDOGREL 75MG TABLET PO SCH (10:28)
[2019-04-08] MEDS: RANOLAZINE 500 MG TAB.SR.12H PO SCH ×2 (10:28→22:33)
[2019-04-08] MEDS: ASPIRIN 81MG EC TABLET PO SCH (10:28)
[2019-04-08] MEDS: INSULIN GLARGINE UD 100 UNITS/ML SYR SUBCUT SCH ×2 (12:56→22:00)
[2019-04-08 14:56] LABS: NUCLEATED RED BLOOD CELLS 2 /100 WBC; PLATELET ESTIMATE NORMAL
[2019-04-08] MEDS ORDERED: MORPHINE SULFATE 2 MG/ML CPJ (NOT FOR IM USE) IV NR (15:00)
[2019-04-08 15:54] VITALS: BP 104/52
[2019-04-08] MEDS: ENOXAPARIN 30MG/0.3ML SYR SUBCUT SCH (18:16)
[2019-04-08 20:00] VITALS: BP 108/57
[2019-04-08] MEDS: ATORVASTATIN CALCIUM 40MG TABLET PO SCH (22:32)
[2019-04-09] VITALS: BP 109/58
[2019-04-09 06:00] VITALS: BP 95/60
[2019-04-09 08:10] VITALS: BP 102/56
[2019-04-09] MEDS: INSULIN LISPRO 100 UNITS/ML SUBCUT SCH ×2 (08:10→15:05)
[2019-04-09] MEDS: BLOOD SUGAR DIAGNOSTIC STRIP TEST SCH ×2 (08:17→13:29)
[2019-04-09] MEDS: LOSARTAN POTASSIUM 25 MG TABLET PO SCH (08:18)
[2019-04-09] MEDS: CARVEDILOL 6.25 MG TABLET PO SCH (09:00)
[2019-04-09] MEDS: CALCIUM ACETATE 667MG CAPSULE PO SCH ×3 (09:54→13:10)
[2019-04-09] MEDS: CLOPIDOGREL 75MG TABLET PO SCH (09:54)
[2019-04-09] MEDS: ASPIRIN 81MG EC TABLET PO SCH (09:54)
[2019-04-09] MEDS ORDERED: MORPHINE SULFATE 2 MG/ML CPJ (NOT FOR IM USE) IV PRN (10:15)
[2019-04-09] MEDS: RANOLAZINE 500 MG TAB.SR.12H PO SCH (11:25)
[2019-04-09] MEDS: INSULIN GLARGINE UD 100 UNITS/ML SYR SUBCUT SCH (11:29)
[2019-04-09 11:54] LABS: HEMATOCRIT. 36.5 % (36.0-48.0); HEMOGLOBIN. 11.1 g/dL (12.0-16.0); MEAN CORPUSCULAR HEMOGLOBIN 22.9 pg (28.0-32.0); MEAN CORPUSCULAR VOLUME 75.5 fL (81.0-99.0); MEAN PLATELET VOLUME 9.4 fl (7.4-10.4); PLATELET 177 x1000/uL (130-400); RED BLOOD CELL COUNT 4.84 mill/uL (4.2-5.4); RED CELL DISTRIBUTION WIDTH 24.1 % (11.6-14.6)
[2019-04-09 13:14] VITALS: BP 105/59
[2019-04-09 13:30] VITALS: BP 105/59
[2019-04-09 13:58] LABS: NUCLEATED RED BLOOD CELLS 1 /100 WBC; PLATELET ESTIMATE NORMAL
== END 2019-04-09 17:09 | disposition home or self-care (01) | DRG 291 ==
LOC: ER 18:47 → 7WST 20:57 → EDBEDREQTM 22:06 → EDBEDREQ 22:06 → ENRESERV 23:32
PROVIDERS: ADMIT Internal Medicine; ATTEND Internal Medicine
PROC: 5A1D70Z Performance of Urinary Filtration, Intermittent, Less than 6 Hours Per Day (ICD-10-PCS; principal; 2019-04-07)
PROC: 5A1D70Z Performance of Urinary Filtration, Intermittent, Less than 6 Hours Per Day (ICD-10-PCS; 2019-04-08)
DX: I13.2 Hypertensive heart and chronic kidney disease with heart failure and with stage 5 chronic kidney disease, or end stage renal disease (principal); E43 Unspecified severe protein-calorie malnutrition; I50.23 Acute on chronic systolic (congestive) heart failure; N18.6 End stage renal disease; I24.9 Acute ischemic heart disease, unspecified; E87.1 Hypo-osmolality and hyponatremia; I42.9 Cardiomyopathy, unspecified; D63.8 Anemia in other chronic diseases classified elsewhere; E11.22 Type 2 diabetes mellitus with diabetic chronic kidney disease; E78.5 Hyperlipidemia, unspecified; F17.210 Nicotine dependence, cigarettes, uncomplicated; I25.10 Atherosclerotic heart disease of native coronary artery without angina pectoris; I27.20 Pulmonary hypertension, unspecified; I08.1 Rheumatic disorders of both mitral and tricuspid valves; J44.9 Chronic obstructive pulmonary disease, unspecified; Z95.5 Presence of coronary angioplasty implant and graft; Z95.810 Presence of automatic (implantable) cardiac defibrillator; Z99.2 Dependence on renal dialysis; Z88.5 Allergy status to narcotic agent; Z79.4 Long term (current) use of insulin; Z79.899 Other long term (current) drug therapy; Z91.19 Patient's noncompliance with other medical treatment and regimen; Z68.26 Body mass index [BMI] 26.0-26.9, adult; Z71.6 Tobacco abuse counseling
CPT/HCPCS: 36415; 71045; 80048; 80053; 80061; 82962; 83036; 83880; 84484; 85025; 93005; 97162; 99285; J1650; J1815; J2270

== ENCOUNTER 2019-04-12 20:19 | Inpatient (IN) | payer MEDICARE, MEDICAID ==
[~2019-04-12] VITALS: Ht 170.2 cm; Wt 70.3 kg
[2019-04-12] MEDS ORDERED: GUAIFENESIN 200MG/10ML SUGAR FREE UDC PO PRN (21:15)
[2019-04-12] MEDS ORDERED: HYDROCODONE/ACETAMINOPHEN 5/325MG TABLET PO PRN (21:15)
[2019-04-12] MEDS ORDERED: CLONIDINE 0.1MG TABLET PO PRN (21:15)
[2019-04-12] MEDS ORDERED: NA PHOS,M-B/NA PHOS,DI-BA ENEMA 118ML PR PRN (21:15)
[2019-04-12] MEDS ORDERED: DOCUSATE SODIUM 100MG CAPSULE PO PRN (21:15)
[2019-04-12] MEDS ORDERED: LORAZEPAM 2MG/ML CPJ IV PRN (21:15)
[2019-04-12] MEDS ORDERED: IPRATROPIUM/ALBUTEROL 0.5-3(2.5)MG/3ML NEB NEB PRN (21:15)
[2019-04-12] MEDS ORDERED: MAGNESIUM/ALUMINUM HYDROXIDE/SIMETHICONE 30ML UDC PO PRN (21:15)
[2019-04-12] MEDS ORDERED: ENOXAPARIN 40MG/0.4ML SYR SUBCUT SCH (21:15)
[2019-04-12] MEDS ORDERED: DIPHENHYDRAMINE 50MG/ML VIAL IV PRN (21:15)
[2019-04-12] MEDS ORDERED: ACETAMINOPHEN 325MG TABLET PO PRN (21:15)
[2019-04-12 21:58] LABS: CHLORIDE 98 mEq/L (98-107)
[2019-04-12 22:06] LABS: HEMATOCRIT. 35.3 % (36.0-48.0); HEMOGLOBIN. 10.6 g/dL (12.0-16.0); MEAN CORPUSCULAR HEMOGLOBIN 22.8 pg (28.0-32.0); MEAN CORPUSCULAR VOLUME 75.8 fL (81.0-99.0); MEAN PLATELET VOLUME 9.1 fl (7.4-10.4); PLATELET 222 x1000/uL (130-400); RED BLOOD CELL COUNT 4.66 mill/uL (4.2-5.4); RED CELL DISTRIBUTION WIDTH 22.8 % (11.6-14.6)
[2019-04-12 22:29] LABS: PLATELET ESTIMATE NORMAL
[2019-04-12] MEDS ORDERED: DEXTROSE 50% WATER 50ML SYRINGE IV ONE (23:00)
[2019-04-12] MEDS ORDERED: SODIUM BICARBONATE 8.4% 1 MEQ/ML 50ML SYR IV ONE (23:00)
[2019-04-12] MEDS ORDERED: INSULIN REGULAR (HUMULIN R) 300UNITS/3ML IV ONE (23:00)
[2019-04-13] MEDS: ONDANSETRON HCL 4MG/2ML INJ IV PRN ×2 (00:17→08:19)
[2019-04-13] MEDS: MORPHINE SULFATE 2 MG/ML CPJ (NOT FOR IM USE) IV PRN ×3 (01:09→18:56)
[2019-04-13 05:11] LABS: HEMATOCRIT. 36.2 % (36.0-48.0); HEMOGLOBIN. 10.8 g/dL (12.0-16.0); MEAN CORPUSCULAR HEMOGLOBIN 22.7 pg (28.0-32.0); MEAN CORPUSCULAR VOLUME 75.8 fL (81.0-99.0); MEAN PLATELET VOLUME 9.3 fl (7.4-10.4); PLATELET 210 x1000/uL (130-400); RED BLOOD CELL COUNT 4.77 mill/uL (4.2-5.4); RED CELL DISTRIBUTION WIDTH 23.9 % (11.6-14.6)
[2019-04-13 07:02] LABS: NUCLEATED RED BLOOD CELLS 1 /100 WBC
[2019-04-13 07:03] LABS: PLATELET ESTIMATE NORMAL
[2019-04-13 11:54] LABS: CHLORIDE 99 mEq/L (98-107)
[2019-04-13 12:01] LABS: LDL CHOLESTEROL 50 mg/dL (5-100)
[2019-04-13 12:02] LABS: HDL CHOLESTEROL 57 mg/dL (40-59); T4 FREE 1.35 ng/dL (0.76-1.46)
[2019-04-13] MEDS: ASPIRIN 81MG EC TABLET PO SCH (13:08)
[2019-04-13] MEDS: ENOXAPARIN 30MG/0.3ML SYR SUBCUT SCH (13:08)
[2019-04-13 16:00] VITALS: BP 112/58
[2019-04-13 17:50] VITALS: BP 112/58
[2019-04-13] MEDS ORDERED: DEXTROSE 50% WATER 50ML SYRINGE IV PRN (18:15)
[2019-04-13 20:00] VITALS: BP 130/64
[2019-04-13] MEDS: INSULIN LISPRO 100 UNITS/ML SUBCUT SCH (21:52)
[2019-04-13] MEDS: BLOOD SUGAR DIAGNOSTIC STRIP TEST SCH (21:52)
[2019-04-14] VITALS: BP 118/61
[2019-04-14] MEDS: MORPHINE SULFATE 2 MG/ML CPJ (NOT FOR IM USE) IV PRN ×2 (03:47→11:04)
[2019-04-14 04:00] VITALS: BP 106/53
[2019-04-14] MEDS: BLOOD SUGAR DIAGNOSTIC STRIP TEST SCH ×2 (07:42→12:23)
[2019-04-14 08:00] VITALS: BP 105/55
[2019-04-14] MEDS: ASPIRIN 81MG EC TABLET PO SCH (08:27)
[2019-04-14] MEDS: INSULIN LISPRO 100 UNITS/ML SUBCUT SCH ×2 (08:30→12:23)
[2019-04-14] MEDS: ENOXAPARIN 30MG/0.3ML SYR SUBCUT SCH (10:33)
[2019-04-14 12:00] VITALS: BP 102/49
[2019-04-14] MEDS ORDERED: NEOMY SULF/BACITRAC ZN/POLY OINT 28GM TOP SCH (14:00)
[2019-04-14 14:03] VITALS: BP 102/49
== END 2019-04-14 14:45 | disposition home or self-care (01) | DRG 391 ==
LOC: ER 20:19 → 7WST 22:53 → ENRESERV 04-13 13:53
PROVIDERS: ADMIT Internal Medicine; ATTEND Internal Medicine
PROC: 5A1D70Z Performance of Urinary Filtration, Intermittent, Less than 6 Hours Per Day (ICD-10-PCS; principal; 2019-04-13)
DX: K21.9 Gastro-esophageal reflux disease without esophagitis (principal); N18.6 End stage renal disease; I13.2 Hypertensive heart and chronic kidney disease with heart failure and with stage 5 chronic kidney disease, or end stage renal disease; E46 Unspecified protein-calorie malnutrition; E87.70 Fluid overload, unspecified; I50.9 Heart failure, unspecified; E11.22 Type 2 diabetes mellitus with diabetic chronic kidney disease; E86.0 Dehydration; I25.10 Atherosclerotic heart disease of native coronary artery without angina pectoris; J44.9 Chronic obstructive pulmonary disease, unspecified; D64.9 Anemia, unspecified; Z86.73 Personal history of transient ischemic attack (TIA), and cerebral infarction without residual deficits; Z87.891 Personal history of nicotine dependence; Z95.5 Presence of coronary angioplasty implant and graft; Z99.2 Dependence on renal dialysis; Z79.02 Long term (current) use of antithrombotics/antiplatelets; Z79.4 Long term (current) use of insulin; Z79.899 Other long term (current) drug therapy; Z95.810 Presence of automatic (implantable) cardiac defibrillator; Z68.24 Body mass index [BMI] 24.0-24.9, adult
CPT/HCPCS: 36415; 71045; 80048; 80053; 80061; 82962; 83036; 84439; 84443; 84484; 85025; 93005; 99291; J1650; J1815; J2270; J2405; J3490